=== PATIENT | male | born 1965 | race Caucasian/White ===

== ENCOUNTER 2016-07-24 17:25 | Observation (INO) | payer OTHER ==
[~2016-07-24 17:25] MED LIST: AMOX500C PO; ASPI325T PO; CARV6.25 PO; FOLI5CAP PO; GABA300C5 PO; LAMO25 PO; LEVEMIR SQ; MAAL10003 CHEW; METF500T PO; NOVOLOGSS SQ; PANT20 PO; THERM PO; VENL75TA PO
[2016-07-24 17:33] VITALS: BP 125/73; PULSE 112; RESP 16; TEMP 99.2; O2SAT 98
--- NOTE | 2016-07-24 18:19 | RADRPT ---
EXAM DATE/TIME: 07/24/2016 17:58 [facility] COMPARISON: No previous studies available for comparison. INDICATIONS : Syncopal episode today. MEDICAL HISTORY : Hypertension. Chronic obstructive pulmonary disease. Diabetes mellitus type II. SURGICAL HISTORY : CABG. ENCOUNTER: Initial ACUITY: 1 day PAIN SCORE: 0/10 LOCATION: Bilateral chest FINDINGS: A single view of the chest demonstrates the lungs to be symmetrically aerated without evidence of mas s, infiltrate or effusion. The cardiomediastinal contours are unremarkable. Osseous structures are intact. CONCLUSION: No evidence of acute cardiopulmonary disease. Ramon Fox MD on July 24, 2016 at 18:17 Board Certified Radiologist. This report was verified electronically.
[2016-07-24 18:37] VITALS: BP 131/86; PULSE 106; RESP 17; TEMP 97.8; O2SAT 98
[2016-07-24 18:49] LABS: AUTOMATED NEUTROPHIL # 3.3 TH/MM3 (1.8-7.7); BASOPHIL % 0.6 % (0.0-2.0); EOSINOPHIL % 0.8 % (0.0-4.0); HEMATOCRIT 40.3 % (39.0-51.0); HEMO FLAGS DIFF FINAL; LYMPH % 40.6 % (9.0-44.0); LYMPHOCYTE # 2.6 TH/MM3 (1.0-4.8); MEAN CORPUSCULAR HEMOGLOBIN 32.1 PG (27.0-34.0); MEAN CORPUSCULAR HGB CONC 35.3 % (32.0-36.0); PLATELET COUNT 191 TH/MM3 (150-450); RED BLOOD COUNT 4.43 MIL/MM3 (4.50-5.90); RED CELL DISTRIBUTION WIDTH 13.7 % (11.6-17.2); WHITE BLOOD COUNT 6.5 TH/MM3 (4.0-11.0)
[2016-07-24 19:11] VITALS: BP 133/96; PULSE 106; RESP 18; TEMP 98.7; O2SAT 94
[2016-07-24 19:13] LABS: ANION GAP 15 MEQ/L (5-15); BICARBONATE 24.3 MEQ/L (21.0-32.0); BLOOD UREA NITROGEN 10 MG/DL (7-18); CHLORIDE 93 MEQ/L (98-107); GLOMERULAR FILTRATION RATE 74 ML/MIN (>89); SODIUM (NA) 132 MEQ/L (136-145)
[2016-07-24 19:17] LABS: CREATINE KINASE 215 U/L (39-308)
[2016-07-24] MEDS ORDERED: SODIUM CHLOR 0.9% 1000 ML INJ 1,000 ML IV SCH (19:20)
[2016-07-24 19:29] LABS: CKMB 5.8 NG/ML (0.5-3.6)
[2016-07-24] MEDS ORDERED: MORPHINE SULFATE 4 MG/ML INJ IV PUSH ONE (19:30)
--- NOTE | 2016-07-24 19:48 | PD ---
HPI Chief Complaint: Chest Pain Time Seen by Provider: 19:38 Travel History International Travel<30 days: No Contact w/Intl Traveler<30days: No Traveled to known affect area: No History of Present Illness HPI 51-year-old male to presents to the ED for evaluation of right-sided chest pain that he's had on and off for the past week. Per patient she does have a significant history of diabetes as well as hypertension and previous CABG in 2013. Per patient he has an appointment in August with a animal killer for evaluation of his heart as he follows with the OR and he does take a while for him to get follow-up. Per patient he was told that his EKG was abnormal by the OR recently and that is why he was going to go to the animal killer. Per patient he currently takes no blood thinners. He denies any recent trauma. He does tell me that in May of this year he had his gallbladder removed. He states the most of the pain stays on the right side of the chest. Per patient the pain is sharp pain is 8 out of 10. Patient was given nitroglycerin and aspirin by ambulance on the way here with minimal relief. Patient states that he does feel somewhat short of breath. He also tells me that his sugars have been not under control and he states that he's been complaining. He denies any nausea or vomiting. He denies any fevers chills or sweats. He does state having some cough. Allergy to sulfa. PFSH Past Medical History Hx Anticoagulant Therapy: Yes (ASA) Arthritis: No Asthma: No Autoimmune Disease: No Anxiety: Yes Depression: Yes Heart Rhythm Problems: No Cancer: No Cardiovascular Problems: Yes High Cholesterol: Yes Chemotherapy: No Chest Pain: No Congestive Heart Failure: No COPD: Yes Cerebrovascular Accident: No Diabetes: Yes Patient Takes Glucophage: Yes Diminished Hearing: No Endocrine: Yes Gastrointestinal Disorders: Yes (COLITIS ) GERD: No Genitourinary: No Headaches: No Hiatal Hernia: No Heparin Induced Thrombocytopen: No Hypertension: Yes Immune Disorder: No Implanted Vascular Access Dvce: No Kidney Stones: No Musculoskeletal: Yes Neurologic: Yes Psychiatric: Yes (PTSD) Reproductive: No Respiratory: Yes Immunizations Current: Yes Myocardial Infarction: Yes (1X) Radiation Therapy: No Renal Failure: No Seizures: No Sickle Cell Disease: No Sleep Apnea: No Thyroid Disease: No Ulcer: No ?: Not Past Surgical History Abdominal Surgery: Yes (APPENDECTOMY) AICD: No Appendectomy: Yes (LATE 90'S ) Arteriovenous Shunt: No Coronary Artery Bypass Graft: Yes (2 VESSEL) Ear Surgery: No Endocrine Surgery: No Eye Surgery: No Genitourinary Surgery: No Gynecologic Surgery: No Insulin Pump: No Joint Replacement: No Oral Surgery: No Pacemaker: No Thoracic Surgery: No Other Surgery: Yes (3 back surgeries, and 1 neck surgery) Social History Alcohol Use: Yes (12 PK EVERY DAY; 6 pack today) Tobacco Use: No Substance Use: Yes Allergies-Medications (Allergen,Severity, Reaction): Coded Allergies: Sulfa (Verified Allergy, Mild, Rash, 07/24/16) Reported Meds & Prescriptions Reported Meds & Active Scripts Active Maalox Advanced Maximum Strength (Calcium Carbonate-Simethicone) 1,000-60 Mg Chew 1-2 Tab CHEW BID PRN 7 Days Reported Amoxicillin 500 Mg Cap 500 Mg PO DAILY Coreg (Carvedilol) 6.25 Mg Tab 6.25 Mg PO ONCE Folic Acid 5 Mg Cap 1 Mg PO DAILY Novolog Inj (Insulin Aspart) 100 Unit/Ml Inj SQ [id number] SLIDE SCALE Gabapentin 300 Mg Cap 300 Mg PO BID Levemir Inj (Insulin Detemir) 1,000 unit/ 10 ML Vial 30 Units SQ BID Do not mix with any other Insulin. Lamictal (Lamotrigine) 25 Mg Tab 50 Mg PO DAILY Metformin (Metformin HCl) 500 Mg Tab 500 Mg PO BIDPC With meals Thera M Plus (Multivitamins/Minerals Therapeutic) 1 Tab 1 Tab PO DAILY Protonix (Pantoprazole Sodium) 20 Mg Tab 20 Mg PO DAILY Effexor (Venlafaxine HCl) 75 Mg Tab 75 Mg PO DAILY Aspirin 325 Mg Tab 325 Mg PO DAILY Review of Systems General / Constitutional: No: Fever, Chills, Weight Gain, Weight Loss, Other Eyes: No: Diploplia, Blurred Vision, Photophobia, Drainage, Redness, Foreign Body Sensation, Pain, Tearing, Blind Spots, Visual changes, Blindness, Other HENT: No: Headaches, Vertigo, Lightheadedness, Sore Throat, Rhinitis, Rhinorrhea, Congestion, Nosebleed, Neck Stiffness, Neck Pain, Masses, Gingival Bleeding, Dental Difficulties, Ear Discharge, Earache, Other Cardiovascular: Positive: Chest Pain or Discomfort, No: Palpitations, Irregular Rhythm, Tachycardia, Diaphoresis, Syncope, Dyspnea on exertion, Varicosities, Edema, Cyanosis, Varicosities, Phlebitis, Claudication, Other Respiratory: Positive: Cough, Shortness of Breath, No: Wheezing, Sneezing, Orthopnea, Hemoptysis, Stridor, Night Sweats, Pleuritic Pain, Other Gastrointestinal: No: Nausea, Vomiting, Diarrhea, Abdominal Pain, Hematemesis, Hematochezia, Constipation, Changes in Bowel Habits, Indigestion, Dysphagia, Loss of Appetite, Other Genitourinary: No: Urgency, Frequency, Dysuria, Nocturia, Hematuria, Decreased Urinary Output, Oliguria, Hesitancy, Dribbling, Incontinence, Pelvic Pain, Flank Pain, Dyspareunia, Discharge, Dysmenorrhea, Menorrhagia, Metorrhagia, Vaginal Bleeding, Other Musculoskeletal: No: Myalgias, Arthralgias, Limited ROM, Weakness, Cramping, Edema, Pain, Atrophy, Other Skin: No Rash, No Itching, No Dryness, No Lumps, No Hives, No Change in Pigmentation, No Change in nails, No Alopecia, No Lesions, No Breast Lumps, No Breast Tenderness, No Breast Swelling, No Other Neurologic: No: Weakness, Dizziness, Syncope, Focal Abnormalities, Coordination Problem, Tremor, Ataxia, Headache, Change in Mentation, Slurred Speech, Paresthesia, Incontinence, Seizures, Sensory Disturbance, Other Psychiatric: No: Anxiety, Depression, Suicidal Ideations, Disorder of Thought, Mood Disorder, Substance Abuse, Homicidal Ideation, Other Endocrine: No: Heat Intolerance, Cold Intolerance, Polyuria, Polydipsia, Other Hematologic/Lymphatic: No: Easy Bruising, Lymph Node Enlargement, Other Physical Exam Narrative GENERAL: SKIN: Warm and dry. HEAD: Atraumatic. Normocephalic. EYES: Pupils equal and round 4 mm reactive to light and accommodation. No scleral icterus. No injection or drainage. ENT: No nasal bleeding or discharge. Mucous membranes pink and moist. Tongue is midline. No uvula deviation. NECK: Trachea midline. No JVD. CARDIOVASCULAR: Regular rate and rhythm. No murmurs, S3, S4. Chest pain is not reproducible with touch. RESPIRATORY: No accessory muscle use. Clear to auscultation. Breath sounds equal bilaterally. GASTROINTESTINAL: Abdomen soft, non-tender, nondistended. Hepatic and splenic margins not palpable. MUSCULOSKELETAL: Extremities without clubbing, cyanosis, or edema. No obvious deformities. Full range of motion of the upper and lower extremities bilaterally. 2+ pulses bilaterally. NEUROLOGICAL: Awake and alert. No obvious cranial nerve deficits. Motor grossly within normal limits. Five out of 5 muscle strength in the arms and legs. Normal speech. PSYCHIATRIC: Appropriate mood and affect; insight and judgment normal. Data Data Last Documented VS Vital Signs Date Time Temp Pulse Resp B/P Pulse Ox O2 Delivery O2 Flow Rate FiO2 07/24/16 19:11 98.7 106 18 133/96 94 Room Air Orders Electrocardiogram (07/24/16 17:49) Complete Blood Count With Diff (07/24/16:49) Basic Metabolic Panel (Bmp) (07/24/16 17:49) Ckmb (Isoenzyme) Profile (07/24/16 17:49) Troponin I (07/24/16:49) Chest, Single Ap (07/24/16:49) Iv Access Insert/Monitor (07/24/16:49) Ecg Monitoring (07/24/16:49) Oxygen Administration (07/24/16:49) Oximetry (07/24/16:49) Urinalysis - C+S If Indicated (07/24/16 17:49) CKMB (07/24/16 18:15) CKMB% (07/24/16 18:15) Morphine Inj (Morphine Inj) (07/24/16 19:30) Sodium Chlor 0.9% 1000 Ml Inj (Ns 1000 M (07/24/16 19:20) Coag Profile (07/24/16 19:42) D-Dimer (07/24/16 19:42) Lorazepam Inj (Ativan Inj) (07/24/16 20:00) Admit Order (Ed Use Only) (07/24/16 19:58) Hepatic Functional Panel (07/24/16 18:15) Labs Laboratory Tests Test 07/24/16 07/24/16 18:15 19:15 White Blood Count 6.5 TH/MM3 Red Blood Count 4.43 MIL/MM3 Hemoglobin 14.2 GM/DL Hematocrit 40.3 % Mean Corpuscular Volume 91.0 FL Mean Corpuscular Hemoglobin 32.1 PG Mean Corpuscular Hemoglobin 35.3 % Concent Red Cell Distribution Width 13.7 % Platelet Count 191 TH/MM3 Mean Platelet Volume 8.5 FL Neutrophils (%) (Auto) 51.0 % Lymphocytes (%) (Auto) 40.6 % Monocytes (%) (Auto) 7.0 % Eosinophils (%) (Auto) 0.8 % Basophils (%) (Auto) 0.6 % Neutrophils # (Auto) 3.3 TH/MM3 Lymphocytes # (Auto) 2.6 TH/MM3 Monocytes # (Auto) 0.5 TH/MM3 Eosinophils # (Auto) 0.0 TH/MM3 Basophils # (Auto) 0.0 TH/MM3 CBC Comment DIFF FINAL Differential Comment Prothrombin Time 11.2 SEC Prothromb Time International 1.0 RATIO Ratio Activated Partial 24.5 SEC Thromboplast Time D-Dimer Quantitative (PE/DVT) 0.27 MG/L FEU Sodium Level 132 MEQ/L Potassium Level 4.0 MEQ/L Chloride Level 93 MEQ/L Carbon Dioxide Level 24.3 MEQ/L Anion Gap 15 MEQ/L Blood Urea Nitrogen 10 MG/DL Creatinine 1.05 MG/DL Estimat Glomerular Filtration 74 ML/MIN Rate Random Glucose 372 MG/DL Calcium Level 8.6 MG/DL Total Bilirubin 0.5 MG/DL Direct Bilirubin 0.1 MG/DL Indirect Bilirubin 0.4 MG/DL Aspartate Amino Transf 28 U/L (AST/SGOT) Alanine Aminotransferase 32 U/L (ALT/SGPT) Alkaline Phosphatase 96 U/L Total Creatine Kinase 215 U/L Creatine Kinase MB 5.8 NG/ML Troponin I LESS THAN 0.02 NG/ML Total Protein 7.8 GM/DL Albumin 3.7 GM/DL Urine Color COLORLESS Urine Turbidity CLEAR Urine pH 5.0 Urine Specific [place] 1.002 Urine Protein NEG mg/dL Urine Glucose (UA) 1000 mg/dL Urine Ketones NEG mg/dL Urine Occult Blood NEG Urine Nitrite NEG Urine Bilirubin NEG Urine Urobilinogen LESS THAN 2.0 MG/DL Urine Leukocyte Esterase NEG Urine Mucus FEW /lpf Microscopic Urinalysis Comment CULT NOT INDICATED MDM Medical Decision Making Medical Screen Exam Complete: Yes Emergency Medical Condition: Yes Medical Record Reviewed: Yes Interpretation(s) CBC & BMP Diagram 07/24/16 18:15 Troponin and CK-MB within normal limits. Differential Diagnosis Chest pain versus atypical chest pain versus PE versus pneumonia versus ACS versus hyperglycemia versus DKA Narrative Course 51-year-old male that presents to the ED for evaluation of right-sided chest pain. Patient was properly examined and was found to have signs and symptoms consistent with appears to be chest pain. Concerning for ACS. Recommendation is for labs and imaging. Labs and imaging were ordered. Case was signed out to my attending who will dispo patient for likely admission. Diagnosis Primary Impression: Chest pain Qualified Code: R07.9 - Chest pain, unspecified type Admitting Information Admitting Physician Requests: Ezekiel Gant Jul 24, 2016 19:48
[2016-07-24 19:53] LABS: BLOOD, URINE NEG (NEG); GLUCOSE,URINE 1000 mg/dL (NEG); KETONE, URINE NEG (NEG); MUCUS URINE FEW /lpf (OCC); NITRITE,URINE NEG (NEG); URINE COLOR COLORLESS (YELLW/STRAW)
[2016-07-24 19:54] LABS: COMMENT (UR) CULT NOT INDICATED; CULTURE IF INDICATED CULT NOT INDICATED
[2016-07-24] MEDS ORDERED: LORazepam 2 MG/ML VIAL IV PUSH ONE (20:00)
[2016-07-24 20:23] LABS: ALKALINE PHOSPHATASE 96 U/L (45-117); ALT (GPT) 32 U/L (12-78); AST (GOT) 28 U/L (15-37); INDIRECT BILIRUBIN 0.4 MG/DL (0.0-0.8); TOTAL BILIRUBIN ADULT 0.5 MG/DL (0.2-1.0)
[2016-07-24 21:10] LABS: APTT (PATIENT) 24.5 SEC (24.3-30.1); PROTHROMBIN TIME - PATIENT 11.2 SEC (9.8-11.6)
--- NOTE | 2016-07-24 21:29 | PD ---
Data Data Last Documented VS Vital Signs Date Time Temp Pulse Resp B/P Pulse Ox O2 Delivery O2 Flow Rate FiO2 07/24/16 19:11 98.7 106 18 133/96 94 Room Air Orders Electrocardiogram (07/24/16 17:49) Complete Blood Count With Diff (07/24/16 17:49) Basic Metabolic Panel (Bmp) (07/24/16 17:49) Ckmb (Isoenzyme) Profile (07/24/16 17:49) Troponin I (07/24/16:49) Chest, Single Ap (07/24/16 17:49) Iv Access Insert/Monitor (07/24/16 17:49) Ecg Monitoring (07/24/16:49) Oxygen Administration (07/24/16:49) Oximetry (07/24/16:49) Urinalysis - C+S If Indicated (07/24/16 17:49) CKMB (07/24/16 18:15) CKMB% (07/24/16 18:15) Morphine Inj (Morphine Inj) (07/24/16 19:30) Sodium Chlor 0.9% 1000 Ml Inj (Ns 1000 M (07/24/16 19:20) Coag Profile (07/24/16 19:42) D-Dimer (07/24/16 19:42) Lorazepam Inj (Ativan Inj) (07/24/16 20:00) Admit Order (Ed Use Only) (07/24/16 19:58) Hepatic Functional Panel (07/24/16 18:15) Labs Laboratory Tests Test 07/24/16 07/24/16 18:15 19:15 White Blood Count 6.5 TH/MM3 Red Blood Count 4.43 MIL/MM3 Hemoglobin 14.2 GM/DL Hematocrit 40.3 % Mean Corpuscular Volume 91.0 FL Mean Corpuscular Hemoglobin 32.1 PG Mean Corpuscular Hemoglobin 35.3 % Concent Red Cell Distribution Width 13.7 % Platelet Count 191 TH/MM3 Mean Platelet Volume 8.5 FL Neutrophils (%) (Auto) 51.0 % Lymphocytes (%) (Auto) 40.6 % Monocytes (%) (Auto) 7.0 % Eosinophils (%) (Auto) 0.8 % Basophils (%) (Auto) 0.6 % Neutrophils # (Auto) 3.3 TH/MM3 Lymphocytes # (Auto) 2.6 TH/MM3 Monocytes # (Auto) 0.5 TH/MM3 Eosinophils # (Auto) 0.0 TH/MM3 Basophils # (Auto) 0.0 TH/MM3 CBC Comment DIFF FINAL Differential Comment Prothrombin Time 11.2 SEC Prothromb Time International 1.0 RATIO Ratio Activated Partial 24.5 SEC Thromboplast Time D-Dimer Quantitative (PE/DVT) 0.27 MG/L FEU Sodium Level 132 MEQ/L Potassium Level 4.0 MEQ/L Chloride Level 93 MEQ/L Carbon Dioxide Level 24.3 MEQ/L Anion Gap 15 MEQ/L Blood Urea Nitrogen 10 MG/DL Creatinine 1.05 MG/DL Estimat Glomerular Filtration 74 ML/MIN Rate Random Glucose 372 MG/DL Calcium Level 8.6 MG/DL Total Bilirubin 0.5 MG/DL Direct Bilirubin 0.1 MG/DL Indirect Bilirubin 0.4 MG/DL Aspartate Amino Transf 28 U/L (AST/SGOT) Alanine Aminotransferase 32 U/L (ALT/SGPT) Alkaline Phosphatase 96 U/L Total Creatine Kinase 215 U/L Creatine Kinase MB 5.8 NG/ML Troponin I LESS THAN 0.02 NG/ML Total Protein 7.8 GM/DL Albumin 3.7 GM/DL Urine Color COLORLESS Urine Turbidity CLEAR Urine pH 5.0 Urine Specific [place] 1.002 Urine Protein NEG mg/dL Urine Glucose (UA) 1000 mg/dL Urine Ketones NEG mg/dL Urine Occult Blood NEG Urine Nitrite NEG Urine Bilirubin NEG Urine Urobilinogen LESS THAN 2.0 MG/DL Urine Leukocyte Esterase NEG Urine Mucus FEW /lpf Microscopic Urinalysis Comment CULT NOT INDICATED MDM Supervised Visit with DEL: Yes Narrative Course The history, exam, and medical decision-making in the associated midlevel provider note were completed with my assistance. I reviewed and agree with the findings presented. I attest that I had a [id number] encounter with the patient on the same day, and personally performed and documented my assessment and findings in the medical record. *My assessment and Findings: This is a 51-year-old male who has a history of alcohol dependence as well as coronary artery disease having had a CABG in 2013 who presents to the emergency department with an episode of right sided chest pain that radiates to his neck and arm, associated with shortness of breath and lightheadedness. He says he's been having increasing episodes of chest pain over the past several months and he has an appointment with a benzene worker scheduled through the [place] but he hasn't attended it yet. EKG is unrevealing. Labs were all unremarkable. D-dimer is negative. I think given the patient's history of coronary artery disease it's reasonable to admit him for serial cardiac enzymes and risk stratification. He was placed on CIM[facility] protocol for potential alcohol withdrawal, and he was given IV hydration as he appears dehydrated. Diagnosis Primary Impression: Chest pain Constance Ken MD Jul 24, 2016 21:29
[2016-07-24] MEDS ORDERED: INSULIN DETEMIR 100 UNITS/ML VIAL SQ SCH (21:45)
[2016-07-24] MEDS ORDERED: SODIUM CHLORIDE 0.9% FLUSH 5 ML FLUSH IVF PRN (21:45)
[2016-07-24] MEDS ORDERED: ACETAMINOPHEN/HYDROcodone 325 MG/5 MG TAB PO ONE (23:00)
[2016-07-24 23:53] VITALS: BP 138/78; PULSE 77; RESP 16; TEMP 97.7; O2SAT 95
[2016-07-25] VITALS (10 sets, daily range): BP systolic 135–160; BP diastolic 79–109; PULSE 91–97; RESP 18–21; TEMP 97.9–98.7; O2SAT 94–98
[2016-07-25] MEDS ORDERED: ZOLPIDEM TARTRATE 10 MG TAB PO PRN (00:45)
[2016-07-25] MEDS ORDERED: ACETAMINOPHEN 500 MG CPLT PO PRN (00:45)
[2016-07-25] MEDS: ACETAMINOPHEN/HYDROcodone 325 MG/5 MG TAB PO PRN ×2 (01:55→12:02)
[2016-07-25] MEDS ORDERED: DEXTROSE 50% IN WATER 50 ML VIAL(D50) IV PRN (08:00)
[2016-07-25] MEDS ORDERED: GLUCAGON 1 MG/ML VIAL OTHER PRN (08:00)
[2016-07-25] MEDS ORDERED: SODIUM CHLORIDE 0.9% FLUSH 5 ML FLUSH IVF SCH (09:00)
[2016-07-25] MEDS ORDERED: INSULIN ASPART SUPPLEMENTAL SCALE SQ SCH (11:00)
[2016-07-25] MEDS ORDERED: REGADENOSON INJ 0.4 MG/5 ML SYR ONE (11:13)
--- NOTE | 2016-07-25 12:05 | TR ---
Date Performed: 07/25/2016 Time Performed: 10:52:51 DOCTOR: Scar Troy DRUG LIST: CLINICAL HISTORY: ANGINA PECTORIS REASON FOR TEST: Angina REASON FOR ENDING: OBSERVATION: CONCLUSION: Lexiscan stress test was performed under standard four minute protocol. Radionuclid e was injected one minute prior to ending the test. No electrocardiographic abormalities were present to suggest ischemia. Nuclear imaging and interpretation are pending. COMMENTS:
[2016-07-25] MEDS ORDERED: KETOROLAC TROMETHAMINE 30 MG/ML (IVP) VIAL IV PUSH ONE (12:45)
[2016-07-25] MEDS ORDERED: lamoTRIgine 25 MG TAB PO SCH (13:00)
[2016-07-25] MEDS ORDERED: VENLAFAXINE HCL XR 75 MG CAP PO SCH (13:00)
[2016-07-25] MEDS ORDERED: MULTIVITAMINS/MINERALS THERAPEUTIC TAB PO SCH (13:00)
[2016-07-25] MEDS ORDERED: GABAPENTIN 300 MG CAP PO SCH (13:00)
[2016-07-25] MEDS ORDERED: FOLIC ACID 1 MG TAB PO SCH (13:00)
[2016-07-25] MEDS ORDERED: ASPIRIN 325 MG TAB PO SCH (13:00)
[2016-07-25] MEDS ORDERED: CARVEDILOL 6.25 MG TAB PO SCH (13:00)
[2016-07-25] MEDS ORDERED: PANTOPRAZOLE SOD 20 MG DELAYED RELEASE TAB PO SCH (14:00)
--- NOTE | 2016-07-25 14:42 | RADRPT ---
EXAM DATE/TIME: 07/25/2016 09:33 [facility] COMPARISON: No previous studies available for comparison. INDICATIONS : Right sided chest pain for one week. Angina. DOSE: 26.1 mCi Tc99m Myoview at stress. 8.7 mCi Tc99m Myoview at rest. 0.4 mg Lexiscan STRESS SYMPTOMS: None. EJECTION FRACTION: 36% MEDICAL HISTORY : Hypertension. Myocardial infarction. Diabetes mellitus type 2. SURGICAL HISTORY : CABG Appendectomy. ENCOUNTER: Initial ACUITY: 1 week PAIN SCALE: 8/10 LOCATION: Right chest TECHNIQUE: The patient underwent pharmacologic stress with infusion of prescribed dose. Continuous ECG tracing was monitored during stress. Gated SPECT imaging was performed after stress and conventional SPECT i maging was performed at rest. The examination was performed on a SPECT/CT scanner, both attenuation and non-corrected datasets were reviewed. FINDINGS: DISTRIBUTION: The maximum perfused segment at stress is in the septal wall. PERFUSION STUDY: There is a small area of minimal decreased activity on the stress images at the mid anterior wall in the order of only 10% difference which is likely within normal limits. An area of ischemia is not susana kiah seen. GATED STUDY: There is global hypokinesis with a reduced ejection fraction. CONCLUSION: 1. No ischemia seen. 2. Global hypokinesis with a reduced ejection fraction at 36%. RISK CATEGORY: Low (<1% Annual Mortality Rate) Ramon Norris MD on July 25, 2016 at 14:39 Board Certified Radiologist. This report was verified electronically.
--- NOTE | 2016-07-25 15:15 | HHI.DCPOC ---
Discharge Care Plan Diagnosis: (1) Atypical chest pain (2) Hx of coronary artery disease (3) DM (diabetes mellitus) (4) Musculoskeletal pain (5) Cardiomyopathy (6) Alcohol use Goals to Promote Your Health * To prevent worsening of your condition and complications * To maintain your health at the optimal level Directions to Meet Your Goals Take your medications as prescribed Follow your dietary instruction Follow activity as directed Keep your appointments as scheduled Take your immunizations and boosters as scheduled If your symptoms worsen call your PCP, if no PCP go to Urgent Care Center or Emergency Room Smoking is Dangerous to Your Health. Avoid second hand smoke Call the 24-hour hour crisis hotline for domestic abuse at Elena Rodriguez Jul 25, 2016 15:15
--- NOTE | 2016-07-25 15:18 | TR ---
Date Performed: 07/25/2016 Time Performed: 10:28:23 DOCTOR: Scar Troy DRUG LIST: CLINICAL HISTORY: REASON FOR TEST: REASON FOR ENDING: Patient exercised using clarissa protocol for Total Exercise Time=4:39 Maximum H R=123 % Max HR Achieved=73.0% Maximum CO=802/90. Test was ended prior to reaching HR goal secondary t o inability to walk longer. pt did have 5/10 chest discomfort during exercise. Pt has NS twave change s prior to exercise diffusely with numerous PVCs that did not change. converted to Lexiscan. OBSERVATION: CONCLUSION: submaximal test inconclusive. COMMENTS:
--- NOTE | 2016-07-25 15:21 | EKG ---
Date Performed: 07/25/2016 Time Performed: 00:47:04 PTAGE: 51 years EKG: Sinus rhythm WITH FREQUENT VENTRICULAR PREMATURE COMPLEXES POSSIBLE LEFT ATRIAL ENLARGEMENT NONSPECIFIC T-WAVE AB NORMALITY ABNORMAL ECG PREVIOUS TRACING : 07/24/2016 22.15 Since previous tracing, no significant change noted DOCTOR: Scar Troy Interpretating Date/Time 07/25/2016 15:20:14
--- NOTE | 2016-07-25 15:22 | EKG ---
Date Performed: 07/24/2016 Time Performed: 22:15:11 PTAGE: 51 years EKG: SINUS TACHYCARDIA WITH FREQUENT VENTRICULAR PREMATURE COMPLEXES POSSIBLE LEFT ATRIAL ENLARG EMENT NONSPECIFIC T-WAVE ABNORMALITY ABNORMAL ECG PREVIOUS TRACING : 07/24/2016 17.26 Compared to previous tracing ,PVCs are new. DOCTOR: Scar Troy Interpretating Date/Time 07/25/2016 15:21:56
--- NOTE | 2016-07-25 15:26 | EKG ---
Date Performed: 07/24/2016 Time Performed: 17:26:49 PTAGE: 51 years EKG: SINUS TACHYCARDIA POSSIBLE LEFT ATRIAL ENLARGEMENT NONSPECIFIC T-WAVE ABNORMALITY ABNORMAL ECG PREVIOUS TRACING : 01/18/2016 16.27 Compared to previous tracing ,PVCs have resolved DOCTOR: Scar Troy Interpretating Date/Time 07/25/2016 15:25:55
[2016-07-25] MEDS ORDERED: INSULIN DETEMIR 100 UNITS/ML VIAL SQ SCH (21:00)
--- NOTE | 2016-07-26 08:18 | MH ---
cc: [facility], SCAR SWAIN MD DATE OF ADMISSION: 07/24/2016 DATE OF : 1965. CHIEF COMPLAINT Chest pain. HISTORY OF PRESENT ILLNESS The patient states that he was down celebrating [place] and had just had dinner at around 05:30 p.m. last evening when he developed some discomfort in his shoulders, particularly on the right shoulder and into the right neck. He had some associated dyspnea. He felt dizzy and weak and states that EVAC came, his blood pressure was elevated as well as his blood sugar. At some point he began getting some dull stabbing type pains in his right chest and he was transported here. He was given nitroglycerin sublingual, one via EVAC. He states that did not help. He received further treatment in the ER with Ativan IV, morphine IV, Levemir insulin and a liter of saline which did help his discomfort. He has also received a Lortab during the evening. He has a history of heart disease and states for the last 3 weeks on and off he has been getting a dull stabbing type pain in his right chest to neck and shoulder, usually brought on with movement, but can last for hours at a time before it goes away. He states he does not have any nitro via the [facility] to take. And does not take any pain medication. He has been referred to the [facility] in [place] and reports that he has an appointment on August 18. PAST MEDICAL HISTORY Significant for: 1. Heart disease with a non-STEMI in September of 2013 resulting in a cardiac catheterization and then a three-vessel CABG done 10/12/[address] Pruett with KNIGHT to the LAD, reverse saphenous vein graft to the diagonal and reverse saphenous vein graft to the RCA. He also had an ORIF of the sternum with Biomet plates and screws. 2. He has a history of diabetes, insulin dependent. 3. He reports non-controlled alcohol use daily usually, admits currently to a six-pack of beer daily. 4. Diabetic neuropathy of the feet with some diabetic ulcers on his right toes, followed he states by the wound clinic at the [facility] and he reports that they are slowly healing. 5. Hypertension. 6. Anxiety/depression with PTSD. 7. Dyslipidemia. 8. COPD. 9. Colitis. 10. Cholecystectomy in May of this year. 11. Appendectomy. 12. He has had numerous surgeries on his low back and C-spine. 13. Fractured sternum last year after his bypass and also resulted in an infection and repair. 14. He has a history of substance abuse, mostly with marijuana and positive cocaine a few months back. FAMILY HISTORY Positive heart disease in both parents. SOCIAL HISTORY He lives in [place], , disabled [place]. Has never smoked tobacco. Admits to alcohol as described above, usually a six-pack of beer daily. Illicit drug use is mostly marijuana but he has used cocaine, last he states a few months back. Weight 90 kg. He states that he tries to walk for exercise and rides his bike. PAST CARDIAC TESTING He endorses he has had no type of stress testing or heart catheterization since his original heart cath and bypass in 2013. As discussed above has a referral to the [facility] director in [place] on August 18. MEDICATIONS 1. Protonix. 2. Multivitamin. 3. Metformin. 4. Lamictal. 5. Levemir insulin. 6. Gabapentin. 7. NovoLog. 8. Folic acid. 9. Carvedilol. 10. Effexor. 11. Aspirin. 12. Atorvastatin. 13. Seroquel. ALLERGIES SULFA. REVIEW OF SYSTEMS Positive for what is discussed above in HPI. Remaining system review is negative other than those consistent with his chronic disease such as neuropathy of the feet, healing ulcers of the right toes. Otherwise, negative. PHYSICAL EXAMINATION VITAL SIGNS: Temperature is 97.9, heart rate 91, respiratory rate 20, blood pressure 139/97, O2 saturations 95% on room air. On arrival to the ED he did have a low grade fever of 99.2 and a pulse of 112. GENERAL: This is a very pleasant 51-year-old male lying quietly in bed. He is alert and oriented, answers all questions appropriately and appears well-nourished and developed, in no acute distress. HEAD: The head is atraumatic, normocephalic. EYES: Sclerae are clear, nonicteric. EOMI. NECK: Supple. Trachea is midline. No JVD or carotid bruits. CV: S1 and S2, in a regular rhythm currently in the 90s, intermittent early beats. No S3, S4, rub, gallop or murmur appreciable. RESPIRATORY: CTA - B. No wheezes, rales or rhonchi. Good air movement. GI: Abdomen is soft, nontender, nondistended. No guarding, rigidity or rebound tenderness. MUSCULOSKELETAL: He has no significant tenderness on palpation of the chest wall. EXTREMITIES: He moves all extremities well. He does have some bandages to several toes on his right foot. These were not removed. The patient has treatment through the [facility] wound center and states healing. Pulses are 2+ dorsalis pedis and posterior tibialis. There is no swelling to his lower extremities. PSYCHE: He appears very pleasant, friendly, cooperative. SKIN: Skin is cool and dry. LABORATORY DATA CBC is unremarkable. Coag profile unremarkable. D-dimer negative at 0.27. Complete chemistry with sodium 132, chloride 93, GFR 74, random blood sugar is 372. The rest of the chemistry panel is unremarkable. Three sets of negative troponins. The first CK-MB was elevated at 5.8 with a total CK normal range at 215. Urinalysis is 1000 glucose and few mucous, culture not indicated. IMAGING STUDIES A chest film showing no evidence of acute cardiopulmonary disease. EKG EKGs are done x3, all showing sinus tachycardia. He has nonspecific lateral T-wave changes and PVCs. ASSESSMENT/PLAN 1. Chest pain in a patient with a history of heart disease and CABG, three-vessel in 2013 as above. He has been ruled out with three sets of cardiac enzymes and EKGs. He will be seen and evaluated through the chest pain center by Dr. Scar Swain in cardiology. Will proceed with stress testing with a nuclear exercise treadmill test. The patient has been placed on a sliding scale for blood sugar monitoring, received a liter of fluid in the ER and pain medication. Will continue his routine medications as prior to admission as indicated. His metformin will be held of course pending further cardiac testing. Dependent upon results of the testing and Dr. Swain's recommendations further recommendations will follow. The patient should work on decreasing his alcohol use particularly given his diabetes and should refrain from illicit drug use. Dictated by: Elena Rodriguez, Nurse Practitioner Scar Swain MD RSA/TLL /8:28 AM /7:17 AM
== END 2016-07-25 16:16 | disposition home or self-care (01) ==
LOC: NEPE 17:25 → NEDA 19:59 → NEPHCDU 23:28
DX: R07.89 Other chest pain (principal); I25.10 Atherosclerotic heart disease of native coronary artery without angina pectoris; I10 Essential (primary) hypertension; I25.2 Old myocardial infarction; E78.00 Pure hypercholesterolemia, unspecified; J44.9 Chronic obstructive pulmonary disease, unspecified; E78.5 Hyperlipidemia, unspecified; L97.519 Non-pressure chronic ulcer of other part of right foot with unspecified severity; E11.621 Type 2 diabetes mellitus with foot ulcer; E11.40 Type 2 diabetes mellitus with diabetic neuropathy, unspecified; F41.9 Anxiety disorder, unspecified; F32.9 Major depressive disorder, single episode, unspecified; F43.10 Post-traumatic stress disorder, unspecified; Z88.2 Allergy status to sulfonamides; Z95.1 Presence of aortocoronary bypass graft; Z79.4 Long term (current) use of insulin; Z79.82 Long term (current) use of aspirin
CPT/HCPCS: 71010; 78452; 80048; 80076; 81001; 82550; 82552; 82948; 84484; 85025; 85379; 85610; 85730; 93005; 93017; 96374; 99285; A9502; G0378; J1885; J2060; J2270; J2785; J7030

== ENCOUNTER 2016-08-02 16:10 | Inpatient (IN) | payer OTHER ==
[2016-08-02] VITALS (7 sets, daily range): BP systolic 99–139; BP diastolic 60–90; PULSE 98–124; RESP 18–20; TEMP 98–98.3; O2SAT 96–99
[~2016-08-02] VITALS: Ht 177.8 cm; Wt 85.0 kg
--- NOTE | 2016-08-02 16:54 | PD ---
HPI Chief Complaint: Chest Pain Time Seen by Provider: 16:44 Travel History International Travel<30 days: No Contact w/Intl Traveler<30days: No Traveled to known affect area: No History of Present Illness HPI 51-year-old male with history of CAD, CABG, hypertension, diabetes, here for evaluation of chest pain and left arm numbness. The patient reports that the symptoms started at midnight last night. Chest pain is described as tightness, over his left chest, radiates down his left arm, moderate, no modifying factors. The patient reports feeling numbness down his entire left arm. He denies any focal weakness. He is also complaining of some numbness sensation to his right hand as well as dizziness/lightheadedness. He denies visual complaints. He admits to drinking 2 beers for lunch today. No illicit drug use. He was admitted to the chest pain center earlier this month and had a myocardial perfusion scan which showed no ischemia, global hypokinesis with a reduced EF at 36%. PFSH Past Medical History Hx Anticoagulant Therapy: Yes (ASA) Arthritis: No Asthma: No Autoimmune Disease: No Anxiety: Yes Depression: Yes Heart Rhythm Problems: No Cancer: No Cardiovascular Problems: Yes High Cholesterol: Yes Chemotherapy: No Chest Pain: No Congestive Heart Failure: No COPD: Yes Cerebrovascular Accident: No Diabetes: Yes Patient Takes Glucophage: Yes Diminished Hearing: No Endocrine: Yes Gastrointestinal Disorders: Yes (COLITIS ) GERD: No Genitourinary: No Headaches: No Hiatal Hernia: No Heparin Induced Thrombocytopen: No Hypertension: Yes Immune Disorder: No Implanted Vascular Access Dvce: No Kidney Stones: No Musculoskeletal: Yes Neurologic: Yes Psychiatric: Yes (PTSD) Reproductive: No Respiratory: Yes Immunizations Current: Yes Myocardial Infarction: Yes (1X) Radiation Therapy: No Renal Failure: No Seizures: No Sickle Cell Disease: No Sleep Apnea: No Thyroid Disease: No Ulcer: No Tetanus Vaccination: < 5 Years Past Surgical History Abdominal Surgery: Yes (APPENDECTOMY) AICD: No Appendectomy: Yes (LATE ) Arteriovenous Shunt: No Coronary Artery Bypass Graft: Yes (2 VESSEL) Ear Surgery: No Endocrine Surgery: No Eye Surgery: No Genitourinary Surgery: No Gynecologic Surgery: No Insulin Pump: No Joint Replacement: No Oral Surgery: No Pacemaker: No Thoracic Surgery: No Other Surgery: Yes (3 back surgeries, and 1 neck surgery) Family History Family Myocardial Infarction: Yes (DAD HAD MASSIVE CT AT 56) Social History Alcohol Use: Yes (12 PK EVERY DAY; 6 pack today) Tobacco Use: No Substance Use: Yes Allergies-Medications (Allergen,Severity, Reaction): Coded Allergies: Sulfa (Verified Allergy, Mild, Rash, 08/02/16) Reported Meds & Prescriptions Reported Meds & Active Scripts Active Maalox Advanced Maximum Strength (Calcium Carbonate-Simethicone) 1,000-60 Mg Chew 1-2 Tab CHEW BID PRN 7 Days Reported Folate (Folic Acid) 1 Mg Tab 1 Mg PO DAILY Amoxicillin 500 Mg Cap 500 Mg PO DAILY Coreg (Carvedilol) 6.25 Mg Tab 6.25 Mg PO BID Novolog Inj (Insulin Aspart) 100 Unit/Ml Inj SQ ACHS03 SLIDE SCALE Gabapentin 300 Mg Cap 300 Mg PO BID Levemir Inj (Insulin Detemir) 1,000 unit/ 10 ML Vial 30 Units SQ HS Do not mix with any other Insulin. Lamictal (Lamotrigine) 25 Mg Tab 50 Mg PO AC DINNER Metformin (Metformin HCl) 500 Mg Tab 500 Mg PO BIDPC With meals Thera M Plus (Multivitamins/Minerals Therapeutic) 1 Tab 1 Tab PO DAILY Protonix (Pantoprazole Sodium) 20 Mg Tab 20 Mg PO DAILY Effexor (Venlafaxine HCl) 75 Mg Tab 75 Mg PO HS Aspirin 325 Mg Tab 325 Mg PO DAILY Review of Systems Except as stated in HPI: all other systems reviewed are Neg Physical Exam Narrative GENERAL: Well-developed, well-nourished, awake, alert, comfortable, no acute distress. SKIN: Warm and dry. No rash. HEAD: Atraumatic. Normocephalic. EYES: Pupils equal and round. No scleral icterus. No injection or drainage. ENT: No nasal bleeding or discharge. Mucous membranes pink and moist. NECK: Trachea midline. No JVD. No nuchal rigidity. CARDIOVASCULAR: Regular rate and rhythm. Distal pulses brisk and equal bilaterally. RESPIRATORY: No accessory muscle use. Clear to auscultation. Breath sounds equal bilaterally. GASTROINTESTINAL: Abdomen soft, non-tender, nondistended. MUSCULOSKELETAL: No obvious deformities. No clubbing. No cyanosis. No edema. NEUROLOGICAL: Awake and alert. No obvious cranial nerve deficits. Motor grossly within normal limits. Normal speech. No focal deficits. PSYCHIATRIC: Appropriate mood and affect; insight and judgment normal. Data Data Last Documented VS Vital Signs Date Time Temp Pulse Resp B/P Pulse Ox O2 Delivery O2 Flow Rate FiO2 08/02/16 16:12 98.3 124 20 99/60 99 Room Air Orders Electrocardiogram (08/02/16 16:49) Basic Metabolic Panel (Bmp) (08/02/16 16:49) Ckmb (Isoenzyme) Profile (08/02/16 16:49) Complete Blood Count With Diff (08/02/16 16:49) Prothrombin Time / Inr (Pt) (08/02/16 16:49) Act Partial Throm Time (Ptt) (08/02/16 16:49) Troponin I (08/02/16 16:49) Chest, Single Ap (08/02/16 16:49) Ecg Monitoring (08/02/16 16:49) Iv Access Insert/Monitor (08/02/16 16:49) Oximetry (08/02/16 16:49) Aspirin Chew (Aspirin Chew) (08/02/16 17:00) Sodium Chloride 0.9% Flush (Ns Flush) (08/02/16 17:00) Nitroglycerin Sl (Nitrostat Sl) (08/02/16 17:00) Ct Brain W/O Iv Contrast(Rout) (08/02/16 ) Alcohol (Ethanol) (08/02/16 16:49) CKMB (08/02/16 17:10) CKMB% (08/02/16 17:10) Labs Laboratory Tests Test 08/02/16 17:10 White Blood Count 6.4 TH/MM3 Red Blood Count 4.35 MIL/MM3 Hemoglobin 13.7 GM/DL Hematocrit 39.1 % Mean Corpuscular Volume 89.8 FL Mean Corpuscular Hemoglobin 31.5 PG Mean Corpuscular Hemoglobin 35.1 % Concent Red Cell Distribution Width 13.6 % Platelet Count 157 TH/MM3 Mean Platelet Volume 8.4 FL Neutrophils (%) (Auto) 64.0 % Lymphocytes (%) (Auto) 27.5 % Monocytes (%) (Auto) 7.6 % Eosinophils (%) (Auto) 0.4 % Basophils (%) (Auto) 0.5 % Neutrophils # (Auto) 4.1 TH/MM3 Lymphocytes # (Auto) 1.8 TH/MM3 Monocytes # (Auto) 0.5 TH/MM3 Eosinophils # (Auto) 0.0 TH/MM3 Basophils # (Auto) 0.0 TH/MM3 CBC Comment DIFF FINAL Differential Comment Prothrombin Time 10.8 SEC Prothromb Time International 1.0 RATIO Ratio Activated Partial 24.0 SEC Thromboplast Time Sodium Level 131 MEQ/L Potassium Level 3.6 MEQ/L Chloride Level 94 MEQ/L Carbon Dioxide Level 24.9 MEQ/L Anion Gap 12 MEQ/L Blood Urea Nitrogen 21 MG/DL Creatinine 1.65 MG/DL Estimat Glomerular Filtration 44 ML/MIN Rate Random Glucose 94 MG/DL Calcium Level 8.7 MG/DL Total Creatine Kinase 280 U/L Creatine Kinase MB 8.0 NG/ML Troponin I LESS THAN 0.02 NG/ML Ethyl Alcohol Level 34 MG/DL [facility] Medical Decision Making Medical Screen Exam Complete: Yes Emergency Medical Condition: Yes Differential Diagnosis ACS, pneumothorax, pericarditis, PE, pneumonia, metabolic abnormality, intracranial abnormality Narrative Course Initial vital signs show heart rate 124, blood pressure 99/60, pulse ox 99% on room air, oral temp of 98.3F. The patient was given a liter of normal saline IV and heart rate improved to 110 and blood pressure improved to 107/70. CBC is unremarkable. BMP is remarkable for sodium 131, chloride 94, BUN 21, creatinine 1.65, GFR 44 which is slightly worse than his baseline renal function. Cardiac enzymes are negative. Alcohol level is 34. Chest x-ray: No acute cardio pulmonary disease. CT head: Normal examination. The patient remains tachycardic despite receiving a liter of normal saline IV. He is afebrile. WBC count is normal. I do not believe that this is infectious. He is likely slightly dehydrated. He'll be given another liter of normal saline IV. He is still complaining of chest discomfort. Given significant cardiac history, he will be admitted for further treatment and evaluation of chest pain as well as left arm paresthesias. Case discussed with hospitalist Dr. Gomez who will admit the patient to her service. Diagnosis Primary Impression: Chest pain Qualified Code: R07.9 - Chest pain, unspecified type Additional Impressions: Paresthesias Acute renal insufficiency Sinus tachycardia Admitting Information Admitting Physician Requests: Observation Phillip Mcnally MD Aug 02, 2016 16:54
[2016-08-02] MEDS ORDERED: ASPIRIN 81 MG CHEW TAB PO ONE (17:00)
[2016-08-02] MEDS ORDERED: NITROGLYCERIN 0.4 MG SL 25 TABS/BTL SL ONE (17:00)
[2016-08-02] MEDS ORDERED: SODIUM CHLORIDE 0.9% FLUSH 5 ML FLUSH IVF PRN (17:00)
--- NOTE | 2016-08-02 17:30 | RADRPT ---
EXAM DATE/TIME: 08/02/2016 17:08 [facility] COMPARISON: No previous studies available for comparison. INDICATIONS : Left hand numbness and left sided chest pain today. RADIATION DOSE: 56.35 CTDIvol (mGy) MEDICAL HISTORY : Hypertension. Cardiovascular disease diabetes SURGICAL HISTORY : Appendectomy. ENCOUNTER: Initial ACUITY: 1 day PAIN SCALE: 8/10 LOCATION: Left chest TECHNIQUE: Multiple contiguous axial images were obtained of the head. Using automated exposure control and adj ustment of the mA and/or kV according to patient size, radiation dose was kept as low as reasonably a chievable to obtain optimal diagnostic quality images. FINDINGS: CEREBRUM: The ventricles are normal for age. No evidence of midline shift, mass lesion, hemorrhage or acute in farction. No extra-axial fluid collections are seen. POSTERIOR FOSSA: The cerebellum and brainstem are intact. The 4th ventricle is midline. The cerebellopontine angle i s unremarkable. EXTRACRANIAL: The visualized portion of the orbits is intact. SKULL: The calvaria is intact. No evidence of skull fracture. CONCLUSION: Normal examination. Ramon Castaneda MD on August 02, 2016 at 17:26 Board Certified Radiologist. This report was verified electronically.
--- NOTE | 2016-08-02 17:37 | RADRPT ---
EXAM DATE/TIME: 08/02/2016 17:28 [facility] COMPARISON: CHEST SINGLE AP, July 24, 2016, 17:58. INDICATIONS : Chest pain radiating to left arm with numbness. MEDICAL HISTORY : Myocardial infarction. Hypertension Diabetes. SURGICAL HISTORY : CABG. Appendectomy. ENCOUNTER: Subsequent ACUITY: 1 day PAIN SCORE: 6/10 LOCATION: Left chest FINDINGS: Lungs are grossly clear. No effusion suspected. Cardiomediastinal contours are stable. Sternotomy wir es are present. There is stable deficiency of the distal right clavicle, potentially postoperative. CONCLUSION: No acute cardiopulmonary disease Ramon Castaneda MD on August 02, 2016 at 17:35 Board Certified Radiologist. This report was verified electronically.
[2016-08-02 17:45] LABS: AUTOMATED NEUTROPHIL # 4.1 TH/MM3 (1.8-7.7); BASOPHIL % 0.5 % (0.0-2.0); EOSINOPHIL % 0.4 % (0.0-4.0); HEMATOCRIT 39.1 % (39.0-51.0); HEMO FLAGS DIFF FINAL; LYMPH % 27.5 % (9.0-44.0); LYMPHOCYTE # 1.8 TH/MM3 (1.0-4.8); MEAN CELL VOLUME 89.8 FL (80.0-100.0); MEAN CORPUSCULAR HEMOGLOBIN 31.5 PG (27.0-34.0); MEAN CORPUSCULAR HGB CONC 35.1 % (32.0-36.0); MONO % 7.6 % (0.0-8.0); PLATELET COUNT 157 TH/MM3 (150-450); RED BLOOD COUNT 4.35 MIL/MM3 (4.50-5.90); RED CELL DISTRIBUTION WIDTH 13.6 % (11.6-17.2); WHITE BLOOD COUNT 6.4 TH/MM3 (4.0-11.0)
[2016-08-02 17:51] LABS: PROTHROMBIN TIME - PATIENT 10.8 SEC (9.8-11.6)
[2016-08-02 17:53] LABS: ANION GAP 12 MEQ/L (5-15)
[2016-08-02 17:58] LABS: BICARBONATE 24.9 MEQ/L (21.0-32.0); BLOOD UREA NITROGEN 21 MG/DL (7-18); CHLORIDE 94 MEQ/L (98-107); CREATINE KINASE 280 U/L (39-308); GLOMERULAR FILTRATION RATE 44 ML/MIN (>89); POTASSIUM 3.6 MEQ/L (3.5-5.1); SODIUM (NA) 131 MEQ/L (136-145)
[2016-08-02] MEDS ORDERED: FOLI1TAB4 PO (18:08)
[2016-08-02] MEDS ORDERED: CALCIUM CARBONATE SIMETHICONE CHEW PRN (19:45)
[2016-08-02] MEDS ORDERED: ONDANSETRON HCL 4 MG/2 ML VIAL IVP PRN (19:45)
[2016-08-02] MEDS ORDERED: SODIUM CHLORIDE 0.9% FLUSH 5 ML FLUSH FLUSH PRN (19:45)
[2016-08-02] MEDS ORDERED: DEXTROSE 50% IN WATER 50 ML VIAL(D50) IV PUSH PRN (19:45)
[2016-08-02] MEDS ORDERED: GLUCAGON 1 MG/ML VIAL OTHER PRN (19:45)
[2016-08-02] MEDS ORDERED: NALOXONE HCL 0.4 MG/ML AMP IV PRN (19:45)
[2016-08-02] MEDS ORDERED: [UNRECOGNIZED DRUG - OTHER] PO PRN (20:15)
[2016-08-02] MEDS ORDERED: NON-FORMULARY DRUG (Venlafaxine (Effexor) 75 MG) PO SCH (21:00)
[2016-08-02] MEDS ORDERED: CARVEDILOL 6.25 MG TAB PO SCH (21:00)
[2016-08-02] MEDS: INSULIN ASPART SUPPLEMENTAL SCALE SQ SCH (21:00)
[2016-08-02] MEDS: SODIUM CHLORIDE 0.9% FLUSH 5 ML FLUSH FLUSH SCH (21:27)
[2016-08-02] MEDS: GABAPENTIN 300 MG CAP PO SCH (21:27)
--- NOTE | 2016-08-02 22:07 | HHI.HP ---
[facility] Primary Care Physician [facility] Admission Diagnosis chest pain, paresthesias, renal insufficiency, tachycardia Diagnoses: (1) Atypical chest pain (2) Paresthesias (3) DM (diabetes mellitus) (4) Acute renal insufficiency (5) Hyponatremia Chief Complaint: chest pain and left hand numbness Travel History International Travel<30 Days: No Contact w/Intl Traveler <30 Da: No Traveled to Known Affected Are: No History of Present Illness Mr. Gale is a 51 year-old male with a past medical history of coronary artery disease status post CABG x 2, hypertension, COPD, hyperlipidemia, alcohol abuse, and diabetes mellitus who presented to the emergency room on 08/02 complaining of chest pain accompanied by left arm numbness. July 25, 2016 was in chest pain center here with Lexiscan myocardial perfusion study demonstrating no ischemia but with global hypokinesis with reduced EF at 36%. Chest x-ray in ER with no acute cardiopulmonary disease. Head CT is a normal examination. Ethyl alcohol serum level 34. 12-lead EKG personally reviewed and shows sinus tachycardia with nonspecific ST-T wave abnormalities - personally reviewed. The patient is seen in the CDU. He states that starting at about 1 AM on 2016, he experienced left chest pain radiating up the left side of his neck and paresthesias going down into his left hand. He states the chest pain and paresthesias occurred simultaneously. He states he was severely dizzy and vomited twice while at home. The symptoms were severe and still present at the time of our visit and had not changed according to the patient. The patient denies fever, chills, black or red stool, or syncope. He is currently being treated by the [facility] for a UTI with a 14 day course of antibiotics/ amoxicillin that will be completed on Tuesday. He also reports a persistent dry cough with chronic shortness of breath. He denies any history of cardiac stents or atrial fibrillation but states he is currently being worked up for heart arrhythmia but is not sure of the exact name of the arrhythmia. He denies any history of blood clots such as DVT, PE, or CVA. He denies any history of seizures or thyroid dysfunction. . Review of Systems Except as stated in HPI: all other systems reviewed are Neg Past Family Social History Past Medical History Coronary artery disease Myocardial infarction 1 Hyperlipidemia Hypertension COPD Colitis Diabetes mellitus PTSD Depression Anxiety Alcohol abuse Fractured sternum following bypass 2015 . Past Surgical History CABG 2013 Dr. Pruett Appendectomy late 3 back surgeries 1 neck surgery Right shoulder surgery Cholecystectomy May 2016 ORIF sternum with biomet plates and screws February 2016 . Reported Medications Reported Meds & Active Scripts Active Maalox Advanced Maximum Strength (Calcium Carbonate-Simethicone) 1,000-60 Mg Chew 1-2 Tab CHEW BID PRN 7 Days Reported Folate (Folic Acid) 1 Mg Tab 1 Mg PO DAILY Amoxicillin 500 Mg Cap 500 Mg PO DAILY Coreg (Carvedilol) 6.25 Mg Tab 6.25 Mg PO BID Novolog Inj (Insulin Aspart) 100 Unit/Ml Inj SQ [id number] SLIDE SCALE Gabapentin 300 Mg Cap 300 Mg PO BID Levemir Inj (Insulin Detemir) 1,000 unit/ 10 ML Vial 30 Units SQ HS Do not mix with any other Insulin. Lamictal (Lamotrigine) 25 Mg Tab 50 Mg PO AC DINNER Metformin (Metformin HCl) 500 Mg Tab 500 Mg PO BIDPC With meals Thera M Plus (Multivitamins/Minerals Therapeutic) 1 Tab 1 Tab PO DAILY Protonix (Pantoprazole Sodium) 20 Mg Tab 20 Mg PO DAILY Effexor (Venlafaxine HCl) 75 Mg Tab 75 Mg PO HS Aspirin 325 Mg Tab 325 Mg PO DAILY . Allergies: Coded Allergies: Sulfa (Verified Allergy, Mild, Rash, 08/02/16) Active Ordered Medications Current Medications Aspirin (Aspirin Chew) 324 mg ONCE ONCE PO Last administered on 08/02/16t 18: 06; Start 08/02/16 at 17:00; Stop 08/02/16 at 17:01; Status DC IV Flush (NS Flush) 2 ml UNSCH PRN IVF FLUSH AFTER USING IV ACCESS; Start 08/02 at 17:00; Stop 08/02/16 at 19:58; Status DC Nitroglycerin (Nitrostat Sl) 0.4 mg ONCE ONCE SL ; Start 08/02/16 at 17:00; Stop 08/02/16 at 17:01; Status DC IV Flush (NS Flush) 2 ml UNSCH PRN FLUSH FLUSH AFTER USING IV ACCESS; Start at 19:45 IV Flush (NS Flush) 2 ml BID FLUSH Last administered on 08/02/16 21:27; Start 08/02/16 at 21:00 Ondansetron HCl (Zofran Inj) 4 mg Q6H PRN IVP NAUSEA OR VOMITING; Start at 19:45 Enoxaparin Sodium (Lovenox Inj) 40 mg Q24H SQ ; Start 08/03/16 at 09:00 Naloxone HCl (Narcan Inj) 0.4 mg UNSCH PRN IV SEE LABEL COMMENTS; Start at 19:45 Aspirin (Aspirin) 325 mg DAILY PO ; Start 08/03/16 at 09:00 Carvedilol (Coreg) 6.25 mg BID PO Last administered on 08/02/16 21:27; Start 08/02/16 at 21:00 Folic Acid (Folate) 1 mg DAILY PO ; Start 08/03/16 at 09:00 Gabapentin (Neurontin) 300 mg BID PO Last administered on 08/02/16 21:27; Start 08/02/16 at 21:00 Lamotrigine (LaMICtal) 50 mg AC DINNER PO ; Start 08/03/16 at 16:00 Pantoprazole Sodium (Protonix) 20 mg DAILY PO ; Start 08/03/16 at 09:00 Non-Formulary Medication BID PRN CHEW INDIGESTION OR UPSET STOMACH; Start at 19:45; Status UNV Non-Formulary Medication 75 mg HS PO ; Start 08/02/16 at 21:00; Status UNV Dextrose (D50w (Vial) Inj) 25 ml UNSCH PRN IV PUSH HYPOGLYCEMIA-SEE COMMENTS; Start 08/02/16 at 19:45 Glucagon (Glucagon Inj) 1 mg UNSCH PRN OTHER HYPOGLYCEMIA-SEE COMMENTS; Start 08/02/16 at 19:45 Insulin Aspart (NovoLOG SUPPLEMENTAL SCALE) 1 ACHS SLIDING SCALE SQ ; Start at 21:00 Venlafaxine HCl (Effexor Xr) 75 mg HS PO ; Start 08/02/16 at 21:00 Patient Own Medication PT OWN MED: MAALOX ADVANCED--ALEISHA... BID PRN PO INDIGESTION/UPSET STOMACH; Start 08/02/16 at 20:15; Status Hold . Family History Mom laryngeal CA, diabetes Father with myocardial infarction, age 64 Social History ETOH: Every other day drinks 6 pack of beer Illicit Drugs: over one year ago, used cocaine Tobacco: denies . Physical Exam Vital Signs Vital Signs Date Time Temp Pulse Resp B/P Pulse Ox O2 Delivery O2 Flow Rate FiO2 08/02/16 21:00 101 18 124/74 96 Room Air 08/02/16 19:00 104 20 112/67 98 Room Air 08/02/16 18:42 110 20 107/67 98 Room Air 08/02/16 18:41 98 Room Air 08/02/16 16:12 98.3 124 20 99/60 99 Room Air Physical Exam GENERAL: This is a pleasant well-nourished, well-developed patient, in no apparent distress. SKIN: No rashes, ecchymoses or lesions. Cool and dry. HEAD: Atraumatic. Normocephalic. EYES: No scleral icterus. No injection or drainage. ENT: Nose without bleeding, purulent drainage. NECK: Trachea midline. No JVD or lymphadenopathy. CARDIOVASCULAR: Regular rate and rhythm without murmurs, gallops, or rubs. RESPIRATORY: Clear to auscultation. Breath sounds equal bilaterally. No wheezes , rales, or rhonchi. GASTROINTESTINAL: Abdomen soft, non-tender, nondistended. No guarding. MUSCULOSKELETAL: Extremities without clubbing, cyanosis, or edema. No calf tenderness. NEUROLOGICAL: Awake and alert. Motor and sensory grossly within normal limits. Normal speech. . Laboratory Laboratory Tests Test 08/02/16 17:10 White Blood Count 6.4 Red Blood Count 4.35 Hemoglobin 13.7 Hematocrit 39.1 Mean Corpuscular Volume 89.8 Mean Corpuscular Hemoglobin 31.5 Mean Corpuscular Hemoglobin 35.1 Concent Red Cell Distribution Width 13.6 Platelet Count 157 Mean Platelet Volume 8.4 Neutrophils (%) (Auto) 64.0 Lymphocytes (%) (Auto) 27.5 Monocytes (%) (Auto) 7.6 Eosinophils (%) (Auto) 0.4 Basophils (%) (Auto) 0.5 Neutrophils # (Auto) 4.1 Lymphocytes # (Auto) 1.8 Monocytes # (Auto) 0.5 Eosinophils # (Auto) 0.0 Basophils # (Auto) 0.0 CBC Comment DIFF FINAL Differential Comment Prothrombin Time 10.8 Prothromb Time International 1.0 Ratio Activated Partial 24.0 Thromboplast Time Sodium Level 131 Potassium Level 3.6 Chloride Level 94 Carbon Dioxide Level 24.9 Anion Gap 12 Blood Urea Nitrogen 21 Creatinine 1.65 Estimat Glomerular Filtration 44 Rate Random Glucose 94 Calcium Level 8.7 Total Creatine Kinase 280 Creatine Kinase MB 8.0 Troponin I LESS THAN 0.02 Ethyl Alcohol Level 34 Result Diagram: 08/02/16 1710 08/02/16 1710 Imaging Last Impressions Chest X-Ray 08/02/16 1649 Signed Impressions: Service Date/Time: Tuesday, August 02, 2016 17:28 - CONCLUSION: No acute cardiopulmonary disease Ramon Castaneda MD Head CT 08/02/16 0000 Signed Impressions: Service Date/Time: Tuesday, August 02, 2016 17:08 - CONCLUSION: Normal examination. Ramon Castaneda MD . Assessment and Plan Problem List: (1) Atypical chest pain ICD Code: R07.89 Status: Acute (2) Paresthesias ICD Code: R20.2 Status: Acute (3) DM (diabetes mellitus) ICD Code: E11.9 Status: Chronic (4) Acute renal insufficiency ICD Code: N28.9 Status: Acute (5) Hyponatremia ICD Code: E87.1 Status: Acute Assessment and Plan Mr. Gale is a 51 year-old male with a history of coronary artery disease status post CABG x 2 who presented to the emergency room on 08/02/2016 complaining of chest pain accompanied by left arm numbness. He has been admitted for observation. Chest pain, atypical - Initial CK-MB elevated at 8.0 - Troponin I less than 0.02 - Continue to monitor serial cardiac enzymes and EKGs to rule out ACS - Continuous cardiac telemetry - Monitor I and O every shift - Monitor vital signs every 4 hours - recent nonischemic Lexiscan myocardial perfusion study - will consult cardiology Left arm numbness/paresthesia - Head CT negative - check brain MRI for acute infarct - check carotid ultrasound Type 2 diabetes mellitus - Accu-Cheks before meals and at bedtime with low-dose NovoLog sliding scale coverage - Hypoglycemia protocol ordered - Monitor trends and blood glucose levels and adjust treatment as indicated - 1800 ADA conservative carb diet Hyponatremia, chronic and likely related to alcohol abuse - Sodium 131 on admission - ER physician documentation states that the patient received IVF replacement with NS in ER, patient confirms - not on JUL - Recheck in a.m. and follow trends Acute renal insufficiency, likely secondary to dehydration - Admission BUN elevated at 21, creatinine elevated at 1.65, and estimated GFR low at 44 - these are worse when compared to previous labs - See above regarding IVFs - Hold metformin - Avoid nephrotoxins - Recheck BMP in a.m. and follow trends in renal indices ETOH withdrawal prevention - has reported daily alcohol intake in the recent past - reports drinking a 6 pack every other day to ga - ETOH level 34 in ER - ETOH withdrawal precautions - Ativan 1 mg IV q2h prn withdrawal symptoms - Thiamine 100 mg p.o. daily History of UTI - continue Amoxicillin until Sunday 08/06 DVT prophylaxis - Lovenox 40 mg subcutaneous every 24 hours Written by Alicia Demarco, acting as scribe for Dr. Ibarra on 08/02/16 at 22:05. All or portions of this note were transcribed by scribe [Alicia Demarco]. I, Dr. Reece Ibarra personally performed the history, physical exam, and medical decision making; and confirmed the accuracy of the information in the transcribed note. Authenticated by Dr. Reece Ibarra on 08/02/16 at 22:05. . Discussed Condition With ER physician and patient . Alicia Demarco Aug 02, 2016 22:07 Reece Ibarra MD Aug 03, 2016 07:31
[2016-08-02] MEDS ORDERED: THIAMINE HCL 100 MG TAB PO ONE (22:15)
[2016-08-02] MEDS ORDERED: LORazepam 2 MG/ML VIAL IV PUSH PRN (22:15)
[2016-08-02] MEDS ORDERED: RESP: ALBUTEROL 2.5 MG/IPRATROPIUM 0.5 MG NEB (PRN) NEB (22:15)
[2016-08-02] MEDS: VENLAFAXINE HCL XR 75 MG CAP PO SCH (22:37)
--- NOTE | 2016-08-02 23:55 | RADRPT ---
EXAM DATE/TIME: 08/02/2016 23:02 [facility] COMPARISON: US CAROTID ARTERIES, July 04, 2014, 15:37. INDICATIONS : Left arm numbness/tingling. Syncope. MEDICAL HISTORY : Myocardial infarction. Hypercholesterolemia. Hypertension. Neck pain. Numbness, left leg. Colitis. CO PD. Diabetes. PTSD. Anxiety. Substance use. Anticoagulant therapy, Aspirin. Previous suicide attempt. SURGICAL HISTORY : CABG. Appendectomy. Back surgery x3. Neck and right shoulder surgery. ENCOUNTER: Initial ACUITY: 1 day PAIN SCORE: 8/10 LOCATION: Bilateral neck PEAK SYSTOLIC VELOCITIES (cm/sec): ICA/CCA RATIO: Right: 1.0 Left: 0.7 ICA: Right: 70 Left: 65 CCA: Right: 69 Left: 99 ECA: Right: 111 Left: 90 VERTEBRAL: Right: 63 antegrade Left: 52 antegrade Elevated flow velocities and ICA/CCA ratios have been found to correlate with increased degrees of vessel stenosis, calculated as percentage of diameter relative to a normal segment of distal ICA/CCA FINDINGS: RIGHT CAROTID: No significant stenosis is visualized. The waveforms are within normal limits. LEFT CAROTID: No significant stenosis is visualized. The waveforms are within normal limits. VERTEBRAL ARTERIES: Antegrade flow is seen in both vertebral arteries. MISCELLANEOUS: None. CONCLUSION: 1. No evidence for hemodynamically significant stenosis. Jeff Benito MD on August 02, 2016 at 23:52 Board Certified Radiologist. This report was verified electronically.
[2016-08-03] VITALS (8 sets, daily range): BP systolic 99–142; BP diastolic 59–99; PULSE 78–98; RESP 17–19; TEMP 96.9–98.8; O2SAT 93–98
[2016-08-03 01:36] LABS: CREATINE KINASE 216 U/L (39-308)
[2016-08-03 04:41] LABS: BASOPHIL % 0.6 % (0.0-2.0); EOSINOPHIL # 0.1 TH/MM3 (0-0.4); EOSINOPHIL % 1.4 % (0.0-4.0); HEMO FLAGS DIFF FINAL; LYMPH % 34.3 % (9.0-44.0); LYMPHOCYTE # 1.9 TH/MM3 (1.0-4.8); MEAN CELL VOLUME 90.8 FL (80.0-100.0); MEAN CORPUSCULAR HEMOGLOBIN 31.5 PG (27.0-34.0); MEAN CORPUSCULAR HGB CONC 34.7 % (32.0-36.0); MONO % 9.9 % (0.0-8.0); NEUT % 53.8 % (16.0-70.0); PLATELET COUNT 139 TH/MM3 (150-450); RED BLOOD COUNT 4.29 MIL/MM3 (4.50-5.90); RED CELL DISTRIBUTION WIDTH 13.5 % (11.6-17.2); WHITE BLOOD COUNT 5.6 TH/MM3 (4.0-11.0)
[2016-08-03 05:08] LABS: ANION GAP 9 MEQ/L (5-15); BICARBONATE 22.1 MEQ/L (21.0-32.0); BLOOD UREA NITROGEN 18 MG/DL (7-18); CHLORIDE 103 MEQ/L (98-107); CREATINE KINASE 216 U/L (39-308); GLOMERULAR FILTRATION RATE 67 ML/MIN (>89); POTASSIUM 4.4 MEQ/L (3.5-5.1); SODIUM (NA) 134 MEQ/L (136-145)
[2016-08-03] MEDS: INSULIN ASPART SUPPLEMENTAL SCALE SQ SCH ×4 (06:49→21:42)
[2016-08-03] MEDS ORDERED: LORazepam 2 MG TAB PO PRN (07:30)
[2016-08-03] MEDS ORDERED: cloNIDine HCL 0.1 MG TAB PO PRN (07:30)
[2016-08-03] MEDS ORDERED: LORazepam 1 MG TAB PO PRN (07:30)
[2016-08-03] MEDS ORDERED: LORazepam 2 MG/ML VIAL IV PUSH PRN ×2 (07:30)
[2016-08-03] MEDS ORDERED: FLUMAZENIL 0.5 MG/5 ML VIAL IV PUSH PRN (07:30)
--- NOTE | 2016-08-03 08:32 | PD.CONS ---
HPI Service CV Consult Requested By Reason for Consult chest pain Primary Care Physician [facility] History of Present Illness Here with CAD s/p ND s/p CABG 2 vessels September 2013, diabetes, HTN and hyperlipidemia for chest pain. This chest pain had been going on intermittently since July 25. He underwent SPECT around that time that did not show ongoing ischemia. No he continue to have chest pain with associates LUE paresthesias. He also had associated dizziness and vomiting. (Charlie Shelby) Review of Systems Consitutional: DENIES: Fatigue, Fever, Chills, Weight gain, Weight loss Eyes: DENIES: Amaurosis Fugax, Change in vision HEENT: DENIES: Lightheadedness, Change in hearing Respiratory: DENIES: See HPI, Cough, Snoring, Shortness of breath, Wheezing, Sputum production Cardiovascular: COMPLAINS OF: See HPI Gastrointestinal: DENIES: Nausea, Vomiting, Change in bowel habits, Reflux, Bloody stools, Melena Genitourinary: DENIES: Urinary incontinence, Difficulty voiding Integumentary: DENIES: Rash Neurologic: DENIES: Tingling or numbness, Memory problems, Poor Balance, Stroke symptoms Musculoskeletal: DENIES: Joint pain, Muscle pain, Limited range of motion, Back pain Psychiatric: DENIES: Anxiety, Depression, Sleep disturbances Hematologic: DENIES: Bruising tendencies, Bleeding tendencies Endocrine: DENIES: Weight gain, Weight loss, Thyroid disease (Charlie Shelby ) Past Family Social History Allergies: Coded Allergies: Sulfa (Verified Allergy, Mild, Rash, 08/02/16) Past Medical History see HPI COPD Colitis Diabetes mellitus PTSD Depression Anxiety Alcohol abuse Fractured sternum following bypass 2015 Past Surgical History see HPI Appendectomy late 3 back surgeries 1 neck surgery Right shoulder surgery Cholecystectomy May 2016 ORIF sternum with biomet plates and screws February 2016 Reported Medications Reported Meds & Active Scripts Active Maalox Advanced Maximum Strength (Calcium Carbonate-Simethicone) 1,000-60 Mg Chew 1-2 Tab CHEW BID PRN 7 Days Reported Folate (Folic Acid) 1 Mg Tab 1 Mg PO DAILY Amoxicillin 500 Mg Cap 500 Mg PO DAILY Coreg (Carvedilol) 6.25 Mg Tab 6.25 Mg PO BID Gabapentin 300 Mg Cap 300 Mg PO BID Levemir Inj (Insulin Detemir) 1,000 unit/ 10 ML Vial 30 Units SQ HS Do not mix with any other Insulin. Lamictal (Lamotrigine) 25 Mg Tab 50 Mg PO AC DINNER Metformin (Metformin HCl) 500 Mg Tab 500 Mg PO BIDPC With meals Thera M Plus (Multivitamins/Minerals Therapeutic) 1 Tab 1 Tab PO DAILY Protonix (Pantoprazole Sodium) 20 Mg Tab 20 Mg PO DAILY Effexor (Venlafaxine HCl) 75 Mg Tab 75 Mg PO HS Aspirin 325 Mg Tab 325 Mg PO DAILY Active Ordered Medications Current Medications Medications (Trade) Dose Ordered Sig/López Route Start Time Stop Time Status Last Admin (NS Flush) 2 ml UNSCH PRN FLUSH 08/02/16 19:45 (NS Flush) 2 ml BID FLUSH 08/02/16 21:00 08/02/16 21:27 (Zofran Inj) 4 mg Q6H PRN IVP 08/02/16 19:45 (Lovenox Inj) 40 mg Q24H SQ 08/03/16 09:00 (Narcan Inj) 0.4 mg UNSCH PRN IV 08/02/16 19:45 (Aspirin) 325 mg DAILY PO 08/03/16 09:00 (Coreg) 6.25 mg BID PO 08/02/16 21:00 Hold 08/02/16 21:27 (Folate) 1 mg DAILY PO 08/03/16 09:00 (Neurontin) 300 mg BID PO 08/02/16 21:00 08/02/16 21:27 (Protonix) 20 mg DAILY PO 08/03/16 09:00 (D50w (Vial) Inj) 25 ml UNSCH PRN IV PUSH 08/02/16 19:45 (Glucagon Inj) 1 mg UNSCH PRN OTHER 08/02/16 19:45 (Effexor Xr) 75 mg HS PO 08/02/16 21:00 08/02/16 22:37 Patient Own Medication PT OWN MED: MAALOX ADVANCED--ALEISHA... BID PRN PO 08/02/16 20:15 Hold (Vitamin B1) 100 mg DAILY PO 08/03/16 09:00 (Trimox) 500 mg DAILY PO 08/03/16 09:00 08/06/16 10:00 (Catapres) 0.1 mg Q6H PRN PO 08/03/16 07:30 (Romazicon Inj) 0.2 mg Q1M PRN IV PUSH 08/03/16 07:30 (Ativan) 1 mg Q4H PRN PO 08/03/16 07:30 (Ativan) 2 mg Q2H PRN PO 08/03/16 07:30 (Ativan Inj) 2 mg Q1H PRN IV PUSH 08/03/16 07:30 (Ativan Inj) 2 mg Q15M PRN IV PUSH 08/03/16 07:30 Family History noncontributory Social History ETOH: Every other day drinks 6 pack of beer Illicit Drugs: over one year ago, used cocaine Tobacco: denies (Charlie Shelby) Physical Exam Vital Signs Vital Signs Date Time Temp Pulse Resp B/P Pulse Ox O2 Delivery O2 Flow Rate FiO2 08/03/16 04:48 98.8 78 18 137/86 97 08/03/16 00:08 98.8 90 18 105/80 98 08/02/16 22:19 98.0 99 18 139/90 97 08/02/16 21:30 98 08/02/16 21:00 101 18 124/74 96 Room Air 08/02/16 19:00 104 20 112/67 98 Room Air 08/02/16 18:42 110 20 107/67 98 Room Air 08/02/16 18:41 98 Room Air 08/02/16 16:12 98.3 124 20 99/60 99 Room Air Physical Exam GENERAL: Well-nourished, well-developed patient in no apparent distress. NECK: No JVD. No carotid bruit. CARDIOVASCULAR: Regular rate and rhythm. S1/S2 no murmur, rub, or gallop. RESPIRATORY: No accessory muscle use. Clear to auscultation. Breath sounds equal bilaterally. GASTROINTESTINAL: Abdomen soft, non-tender, nondistended. MUSCULOSKELETAL: Extremities without clubbing, cyanosis, or edema. Laboratory Laboratory Tests Test 08/02/16 08/03/16 08/03/16 17:10 00:54 04:00 White Blood Count 6.4 5.6 Red Blood Count 4.35 4.29 Hemoglobin 13.7 13.5 Hematocrit 39.1 39.0 Mean Corpuscular Volume 89.8 90.8 Mean Corpuscular Hemoglobin 31.5 31.5 Mean Corpuscular Hemoglobin 35.1 34.7 Concent Red Cell Distribution Width 13.6 13.5 Platelet Count 157 139 Mean Platelet Volume 8.4 8.5 Neutrophils (%) (Auto) 64.0 53.8 Lymphocytes (%) (Auto) 27.5 34.3 Monocytes (%) (Auto) 7.6 9.9 Eosinophils (%) (Auto) 0.4 1.4 Basophils (%) (Auto) 0.5 0.6 Neutrophils # (Auto) 4.1 3.0 Lymphocytes # (Auto) 1.8 1.9 Monocytes # (Auto) 0.5 0.6 Eosinophils # (Auto) 0.0 0.1 Basophils # (Auto) 0.0 0.0 CBC Comment DIFF FINAL DIFF FINAL Differential Comment Prothrombin Time 10.8 Prothromb Time International 1.0 Ratio Activated Partial 24.0 Thromboplast Time Sodium Level 131 134 Potassium Level 3.6 4.4 Chloride Level 94 103 Carbon Dioxide Level 24.9 22.1 Anion Gap 12 9 Blood Urea Nitrogen 21 18 Creatinine 1.65 1.14 Estimat Glomerular Filtration 44 67 Rate Random Glucose 94 206 Calcium Level 8.7 8.3 Total Creatine Kinase 280 216 216 Creatine Kinase MB 8.0 Troponin I LESS THAN 0.02 LESS THAN 0.02 LESS THAN 0.02 Ethyl Alcohol Level 34 (Charlie Shelby) Result Diagram: 08/03/16 0400 08/03/16 0400 Assessment and Plan Problem List: (1) NSTEMI (non-ST elevated myocardial infarction) (2) Coronary artery disease (3) Cardiomyopathy Assessment and Plan With his ongoing chest pain and now EF reported by tech to be approximately 20% we will proceed with left hert cath and go from there. Will assure proper medical regimen. JEOVANNY-I, BB, statin and ASA as tolerated (Charlie Shelby) Assessment and Plan NSTEMI newly diagnosed cardiomyopathy plan for [facility] today (Enrique Hernadez MD) Charlie Shelby Aug 03, 2016 08:32 Enrique Hernadez MD Aug 03, 2016 09:07
[2016-08-03] MEDS: GABAPENTIN 300 MG CAP PO SCH ×2 (08:33→21:41)
[2016-08-03] MEDS: FOLIC ACID 1 MG TAB PO SCH (08:33)
[2016-08-03] MEDS: PANTOPRAZOLE SOD 20 MG DELAYED RELEASE TAB PO SCH (08:33)
[2016-08-03] MEDS: AMOXICILLIN (TRIHYDRATE) 500 MG CAP PO SCH (08:33)
[2016-08-03] MEDS: THIAMINE HCL 100 MG TAB PO SCH (08:33)
[2016-08-03] MEDS: ASPIRIN 325 MG TAB PO SCH (08:33)
[2016-08-03] MEDS: SODIUM CHLORIDE 0.9% FLUSH 5 ML FLUSH FLUSH SCH ×2 (08:33→21:40)
[2016-08-03] MEDS: SODIUM CHLOR 0.9% 1000 ML INJ 1,000 ML IV SCH ×2 (09:00→21:52)
[2016-08-03] MEDS ORDERED: ENOXAPARIN SODIUM 40 MG/0.4 ML SYRINGE SQ SCH (09:00)
--- NOTE | 2016-08-03 09:05 | HHI.PR ---
Subjective Remarks Follow-up for chest pain. Patient continues to complain of midsternal chest pain today. It radiates down his left arm causing numbness. He denies any upper extremity weakness. He has chronic right lower extremity weakness from back injury. He states that he isn't having a nonproductive cough, denies any shortness of breath. He denies any lower extremity swelling. He states he doesn't have any shortness of breath lying flat, but does when he lies on his right side at night. He reports nitroglycerin did not help the chest pain, morphine did. He occasionally uses a cane for ambulation for chronic right lower extremity weakness. Denies any worsening weakness. Follows with [facility]ology at the [facility]. Objective Vitals Vital Signs Date Time Temp Pulse Resp B/P Pulse Ox O2 Delivery O2 Flow Rate FiO2 08/03/16 08:37 96.9 89 18 142/99 93 08/03/16 04:48 98.8 78 18 137/86 97 08/03/16 00:08 98.8 90 18 105/80 98 08/02/16 22:19 98.0 99 18 139/90 97 08/02/16 21:30 98 08/02/16 21:00 101 18 124/74 96 Room Air 08/02/16 19:00 104 20 112/67 98 Room Air 08/02/16 18:42 110 20 107/67 98 Room Air 08/02/16 18:41 98 Room Air 08/02/16 16:12 98.3 124 20 99/60 99 Room Air I/O 08/02/16 08/02/16 08/02/16 08/03/16 08/03/16 08/03/16 07:00 15:00 23:00 07:00 15:00 23:00 Intake Total 900 ml Output Total 2000 ml Balance -1100 ml Intake Oral 900 ml Output Urine Total 2000 ml Result Diagram: 08/03/16 0400 08/03/16 0400 Imaging Last Impressions Chest X-Ray 08/02/16 1649 Signed Impressions: Service Date/Time: Tuesday, August 02, 2016 17:28 - CONCLUSION: No acute cardiopulmonary disease Ramon Castaneda MD Head CT 08/02/16 0000 Signed Impressions: Service Date/Time: Tuesday, August 02, 2016 17:08 - CONCLUSION: Normal examination. Ramon Castaneda MD Carotid Artery Ultrasound 08/02/16 0000 Signed Impressions: Service Date/Time: Tuesday, August 02, 2016 23:02 - CONCLUSION: 1. No evidence for hemodynamically significant stenosis. Jeff Benito MD Objective Remarks GENERAL: Well-developed well-nourished. In no acute distress. SKIN: Warm and dry. No lesions noted. HEENT: Normocephalic. Pupils equal and round. Mucous membranes pink and moist. CARDIOVASCULAR: Regular rate and rhythm. No murmur appreciated. No chest wall TTP. RESPIRATORY: No accessory muscle use. Clear to auscultation. Breath sounds equal bilaterally. GASTROINTESTINAL: Abdomen soft, non-tender, nondistended. Bowel sounds x4. MUSCULOSKELETAL: No obvious deformities. No clubbing or cyanosis. No edema. NEUROLOGICAL: Awake and alert. No focal neurological deficits. Moves upper and lower extremities spontaneously. Normal speech. Strength 5/5 in bilateral upper and left lower extremity, 4/5 in right lower extremity. PSYCHIATRIC: Appropriate mood and affect; insight and judgment normal. A/P Problem List: (1) Atypical chest pain ICD Code: R07.89 Status: Acute (2) Paresthesias ICD Code: R20.2 Status: Acute (3) DM (diabetes mellitus) ICD Code: E11.9 Status: Chronic (4) Acute renal insufficiency ICD Code: N28.9 Status: Acute (5) Hyponatremia ICD Code: E87.1 Status: Acute Assessment and Plan Mr. Gale is a 51 year-old male with a history of coronary artery disease status post CABG x 2 who presented to the emergency room on 08/02/2016 complaining of chest pain accompanied by left arm numbness. He has been admitted for observation. Chest pain, atypical Suspected new onset CHF Troponin negative 3. EKG with nonspecific lateral ST changes. Recently admission and workup for chest pain with stress test 3 that showed no ischemia, but global hypokinesis with reduced EF at 36. Previous ONI from 01/29 showed normal systolic function. - Ordered echocardiogram, initial impression shows decreased EF -Cardiology was consulted and is planning on cardiac catheterization today with decreased EF and continued chest pain. - Continuous cardiac telemetry - Continue aspirin, carvedilol. - Cardiology added lisinopril - Nitro paste and morphine as needed for pain - Check lipid profile, previous LDL 50 Left arm numbness/paresthesia Possibly secondary to cardiac etiology as above. Ruling out any central etiology. Head CT negative. Carotid ultrasound with no significant stenosis. - check brain MRI for acute infarct Type 2 diabetes mellitus With hyperglycemia overnight, likely because home Levemir was held - Hold home Levemir and sliding scale for now while nothing by mouth - Accu-Cheks before meals and at bedtime with low-dose NovoLog sliding scale coverage - Hypoglycemia protocol ordered Hyponatremia, chronic, likely related to alcohol abuse/beer potomania Sodium 131, previously 132 on 07/24/16. Improved to 134 overnight. ER physician documentation states that the patient received IVF replacement with NS in ER, patient confirmed - not on JUL - Monitor BMP Acute kidney injury Creatinine 1.65, previously 1.05 on 07/24/16. Creatinine improved spontaneously to 1.14. -Going for cath, give cautious IVF and monitor BMP ETOH abuse Has reported daily alcohol intake in the recent past - reports drinking a 6 pack every other day on this admission. ETOH level 34 at admission. - ETOH withdrawal precautions with CIWA protocol and rally pack History of UTI - continue Amoxicillin until Sunday 08/06 DVT prophylaxis - SCDs. No Lovenox pending intervention today. Discharge Planning Follow up cardiology recommendations. Discussed with case management, cardiology treating for NSTEMI, meets inpatient criteria, will admit. Hunter Evans Aug 03, 2016 09:05
[2016-08-03] MEDS ORDERED: SODIUM CHLOR 0.9% 1000 ML INJ 1,000 ML IV SCH (09:08)
[2016-08-03] MEDS: LISINOPRIL 5 MG TAB PO SCH (09:36)
[2016-08-03] MEDS: MORPHINE SULFATE 4 MG/ML INJ IV PUSH PRN ×3 (09:36→21:42)
[2016-08-03] MEDS ORDERED: NITROGLYCERIN 2% OINT 1 GM PACKET TOPICAL ONE (10:00)
--- NOTE | 2016-08-03 10:01 | EKG ---
Date Performed: 08/03/2016 Time Performed: 06:00:44 PTAGE: 51 years EKG: Sinus rhythm WITH FREQUENT VENTRICULAR PREMATURE COMPLEXES POSSIBLE LEFT ATRIAL ENLARGEMENT SEPTAL MYOCARDIAL INF ARCTION ABNORMAL ECG PREVIOUS TRACING : 08/03/2016 01.37 DOCTOR: Rashid Jackson Interpretating Date/Time 08/03/2016 09:59:01
--- NOTE | 2016-08-03 10:04 | EKG ---
Date Performed: 08/03/2016 Time Performed: 01:37:40 PTAGE: 51 years EKG: Sinus rhythm WITH FREQUENT VENTRICULAR PREMATURE COMPLEXES POSSIBLE LEFT ATRIAL ENLARGEMENT NONSPECIFIC T-WAVE AB NORMALITY ABNORMAL RHYTHM ECG PREVIOUS TRACING : 08/02/2016 17.08 DOCTOR: Rashid Jackson Interpretating Date/Time 08/03/2016 10:00:47
--- NOTE | 2016-08-03 10:18 | EKG ---
Date Performed: 08/02/2016 Time Performed: 17:08:34 PTAGE: 51 years EKG: SINUS TACHYCARDIA LEFT ATRIAL ENLARGEMENT NONSPECIFIC ST & T-WAVE ABNORMALITY ABNORMAL ECG PREVIOUS TRACING : 07/25/2016 00.47 DOCTOR: Rashid Jackson Interpretating Date/Time 08/03/2016 10:15:36
--- NOTE | 2016-08-03 10:44 | EC ---
Study Study Date:08/03/2016 STUDY CONCLUSIONS SUMMARY - Procedure narrative: Transthoracic echocardiography. Image quality was poor. Scanning was performed from the parasternal, apical, and subcostal acoustic windows. - Left ventricle: The cavity size was normal. Wall thickness was normal. Systolic function was mildly reduced. The estimated ejection fraction was in the range of 40% to 45%. Diffuse hypokinesis. - Mitral valve: Trace to mild regurgitation. - Tricuspid valve: Trace to mild regurgitation. If LV function is below 40, please consider prescribing an ACEI or ARB or document rationale for non-use. PROCEDURE DATA STUDY STATUS: Elective. Procedure: Transthoracic echocardiography. Image quality was poor. Scanning was performed from the parasternal, apical, and subcostal acoustic windows. Study completion: The patient tolerated the procedure well. Transthoracic echocardiography. M-mode, complete 2D, complete spectral Doppler, and color Doppler. Patient status: Inpatient. CARDIAC ANATOMY LEFT VENTRICLE: The cavity size was normal. Wall thickness was normal. Systolic function was mildly reduced. The estimated ejection fraction was in the range of 40% to 45%. Diffuse hypokinesis. AORTIC VALVE: Trileaflet; normal thickness leaflets. Doppler: Transvalvular velocity was within the normal range. There was no stenosis. No regurgitation. AORTA: Aortic root: The aortic root was normal in size. MITRAL VALVE: Structurally normal valve. Doppler: Transvalvular velocity was within the normal range. There was no evidence for stenosis. Trace to mild regurgitation. LEFT ATRIUM: The atrium was normal in size. RIGHT VENTRICLE: The cavity size was normal. Wall thickness was normal. PULMONIC VALVE: Doppler: Transvalvular velocity was within the normal range. There was no evidence for stenosis. No regurgitation. TRICUSPID VALVE: Structurally normal valve. Doppler: Transvalvular velocity was within the normal range. Trace to mild regurgitation. PULMONARY ARTERY: The main pulmonary artery was normal-sized. Systolic pressure was within the normal range. RIGHT ATRIUM: The atrium was normal in size. PERICARDIUM: There was no pericardial effusion. SYSTEMIC VEINS: Inferior vena cava: The vessel was normal in size. BASIC MEASUREMENTS ADULT Normal Left ventricle LV internal dimension, ED, chordal level, 47.5 mm 43-52 PLAX LV internal dimension, ES, chordal level, *43.3 mm 23-38 PLAX Fractional shortening, chordal level, PLAX *9 % >29 LV posterior wall thickness, ED 7.78 mm IVS/LVPW ratio, ED 0.94 <1.3 Ventricular septum Septal thickness, ED 7.29 mm Left atrium Anterior-posterior dimension 30 mm Right ventricle RV internal dimension, ED, PLAX 21.9 mm 19-38 DOPPLER MEASUREMENTS ADULT Normal Mitral valve Peak E-wave velocity 41.5 cm/s Peak A-wave velocity 68.6 cm/s Peak E/A ratio 0.6 Tricuspid valve Regurgitant peak velocity 210 cm/s Peak RV-RA gradient, S 18 mm Hg Maximal regurgitant velocity 210 cm/s LEGEND: Mean values are shown as u=mean value. Asterisk (*) foster values outside specified normal range. Prepared and signed by Bucky Stuart [id number]
[2016-08-03] MEDS ORDERED: HEPARIN-NS/PF INJ 500 ML ONE (12:50)
[2016-08-03] MEDS ORDERED: lamoTRIgine 25 MG TAB PO SCH (16:00)
--- NOTE | 2016-08-03 16:10 | RADRPT ---
EXAM DATE/TIME: 08/03/2016 11:48 [facility] COMPARISON: MRI LUMBAR SPINE W/O CONTRAST, July 11, 2014, 9:09. INDICATIONS : CVA. MEDICAL HISTORY : Myocardial infarction. Hypertension. SURGICAL HISTORY : Appendectomy. Discectomy, cervical. Fusion, lumbar. Cholecystectomy. Right shoulder. ENCOUNTER: Subsequent ACUITY: 2 day PAIN SCORE: 0/10 LOCATION: head. TECHNIQUE: Multiplanar, multisequence MRI of the brain was performed without contrast. FINDINGS: CEREBRUM: The ventricles are normal for age. No evidence of midline shift, mass lesion, hemorrhage or acute in farction. No extraaxial fluid collections are seen. The pituitary gland and suprasellar cistern are normal in configuration. WHITE MATTER: No significant signal abnormalities are seen in the white matter. POSTERIOR FOSSA: The cerebellum and brainstem are intact. The 4th ventricle is midline. The cerebellopontine angle is unremarkable. The cerebellar tonsils are normal in position. DIFFUSION IMAGING: No focal areas of restricted diffusion are seen. No evidence of acute infarction. EXTRACRANIAL: The visualized portions of the orbits and paranasal sinuses are unremarkable. CONCLUSION: 1. Negative examination. Charles Blancas MD on August 03, 2016 at 16:07 Board Certified Radiologist. This report was verified electronically.
[2016-08-03] MEDS: VENLAFAXINE HCL XR 75 MG CAP PO SCH (21:41)
[2016-08-04] MEDS: MORPHINE SULFATE 4 MG/ML INJ IV PUSH PRN ×3 (02:01→11:35)
[2016-08-04 03:33] VITALS: BP 129/83; PULSE 78; RESP 18; TEMP 98.7; O2SAT 97
[2016-08-04 05:49] LABS: BICARBONATE 23.8 MEQ/L (21.0-32.0); POTASSIUM 4.4 MEQ/L (3.5-5.1)
[2016-08-04] MEDS: INSULIN ASPART SUPPLEMENTAL SCALE SQ SCH ×2 (06:22→11:00)
--- NOTE | 2016-08-04 07:42 | PD.CARD.PN ---
Subjective Subjective Remarks continues with chest pain radiating down the left upper extremity Objective Vital Signs / I&O Vital Signs Date Time Temp Pulse Resp B/P Pulse Ox O2 Delivery O2 Flow Rate FiO2 08/04/16 03:33 98.7 78 18 129/83 97 08/03/16 23:51 98.0 88 18 115/85 98 08/03/16 19:35 98.7 97 18 114/59 97 08/03/16 16:49 97.6 92 19 102/74 98 08/03/16 15:16 18 08/03/16 12:35 97.0 98 17 99/72 96 08/03/16 08:37 96.9 89 18 142/99 93 08/03/16 08:00 87 I/O 08/03/16 08/03/16 08/03/16 08/04/16 08/04/16 08/04/16 07:00 15:00 23:00 07:00 15:00 23:00 Intake Total 900 ml Output Total 2000 ml 700 ml Balance -1100 ml -700 ml Intake Oral 900 ml Output Urine Total 2000 ml 700 ml # Voids 1 # Bowel Movements 0 Physical Exam GENERAL: Well-nourished, well-developed patient in no apparent distress. NECK: No JVD. No carotid bruit. CARDIOVASCULAR: Regular rate and rhythm. S1/S2 no murmur, rub, or gallop. RESPIRATORY: No accessory muscle use. Clear to auscultation. Breath sounds equal bilaterally. GASTROINTESTINAL: Abdomen soft, non-tender, nondistended. MUSCULOSKELETAL: Extremities without clubbing, cyanosis, or edema. Laboratory Laboratory Tests Test 08/04/16 04:55 Sodium Level 135 MEQ/L Potassium Level 4.4 MEQ/L Chloride Level 103 MEQ/L Carbon Dioxide Level 23.8 MEQ/L Anion Gap 8 MEQ/L Blood Urea Nitrogen 18 MG/DL Creatinine 1.12 MG/DL Estimat Glomerular Filtration 69 ML/MIN Rate Random Glucose 211 MG/DL Calcium Level 8.6 MG/DL Assessment and Plan Problem List: (1) NSTEMI (non-ST elevated myocardial infarction) (2) Coronary artery disease (3) Cardiomyopathy Assessment and Plan With his ongoing chest pain and new cardiomyopathy with EF 20% we will proceed with left heart cath and go from there. Charlie Shelby Aug 04, 2016 07:41
--- NOTE | 2016-08-04 09:25 | HHI.PR ---
Subjective Remarks Follow for chest pain. The patient reports continued constant 7/10 throbbing midsternal to left anterior chest pain today, associated with continued left arm numbness and very mild shortness of breath. The pains are temporarily relieved by IV morphine. Denies any cough, fevers, chills. Denies lower extremity edema, weight gain, or orthopnea. Denies any cervical spine injury or arthritis. He'll be going for cardiac catheterization today. Objective Vitals Vital Signs Date Time Temp Pulse Resp B/P Pulse Ox O2 Delivery O2 Flow Rate FiO2 08/04/16 03:33 98.7 78 18 129/83 97 08/03/16 23:51 98.0 88 18 115/85 98 08/03/16 19:35 98.7 97 18 114/59 97 08/03/16 16:49 97.6 92 19 102/74 98 08/03/16 15:16 18 08/03/16 12:35 97.0 98 17 99/72 96 I/O 08/03/16 08/03/16 08/03/16 08/04/16 08/04/16 08/04/16 07:00 15:00 23:00 07:00 15:00 23:00 Intake Total 900 ml Output Total 2000 ml 700 ml Balance -1100 ml -700 ml Intake Oral 900 ml Output Urine Total 2000 ml 700 ml # Voids 1 # Bowel Movements 0 Result Diagram: 08/03/16 0400 08/04/16 0455 Imaging Last Impressions Brain MRI 08/03/16 0000 Signed Impressions: Service Date/Time: Wednesday, August 03, 2016 11:48 - CONCLUSION: 1. Negative examination. Charles Blancas MD Chest X-Ray 08/02/16 1649 Signed Impressions: Service Date/Time: Tuesday, August 02, 2016 17:28 - CONCLUSION: No acute cardiopulmonary disease Ramon Castaneda MD Head CT 08/02/16 0000 Signed Impressions: Service Date/Time: Tuesday, August 02, 2016 17:08 - CONCLUSION: Normal examination. Ramon Castaneda MD Carotid Artery Ultrasound 08/02/16 0000 Signed Impressions: Service Date/Time: Tuesday, August 02, 2016 23:02 - CONCLUSION: 1. No evidence for hemodynamically significant stenosis. Jeff Benito MD Objective Remarks GENERAL: Well-nourished, well-developed middle aged male patient in NAD. SKIN: Warm and dry. No rash. HEENT: Normocephalic. Atraumatic. Pupils equal and round. No scleral icterus. No injection or drainage. Mucous membranes pink and moist. NECK: Supple. Trachea midline. CARDIOVASCULAR: Regular rate and rhythm. S1, S2 noted. No murmur appreciated. RESPIRATORY: No accessory muscle use. Clear to auscultation. Breath sounds equal bilaterally. GASTROINTESTINAL: Abdomen soft, non-tender, nondistended. Normoactive bowel sounds x4. MUSCULOSKELETAL: No obvious deformities. Extremities without clubbing, cyanosis , or edema. NEUROLOGICAL: Awake and alert. No obvious cranial nerve deficits. Motor grossly within normal limits. 5/5 muscle strength in bilateral upper and lower extremities. Normal speech. PSYCHIATRIC: Appropriate mood and affect; insight and judgment normal. Medications and IVs Current Medications Medications (Trade) Dose Ordered Sig/López Route Start Time Stop Time Status Last Admin (NS Flush) 2 ml UNSCH PRN FLUSH 08/02/16 19:45 (NS Flush) 2 ml BID FLUSH 08/02/16 21:00 08/03/16 21:40 (Zofran Inj) 4 mg Q6H PRN IVP 08/02/16 19:45 (Narcan Inj) 0.4 mg UNSCH PRN IV 08/02/16 19:45 (Aspirin) 325 mg DAILY PO 08/03/16 09:00 08/03/16 08:33 (Coreg) 6.25 mg BID PO 08/02/16 21:00 Hold 08/02/16 21:27 (Folate) 1 mg DAILY PO 08/03/16 09:00 08/03/16 08:33 (Neurontin) 300 mg BID PO 08/02/16 21:00 08/03/16 21:41 (Protonix) 20 mg DAILY PO 08/03/16 09:00 08/03/16 08:33 (D50w (Vial) Inj) 25 ml UNSCH PRN IV PUSH 08/02/16 19:45 (Glucagon Inj) 1 mg UNSCH PRN OTHER 08/02/16 19:45 (Effexor Xr) 75 mg HS PO 08/02/16 21:00 08/03/16 21:41 Patient Own Medication PT OWN MED: MAALOX ADVANCED--ALEISHA... BID PRN PO 08/02/16 20:15 Hold (Vitamin B1) 100 mg DAILY PO 08/03/16 09:00 08/03/16 08:33 (Trimox) 500 mg DAILY PO 08/03/16 09:00 08/06/16 10:00 08/03/16 08:33 (Catapres) 0.1 mg Q6H PRN PO 08/03/16 07:30 (Romazicon Inj) 0.2 mg Q1M PRN IV PUSH 08/03/16 07:30 (Ativan) 1 mg Q4H PRN PO 08/03/16 07:30 (Ativan) 2 mg Q2H PRN PO 08/03/16 07:30 (Ativan Inj) 2 mg Q1H PRN IV PUSH 08/03/16 07:30 (Ativan Inj) 2 mg Q15M PRN IV PUSH 08/03/16 07:30 (Prinivil) 5 mg DAILY PO 08/03/16 10:00 08/03/16 09:36 Morphine Sulfate 2 mg 2 mg Q3H PRN IV PUSH 08/03/16 09:00 08/04/16 06:22 (NS 1000 ml Inj) 1,000 ml @ 65 mls/hr [id number] IV 08/03/16 09:00 08/03/16 21:52 A/P Problem List: (1) Atypical chest pain ICD Code: R07.89 Status: Acute (2) Paresthesias ICD Code: R20.2 Status: Acute (3) DM (diabetes mellitus) ICD Code: E11.9 Status: Chronic (4) Acute renal insufficiency ICD Code: N28.9 Status: Acute (5) Hyponatremia ICD Code: E87.1 Status: Acute Assessment and Plan 51 year-old male with a history of coronary artery disease status post CABG x 2 who presented to the emergency room on 08/02/2016 complaining of chest pain accompanied by left arm numbness. He has been admitted for observation. Chest pain, atypical New onset CHF Troponin negative 3. EKG with nonspecific lateral ST changes. Recently admission and workup for chest pain with stress test 07/25/16 that showed no ischemia, but global hypokinesis with reduced EF at 36. Previous ONI from 01/29 showed normal systolic function. - Echocardiogram with mildly reduced systolic function, EF 40-45%, diffuse hypokinesis, trace to mild MR, trace to mild TR - Cardiology consulted, proceeding with cardiac catheterization today with decreased EF and continued chest pain. - Continuous cardiac telemetry - Continue aspirin, carvedilol. - Cardiology added lisinopril - Nitro paste and morphine as needed for pain - Check lipid profile, LDL 94, diet control, avoid statin for now with elevated LFTs Left arm numbness/paresthesia Possibly secondary to cardiac etiology as above. Ruling out any central etiology. Head CT negative. Carotid ultrasound with no significant stenosis. - Brain MRI images reviewed, unremarkable - Consider Cervical Spine MRI if continued numbness after cardiac cath (can be done outpatient) Type 2 diabetes mellitus With hyperglycemia, likely because home Levemir was held - Held home Levemir and sliding scale for now while NPO - Accu-Cheks with low-dose NovoLog sliding scale coverage - Hypoglycemia protocol ordered - Restart home Levemir 30u sq hs Hyponatremia, chronic, likely related to alcohol abuse/beer potomania Sodium 131, previously 132 on 07/24/16. ER physician documentation states that the patient received IVF replacement with NS in ER, patient confirmed however not on MAR - Monitor BMP, improved to 135 today Acute kidney injury Creatinine 1.65, previously 1.05 on 07/24/16. Creatinine improved spontaneously to 1.12. -Going for cath, give cautious IVF and monitor BMP ETOH abuse Has reported daily alcohol intake in the recent past - reports drinking a 6 pack every other day on this admission. ETOH level 34 at admission. - ETOH withdrawal precautions with CIWA protocol and rally pack History of UTI - continue Amoxicillin until Sunday 08/06 DVT prophylaxis - SCDs. No Lovenox pending intervention today. Discussed with Dr. Peralta Discharge Planning 1315hrs: Discussed with Dr. Hernadez, cardiac catheterization unremarkable, cleared for discharge. Patient advised to have further work up as outpatient for further evaluation of left arm paresthesia/pain. Discussed with Dr. Peralta , will discharge home. Discharge patient to home Condition on discharge: Improved Heart Healthy Diet as tolerated Ad Dee activity Rx written: lisinopril 5mg daily, thiamine 100mg daily Follow-up with primary care physician at the [facility] within 1 week Obtain outpatient C-Spine MRI Cande Merlos PA-C Aug 04, 2016 09:25
[2016-08-04 10:34] VITALS: BP 114/80; PULSE 78; RESP 20; TEMP 97.7; O2SAT 98
[2016-08-04] MEDS: GABAPENTIN 300 MG CAP PO SCH (11:32)
[2016-08-04] MEDS: FOLIC ACID 1 MG TAB PO SCH (11:33)
[2016-08-04] MEDS: ASPIRIN 325 MG TAB PO SCH (11:33)
[2016-08-04] MEDS: AMOXICILLIN (TRIHYDRATE) 500 MG CAP PO SCH (11:33)
[2016-08-04] MEDS: LISINOPRIL 5 MG TAB PO SCH (11:33)
[2016-08-04] MEDS: PANTOPRAZOLE SOD 20 MG DELAYED RELEASE TAB PO SCH (11:33)
[2016-08-04] MEDS: SODIUM CHLORIDE 0.9% FLUSH 5 ML FLUSH FLUSH SCH (11:42)
[2016-08-04] MEDS: THIAMINE HCL 100 MG TAB PO SCH (11:42)
[2016-08-04 11:46] VITALS: BP 119/82; PULSE 72; RESP 20; TEMP 96.8; O2SAT 95
[2016-08-04] MEDS ORDERED: MIDAZOLAM HCL 2 MG/2 ML VIAL ONE (12:06)
[2016-08-04] MEDS ORDERED: IOHEXOL 350 MG/ML 100 ML BTL (for Cath Lab) OTHER ONE (12:45)
[2016-08-04] MEDS ORDERED: SODIUM CHLOR 0.9% 250 ML INJ 250 ML IV PRN (13:00)
[2016-08-04] MEDS ORDERED: BACITRACIN OINT 0.9 GM PKT TOP ONE (13:00)
[2016-08-04] MEDS ORDERED: ATROPINE SULFATE 1 MG/ML VIAL IV PRN (13:00)
[2016-08-04] MEDS ORDERED: MISC INFORMATION XX ONE (13:00)
[2016-08-04] MEDS ORDERED: SODIUM CHLOR 0.9% 1000 ML INJ 1,000 ML IV SCH (13:00)
[2016-08-04] MEDS ORDERED: PRAV40TA PO (13:20)
[2016-08-04] MEDS ORDERED: VITA100T2 PO (13:20)
[2016-08-04] MEDS ORDERED: LISI-519 PO (13:20)
--- NOTE | 2016-08-04 13:21 | HHI.DCPOC ---
Discharge Care Plan Diagnosis: (1) Chest pain (2) Paresthesia of left arm Goals to Promote Your Health * To prevent worsening of your condition and complications * To maintain your health at the optimal level Directions to Meet Your Goals Take your medications as prescribed Follow your dietary instruction Follow activity as directed Keep your appointments as scheduled Take your immunizations and boosters as scheduled If your symptoms worsen call your PCP, if no PCP go to Urgent Care Center or Emergency Room Smoking is Dangerous to Your Health. Avoid second hand smoke Call the 24-hour hour crisis hotline for domestic abuse at Cande Merlos PA-C Aug 04, 2016 13:21
[2016-08-04 20:25] LABS: INDIRECT BILIRUBIN 0.2 MG/DL (0.0-0.8); TOTAL BILIRUBIN ADULT 0.3 MG/DL (0.2-1.0)
--- NOTE | 2016-08-04 20:44 | MA ---
cc: OLIVIA WILLIAMSON DATE 08/04/2016 PROCEDURE PERFORMED 1. Fluoroscopy with interpretation. 2. Coronary angiography. 3. Coronary bypass graft angiography. 4. Left heart catheterization. METHOD The risks, benefits and alternatives were discussed with the patient. The patient understood and consented to the procedure. PROCEDURE The patient was brought into the catheterization lab and placed on the catheterization table. The right groin was prepped and draped in a sterile fashion. The right groin was anesthetized with 2% Lidocaine. The right common femoral artery was cannulated and a 6 [place] 7 cm sheath was placed without difficulty. LEFT HEART CATHETERIZATION A 6 [place] JR5 catheter was advanced across the aortic valve without difficulty. Intraventricular hemodynamic pressure 110/10 mmHg. CORONARY ANGIOGRAPHY 1. The left main coronary was angiographically normal. 2. Left anterior descending coronary is 99% occluded in the mid segment. There is a first diagonal branch with 50% stenosis at the distal segment. 3. Left circumflex has a first obtuse marginal branch and only minor luminal irregularities. 4. Right coronary is 95% occluded in the mid segment. It is a dominant vessel giving rise to the posterior descending coronary artery. CORONARY BYPASS GRAFT ANGIOGRAPHY 1. Saphenous vein graft to the left anterior descending coronary is patent. The distal left anterior descending coronary is small in caliber size and diffusely diseased. 2. Saphenous vein graft to the right coronary is widely patent. CONCLUSIONS 1. Severe [place] two vessel coronary artery disease. 2. Normal two left-sided filling pressures. 3. Two out of two coronary bypass grafts are patent. PLAN We will continue with aggressive medical management. Follow up with a 3-month echocardiogram to evaluate for improvement in ejection fraction with optimized medical therapy. MD IZZY Reilly/KK /7:58 PM /8:21 PM
[2016-08-04] MEDS ORDERED: INSULIN DETEMIR 100 UNITS/ML VIAL SQ SCH (21:00)
[2016-08-04] MEDS ORDERED: PRAVASTATIN SOD 40 MG TAB PO SCH (21:00)
[2016-08-05] MEDS ORDERED: INSULIN ASPART SUPPLEMENTAL SCALE SQ SCH (07:00)
--- NOTE | 2016-08-15 09:43 | PQ ---
Physician Query Response Document PATIENT: ALEYDA MIGUEL : 1965 ADMIT DATE: 08/03/2016 10:47 AM DISCH DATE: 08/04/2016 4:00 PM RESPONDING PROVIDER #: [email or web address] QUERY TEXT: Angina Type Angina and coronary artery disease is documented in the Medical Record. Please specify the type Such as: -- Unstable angina -- Angina pectoris with documented spasm -- Angina equivalent -- Angina of effort -- Post infarction angina -- Other, please specify The patient's Clinical Indicators include: Progress note by Dr. Hernadez dated 08/04 states unstable angina. Cardiac catheterization states severe [place] two vessel coronary artery disease. FInal progress note dated 08/04 states cardiac catheteriza tion unremarkable. Please clarify the findings. If you have any additional questions/comments and/or concerns please do not hesitate to reach out to the CDI/Coding Hotline ext. [phone]. Query created by: Lesvia Reyes on 08/09/2016 6:47 AM RESPONSE TEXT: Atypical chest pain, non-cardiac Electronically signed by: Candace Peralta MD 08/15/2016 9:39 AM
== END 2016-08-04 16:00 | disposition home or self-care (01) | DRG 287 ==
LOC: NEPC 16:10 → NEDA 18:28 → NEPGCP 21:44 → OBSVTOIN 08-03 10:47 → HCIS 08-04 11:56
PROVIDERS: ADMIT Internal Medicine; ATTEND Internal Medicine
PROC: B2111ZZ Fluoroscopy of Multiple Coronary Arteries using Low Osmolar Contrast (ICD-10-PCS; 2016-08-04)
PROC: B2131ZZ Fluoroscopy of Multiple Coronary Artery Bypass Grafts using Low Osmolar Contrast (ICD-10-PCS; 2016-08-04)
PROC: 4A023N7 Measurement of Cardiac Sampling and Pressure, Left Heart, Percutaneous Approach (ICD-10-PCS; principal; 2016-08-04 12:15)
DX: R07.89 Other chest pain (principal); N17.9 Acute kidney failure, unspecified; I42.9 Cardiomyopathy, unspecified; E11.65 Type 2 diabetes mellitus with hyperglycemia; E87.1 Hypo-osmolality and hyponatremia; N39.0 Urinary tract infection, site not specified; I50.9 Heart failure, unspecified; J44.9 Chronic obstructive pulmonary disease, unspecified; I10 Essential (primary) hypertension; F10.10 Alcohol abuse, uncomplicated; E86.0 Dehydration; I25.10 Atherosclerotic heart disease of native coronary artery without angina pectoris; E78.5 Hyperlipidemia, unspecified; R00.0 Tachycardia, unspecified; Y90.1 Blood alcohol level of 20-39 mg/100 ml; F43.10 Post-traumatic stress disorder, unspecified; F32.9 Major depressive disorder, single episode, unspecified; F41.9 Anxiety disorder, unspecified; R20.0 Anesthesia of skin; I25.2 Old myocardial infarction; Z95.1 Presence of aortocoronary bypass graft; Z79.4 Long term (current) use of insulin
CPT/HCPCS: 70450; 70551; 71010; 80048; 80061; 80076; 80307; 82550; 82552; 82948; 84484; 85025; 85610; 85730; 93005; 93306; 93454; 93880; C1760; C1769; C1893; G0269; J1644; J1815; J2250; J2270; J2405; J3010; J7030; Q9967

== ENCOUNTER 2016-09-30 02:10 | Emergency (ER) | payer OTHER ==
[~2016-09-30] VITALS: Ht 177.8 cm; Wt 87.3 kg
[~2016-09-30 02:10] MED LIST changes: +FOLI1TAB4 PO; -FOLI5CAP PO; +LISI-519 PO; +VITA100T2 PO
[2016-09-30] MEDS ORDERED: ASPI81CH CHEW (02:20)
[2016-09-30] MEDS ORDERED: CORE25TA PO (02:23)
[2016-09-30] MEDS ORDERED: LOSA100T PO (02:23)
[2016-09-30] MEDS ORDERED: ETHA5TAB PO (02:23)
[2016-09-30] MEDS ORDERED: IBUP400T20 PO (02:23)
[2016-09-30 02:24] VITALS: BP 91/59; PULSE 102; RESP 16; TEMP 99.3; O2SAT 96
[2016-09-30] MEDS ORDERED: SODIUM CHLORIDE 0.9% FLUSH 10 ML FLUSH IVF PRN (02:30)
[2016-09-30 02:48] LABS: AUTOMATED NEUTROPHIL # 2.2 TH/MM3 (1.8-7.7); BASOPHIL # 0.1 TH/MM3 (0-0.2); BASOPHIL % 1.2 % (0.0-2.0); EOSINOPHIL # 0.1 TH/MM3 (0-0.4); HEMATOCRIT 40.6 % (39.0-51.0); HEMO FLAGS DIFF FINAL; LYMPH % 49.8 % (9.0-44.0); LYMPHOCYTE # 2.7 TH/MM3 (1.0-4.8); MEAN CELL VOLUME 92.2 FL (80.0-100.0); MEAN CORPUSCULAR HEMOGLOBIN 31.6 PG (27.0-34.0); MEAN CORPUSCULAR HGB CONC 34.3 % (32.0-36.0); MONO % 6.9 % (0.0-8.0); NEUT % 40.1 % (16.0-70.0); PLATELET COUNT 178 TH/MM3 (150-450); RED BLOOD COUNT 4.41 MIL/MM3 (4.50-5.90); RED CELL DISTRIBUTION WIDTH 12.8 % (11.6-17.2); WHITE BLOOD COUNT 5.4 TH/MM3 (4.0-11.0)
[2016-09-30 02:59] LABS: APTT (PATIENT) 22.2 SEC (24.3-30.1); PROTHROMBIN TIME - PATIENT 10.5 SEC (9.8-11.6)
[2016-09-30 03:19] LABS: ANION GAP 12 MEQ/L (5-15); BLOOD UREA NITROGEN 16 MG/DL (7-18); CHLORIDE 98 MEQ/L (98-107); GLOMERULAR FILTRATION RATE 64 ML/MIN (>89); MAGNESIUM 2.3 MG/DL (1.5-2.5); SODIUM (NA) 134 MEQ/L (136-145)
[2016-09-30 03:20] LABS: POTASSIUM 3.9 MEQ/L (3.5-5.1)
--- NOTE | 2016-09-30 03:31 | RADRPT ---
EXAM DATE/TIME: 09/30/2016 02:55 [place] COMPARISON: CHEST PA & LAT, November 16, 2015, 10:27. INDICATIONS : Chest pain and short of breath. MEDICAL HISTORY : Chronic obstructive pulmonary disease. Congestive heart failure. Myocardial infarction. Hyperten halie Diabetes. SURGICAL HISTORY : CABG. Appendectomy. ENCOUNTER: Initial ACUITY: 1 day PAIN SCORE: 5/10 LOCATION: Bilateral chest FINDINGS: PA and lateral views of the chest demonstrate the lungs to be symmetrically aerated without evidence of mass, infiltrate or effusion. The cardiomediastinal contours are unremarkable. Osseous structure s are intact. The patient is again noted status post median sternotomy. The upper sternal wire has be en removed. CONCLUSION: No acute disease. Chilo Miranda MD on September 30, 2016 at 3:28 Board Certified Radiologist. This report was verified electronically.
[2016-09-30] MEDS ORDERED: PRED20 PO (04:15)
--- NOTE | 2016-09-30 04:15 | PD ---
HPI Chief Complaint: Respiratory Distress Time Seen by Provider: 02:18 Travel History International Travel<30 days: No Contact w/Intl Traveler<30days: No Traveled to known affect area: No History of Present Illness HPI Patient 51-year-old male with a history of CHF presents emergency department for evaluation of cough and shortness of breath particularly in the program dir. Patient states that he was seen by his wooden fence erector about a month ago when the symptoms first started and he was placed on Lasix. He was told at that time that if his symptoms were not better by today that he should go to the emergency department for evaluation. Patient states she's been having a dry cough and states that he doesn't think the fluid is getting off a him. He denies any weight gain. Denies any fever denies any nausea vomiting diarrhea or chest pain. Symptoms have been for the past month, steady in nature.. According to EMS the patient stated that he was getting short of breath when he laid down flat however he was able to sleep in the stretcher the entire ride over. PFSH Past Medical History Hx Anticoagulant Therapy: Yes (ASA) Arthritis: No Asthma: No Autoimmune Disease: No Anxiety: Yes Depression: Yes Heart Rhythm Problems: No Cancer: No Cardiovascular Problems: Yes High Cholesterol: Yes Chemotherapy: No Chest Pain: No Congestive Heart Failure: No COPD: Yes Cerebrovascular Accident: No Diabetes: Yes Patient Takes Glucophage: Yes Diminished Hearing: No Endocrine: Yes Gastrointestinal Disorders: Yes (COLITIS ) GERD: No Genitourinary: No Headaches: No Hiatal Hernia: No Heparin Induced Thrombocytopen: No Hypertension: Yes Immune Disorder: No Implanted Vascular Access Dvce: No Kidney Stones: No Musculoskeletal: Yes Neurologic: Yes Psychiatric: Yes (PTSD) Reproductive: No Respiratory: Yes Immunizations Current: Yes Myocardial Infarction: Yes (1X) Radiation Therapy: No Renal Failure: No Seizures: No Sickle Cell Disease: No Sleep Apnea: No Thyroid Disease: No Ulcer: No Past Surgical History Abdominal Surgery: Yes (APPENDECTOMY) AICD: No Appendectomy: Yes (LATE 'S ) Arteriovenous Shunt: No Coronary Artery Bypass Graft: Yes (2 VESSEL) Ear Surgery: No Endocrine Surgery: No Eye Surgery: No Genitourinary Surgery: No Gynecologic Surgery: No Insulin Pump: No Joint Replacement: No Oral Surgery: No Pacemaker: No Thoracic Surgery: No Other Surgery: Yes (3 back surgeries, and 1 neck surgery) Family History Family Myocardial Infarction: Yes (DAD HAD MASSIVE DE AT 56) Social History Alcohol Use: Yes (3 times per week) Tobacco Use: No Substance Use: Yes (marijuana occassionally) Allergies-Medications (Allergen,Severity, Reaction): Coded Allergies: Sulfa (Verified Allergy, Mild, Rash, 09/30/16) Reported Meds & Prescriptions Reported Meds & Active Scripts Active Prednisone 20 Mg Tab 60 Mg PO DAILY 5 Days Vitamin B-1 (Thiamine HCl) 100 Mg Tab 100 Mg PO DAILY Lisinopril 5 Mg Tab 5 Mg PO DAILY Maalox Advanced Maximum Strength (Calcium Carbonate-Simethicone) 1,000-60 Mg Chew 1-2 Tab CHEW BID PRN 7 Days Reported Ibuprofen 400 Mg Tab 400 Mg PO Q6H PRN Losartan (Losartan Potassium) 100 Mg Tab 100 Mg PO DAILY Coreg (Carvedilol) 25 Mg Tab 25 Mg PO BID Ethacrynic Acid 25 Mg Tab 25 Mg PO DAILY Aspirin 81 Mg Chew 81 Mg CHEW DAILY Folate (Folic Acid) 1 Mg Tab 1 Mg PO DAILY Novolog Inj (Insulin Aspart) 100 Unit/Ml Inj SQ ACHS03 SLIDE SCALE Gabapentin 300 Mg Cap 300 Mg PO BID Levemir Inj (Insulin Detemir) 1,000 unit/ 10 ML Vial 30 Units SQ HS Do not mix with any other Insulin. Lamictal (Lamotrigine) 25 Mg Tab 50 Mg PO AC DINNER Metformin (Metformin HCl) 500 Mg Tab 500 Mg PO BIDPC With meals Thera M Plus (Multivitamins/Minerals Therapeutic) 1 Tab 1 Tab PO DAILY Protonix (Pantoprazole Sodium) 20 Mg Tab 20 Mg PO DAILY Effexor (Venlafaxine HCl) 75 Mg Tab 75 Mg PO HS Review of Systems Except as stated in HPI: all other systems reviewed are Neg Physical Exam Narrative GENERAL: Well-developed well-nourished no apparent distress, displays an intermittent dry cough. SKIN: Focused skin assessment warm/dry. HEAD: Atraumatic. Normocephalic. EYES: Pupils equal and round. No scleral icterus. No injection or drainage. ENT: No nasal bleeding or discharge. Mucous membranes pink and moist. NECK: Trachea midline. No JVD. CARDIOVASCULAR: Regular rate and rhythm. No murmur appreciated. 2+ bilateral equal pulses in all 4 extremities. RESPIRATORY: No accessory muscle use. Clear to auscultation. Breath sounds equal bilaterally. GASTROINTESTINAL: Abdomen soft, non-tender, nondistended. Hepatic and splenic margins not palpable. MUSCULOSKELETAL: No obvious deformities. No clubbing. No cyanosis. No edema. NEUROLOGICAL: Awake and alert. No obvious cranial nerve deficits. Motor grossly within normal limits. Normal speech. PSYCHIATRIC: Appropriate mood and affect; insight and judgment normal. Data Data Last Documented VS Vital Signs Date Time Temp Pulse Resp B/P Pulse Ox O2 Delivery O2 Flow Rate FiO2 09/30/16 02:24 99.3 102 16 91/59 96 Orders Electrocardiogram (09/30/16 02:18) Basic Metabolic Panel (Bmp) (09/30/16 02:18) B-Type Natriuretic Peptide (09/30/16 02:18) Complete Blood Count With Diff (09/30/16 02:18) Magnesium (Mg) (09/30/16 02:18) Prothrombin Time / Inr (Pt) (09/30/16 02:18) Act Partial Throm Time (Ptt) (09/30/16 02:18) Troponin I (09/30/16 02:18) Ecg Monitoring (09/30/16 02:18) Iv Access Insert/Monitor (09/30/16 02:18) Oximetry (09/30/16 02:18) Oxygen Administration (09/30/16 02:18) Sodium Chloride 0.9% Flush (Ns Flush) (09/30/16 02:30) Chest, Pa & Lat (09/30/16 02:18) Labs Laboratory Tests Test 09/30/16 02:40 White Blood Count 5.4 TH/MM3 Red Blood Count 4.41 MIL/MM3 Hemoglobin 13.9 GM/DL Hematocrit 40.6 % Mean Corpuscular Volume 92.2 FL Mean Corpuscular Hemoglobin 31.6 PG Mean Corpuscular Hemoglobin 34.3 % Concent Red Cell Distribution Width 12.8 % Platelet Count 178 TH/MM3 Mean Platelet Volume 9.0 FL Neutrophils (%) (Auto) 40.1 % Lymphocytes (%) (Auto) 49.8 % Monocytes (%) (Auto) 6.9 % Eosinophils (%) (Auto) 2.0 % Basophils (%) (Auto) 1.2 % Neutrophils # (Auto) 2.2 TH/MM3 Lymphocytes # (Auto) 2.7 TH/MM3 Monocytes # (Auto) 0.4 TH/MM3 Eosinophils # (Auto) 0.1 TH/MM3 Basophils # (Auto) 0.1 TH/MM3 CBC Comment DIFF FINAL Differential Comment Prothrombin Time 10.5 SEC Prothromb Time International 1.0 RATIO Ratio Activated Partial 22.2 SEC Thromboplast Time Sodium Level 134 MEQ/L Potassium Level 3.9 MEQ/L Chloride Level 98 MEQ/L Carbon Dioxide Level 24.0 MEQ/L Anion Gap 12 MEQ/L Blood Urea Nitrogen 16 MG/DL Creatinine 1.20 MG/DL Estimat Glomerular Filtration 64 ML/MIN Rate Random Glucose 347 MG/DL Calcium Level 9.0 MG/DL Magnesium Level 2.3 MG/DL Troponin I LESS THAN 0.02 NG/ML B-Type Natriuretic Peptide 38 PG/ML [facility] Medical Decision Making Medical Screen Exam Complete: Yes Emergency Medical Condition: Yes Interpretation(s) EKG shows sinus tachycardia at a rate of 100, frequent unifocal PVCs, normal axis and normal R-wave progression. No concerning ST segment changes. This normal EKG except for PVCs. Differential Diagnosis Bronchitis, pneumonia, acute CHF unlikely. Narrative Course Patient was roomed in the emergency department, satting 98-100% on room air. He appears to be in no respiratory distress is dry cough is more consistent with her chronic bronchitis. Chest x-ray is completely clear, BNP is 34, his basic laboratory workup in emerged Department was negative. He is stable for discharge to follow-up with primary care physician and his wooden fence erector. No indication further workup in the emergency department. Discussed with them steroids for time being and for possible bronchitis. Discussed return to ED criteria. Last 24 hours Impressions Chest X-Ray 09/30/16 0218 Signed Impressions: Service Date/Time: September 02:55 - CONCLUSION: No acute disease. Chilo Miranda MD Diagnosis Primary Impression: Bronchitis Med/Other Pt SpecificInfo: Prescription(s) given Scripts Prednisone 20 Mg Tab60 Mg PO DAILY 5 Days Ref 0 Prov:Tom Tilley MD 09/30/16 Disposition: 01 DISCHARGE HOME Condition: Stable Tom Tilley MD September 30, 2016 04:15
--- NOTE | 2016-09-30 14:27 | EKG ---
Date Performed: 09/30/2016 Time Performed: 02:36:55 PTAGE: 51 years EKG: SINUS TACHYCARDIA WITH FREQUENT VENTRICULAR PREMATURE COMPLEXES NONSPECIFIC T-WAVE ABNORMAL ITY Compared to prior tracing rate has increased with mild T wave abnormalities. Clinical correlation is recommended ABNORMAL RHYTHM ECG PREVIOUS TRACING : 08/03/2016 06.00 DOCTOR: Matthew Cano Interpretating Date/Time 09/30/2016 14:25:44
== END 2016-09-30 04:59 | disposition home or self-care (01) ==
LOC: NEPC 02:10
DX: J40 Bronchitis, not specified as acute or chronic (principal); R06.02 Shortness of breath; R94.31 Abnormal electrocardiogram [ECG] [EKG]; E11.9 Type 2 diabetes mellitus without complications; I10 Essential (primary) hypertension; E78.00 Pure hypercholesterolemia, unspecified; I25.2 Old myocardial infarction; Z79.82 Long term (current) use of aspirin; Z79.4 Long term (current) use of insulin; Z86.79 Personal history of other diseases of the circulatory system; Z87.09 Personal history of other diseases of the respiratory system; Z87.19 Personal history of other diseases of the digestive system; Z87.39 Personal history of other diseases of the musculoskeletal system and connective tissue; Z86.69 Personal history of other diseases of the nervous system and sense organs; Z86.59 Personal history of other mental and behavioral disorders
CPT/HCPCS: 71020; 80048; 83735; 83880; 84484; 85025; 85610; 85730; 93005

== ENCOUNTER 2016-12-16 20:33 | Emergency (ER) | payer OTHER ==
[~2016-12-16] VITALS: Ht 177.8 cm; Wt 90.0 kg
[~2016-12-16 20:33] MED LIST changes: -AMOX500C PO; -ASPI325T PO; +ASPI81CH CHEW; -CARV6.25 PO; +CORE25TA PO; +ETHA5TAB PO; +IBUP400T20 PO; +LOSA100T PO; +PRED20 PO
--- NOTE | 2016-12-16 21:56 | PD ---
HPI Chief Complaint: bailey act Time Seen by Provider: 21:46 Travel History International Travel<30 days: No Contact w/Intl Traveler<30days: No History of Present Illness HPI Patient is a 51-year-old male who presents to emergency room under Bailey act. As per patient, he is very depressed, reports that he made multiple slits to his left wrist today in attempt to commit suicide. Reports that he called police for help and was placed under bailey act. He does admit to drinking 10 beers today. He does drink every other day. Denies drug abuse. No other c/o. PFSH Past Medical History Hx Anticoagulant Therapy: Yes (ASA) Arthritis: No Asthma: No Autoimmune Disease: No Anxiety: Yes Depression: Yes Heart Rhythm Problems: No Cancer: No Cardiovascular Problems: Yes High Cholesterol: Yes Chemotherapy: No Chest Pain: No Congestive Heart Failure: No COPD: Yes Cerebrovascular Accident: No Diabetes: Yes Diminished Hearing: No Endocrine: Yes Gastrointestinal Disorders: Yes (COLITIS ) GERD: No Genitourinary: No Headaches: No Hiatal Hernia: No Heparin Induced Thrombocytopen: No Hypertension: Yes Immune Disorder: No Implanted Vascular Access Dvce: No Kidney Stones: No Musculoskeletal: Yes Neurologic: Yes Psychiatric: Yes (PTSD) Reproductive: No Respiratory: Yes Immunizations Current: Yes Myocardial Infarction: Yes (1X) Radiation Therapy: No Renal Failure: No Seizures: No Sickle Cell Disease: No Sleep Apnea: No Thyroid Disease: No Ulcer: No Past Surgical History Abdominal Surgery: Yes (APPENDECTOMY) AICD: No Appendectomy: Yes (LATE 90'S ) Arteriovenous Shunt: No Coronary Artery Bypass Graft: Yes (2 VESSEL) Ear Surgery: No Endocrine Surgery: No Eye Surgery: No Genitourinary Surgery: No Gynecologic Surgery: No Insulin Pump: No Joint Replacement: No Oral Surgery: No Pacemaker: No Thoracic Surgery: No Other Surgery: Yes (3 back surgeries, and 1 neck surgery) Social History Alcohol Use: Yes (3 times per week) Tobacco Use: No Substance Use: Yes (marijuana occassionally) Allergies-Medications (Allergen,Severity, Reaction): Coded Allergies: Sulfa (Verified Allergy, Mild, Rash, 12/16/16) Reported Meds & Prescriptions Reported Meds & Active Scripts Active Lisinopril 5 Mg Tab 5 Mg PO DAILY Maalox Advanced Maximum Strength (Calcium Carbonate-Simethicone) 1,000-60 Mg Chew 1-2 Tab CHEW BID PRN 7 Days Reported Losartan (Losartan Potassium) 100 Mg Tab 100 Mg PO DAILY Coreg (Carvedilol) 25 Mg Tab 25 Mg PO BID Aspirin 81 Mg Chew 81 Mg CHEW DAILY Novolog Inj (Insulin Aspart) 100 Unit/Ml Inj SQ ACHS03 SLIDE SCALE Gabapentin 300 Mg Cap 300 Mg PO BID Levemir Inj (Insulin Detemir) 1,000 unit/ 10 ML Vial 30 Units SQ HS Do not mix with any other Insulin. Lamictal (Lamotrigine) 25 Mg Tab 50 Mg PO AC DINNER Metformin (Metformin HCl) 500 Mg Tab 500 Mg PO BIDPC With meals Thera M Plus (Multivitamins/Minerals Therapeutic) 1 Tab 1 Tab PO DAILY Effexor (Venlafaxine HCl) 75 Mg Tab 75 Mg PO HS Review of Systems General / Constitutional: No: Fever Eyes: No: Visual changes HENT: No: Headaches Cardiovascular: No: Chest Pain or Discomfort Respiratory: No: Shortness of Breath Gastrointestinal: No: Abdominal Pain Genitourinary: No: Dysuria Musculoskeletal: No: Pain Skin: No Rash Neurologic: No: Weakness Psychiatric: Positive: Anxiety, Depression, Suicidal Ideations, No: Homicidal Ideation Endocrine: No: Polydipsia Hematologic/Lymphatic: No: Easy Bruising Physical Exam Narrative GENERAL: NAD SKIN: Focused skin assessment warm/dry. superficial linear lacerations to left wrist HEAD: Atraumatic. Normocephalic. EYES: Pupils equal and round. No scleral icterus. No injection or drainage. ENT: No nasal bleeding or discharge. Mucous membranes pink and moist. NECK: Trachea midline. No JVD. CARDIOVASCULAR: Regular rate and rhythm. No murmur appreciated. RESPIRATORY: No accessory muscle use. Clear to auscultation. Breath sounds equal bilaterally. GASTROINTESTINAL: Abdomen soft, non-tender, nondistended. Hepatic and splenic margins not palpable. MUSCULOSKELETAL: No obvious deformities. No clubbing. No cyanosis. No edema. NEUROLOGICAL: Awake and alert. No obvious cranial nerve deficits. Motor grossly within normal limits. Normal speech. PSYCHIATRIC: Depressed mood, positive for suicidal idealization, denies hi Data Data Last Documented VS Vital Signs Date Time Temp Pulse Resp B/P Pulse Ox O2 Delivery O2 Flow Rate FiO2 12/17/16 07:55 84 16 141/74 96 Room Air 12/17/16 06:30 98.3 Orders Complete Blood Count With Diff (12/16/16 21:51) Comprehensive Metabolic Panel (12/16/16 21:51) Psych Screen (12/16/16 21:51) Drug Screen, Random Urine (12/16/16 21:51) Alcohol (Ethanol) (12/16/16 21:51) Sodium Chlor 0.9% 1000 Ml Inj (Ns 1000 M (12/17/16 00:15) Sodium Chlor 0.9% 1000 Ml Inj (Ns 1000 M (12/17/16 00:15) Insulin Human Regular Inj (Novolin R Inj (12/17/16 00:15) Blood Glucose (12/17/16 00:12) Blood Glucose (12/17/16 00:23) Blood Glucose (12/17/16 01:23) Gabapentin (Neurontin) (12/17/16 03:45) Diet Regular Basic (12/17/16 Breakfast) Labs Laboratory Tests Test 12/16/16 12/16/16 22:10 22:20 Urine Opiates Screen NEG Urine Barbiturates Screen NEG Urine Amphetamines Screen NEG Urine Benzodiazepines Screen NEG Urine Cocaine Screen NEG Urine Cannabinoids Screen NEG White Blood Count 5.2 TH/MM3 Red Blood Count 4.39 MIL/MM3 Hemoglobin 14.2 GM/DL Hematocrit 41.9 % Mean Corpuscular Volume 95.6 FL Mean Corpuscular Hemoglobin 32.5 PG Mean Corpuscular Hemoglobin 34.0 % Concent Red Cell Distribution Width 12.8 % Platelet Count 148 TH/MM3 Mean Platelet Volume 8.6 FL Neutrophils (%) (Auto) 43.4 % Lymphocytes (%) (Auto) 45.8 % Monocytes (%) (Auto) 8.0 % Eosinophils (%) (Auto) 2.0 % Basophils (%) (Auto) 0.8 % Neutrophils # (Auto) 2.3 TH/MM3 Lymphocytes # (Auto) 2.4 TH/MM3 Monocytes # (Auto) 0.4 TH/MM3 Eosinophils # (Auto) 0.1 TH/MM3 Basophils # (Auto) 0.0 TH/MM3 CBC Comment DIFF FINAL Differential Comment Sodium Level 128 MEQ/L Potassium Level 3.6 MEQ/L Chloride Level 90 MEQ/L Carbon Dioxide Level 21.2 MEQ/L Anion Gap 17 MEQ/L Blood Urea Nitrogen 17 MG/DL Creatinine 1.24 MG/DL Estimat Glomerular Filtration 61 ML/MIN Rate Random Glucose 497 MG/DL Calcium Level 9.0 MG/DL Total Bilirubin 0.3 MG/DL Aspartate Amino Transf 22 U/L (AST/SGOT) Alanine Aminotransferase 30 U/L (ALT/SGPT) Alkaline Phosphatase 91 U/L Total Protein 8.1 GM/DL Albumin 3.7 GM/DL Ethyl Alcohol Level 166 MG/DL MDM Medical Decision Making Medical Screen Exam Complete: Yes Emergency Medical Condition: Yes Differential Diagnosis depression, suicidal idealizations Narrative Course Patient is a 51-year-old male who presents to emergency room under Bailey act. Screening labs ordered Patient medically cleared for psychiatric evaluation Columba Dunlap DO Dec 16, 2016 21:56
[2016-12-16 22:00] VITALS: BP 143/77; PULSE 76; RESP 16; TEMP 98.6; O2SAT 99
[2016-12-16 23:05] LABS: AUTOMATED NEUTROPHIL # 2.3 TH/MM3 (1.8-7.7); BASOPHIL % 0.8 % (0.0-2.0); EOSINOPHIL # 0.1 TH/MM3 (0-0.4); HEMATOCRIT 41.9 % (39.0-51.0); HEMO FLAGS DIFF FINAL; LYMPH % 45.8 % (9.0-44.0); LYMPHOCYTE # 2.4 TH/MM3 (1.0-4.8); MEAN CELL VOLUME 95.6 FL (80.0-100.0); MEAN CORPUSCULAR HEMOGLOBIN 32.5 PG (27.0-34.0); NEUT % 43.4 % (16.0-70.0); PLATELET COUNT 148 TH/MM3 (150-450); RED BLOOD COUNT 4.39 MIL/MM3 (4.50-5.90); RED CELL DISTRIBUTION WIDTH 12.8 % (11.6-17.2); WHITE BLOOD COUNT 5.2 TH/MM3 (4.0-11.0)
[2016-12-16 23:59] LABS: ALKALINE PHOSPHATASE 91 U/L (45-117); ALT (GPT) 30 U/L (12-78); ANION GAP 17 MEQ/L (5-15); AST (GOT) 22 U/L (15-37); BICARBONATE 21.2 MEQ/L (21.0-32.0); BLOOD UREA NITROGEN 17 MG/DL (7-18); CHLORIDE 90 MEQ/L (98-107); GLOMERULAR FILTRATION RATE 61 ML/MIN (>89); POTASSIUM 3.6 MEQ/L (3.5-5.1); SODIUM (NA) 128 MEQ/L (136-145); TOTAL BILIRUBIN ADULT 0.3 MG/DL (0.2-1.0)
[2016-12-17] LABS: ALCOHOL 166 MG/DL (0-5)
[2016-12-17] MEDS ORDERED: INSULIN HUMAN REGULAR 1,000 UNITS/10 ML VIAL SQ ONE (00:15)
[2016-12-17] MEDS ORDERED: SODIUM CHLOR 0.9% 1000 ML INJ 1,000 ML IV ONE ×2 (00:15)
[2016-12-17 01:32] VITALS: BP 162/77; PULSE 71; RESP 16; O2SAT 97
[2016-12-17] MEDS ORDERED: GABAPENTIN 300 MG CAP PO ONE (03:45)
[2016-12-17 06:30] VITALS: BP 151/68; PULSE 80; RESP 16; TEMP 98.3; O2SAT 98
[2016-12-17 07:55] VITALS: BP 141/74; PULSE 84; RESP 16; O2SAT 96
--- NOTE | 2016-12-17 10:47 | PD ---
History of Present Illness Chief Complaint: Suicide Ideation/Attempt Time Seen by Provider: 10:30 Travel History International Travel<30 Days: No Contact w/Intl Traveler<30days: No Known affected area: No Legal Status Legal Status: [employer] History of Present Illness: History of Present Illness HPI Patient is a 51-year-old male with history of depression, PTSD, alcohol dependence who presents to emergency room under Bailey act initiated by MIGUEL ANGEL. The patient reports that he was feeling depressed over his limited contact with his daughter was drinking and he the superficially cut his wrist. After this he called the police in order to have them bring him to the ED. The patient with BAL of 166 on [place] [facility] [place] 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 He was last evaluated on August 28 when he presented for a voluntary evaluation w complaints of depression. His last admission was on Jun 2015 for treatment of depression and PTSD. sj espinal has a history of episodic self injurious behavior. Patient is seen in Ed. He is clinically sober with no tremors. His speech is clear and logical. He is maintaining basic hygiene. He denies any hallucinations , no delusions or paranoia and does not appear to be internally preoccupied. His mood is depressed but at baseline. He reports medication compliance. He continues to drink alcohol " about 6 to 10 beers every other day". He denies any current suicidal or homicidal ideation, intent or plan and states " I would never do that". He states that he is followed by [facility] the [facility] and has an appointment on Tuesday with the psychologist. He reports he has a good connection with the [facility] . [facility] Past Medical History Hx Anticoagulant Therapy: Yes (ASA) Arthritis: No Asthma: No Autoimmune Disease: No Anxiety: Yes Depression: Yes Heart Rhythm Problems: No Cancer: No Cardiovascular Problems: Yes High Cholesterol: Yes Chemotherapy: No Chest Pain: No Congestive Heart Failure: No COPD: Yes Cerebrovascular Accident: No Diabetes: Yes Patient Takes Glucophage: Yes Diminished Hearing: No Endocrine: Yes Gastrointestinal Disorders: Yes (COLITIS ) GERD: No Genitourinary: No Headaches: No Hiatal Hernia: No Heparin Induced Thrombocytopen: No Hypertension: Yes Immune Disorder: No Implanted Vascular Access Dvce: No Kidney Stones: No Musculoskeletal: Yes Neurologic: Yes Psychiatric: Yes (PTSD) Reproductive: No Respiratory: Yes Immunizations Current: Yes Myocardial Infarction: Yes (1X) Radiation Therapy: No Renal Failure: No Seizures: No Sickle Cell Disease: No Sleep Apnea: No Thyroid Disease: No Ulcer: No Tetanus Vaccination: < 5 Years Influenza Vaccination: Yes Past Surgical History Abdominal Surgery: Yes (APPENDECTOMY) AICD: No Appendectomy: Yes (LATE 'S ) Arteriovenous Shunt: No Coronary Artery Bypass Graft: Yes (2 VESSEL) Ear Surgery: No Endocrine Surgery: No Eye Surgery: No Genitourinary Surgery: No Gynecologic Surgery: No Insulin Pump: No Joint Replacement: No Oral Surgery: No Pacemaker: No Thoracic Surgery: No Other Surgery: Yes (3 back surgeries, and 1 neck surgery) Psychiatric History Psychiatric History Hx Psychiatric Treatment: Patient has various [place] [facility] [place]. His last [facility] was [facility] Jun[facility] History of Inpatient Treatment: Yes Guns or firearms in home: No Social History Single male. Lives by himself. Is on disability. Hx Alcohol Use: Yes (3 times per week) Hx Tobacco Use: No Hx Substance Use: Yes (marijuana occassionally) Substance Use Type: Alcohol Other Substances Used: weekly Hx of Substance Use Treatment: Yes Family Psychiatric History Negative Allergies-Medications (Allergen,Severity, Reaction): Coded Allergies: Sulfa (Verified Allergy, Mild, Rash, 12/16/16) Reported Meds & Prescriptions Reported Meds & Active Scripts Active Lisinopril 5 Mg Tab 5 Mg PO DAILY Maalox Advanced Maximum Strength (Calcium Carbonate-Simethicone) 1,000-60 Mg Chew 1-2 Tab CHEW BID PRN 7 Days Reported Losartan (Losartan Potassium) 100 Mg Tab 100 Mg PO DAILY Coreg (Carvedilol) 25 Mg Tab 25 Mg PO BID Aspirin 81 Mg Chew 81 Mg CHEW DAILY Novolog Inj (Insulin Aspart) 100 Unit/Ml Inj SQ ACHS03 SLIDE SCALE Gabapentin 300 Mg Cap 300 Mg PO BID Levemir Inj (Insulin Detemir) 1,000 unit/ 10 ML Vial 30 Units SQ HS Do not mix with any other Insulin. Lamictal (Lamotrigine) 25 Mg Tab 50 Mg PO AC DINNER Metformin (Metformin HCl) 500 Mg Tab 500 Mg PO BIDPC With meals Thera M Plus (Multivitamins/Minerals Therapeutic) 1 Tab 1 Tab PO DAILY Effexor (Venlafaxine HCl) 75 Mg Tab 75 Mg PO HS Review of Systems Except as stated in HPI: all other systems reviewed are Neg Exam Alert: Yes [place]: Person (ox4) Mood: Calm Affect: Appropriate Speech: Clear, Logical Eye Contact: Normal Memory Intact: Comment (No impairmetn) Hallucinations: Other (Negative) Delusions: No Suicidal: Ideation (Deneis any) Homicidal: Ideation (Deneis any) Insight/Judgement Fair. Not impaired. MDM Medical Decision Making Medical Record Reviewed: Yes Assessment/Plan Patient is a 51-year-old male with history of depression, PTSD, alcohol dependence who presents to emergency room under Bailey act initiated by MIGUEL ANGEL. The patient reports that he was feeling depressed over his limited contact with his daughter was drinking and he the superficially cut his wrist. After this he called the police in order to have them bring him to the ED. The patient with BAL of 166 on [place] [facility] [place] At the time of this evaluation he is clinically sober. He denies any suicidal or homicidal ideation. He is requesting discharge at this time. [facility]. . He is provided psychoeducation. Emphasis on abstinence. Orders Complete Blood Count With Diff (12/16/16 21:51) Comprehensive Metabolic Panel (12/16/16 21:51) Psych Screen (12/16/16 21:51) Drug Screen, Random Urine (12/16/16 21:51) Alcohol (Ethanol) (12/16/16 21:51) Sodium Chlor 0.9% 1000 Ml Inj (Ns 1000 M (12/17/16 00:15) Sodium Chlor 0.9% 1000 Ml Inj (Ns 1000 M (12/17/16 00:15) Insulin Human Regular Inj (Novolin R Inj (12/17/16 00:15) Blood Glucose (12/17/16 00:12) Blood Glucose (12/17/16 00:23) Blood Glucose (12/17/16 01:23) Gabapentin (Neurontin) (12/17/16 03:45) Diet Regular Basic (12/17/16 Breakfast) Results Vital Signs Date Time Temp Pulse Resp B/P Pulse Ox O2 Delivery O2 Flow Rate FiO2 12/17/16 07:55 84 16 141/74 96 Room Air 12/17/16 06:30 98.3 80 16 151/68 98 Room Air 12/17/16 01:32 71 16 162/77 97 Room Air 12/16/16 22:06 16 99 Room Air 12/16/16 22:06 16 12/16/16 22:00 98.6 76 16 143/77 99 Laboratory Tests Test 12/16/16 12/16/16 22:10 22:20 Urine Opiates Screen NEG Urine Barbiturates Screen NEG Urine Amphetamines Screen NEG Urine Benzodiazepines Screen NEG Urine Cocaine Screen NEG Urine Cannabinoids Screen NEG White Blood Count 5.2 Red Blood Count 4.39 Hemoglobin 14.2 Hematocrit 41.9 Mean Corpuscular Volume 95.6 Mean Corpuscular Hemoglobin 32.5 Mean Corpuscular Hemoglobin 34.0 Concent Red Cell Distribution Width 12.8 Platelet Count 148 Mean Platelet Volume 8.6 Neutrophils (%) (Auto) 43.4 Lymphocytes (%) (Auto) 45.8 Monocytes (%) (Auto) 8.0 Eosinophils (%) (Auto) 2.0 Basophils (%) (Auto) 0.8 Neutrophils # (Auto) 2.3 Lymphocytes # (Auto) 2.4 Monocytes # (Auto) 0.4 Eosinophils # (Auto) 0.1 Basophils # (Auto) 0.0 CBC Comment DIFF FINAL Differential Comment Sodium Level 128 Potassium Level 3.6 Chloride Level 90 Carbon Dioxide Level 21.2 Anion Gap 17 Blood Urea Nitrogen 17 Creatinine 1.24 Estimat Glomerular Filtration 61 Rate Random Glucose 497 Calcium Level 9.0 Total Bilirubin 0.3 Aspartate Amino Transf 22 (AST/SGOT) Alanine Aminotransferase 30 (ALT/SGPT) Alkaline Phosphatase 91 Total Protein 8.1 Albumin 3.7 Ethyl Alcohol Level 166 Diagnosis Primary Impression: Alcohol dependence Additional Impression: Adjustment disorder Psychiatrically Cleared: Yes Med/ Other Pt Specific Info: No Change to Meds Disposition: 01 DISCHARGE HOME Condition: Stable Problem Qualifiers Primary Impression: Alcohol dependence Qualified Code: F10.288 - Alcohol dependence with other alcohol-induced disorder Additional Impression: Adjustment disorder Qualified Code: F43.25 - Adjustment disorder with mixed disturbance of emotions and conduct Halle EstebanP Dec 17, 2016 10:47
== END 2016-12-17 11:10 | disposition home or self-care (01) ==
LOC: NEPD 20:33
DX: F10.20 Alcohol dependence, uncomplicated (principal); Y90.6 Blood alcohol level of 120-199 mg/100 ml; R45.851 Suicidal ideations; I10 Essential (primary) hypertension; E11.9 Type 2 diabetes mellitus without complications; J44.9 Chronic obstructive pulmonary disease, unspecified; E78.00 Pure hypercholesterolemia, unspecified; F43.10 Post-traumatic stress disorder, unspecified; I25.2 Old myocardial infarction; Z79.82 Long term (current) use of aspirin; Z95.1 Presence of aortocoronary bypass graft; Z79.4 Long term (current) use of insulin
CPT/HCPCS: 80053; 80307; 85025; 96360; 96372; 99284; J1815; J7030

== ENCOUNTER 2017-03-08 19:31 | Observation (INO) | payer OTHER, MEDICARE ==
[2017-03-08] VITALS (7 sets, daily range): BP systolic 119–150; BP diastolic 69–95; PULSE 82–105; RESP 18–20; O2SAT 95–98
[~2017-03-08 19:31] MED LIST changes: -ETHA5TAB PO; -FOLI1TAB4 PO; -IBUP400T20 PO; -PANT20 PO; -PRED20 PO; -VITA100T2 PO
[2017-03-08] MEDS ORDERED: ASPIRIN 81 MG CHEW TAB PO ONE (20:15)
[2017-03-08] MEDS: NITROGLYCERIN 0.4 MG SL 25 TABS/BTL SL SCH ×3 (20:20→20:30)
--- NOTE | 2017-03-08 20:44 | PD ---
HPI Chief Complaint: Psychiatric Symptoms Time Seen by Provider: 19:56 Travel History International Travel<30 days: No Contact w/Intl Traveler<30days: No Traveled to known affect area: No History of Present Illness HPI 51-year-old male here under Bailey act for suicidal ideation and midsternal chest pain. Patient reports constant and nonradiating substernal chest pain with diaphoresis and nausea 3 days. History of bypass 2013. foreign law consultant Dr. Chawla. According to the BA paperwork patient made statements that he did not feel like living anymore and cut his left wrist superficially multiple times with a razor. PFSH Past Medical History Hx Anticoagulant Therapy: Yes (ASA) Arthritis: No Asthma: No Autoimmune Disease: No Anxiety: Yes Depression: Yes Heart Rhythm Problems: No Cancer: No Cardiovascular Problems: Yes High Cholesterol: Yes Chemotherapy: No Chest Pain: No Congestive Heart Failure: No COPD: Yes Cerebrovascular Accident: No Diabetes: Yes Diminished Hearing: No Endocrine: Yes Gastrointestinal Disorders: Yes (COLITIS ) GERD: No Genitourinary: No Headaches: No Hiatal Hernia: No Heparin Induced Thrombocytopen: No Hypertension: Yes Immune Disorder: No Implanted Vascular Access Dvce: No Kidney Stones: No Musculoskeletal: Yes Neurologic: Yes Psychiatric: Yes (PTSD) Reproductive: No Respiratory: Yes Immunizations Current: Yes Myocardial Infarction: Yes (1X) Radiation Therapy: No Renal Failure: No Seizures: No Sickle Cell Disease: No Sleep Apnea: No Thyroid Disease: No Ulcer: No Past Surgical History Abdominal Surgery: Yes (APPENDECTOMY) AICD: No Appendectomy: Yes (LATE 90'S ) Arteriovenous Shunt: No Coronary Artery Bypass Graft: Yes (2 VESSEL) Ear Surgery: No Endocrine Surgery: No Eye Surgery: No Genitourinary Surgery: No Gynecologic Surgery: No Insulin Pump: No Joint Replacement: No Oral Surgery: No Pacemaker: No Thoracic Surgery: No Other Surgery: Yes (3 back surgeries, and 1 neck surgery) Social History Alcohol Use: Yes (3 times per week) Tobacco Use: No Substance Use: Yes (marijuana occassionally) Allergies-Medications (Allergen,Severity, Reaction): Coded Allergies: Sulfa (Sulfonamide Antibiotics) (Unverified Allergy, Mild, Rash, 12/29/16) Reported Meds & Prescriptions Reported Meds & Active Scripts Active Lisinopril 5 Mg Tab 5 Mg PO DAILY Maalox Advanced Maximum Strength (Calcium Carbonate-Simethicone) 1,000-60 Mg Chew 1-2 Tab CHEW BID PRN 7 Days Reported Losartan (Losartan Potassium) 100 Mg Tab 100 Mg PO DAILY Coreg (Carvedilol) 25 Mg Tab 25 Mg PO BID Aspirin 81 Mg Chew 81 Mg CHEW DAILY Novolog Inj (Insulin Aspart) 100 Unit/Ml Inj SQ ACHS03 SLIDE SCALE Gabapentin 300 Mg Cap 300 Mg PO BID Levemir Inj (Insulin Detemir) 1,000 unit/ 10 ML Vial 30 Units SQ HS Do not mix with any other Insulin. Lamictal (Lamotrigine) 25 Mg Tab 50 Mg PO AC DINNER Metformin (Metformin HCl) 500 Mg Tab 500 Mg PO BIDPC With meals Thera M Plus (Multivitamins/Minerals Therapeutic) 1 Tab 1 Tab PO DAILY Effexor (Venlafaxine HCl) 75 Mg Tab 75 Mg PO HS Review of Systems Except as stated in HPI: all other systems reviewed are Neg General / Constitutional: No: Fever Eyes: No: Visual changes HENT: No: Headaches Cardiovascular: Positive: Chest Pain or Discomfort Gastrointestinal: Positive: Nausea Physical Exam Narrative GENERAL: alert, well appearing male in no acute distress. resting comfortably on stretcher. SKIN: Warm and dry. Numerous superficial abrasions to the left wrist distal/ volar aspect no active bleeding. strong radial/ulnar pulse. HEAD: Atraumatic. Normocephalic. EYES: Pupils equal and round. No scleral icterus. No injection or drainage. ENT: No nasal bleeding or discharge. Mucous membranes pink and moist. NECK: Trachea midline. No JVD. CARDIOVASCULAR: Regular rate and rhythm. No murmur or gallop. RESPIRATORY: No accessory muscle use. Clear to auscultation. Breath sounds equal bilaterally. GASTROINTESTINAL: Abdomen soft, non-tender, nondistended. Hepatic and splenic margins not palpable. MUSCULOSKELETAL: Extremities without clubbing, cyanosis, or edema. No obvious deformities. Numerous superficial abrasions to the left wrist distal/volar aspect no active bleeding. strong radial/ulnar pulse. NEUROLOGICAL: Awake and alert. No obvious cranial nerve deficits. Motor grossly within normal limits. Five out of 5 muscle strength in the arms and legs. Normal speech. PSYCHIATRIC: Appropriate mood and affect; insight and judgment normal. Data Data Orders Orders Complete Blood Count With Diff (03/08/17 19:56) Comprehensive Metabolic Panel (03/08/17 19:56) Psych Screen (03/08/17 19:56) Drug Screen, Random Urine (03/08/17 19:56) Alcohol (Ethanol) (03/08/17 19:56) Salicylates (Aspirin) (03/08/17 19:56) Tylenol (Acetaminophen) (03/08/17 19:56) Electrocardiogram (03/08/17 ) Electrocardiogram (03/08/17 20:11) Ckmb (Isoenzyme) Profile (03/08/17 20:11) Troponin I (03/08/17 20:11) Chest, Single Ap (03/08/17 20:11) Aspirin Chew (Aspirin Chew) (03/08/17 20:15) Nitroglycerin Sl (Nitrostat Sl) (03/08/17 20:15) MDM Medical Decision Making Medical Screen Exam Complete: Yes Emergency Medical Condition: Yes Differential Diagnosis ACS, TX, PNA, PE, anxiety Narrative Course 51 year old male here under BA for SI reports he has CP for 3 days. PT has hx of PTSD, hypertension, dyslipidemia, diabetes, who underwent bypass 2013. Patient is followed by foreign law consultant Dr. Chawla. IV access established, EKG, CXR, labs ordered & pending. Nitro SL administered. Placed on continuos cardiac & pulse oximetry monitoring. EKG. Sinus Tach rate 102, No ST elevation or depression. End of shift Dr Dunlap will monitor patient from this point. Diagnosis Primary Impression: Suicidal ideations Additional Impression: Chest pain Qualified Codes: R07.9 - Chest pain, unspecified Jasmyne Max Mar 08, 2017 20:44
--- NOTE | 2017-03-08 21:00 | RADRPT ---
EXAM DATE/TIME: 03/08/2017 20:15 [facility] COMPARISON: CHEST PA & LAT, September 30, 2016, 2:55. INDICATIONS : Chest pain on right side. MEDICAL HISTORY : Chronic obstructive pulmonary disease. Congestive heart failure. Myocardial infarction. Hypertension Diabetes. SURGICAL HISTORY : CABG. Appendectomy. ENCOUNTER: Initial ACUITY: 1 day PAIN SCORE: 3/10 LOCATION: Right chest FINDINGS: The lungs are clear without infiltrate, nodule, or mass. There is no appreciable pleural effusion fo r technique. Heart and mediastinum are unremarkable. CONCLUSION: No acute cardiopulmonary disease. Nelda Fleming MD on March 08, 2017 at 20:58 Board Certified Radiologist. This report was verified electronically.
[2017-03-08 21:04] LABS: BASOPHIL % 0.6 % (0.0-2.0); EOSINOPHIL % 0.4 % (0.0-4.0); HEMATOCRIT 41.6 % (39.0-51.0); HEMOGLOBIN 14.6 GM/DL (13.0-17.0); LYMPH % 38.5 % (9.0-44.0); LYMPHOCYTE # 2.2 TH/MM3 (1.0-4.8); MEAN CELL VOLUME 92.9 FL (80.0-100.0); MEAN CORPUSCULAR HEMOGLOBIN 32.6 PG (27.0-34.0); MEAN CORPUSCULAR HGB CONC 35.1 % (32.0-36.0); MEAN PLATELET VOLUME 8.7 FL (7.0-11.0); MONO % 7.7 % (0.0-8.0); MONOCYTE # 0.4 TH/MM3 (0-0.9); NEUT % 52.8 % (16.0-70.0); PLATELET COUNT 158 TH/MM3 (150-450); RED BLOOD COUNT 4.47 MIL/MM3 (4.50-5.90); RED CELL DISTRIBUTION WIDTH 12.8 % (11.6-17.2); WHITE BLOOD COUNT 5.6 TH/MM3 (4.0-11.0)
[2017-03-08 21:36] LABS: TROPONIN I LESS THAN 0.02 NG/ML (0.02-0.05)
[2017-03-08] MEDS ORDERED: KETOROLAC TROMETHAMINE 30 MG/ML (IVP) VIAL IV PUSH ONE (22:15)
[2017-03-08 22:41] LABS: ACETAMINOPHEN 3.7 MCG/ML (10.0-30.0); ALKALINE PHOSPHATASE 71 U/L (45-117); TOTAL BILIRUBIN ADULT 0.4 MG/DL (0.2-1.0); TOTAL PROTEIN 7.4 GM/DL (6.4-8.2)
[2017-03-08 22:44] LABS: ALBUMIN 3.4 GM/DL (3.4-5.0); ALT (GPT) 33 U/L (12-78); AST (GOT) 41 U/L (15-37); BICARBONATE 20.3 MEQ/L (21.0-32.0); BLOOD UREA NITROGEN 9 MG/DL (7-18); CALCIUM 8.7 MG/DL (8.5-10.1); CHLORIDE 93 MEQ/L (98-107); CREATININE 1.03 MG/DL (0.60-1.30); GLOMERULAR FILTRATION RATE 76 ML/MIN (>89); GLUCOSE,RANDOM 339 MG/DL (74-106); SODIUM (NA) 127 MEQ/L (136-145)
--- NOTE | 2017-03-08 22:53 | PD ---
Physical Exam Date Seen by Provider: Mar 08, 2017 Data Data Last Documented VS Vital Signs Date Time Temp Pulse Resp B/P (MAP) Pulse Ox O2 Delivery O2 Flow Rate FiO2 03/08/17 22:27 97 20 150/91 (110) 97 Nasal Cannula 2.00 Orders Orders Complete Blood Count With Diff (03/08/17 19:56) Comprehensive Metabolic Panel (03/08/17 19:56) Psych Screen (03/08/17 19:56) Drug Screen, Random Urine (03/08/17 19:56) Alcohol (Ethanol) (03/08/17 19:56) Salicylates (Aspirin) (03/08/17 19:56) Tylenol (Acetaminophen) (03/08/17 19:56) Electrocardiogram (03/08/17 ) Ckmb (Isoenzyme) Profile (03/08/17 20:11) Troponin I (03/08/17 20:11) Chest, Single Ap (03/08/17 20:11) Aspirin Chew (Aspirin Chew) (03/08/17 20:15) Nitroglycerin Sl (Nitrostat Sl) (03/08/17 20:15) CKMB (03/08/17 20:40) CKMB% (03/08/17 20:40) Ketorolac Inj (Toradol Inj) (03/08/17 22:15) Insulin Human Regular Inj (Novolin R Inj (03/08/17 23:00) Labs Laboratory Tests Test 03/08/17 20:40 03/08/17 22:05 White Blood Count 5.6 TH/MM3 Red Blood Count 4.47 MIL/MM3 Hemoglobin 14.6 GM/DL Hematocrit 41.6 % Mean Corpuscular Volume 92.9 FL Mean Corpuscular Hemoglobin 32.6 PG Mean Corpuscular Hemoglobin Concent 35.1 % Red Cell Distribution Width 12.8 % Platelet Count 158 TH/MM3 Mean Platelet Volume 8.7 FL Neutrophils (%) (Auto) 52.8 % Lymphocytes (%) (Auto) 38.5 % Monocytes (%) (Auto) 7.7 % Eosinophils (%) (Auto) 0.4 % Basophils (%) (Auto) 0.6 % Neutrophils # (Auto) 3.0 TH/MM3 Lymphocytes # (Auto) 2.2 TH/MM3 Monocytes # (Auto) 0.4 TH/MM3 Eosinophils # (Auto) 0.0 TH/MM3 Basophils # (Auto) 0.0 TH/MM3 CBC Comment DIFF FINAL Differential Comment Blood Urea Nitrogen 9 MG/DL Creatinine 1.03 MG/DL Random Glucose 339 MG/DL Total Protein 7.4 GM/DL Albumin 3.4 GM/DL Calcium Level 8.7 MG/DL Alkaline Phosphatase 71 U/L Aspartate Amino Transf (AST/SGOT) 41 U/L Alanine Aminotransferase (ALT/SGPT) 33 U/L Total Bilirubin 0.4 MG/DL Sodium Level 127 MEQ/L Potassium Level 4.1 MEQ/L Chloride Level 93 MEQ/L Carbon Dioxide Level 20.3 MEQ/L Anion Gap 14 MEQ/L Estimat Glomerular Filtration Rate 76 ML/MIN Total Creatine Kinase 359 U/L Creatine Kinase MB 10.2 NG/ML Creatine Kinase MB % 2.8 % Troponin I LESS THAN 0.02 NG/ML Salicylates Level 2.2 MG/DL Acetaminophen Level 3.7 MCG/ML Ethyl Alcohol Level 167 MG/DL Urine Opiates Screen NEG Urine Barbiturates Screen NEG Urine Amphetamines Screen NEG Urine Benzodiazepines Screen NEG Urine Cocaine Screen NEG Urine Cannabinoids Screen NEG MDM Medical Record Reviewed: Yes Supervised Visit with DEL: Yes Narrative Course I, Dr. Dunlap, have reviewed the advance practice practitioner's documentation and am in agreement, met with the patient face to face, made the diagnosis, and the medical decision making was done by me. *My assessment and Findings: Bailey act with suicidal ideation lesions with chest pain. Patient does have history of coronary disease, has had bypass surgery in the past. he reports that he has had 3 days of pressure to his chest which is substernal in nature diaphoresis, shortness of breath. Patient was given sublingual nitroglycerin and aspirin. First set of troponins less than 0.02, CK-MB 10.2. Plan to obs in chest pain unit, after he is cleared, will will need to be screened by psychiatric screener as he did come to the emergency room under Bailey act. Diagnosis Primary Impression: Suicidal ideations Additional Impressions: Chest pain Qualified Codes: R07.9 - Chest pain, unspecified Hyponatremia Admitting Information Admitting Physician Requests: Columba Ford DO Mar 08, 2017 22:53
[2017-03-08] MEDS ORDERED: ACETAMINOPHEN 500 MG CPLT PO PRN (23:00)
[2017-03-08] MEDS ORDERED: INSULIN HUMAN REGULAR 1,000 UNITS/10 ML VIAL SQ ONE (23:00)
[2017-03-08] MEDS: NITROGLYCERIN 2% OINT 1 GM PACKET TOP SCH (23:08)
[2017-03-09] VITALS (7 sets, daily range): BP systolic 121–144; BP diastolic 72–89; PULSE 84–101; RESP 16–18; TEMP 97.7; O2SAT 93–97
[2017-03-09 00:42] LABS: TROPONIN I LESS THAN 0.02 NG/ML (0.02-0.05)
[2017-03-09] MEDS ORDERED: MORPHINE SULFATE 4 MG/ML INJ IV ONE (02:00)
[2017-03-09 04:26] LABS: TROPONIN I LESS THAN 0.02 NG/ML (0.02-0.05)
[2017-03-09] MEDS: NITROGLYCERIN 2% OINT 1 GM PACKET TOP SCH ×2 (06:00→11:08)
--- NOTE | 2017-03-09 09:20 | HHI.HP ---
HPI Primary Care Physician [facility] Chief Complaint Chest pain History of Present Illness 51-year-old male with history of coronary artery disease, CABG 4 (2013), diabetes, hypertension presents to emergency room for further evaluation of chest tightness. Onset 3 days. Location substernal, described as tightness. No radiation. No associated symptoms of nausea, vomiting, or diaphoresis. Endorses occasional shortness of breath over last 3 days. Duration constant. No known precipitating or relieving factors. No particular movement or position makes pain better or worse. Endorses a chronic, persistent cough without increase in sputum production. No injury, fall, or recent trauma. Endorses suicidal thoughts, cutting his left wrist multiple times before calling EMS. Requesting assistance with suicidal thoughts. Review of Systems General: No fatigue,weakness, fever, chills, or recent illness. Has been his general state of health. CV: Continues to have chest tightness as stated above. No palpitations or dizziness RESP: Chronic cough, no sputum. Dyspnea has resolved. No wheeze, hemoptysis, or history of asthma. GI: No nausea, vomiting, or bowel changes. EXT: No lower leg edema, bilateral lower leg diabetic neuropathy. MS: No discomfort, change in ROM, injury, trauma, recent fall. NEURO: No difficulty with balance, LOC, motor/sensory deficits PSYCH: Endorses current suicidal ideation and depression. Requesting assistance with suicidal thoughts and depression. SKIN: No rashes, no concerning lesions Past Family Social History Allergies: Coded Allergies: Sulfa (Sulfonamide Antibiotics) (Verified Allergy, Mild, Rash, 03/08/17) Past Medical History Diabetes-insulin dependent, HTN, CHF, diabeticneuropathy, history of substance abuse. cardiomegaly, CAD, NSTEMI, COPD, HLD, colitis Past Surgical History Cholecystectomy, back surgeries, CABG x3 (October,), appendectomy Reported Medications Reported Meds & Active Scripts Active Maalox Advanced Maximum Strength (Calcium Carbonate-Simethicone) 1,000-60 Mg Chew 1-2 Tab CHEW BID PRN 7 Days Losartan (Losartan Potassium) 100 Mg Tab 100 Mg PO DAILY Aspirin 81 Mg Chew 81 Mg CHEW DAILY Novolog Inj (Insulin Aspart) 100 Unit/Ml Inj SQ ACHS03 SLIDE SCALE Gabapentin 300 Mg Cap 300 Mg PO BID Levemir Inj (Insulin Detemir) 1,000 unit/ 10 ML Vial 30 Units SQ HS Do not mix with any other Insulin. Metformin (Metformin HCl) 500 Mg Tab 500 Mg PO BIDPC With meals Thera M Plus (Multivitamins/Minerals Therapeutic) 1 Tab 1 Tab PO DAILY Effexor (Venlafaxine HCl) 75 Mg Tab 75 Mg PO HS Active Ordered Medications Current Medications Medications (Trade) Dose Ordered Sig/López Route Start Time Stop Time Status Last Admin (Tylenol) 500 mg Q4H PRN PO 03/08/17 23:00 03/09/17 07:56 (Nitroglycerin 2% Oint) 1 inch Q6HR TOP 03/09/17 00:00 03/08/17 23:08 Family History Positive in both mother and father Social History Known CAD, DM, HTN, and HLD. Disabled vet. Past Cardiac Testing 08/04/2016 Cardiac catheterization (Dr. Hernadez)-Conclusions 1. [place] two vessel CAD. 2. Normal two left-sided filling pressure. 3. Two out of two coronary bypass grafts are patent. Plan: Will continue with aggressive medical management. Follow up with a 3-month echocardiogram to evaluate for improvement in ejection fraction with optimized medical therapy 07/25/2016 Lexiscan-No stress induced ischemia. Global hypokineses with decreased EF of 36%. Physical Exam Vital Signs Vital Signs Date Time Temp Pulse Resp B/P (MAP) Pulse Ox O2 Delivery O2 Flow Rate FiO2 03/09/17 09:01 16 03/09/17 07:46 97.7 84 18 144/89 (107) 96 03/09/17 07:00 87 03/09/17 04:13 91 03/09/17 03:18 97.7 92 18 121/72 (88) 93 03/09/17 01:42 101 03/08/17 23:47 91 18 143/95 (111) 97 Nasal Cannula 2.00 03/08/17 23:02 98 Nasal Cannula 2.00 03/08/17 23:01 82 18 149/94 (112) 98 Nasal Cannula 2.00 03/08/17 22:27 97 20 150/91 (110) 97 Nasal Cannula 2.00 03/08/17 21:15 98 20 119/75 (90) 96 Nasal Cannula 2.00 03/08/17 20:53 105 20 03/08/17 20:52 105 20 122/69 (86) 95 Nasal Cannula 2.00 03/08/17 20:15 103 20 139/87 (104) 95 Nasal Cannula 2.00 Physical Exam GENERAL: Alert WN, WD, NAD, male HEAD: NC, AT NECK: Supple, no masses, trachea midline CV: RRR, without murmur, rub, gallop, no JVD, S1-S2 no S3-S4. Chest wall nontender with palpation. RESP: Clear lungs throughout bilateral, no crackles, wheeze, rhonchi, symmetrical chest rise, nonlabored, able to speak in full sentences ABD: Soft, NT, ND, positive bowel tones EXT: no dependent edema, left wrist bandage in place MS: Normal tone 4 extremities, no obvious deformities, full range of motion NEURO: CN II through CN XII grossly intact, motor strength 5/5 PSYCH: A+O 3, flat affect, appropriate speech, appropriate insight and judgment , tearful during interview SKIN: Normal turgor, normal texture, no lesions, no rashes, brisk cap refill, even hair distribution, midline surgical chest surgical scar Laboratory Laboratory Tests Test 03/08/17 20:40 03/08/17 22:05 03/08/17 23:50 03/09/17 03:10 White Blood Count 5.6 Red Blood Count 4.47 Hemoglobin 14.6 Hematocrit 41.6 Mean Corpuscular Volume 92.9 Mean Corpuscular Hemoglobin 32.6 Mean Corpuscular Hemoglobin Concent 35.1 Red Cell Distribution Width 12.8 Platelet Count 158 Mean Platelet Volume 8.7 Neutrophils (%) (Auto) 52.8 Lymphocytes (%) (Auto) 38.5 Monocytes (%) (Auto) 7.7 Eosinophils (%) (Auto) 0.4 Basophils (%) (Auto) 0.6 Neutrophils # (Auto) 3.0 Lymphocytes # (Auto) 2.2 Monocytes # (Auto) 0.4 Eosinophils # (Auto) 0.0 Basophils # (Auto) 0.0 CBC Comment DIFF FINAL Differential Comment Blood Urea Nitrogen 9 Creatinine 1.03 Random Glucose 339 Total Protein 7.4 Albumin 3.4 Calcium Level 8.7 Alkaline Phosphatase 71 Aspartate Amino Transf (AST/SGOT) 41 Alanine Aminotransferase (ALT/SGPT) 33 Total Bilirubin 0.4 Sodium Level 127 Potassium Level 4.1 Chloride Level 93 Carbon Dioxide Level 20.3 Anion Gap 14 Estimat Glomerular Filtration Rate 76 Total Creatine Kinase 359 405 442 Creatine Kinase MB 10.2 8.8 10.6 Creatine Kinase MB % 2.8 2.2 2.4 Troponin I LESS THAN 0.02 LESS THAN 0.02 LESS THAN 0.02 Salicylates Level 2.2 Acetaminophen Level 3.7 Ethyl Alcohol Level 167 Urine Opiates Screen NEG Urine Barbiturates Screen NEG Urine Amphetamines Screen NEG Urine Benzodiazepines Screen NEG Urine Cocaine Screen NEG Urine Cannabinoids Screen NEG Result Diagram: 03/08/17203903/08/172039 Caprini VTE Risk Assessment Caprini VTE Risk Assessment: No/Low Risk (score <= 1) Caprini Risk Assessment Model Point Value = 1 Point Value = 2 Point Value = 3 Point Value = 5 Age 41-60 Minor surgery BMI > 25 kg/m2 Swollen legs Varicose veins or History of unexplained or recurrent spontaneous Oral contraceptives or hormone replacement Sepsis (< 1 month) Serious lung disease, including pneumonia (< 1 month) Abnormal pulmonary function Acute myocardial infarction Congestive heart failure (< 1 month) History of inflammatory bowel disease Medical patient at bed rest Age 61-74 Arthroscopic surgery Major open surgery (> 45 min) Laparoscopic surgery (> 45 min) Malignancy Confined to bed (> 72 hours) Immobilizing plaster cast Central venous access Age >= 75 History of VTE Family history of VTE Factor V Leiden Prothrombin [id number] Lupus anticoagulant Anticardiolipin antibodies Elevated serum homocysteine Heparin-induced thrombocytopenia Other congenital or acquired thrombophilia Stroke (< 1 month) Elective arthroplasty Hip, pelvis, or leg fracture Acute spinal cord injury (< 1 month) Prophylaxis Regimen Total Risk Factor Score Risk Level Prophylaxis Regimen 0-1 Low Early ambulation 2 Moderate Order ONE of the following: *Sequential Compression Device (SCD) *Heparin 5000 units SQ BID 3-4 Higher Order ONE of the following medications: *Heparin 5000 units SQ TID *Enoxaparin/Lovenox 40 mg SQ daily (WT < 150 kg, CrCl > 30 mL/min) *Enoxaparin/Lovenox 30 mg SQ daily (WT < 150 kg, CrCl > 10-29 mL/min) *Enoxaparin/Lovenox 30 mg SQ BID (WT < 150 kg, CrCl > 30 mL/min) AND/OR *Sequential Compression Device (SCD) 5 or more Highest Order ONE of the following medications: *Heparin 5000 units SQ TID (Preferred with Epidurals) *Enoxaparin/Lovenox 40 mg SQ daily (WT < 150 kg, CrCl > 30 mL/min) *Enoxaparin/Lovenox 30 mg SQ daily (WT < 150 kg, CrCl > 10-29 mL/min) *Enoxaparin/Lovenox 30 mg SQ BID (WT < 150 kg, CrCl > 30 mL/min) AND *Sequential Compression Device (SCD) Assessment and Plan Assessment and Plan #1 Chest pain-admitted to chest pain center. Ruled out with 3 sets of EKG and cardiac enzymes. Seen and evaluated by Dr. David Maxwell. Chest pain has been constant x3 days and a recent cardiac catheterization July of this year with no intervention required. Aggressive medical management recommended. No further cardiac testing required. Medically cleared. Plan to discharge after seen by psychology. #2 History of CAD-continue losartan, aspirin #3 Diabetes-SSI low dose coverage, continue Levemir and metformin #4 Diabetic neuropathy-continue gabapentin #5 Suicidal ideation-Bailey act indicated in ED. Medically cleared, psychology consult placed. Further disposition to follow recommendations from psychology. 11:00 Psychology requesting 23 hour observation in pysch unit. An Avery Mar 09, 2017 09:20
[2017-03-09] MEDS ORDERED: LOSARTAN 50 MG TAB PO SCH (10:00)
[2017-03-09] MEDS ORDERED: MULTIVITAMINS/MINERALS THERAPEUTIC TAB PO SCH (10:00)
[2017-03-09] MEDS ORDERED: metFORMIN HCL 500 MG TAB PO SCH (10:00)
[2017-03-09] MEDS ORDERED: GLUCAGON 1 MG/ML VIAL OTHER PRN (10:00)
[2017-03-09] MEDS ORDERED: GABAPENTIN 300 MG CAP PO SCH (10:00)
[2017-03-09] MEDS ORDERED: DEXTROSE 50% IN WATER 50 ML VIAL(D50) IV PUSH PRN (10:00)
[2017-03-09] MEDS ORDERED: MORPHINE SULFATE 4 MG/ML INJ IV PUSH ONE (10:00)
--- NOTE | 2017-03-09 10:53 | HHI.DCPOC ---
Discharge Care Plan Diagnosis: (1) Suicidal ideations (2) Atypical chest pain (3) Hx of coronary artery disease Goals to Promote Your Health * To prevent worsening of your condition and complications * To maintain your health at the optimal level Directions to Meet Your Goals Take your medications as prescribed Follow your dietary instruction Follow activity as directed Keep your appointments as scheduled Take your immunizations and boosters as scheduled If your symptoms worsen call your PCP, if no PCP go to Urgent Care Center or Emergency Room Smoking is Dangerous to Your Health. Avoid second hand smoke Call the 24-hour hour crisis hotline for domestic abuse at An Avery Mar 09, 2017 10:52
--- NOTE | 2017-03-09 10:53 | HHI.DCPOC ---
Discharge Care Plan Diagnosis: (1) Suicidal ideations (2) Atypical chest pain (3) Hx of coronary artery disease Goals to Promote Your Health * To prevent worsening of your condition and complications * To maintain your health at the optimal level Directions to Meet Your Goals Take your medications as prescribed Follow your dietary instruction Follow activity as directed Keep your appointments as scheduled Take your immunizations and boosters as scheduled If your symptoms worsen call your PCP, if no PCP go to Urgent Care Center or Emergency Room Smoking is Dangerous to Your Health. Avoid second hand smoke Call the 24-hour hour crisis hotline for domestic abuse at An Avery Mar 09, 2017 10:52
--- NOTE | 2017-03-09 10:53 | HHI.DCPOC ---
Discharge Care Plan Diagnosis: (1) Suicidal ideations (2) Atypical chest pain (3) Hx of coronary artery disease Goals to Promote Your Health * To prevent worsening of your condition and complications * To maintain your health at the optimal level Directions to Meet Your Goals Take your medications as prescribed Follow your dietary instruction Follow activity as directed Keep your appointments as scheduled Take your immunizations and boosters as scheduled If your symptoms worsen call your PCP, if no PCP go to Urgent Care Center or Emergency Room Smoking is Dangerous to Your Health. Avoid second hand smoke Call the 24-hour hour crisis hotline for domestic abuse at An Avery Mar 09, 2017 10:52
[2017-03-09] MEDS ORDERED: INSULIN ASPART SUPPLEMENTAL SCALE SQ SCH (12:00)
--- NOTE | 2017-03-09 15:17 | PD.PSY.CON ---
Provisional Diagnosis Admission Date Mar 08, 2017 at 22:55 [place] I. Major depressive disorder, recurrent, severe, without psychosis, PTSD, alcohol use disorder [place] II. Deferred [place] III. Diabetes, CHF, hypertension [place] IV. Lack of social and family support [place] V. 40 History of Present Illness Service Psychiatry Consult Requested By ER team Reason for Consult Suicidal attempt Primary Care Physician [facility] HPI The patient is a 51-year-old man, domiciled alone in [place], single, unemployed, the by disability, , 100% service-connected, with psychiatric history of PTSD, depression, about 6 previous psychiatric hospitalizations, last hospitalization was in July 2016, history of self cutting behavior, alcohol use disorder, he has an established outpatient care in [facility], he is on Effexor 150 mg daily, patient was seen in the ER in December 2016 for an episode of self cutting behavior in the context of alcohol intoxication, he was clear by miss Esteban, medical history of coronary artery disease, CABG 4 (2013), diabetes, hypertension presents to emergency room for further evaluation of chest tightness. Onset 3 days. Location substernal, described as tightness. No radiation. No associated symptoms of nausea, vomiting, or diaphoresis. Endorses occasional shortness of breath over last 3 days. Duration constant. No known precipitating or relieving factors. No particular movement or position makes pain better or worse. Endorses a chronic , persistent cough without in sputum production. No injury, fall, or recent trauma. Endorses suicidal thoughts, cutting his left wrist multiple times before calling EMS. Requesting assistance with suicidal thoughts. Consulted to psychiatry to address this suicidal thoughts. On psychiatric evaluation patient is calm, cooperative and pleasant. Patient reports that in the last weeks he has been having frequent suicidal thoughts and impulses of cutting himself. Patient has been communicating with outpatient psychiatrist who has recently increased the Effexor with poor outcomes. Patient reports that yesterday while he was drunk he tried to cut himself to feel better. She reports that he has been feeling hopeless, helpless, no enjoying usual enjoyable activities, having frequent suicidal thoughts. Patient denies reexperiencing, hypervigilance, flashbacks and nightmares. Patient denies visual and auditory hallucinations. She is fully oriented 3, no attention deficit, no fluctuation of consciousness. She reports daily use of alcohol, occasional use of marijuana. He drinks about a 12 pack of beers per day. He denies history of withdrawal or DTs. He was in a rehabilitation for the last time in 2011. Review of Systems Constitutional: DENIES: Diaphoretic episodes, Fatigue, Fever, Weight gain, Weight loss, Chills, Dizziness, Change in appetite, Night Sweats Endocrine: DENIES: Heat/cold intolerance, Polydipsia, Polyuria, Polyphagia Eyes: DENIES: Blurred vision, Diplopia, Eye inflammation, Eye pain, Vision loss , Photosensitivity, Double Vision Ears, nose, mouth, throat: DENIES: Tinnitus, Hearing loss, Vertigo, Nasal discharge, Oral lesions, Throat pain, Hoarseness, Ear Pain, Running Nose, Epistaxis, Sinus Pain, Toothache, Odynophagia Respiratory: DENIES: Apneas, Cough, Snoring, Wheezing, Hemoptysis, Sputum production, Shortness of breath Cardiovascular: DENIES: Chest pain, Palpitations, Syncope, Dyspnea on Exertion , PND, Lower Extremity Edema, Orthopnea, Claudication Gastrointestinal: DENIES: Abdominal pain, Black stools, Bloody stools, Constipation, Diarrhea, Nausea, Vomiting, Difficulty Swallowing, Anorexia Genitourinary: DENIES: Sexual dysfunction, Urinary frequency, Urinary incontinence, Urgency, Hematuria, Dysuria, Nocturia, Penile Discharge, Testicular Pain, Testicular Swelling Musculoskeletal: DENIES: Joint pain, Muscle aches, Stiffness, Joint Swelling, Back pain, Neck pain Hematologic/lymphatic: DENIES: Bruising, Lymphadenopathy Immunologic/allergic: DENIES: Eczema, Urticaria Neurologic: DENIES: Abnormal gait, Headache, Localized weakness, Paresthesias, Seizures, Speech Problems, Tremor, Poor Balance Psychiatric: COMPLAINS OF: Depression, Suicidal Ideation, DENIES: Anxiety, Confusion, Mood changes, Hallucinations, Agitation, Homicidal Ideation, Delusions Past Family Social History Coded Allergies: Sulfa (Sulfonamide Antibiotics) (Verified Allergy, Mild, Rash, 03/08/17) Active Scripts Calcium Carbonate-Simethicone (Maalox Advanced Maximum Strength) 1,000-60 Mg Chew, 1-2 TAB CHEW BID Y for INDIGESTION OR UPSET STOMACH for 7 Days, TAB 0 Refills Prov:Charles Smith MD 04/09/16 Reported Medications Losartan (Losartan) 100 Mg Tab, 100 MG PO DAILY for Blood Pressure Management, # 30 TAB 0 Refills 09/30/16 Aspirin (Aspirin) 81 Mg Chew, 81 MG CHEW DAILY, TAB 0 Refills 09/30/16 Insulin Aspart Inj (Novolog Inj) 100 Unit/Ml Inj, SQ ACHS03 SLIDE SCALE 04/09/16 Gabapentin (Gabapentin) 300 Mg Cap, 300 MG PO BID, #60 CAP 0 Refills 04/09/16 Insulin Detemir Inj (Levemir Inj) 1,000 unit/ 10 ML Vial, 30 UNITS SQ HS for Blood Sugar Management, VIAL 0 Refills Do not mix with any other Insulin. 04/09/16 Metformin (Metformin) 500 Mg Tab, 500 MG PO BIDPC for Blood Sugar Management, # 60 TAB 0 Refills With meals 04/09/16 Multiple Vitamins W/ Minerals (Thera M Plus) 1 Tab, 1 TAB PO DAILY for Nutritional Supplement, TAB 0 Refills 04/09/16 Venlafaxine (Effexor) 75 Mg Tab, 75 MG PO HS, #30 TAB 0 Refills 04/09/16 Discontinued Reported Medications Carvedilol (Coreg) 25 Mg Tab, 25 MG PO BID, #60 TAB 0 Refills 09/30/16 Lamotrigine (Lamictal) 25 Mg Tab, 50 MG PO AC DINNER for Control Seizures, #30 TAB 0 Refills 04/09/16 Discontinued Scripts Lisinopril (Lisinopril) 5 Mg Tab, 5 MG PO DAILY for Blood Pressure Management, # 30 TAB Prov:Cande Merlos PA-C 08/04/16 Family Psych History Patient denies family psychotic history Social History Patient was born and raised in [place], he lives in [place], his single , unemployed, supported by the [employer] benefits, his highest level of education is college credits Patient's Strengths (min. 2) Establish outpatient care Physical Exam No psychomotor agitation or retardation, no withdrawal symptoms, no tremors, no stiffness, no EPS, no gait disturbance Vital Signs Vital Signs Date Time Temp Pulse Resp B/P (MAP) Pulse Ox O2 Delivery O2 Flow Rate FiO2 03/09/17 09:57 16 03/09/17 07:46 97.7 84 144/89 (107) 96 03/09/17 07:29 21 03/08/17 23:47 Nasal Cannula 2.00 I/O 03/09/17 03/09/17 03/10/17 08:00 16:00 00:00 Intake Total 240 ml Output Total 1000 ml Balance -760 ml Lab Results Test 03/08/17 20:40 03/08/17 22:05 03/08/17 23:50 03/09/17 03:10 White Blood Count 5.6 TH/MM3 Red Blood Count 4.47 MIL/MM3 Hemoglobin 14.6 GM/DL Hematocrit 41.6 % Mean Corpuscular Volume 92.9 FL Mean Corpuscular Hemoglobin 32.6 PG Mean Corpuscular Hemoglobin Concent 35.1 % Red Cell Distribution Width 12.8 % Platelet Count 158 TH/MM3 Mean Platelet Volume 8.7 FL Neutrophils (%) (Auto) 52.8 % Lymphocytes (%) (Auto) 38.5 % Monocytes (%) (Auto) 7.7 % Eosinophils (%) (Auto) 0.4 % Basophils (%) (Auto) 0.6 % Neutrophils # (Auto) 3.0 TH/MM3 Lymphocytes # (Auto) 2.2 TH/MM3 Monocytes # (Auto) 0.4 TH/MM3 Eosinophils # (Auto) 0.0 TH/MM3 Basophils # (Auto) 0.0 TH/MM3 CBC Comment DIFF FINAL Differential Comment Blood Urea Nitrogen 9 MG/DL Creatinine 1.03 MG/DL Random Glucose 339 MG/DL Total Protein 7.4 GM/DL Albumin 3.4 GM/DL Calcium Level 8.7 MG/DL Alkaline Phosphatase 71 U/L Aspartate Amino Transf (AST/SGOT) 41 U/L Alanine Aminotransferase (ALT/SGPT) 33 U/L Total Bilirubin 0.4 MG/DL Sodium Level 127 MEQ/L Potassium Level 4.1 MEQ/L Chloride Level 93 MEQ/L Carbon Dioxide Level 20.3 MEQ/L Anion Gap 14 MEQ/L Estimat Glomerular Filtration Rate 76 ML/MIN Total Creatine Kinase 359 U/L 405 U/L 442 U/L Creatine Kinase MB 10.2 NG/ML 8.8 NG/ML 10.6 NG/ML Creatine Kinase MB % 2.8 % 2.2 % 2.4 % Troponin I LESS THAN 0.02 NG/ML LESS THAN 0.02 NG/ML LESS THAN 0.02 NG/ML Salicylates Level 2.2 MG/DL Acetaminophen Level 3.7 MCG/ML Ethyl Alcohol Level 167 MG/DL Urine Opiates Screen NEG Urine Barbiturates Screen NEG Urine Amphetamines Screen NEG Urine Benzodiazepines Screen NEG Urine Cocaine Screen NEG Urine Cannabinoids Screen NEG Mental Status Examination Appearance: Appropriate Consciousness: Alert Orientation: x4 Motor Activity: Normal gait Speech: Unremarkable Language: Adequate Fund of Knowledge: Adequate Attention and Concentration: Adequate Memory: Unremarkable Mood: Sad, Irritable Affect: Sad Thought Process & Associations: Intact Thought Content: Appropriate Hallucination Type: None Delusion Type: None Suicidal Ideation: Yes Suicidal Plan: No Suicidal Intention: No Homicidal Ideation: No Homicidal Plan: No Homicidal Intention: No Insight: Adequate Judgment: Adequate Assessment & Plan Problem List: (1) Major depressive disorder, recurrent severe without psychotic features ICD Codes: F33.2 - Major depressive disorder, recurrent severe without psychotic features Status: Acute Assessment & Plan: Patient reports symptomatology of depression consisting on increased hopelessness, helplessness, no enjoying usually enjoyable activities, low level of energy and appetite, frequent suicidal thoughts that has led to several episodes in the last month of self cutting behavior with the intention to relieve stress. Patient has also increased alcohol intake due to the depression. Patient represents an increase risk of danger to self. He needs psychiatric hospitalization for stabilization. Transfer to med psych under Bailey act. Will restart Effexor 150 mg daily. Consult appreciated. Assessment & Plan Estimated LOS: Leonel Arthur MD Mar 09, 2017 15:17
--- NOTE | 2017-03-09 16:11 | EKG ---
Date Performed: 03/09/2017 Time Performed: 03:11:24 PTAGE: 51 years EKG: Sinus rhythm POSSIBLE LEFT ATRIAL ENLARGEMENT NONSPECIFIC T-WAVE ABNORMALITY BORDERLINE ECG INTERPRETATION BASED ON A DEFAULT AGE OF 39 YEARS NO PREVIOUS TRACING DOCTOR: David Maxwell Interpretating Date/Time 03/09/2017 16:10:38
--- NOTE | 2017-03-09 16:13 | EKG ---
Date Performed: 03/08/2017 Time Performed: 23:07:16 PTAGE: 51 years EKG: Sinus rhythm WITH FREQUENT VENTRICULAR PREMATURE COMPLEXES POSSIBLE LEFT ATRIAL ENLARGEMENT NONSPECIFIC T-WAVE AB NORMALITY ABNORMAL RHYTHM ECG PREVIOUS TRACING : 03/08/2017 20.07 Since previous tracing, no significant change noted DOCTOR: David Maxwell Interpretating Date/Time 03/09/2017 16:12:58
--- NOTE | 2017-03-09 16:16 | EKG ---
Date Performed: 03/08/2017 Time Performed: 20:07:19 PTAGE: 51 years EKG: Sinus rhythm POSSIBLE LEFT ATRIAL ENLARGEMENT NONSPECIFIC T-WAVE ABNORMALITY BORDERLINE ECG INTERPRETATION BASED ON A DEFAULT AGE OF 39 YEARS NO PREVIOUS TRACING DOCTOR: David Maxwell Interpretating Date/Time 03/09/2017 16:14:07
[2017-03-09] MEDS ORDERED: INSULIN DETEMIR 100 UNITS/ML VIAL SQ SCH (21:00)
[2017-03-09] MEDS ORDERED: VENLAFAXINE HCL 75 MG TAB PO SCH (21:00)
== END 2017-03-09 12:07 ==
LOC: NEPD 19:31 → NEDA 22:55 → NEPFCDU 03-09 00:25
PROVIDERS: ADMIT Internal Medicine Interventional Cardiology; ATTEND Internal Medicine Interventional Cardiology
DX: R07.89 Other chest pain (principal); I25.10 Atherosclerotic heart disease of native coronary artery without angina pectoris; R45.851 Suicidal ideations; R61 Generalized hyperhidrosis; E78.00 Pure hypercholesterolemia, unspecified; R11.0 Nausea; I25.2 Old myocardial infarction; I11.0 Hypertensive heart disease with heart failure; I50.9 Heart failure, unspecified; E87.1 Hypo-osmolality and hyponatremia; E11.40 Type 2 diabetes mellitus with diabetic neuropathy, unspecified; J44.9 Chronic obstructive pulmonary disease, unspecified; K52.9 Noninfective gastroenteritis and colitis, unspecified; R94.31 Abnormal electrocardiogram [ECG] [EKG]; Z95.1 Presence of aortocoronary bypass graft; Z79.4 Long term (current) use of insulin
CPT/HCPCS: 71010; 80053; 80307; 82550; 82552; 84484; 85025; 93005; 96372; 96374; 96375; 96376; 99285; G0378; J1815; J1885; J2270

== ENCOUNTER 2017-03-09 12:07 | Inpatient (IN) | payer OTHER, MEDICARE ==
[~2017-03-09] VITALS: Ht 177.8 cm; Wt 79.8 kg
[~2017-03-09 12:07] MED LIST changes: -CORE25TA PO; -LAMO25 PO; -LISI-519 PO
[2017-03-09 12:18] VITALS: BP 134/90; PULSE 50; RESP 18; O2SAT 95
[2017-03-09] MEDS: MULTIVITAMINS/MINERALS THERAPEUTIC TAB PO SCH (15:15)
[2017-03-09] MEDS ORDERED: MAGNESIUM HYDROXIDE SUSP 30 ML CUP PO PRN (15:15)
[2017-03-09] MEDS ORDERED: LORazepam 2 MG/ML VIAL IM PRN ×2 (15:15)
[2017-03-09] MEDS: NICOTINE 21 MG/24 HR PATCH T-DERMAL SCH (15:15)
[2017-03-09] MEDS ORDERED: ALUMINUM/MAGNESIUM/SIMETH 30 ML CUP PO PRN (15:15)
[2017-03-09] MEDS ORDERED: ACETAMINOPHEN 325 MG TAB PO PRN (15:15)
[2017-03-09] MEDS: LOSARTAN 50 MG TAB PO SCH (15:15)
[2017-03-09] MEDS ORDERED: LORazepam 2 MG TAB PO PRN (15:15)
[2017-03-09] MEDS: ASPIRIN 81 MG CHEW TAB CHEW SCH (15:15)
[2017-03-09] MEDS ORDERED: FLUMAZENIL 0.5 MG/5 ML VIAL IV PUSH PRN (15:15)
[2017-03-09] MEDS ORDERED: LORazepam 1 MG TAB PO PRN ×2 (15:15)
[2017-03-09] MEDS ORDERED: LORazepam 0.5 MG TAB PO PRN (15:15)
[2017-03-09] MEDS ORDERED: LORazepam 2 MG/ML VIAL IV PUSH PRN ×4 (15:15)
[2017-03-09 16:44] VITALS: BP 120/73; PULSE 90; RESP 18; TEMP 98.2; O2SAT 96
[2017-03-09] MEDS ORDERED: PLEASE DISCONTINUE PREVIOUS SUPPLEMENTAL SCALE INSULIN ORDERS ONE (16:45)
[2017-03-09] MEDS ORDERED: GLUCAGON 1 MG/ML VIAL OTHER PRN (16:45)
[2017-03-09] MEDS ORDERED: IBUPROFEN 600 MG TAB PO PRN (16:45)
[2017-03-09] MEDS ORDERED: DEXTROSE 50% IN WATER 50 ML VIAL(D50) IV PUSH PRN (16:45)
[2017-03-09] MEDS: LOW DOSE INSULIN NOVOLOG SUPPLEMENTAL SCALE SQ SCH ×2 (16:47→20:34)
--- NOTE | 2017-03-09 17:40 | PD.CONS ---
HPI Service [facility] Hospitalists Consult Requested By Dr Saunders Reason for Consult medical management Primary Care Physician [facility] Diagnoses: History of Present Illness 51-year-old male with history of coronary artery disease, CABG 4 (2013), diabetes, hypertension admitted to psych unit for management of depression The hospitalist is consulted for medical management. Patient appears in nad. No n/v/d/c. Denies fever or chills. No urinary complaints. Denies chest pain or sob. Review of Systems Except as stated in HPI: all other systems reviewed are Neg Past Family Social History Allergies: Coded Allergies: Sulfa (Sulfonamide Antibiotics) (Verified Allergy, Mild, Rash, 03/08/17) Past Medical History Diabetes-insulin dependent, HTN, CHF, diabetic neuropathy, history of substance abuse. cardiomegaly, CAD, NSTEMI, COPD, HLD, colitis Past Surgical History Cholecystectomy, back surgeries, CABG x3 (October,), appendectomy Past Cardiac Testing 08/04/2016 Cardiac catheterization (Dr. Hernadez)-Conclusions 1. Sever cabazon two vessel CAD. 2. Normal two left-sided filling pressure. 3. Two out of two coronary bypass grafts are patent. Plan: Will continue with aggressive medical management. Follow up with a 3-month echocardiogram to evaluate for improvement in ejection fraction with optimized medical therapy Reported Medications Reported Meds & Active Scripts Active Maalox Advanced Maximum Strength (Calcium Carbonate-Simethicone) 1,000-60 Mg Chew 1-2 Tab CHEW BID PRN 7 Days Reported Losartan (Losartan Potassium) 100 Mg Tab 100 Mg PO DAILY Aspirin 81 Mg Chew 81 Mg CHEW DAILY Novolog Inj (Insulin Aspart) 100 Unit/Ml Inj SQ ACHS03 SLIDE SCALE Gabapentin 300 Mg Cap 300 Mg PO BID Levemir Inj (Insulin Detemir) 1,000 unit/ 10 ML Vial 30 Units SQ HS Do not mix with any other Insulin. Metformin (Metformin HCl) 500 Mg Tab 500 Mg PO BIDPC With meals Thera M Plus (Multivitamins/Minerals Therapeutic) 1 Tab 1 Tab PO DAILY Effexor (Venlafaxine HCl) 75 Mg Tab 75 Mg PO HS Family History Both mother and father CAD, DM, HTN, and HLD. Social History Denies EtOH use, illicit drug use or tobacco use Physical Exam Vital Signs Vital Signs Date Time Temp Pulse Resp B/P (MAP) Pulse Ox O2 Delivery O2 Flow Rate FiO2 10/25/17 16:44 98.2 90 18 120/73 (89) 96 03/09/17 12:18 50 18 134/90 (105) 95 Physical Exam GENERAL: This is a well-nourished, well-developed patient, in no apparent distress. SKIN: No rashes, ecchymoses or lesions. Cool and dry. HEAD: Atraumatic. Normocephalic. No temporal or scalp tenderness. EYES: Pupils equal round and reactive. Extraocular motions intact. No scleral icterus. No injection or drainage. ENT: Nose without bleeding, purulent drainage or septal hematoma. Throat without erythema, tonsillar hypertrophy or exudate. Uvula midline. Airway patent. NECK: Trachea midline. No JVD or lymphadenopathy. Supple, nontender, no meningeal signs. CARDIOVASCULAR: Regular rate and rhythm without murmurs, gallops, or rubs. RESPIRATORY: Clear to auscultation. Breath sounds equal bilaterally. No wheezes , rales, or rhonchi. GASTROINTESTINAL: Abdomen soft, non-tender, nondistended. No hepato-splenomegaly , or palpable masses. No guarding. MUSCULOSKELETAL: Extremities without clubbing, cyanosis, or edema. No joint tenderness, effusion, or edema noted. No calf tenderness. Negative Homans sign bilaterally. NEUROLOGICAL: Awake and alert. Cranial nerves II through XII intact. Motor and sensory grossly within normal limits. Five out of 5 muscle strength in all muscle groups. Normal speech. Assessment and Plan Assessment and Plan 51 yo male with : Major depression management per psych History of CAD-continue losartan, aspirin. Monitor VS Diabetes-SSI low dose coverage, continue Levemir and metformin Diabetic neuropathy-continue gabapentin DVT ppx ambulation Discussed Condition With patient, nurse Sonya Nguyễn MD Mar 09, 2017 17:40
[2017-03-09] MEDS: GABAPENTIN 300 MG CAP PO SCH (20:32)
[2017-03-09] MEDS: REMOVE OLD NICODERM (NICOTINE) PATCH T-DERMAL SCH (20:53)
[2017-03-09] MEDS ORDERED: VENLAFAXINE HCL 75 MG TAB PO SCH (21:00)
[2017-03-10 05:56] VITALS: BP 130/85; PULSE 89; RESP 18; TEMP 97.8; O2SAT 96
[2017-03-10] MEDS: LOW DOSE INSULIN NOVOLOG SUPPLEMENTAL SCALE SQ SCH ×4 (08:00→22:17)
[2017-03-10] MEDS: NICOTINE 21 MG/24 HR PATCH T-DERMAL SCH (08:18)
[2017-03-10] MEDS: MULTIVITAMINS/MINERALS THERAPEUTIC TAB PO SCH (08:18)
[2017-03-10] MEDS: LOSARTAN 50 MG TAB PO SCH (08:18)
[2017-03-10] MEDS: ASPIRIN 81 MG CHEW TAB CHEW SCH (08:18)
[2017-03-10] MEDS: GABAPENTIN 300 MG CAP PO SCH ×2 (08:18→22:03)
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
[2017-03-10] MEDS: VENLAFAXINE HCL XR 75 MG CAP PO SCH (10:00)
[2017-03-10 10:10] LABS: ANION GAP 8 MEQ/L (5-15); BLOOD UREA NITROGEN 11 MG/DL (7-18); CHLORIDE 94 MEQ/L (98-107); GLOMERULAR FILTRATION RATE 84 ML/MIN (>89); POTASSIUM 4.4 MEQ/L (3.5-5.1); SODIUM (NA) 129 MEQ/L (136-145)
[2017-03-10 10:13] LABS: HDL CHOLESTEROL 43.9 MG/DL (40.0-60.0); LDL CHOLESTEROL 194 MG/DL (0-99)
--- NOTE | 2017-03-10 14:57 | EKG ---
Date Performed: 03/09/2017 Time Performed: 20:45:09 PTAGE: 51 years EKG: Sinus rhythm POSSIBLE LEFT ATRIAL ENLARGEMENT POSSIBLE RIGHT VENTRICULAR CONDUCTION DELAY NONSPECIFIC T-WAVE ABNO RMALITY BORDERLINE ECG PREVIOUS TRACING : 03/09/2017 03.11 Compared to prior tracing no significant change DOCTOR: Angelica Dorman Interpretating Date/Time 03/10/2017 14:53:25
[2017-03-10 16:23] LABS: HEMOGLOBIN A1a 1.2 %; HEMOGLOBIN Ao 74.6 %; HEMOGLOBIN F 1.7 %; HEMOGLOBIN LA1C 3.5 %; HEMOGLOBIN P3 4.4 %
--- NOTE | 2017-03-10 17:00 | HHI.PR ---
Subjective Remarks Follow-up chest pain, diabetes. Patient states that the chest pain has resolved. He has no complaints at this time. Denies dyspnea, nausea, vomiting. Objective Vitals Vital Signs Date Time Temp Pulse Resp B/P (MAP) Pulse Ox O2 Delivery O2 Flow Rate FiO2 03/10/17 05:56 97.8 89 18 130/85 (100) 96 I/O 03/09/17 03/09/17 03/09/17 03/10/17 03/10/17 03/10/17 07:00 15:00 23:00 07:00 15:00 23:00 Intake Total 240 ml 840 ml 120 ml 1200 ml Balance 240 ml 840 ml 120 ml 1200 ml Intake Oral 240 ml 840 ml 120 ml 1200 ml # Voids 2 1 Result Diagram: 03/10/17 0844 Objective Remarks General: No acute distress. Heart: Regular rate and rhythm. No murmur. Lungs: Clear to auscultation bilaterally. No wheezes, rales, or rhonchi. Breathing is nonlabored. Abdomen: Soft, nontender, nondistended. Extremities: No lower extremity edema. Psych: Alert and oriented. Procedures None Urinary Catheter: No Vascular Central Line Catheter: No A/P Assessment and Plan 1. Major depression: Management per psychiatry. 2. Coronary artery disease, chest pain: Troponin negative. Continue losartan, aspirin. Pain has resolved. 3. Diabetes mellitus: Continue Levemir. Monitor Accu-Cheks and cover with sliding scale insulin. Metformin on hold. 4. Diabetic neuropathy: Continue gabapentin. 5. DVT prophylaxis: Ambulation. Robbie Scales MD Mar 10, 2017 17:00
[2017-03-10 18:00] VITALS: BP 117/75; PULSE 90; RESP 18; TEMP 98.2; O2SAT 96
[2017-03-10] MEDS ORDERED: traZODone HCL 100 MG TAB PO SCH (21:00)
[2017-03-10] MEDS: REMOVE OLD NICODERM (NICOTINE) PATCH T-DERMAL SCH (21:00)
[2017-03-10] MEDS ORDERED: INSULIN DETEMIR 100 UNITS/ML VIAL SQ SCH (21:00)
[2017-03-11 06:05] VITALS: BP 100/55; PULSE 50; RESP 18; TEMP 98.1; O2SAT 98
[2017-03-11] MEDS: LOW DOSE INSULIN NOVOLOG SUPPLEMENTAL SCALE SQ SCH ×2 (08:00→12:00)
[2017-03-11] MEDS: NICOTINE 21 MG/24 HR PATCH T-DERMAL SCH (09:00)
--- NOTE | 2017-03-11 09:10 | HHI.PR ---
Subjective Remarks Follow up chest pain. Patient states that his pain has resolved. He has no complaints at this time. He states that he is being discharged home today. Objective Vitals Vital Signs Date Time Temp Pulse Resp B/P (MAP) Pulse Ox O2 Delivery O2 Flow Rate FiO2 03/11/17 06:05 98.1 50 18 100/55 (70) 98 03/10/17 18:00 98.2 90 18 117/75 (89) 96 I/O 03/10/17 03/10/17 03/10/17 03/11/17 03/11/17 03/11/17 07:00 15:00 23:00 07:00 15:00 23:00 Intake Total 120 ml 1200 ml 360 ml 480 ml 360 ml Balance 120 ml 1200 ml 360 ml 480 ml 360 ml Intake Oral 120 ml 1200 ml 360 ml 480 ml 360 ml # Voids 1 3 Result Diagram: 03/10/17 0844 Objective Remarks General: No acute distress. Heart: Regular rate and rhythm. No murmur. Lungs: Clear to auscultation bilaterally. No wheezes, rales, or rhonchi. Breathing is nonlabored. Abdomen: Soft, nontender, nondistended. Extremities: No lower extremity edema. Psych: Alert and oriented. Procedures None Urinary Catheter: No Vascular Central Line Catheter: No A/P Assessment and Plan 1. Major depression: Management per psychiatry. 2. Coronary artery disease, chest pain: Troponin negative, EKG shows no acute ischemia. Continue losartan, aspirin. Pain has resolved. 3. Diabetes mellitus: Continue Levemir. Monitor Accu-Cheks and cover with sliding scale insulin. Metformin on hold. 4. Diabetic neuropathy: Continue gabapentin. 5. DVT prophylaxis: Ambulation. 6. Left great toe wound: Follow up with podiatry as outpatient. 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 Discharge Planning Medically stable for discharge when cleared by psychiatry. Follow up with cardiology, podiatry, PCP. Robbie Scales MD Mar 11, 2017 09:10
[2017-03-11] MEDS: MULTIVITAMINS/MINERALS THERAPEUTIC TAB PO SCH (09:13)
[2017-03-11] MEDS: VENLAFAXINE HCL XR 75 MG CAP PO SCH (09:13)
[2017-03-11] MEDS: LOSARTAN 50 MG TAB PO SCH (09:13)
[2017-03-11] MEDS: ASPIRIN 81 MG CHEW TAB CHEW SCH (09:14)
[2017-03-11] MEDS: GABAPENTIN 300 MG CAP PO SCH (09:14)
[2017-03-11] MEDS ORDERED: ASPI81CH25 CHEW (10:50)
[2017-03-11] MEDS ORDERED: VENL150T PO (10:50)
[2017-03-11] MEDS ORDERED: LOSA100T PO (10:50)
[2017-03-11] MEDS ORDERED: TRAZ100T6 PO (10:50)
[2017-03-11] MEDS ORDERED: THERM PO (10:50)
[2017-03-11] MEDS ORDERED: LEVEMIR SQ (10:50)
[2017-03-11] MEDS ORDERED: NEUR300C PO (10:50)
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
== END 2017-03-11 11:45 | disposition home or self-care (01) | DRG 885 ==
LOC: H4EA 12:09
PROVIDERS: ADMIT Student in an Organized Health Care Education/Training Program; ATTEND Student in an Organized Health Care Education/Training Program
DX: F33.2 Major depressive disorder, recurrent severe without psychotic features (principal); I11.0 Hypertensive heart disease with heart failure; R45.851 Suicidal ideations; I50.9 Heart failure, unspecified; E11.40 Type 2 diabetes mellitus with diabetic neuropathy, unspecified; F10.99 Alcohol use, unspecified with unspecified alcohol-induced disorder; F12.90 Cannabis use, unspecified, uncomplicated; Z62.810 Personal history of physical and sexual abuse in childhood; E78.5 Hyperlipidemia, unspecified; J44.9 Chronic obstructive pulmonary disease, unspecified; I25.10 Atherosclerotic heart disease of native coronary artery without angina pectoris; F43.10 Post-traumatic stress disorder, unspecified; G47.9 Sleep disorder, unspecified; R07.9 Chest pain, unspecified; X78.9XXA Intentional self-harm by unspecified sharp object, initial encounter; S61.512A Laceration without foreign body of left wrist, initial encounter; Z79.4 Long term (current) use of insulin; I25.2 Old myocardial infarction; Z95.1 Presence of aortocoronary bypass graft; Z91.5 Personal history of self-harm; Z81.8 Family history of other mental and behavioral disorders
CPT/HCPCS: 80048; 80061; 82948; 83036; 84484; 93005; J1815

== ENCOUNTER 2017-03-31 16:08 | Emergency (ER) | payer OTHER, MEDICARE ==
[~2017-03-31] VITALS: Ht 177.8 cm; Wt 100.0 kg
[~2017-03-31 16:08] MED LIST changes: -ASPI81CH CHEW; +ASPI81CH25 CHEW; -GABA300C5 PO; +NEUR300C PO; +TRAZ100T10 PO; +VENL150T PO
[2017-03-31 16:46] VITALS: BP 115/81; PULSE 88; RESP 20; TEMP 98.6; O2SAT 96
[2017-03-31 17:41] LABS: AUTOMATED NEUTROPHIL # 3.3 TH/MM3 (1.8-7.7); BASOPHIL % 0.5 % (0.0-2.0); EOSINOPHIL # 0.1 TH/MM3 (0-0.4); HEMATOCRIT 40.6 % (39.0-51.0); LYMPH % 41.9 % (9.0-44.0); LYMPHOCYTE # 2.7 TH/MM3 (1.0-4.8); MEAN CELL VOLUME 91.4 FL (80.0-100.0); MEAN CORPUSCULAR HEMOGLOBIN 33.2 PG (27.0-34.0); MONO % 6.4 % (0.0-8.0); NEUT % 50.2 % (16.0-70.0); PLATELET COUNT 176 TH/MM3 (150-450); RED BLOOD COUNT 4.44 MIL/MM3 (4.50-5.90); RED CELL DISTRIBUTION WIDTH 13.1 % (11.6-17.2); WHITE BLOOD COUNT 6.5 TH/MM3 (4.0-11.0)
[2017-03-31 17:43] LABS: HEMO FLAGS AUTO DIFF; MEAN CORPUSCULAR HGB CONC 36.3 % (32.0-36.0)
--- NOTE | 2017-03-31 17:50 | PD ---
HPI Chief Complaint: Suicide Ideation/Attempt Time Seen by Provider: 17:00 Travel History International Travel<30 days: No Contact w/Intl Traveler<30days: No Traveled to known affect area: No History of Present Illness HPI 52-year-old male that presents to the ED for evaluation of suicidal ideation. Patient states that he has a history of PTSD and psychiatric illness and takes medications for this. Per patient today he got more anxious and depressed and he cut his left wrist. Patient has some minimal bleeding. Per patient he did this as an attempt to get help. He called the police on himself. Patient was Bailey acted because of this. Patient states that his tetanus booster was last year. He denies any other medical issues at this time. He denies any injuries or falls. Per patient he wants help for his psychiatric history. He was recently admitted in February for PTSD. He denies any other medical issues at this time. He states that his symptoms worsen because of his alcohol consumption and not been able to sleep [facility]. He denies any other substance abuse. Allergies to sulfa. PFSH Past Medical History Hx Anticoagulant Therapy: Yes (ASA) Arthritis: No Asthma: No Autoimmune Disease: No Anxiety: Yes Depression: Yes Heart Rhythm Problems: No Cancer: No Cardiovascular Problems: Yes (CHF, HTN ) High Cholesterol: Yes Chemotherapy: No Chest Pain: Yes Congestive Heart Failure: Yes COPD: Yes Cerebrovascular Accident: No Diabetes: Yes Diminished Hearing: No Endocrine: Yes Gastrointestinal Disorders: Yes (COLITIS ) GERD: No Genitourinary: No Headaches: No Hiatal Hernia: No Heparin Induced Thrombocytopen: No Hypertension: Yes Immune Disorder: No Implanted Vascular Access Dvce: No Kidney Stones: No Musculoskeletal: Yes Neurologic: Yes Psychiatric: Yes Reproductive: No Immunizations Current: Yes Myocardial Infarction: Yes (1X) Radiation Therapy: No Renal Failure: No Seizures: No Sickle Cell Disease: No Sleep Apnea: No Thyroid Disease: No Ulcer: No Past Surgical History Abdominal Surgery: Yes (appy) AICD: No Appendectomy: Yes (LATE 90'S ) Arteriovenous Shunt: No Cardiac Surgery: Yes (cabg x3) Coronary Artery Bypass Graft: Yes (2 VESSEL) Ear Surgery: No Endocrine Surgery: No Eye Surgery: No Genitourinary Surgery: No Gynecologic Surgery: No Insulin Pump: No Joint Replacement: No Oral Surgery: No Pacemaker: No Thoracic Surgery: No Other Surgery: Yes (3 back surgeries, and 1 neck surgery) Social History Alcohol Use: Yes (DAILY) Tobacco Use: No Substance Use: Yes (marijuana occassionally) Allergies-Medications (Allergen,Severity, Reaction): Coded Allergies: Sulfa (Sulfonamide Antibiotics) (Verified Allergy, Mild, Rash, 03/08/17) Reported Meds & Prescriptions Reported Meds & Active Scripts Active Thera M Plus (Multivitamins/Minerals Therapeutic) 1 Tab 1 Tab PO DAILY 30 Days Levemir Inj (Insulin Detemir) 1,000 unit/ 10 ML Vial 30 Units SQ HS 30 Days Do not mix with any other Insulin. Venlafaxine ER 24 HR (Venlafaxine HCl) 150 Mg Tab 150 Mg PO DAILY Trazodone (Trazodone HCl) 100 Mg Tablet 100 Mg PO HS Neurontin (Gabapentin) 300 Mg Cap 300 Mg PO BID 30 Days Aspirin Low Strength (Aspirin) 81 Mg Chew 81 Mg CHEW DAILY 30 Days Losartan (Losartan Potassium) 100 Mg Tab 100 Mg PO DAILY Maalox Advanced Maximum Strength (Calcium Carbonate-Simethicone) 1,000-60 Mg Chew 1-2 Tab CHEW BID PRN 7 Days Reported Novolog Inj (Insulin Aspart) 100 Unit/Ml Inj SQ ACHS03 SLIDE SCALE Metformin (Metformin HCl) 500 Mg Tab 500 Mg PO BIDPC With meals Effexor (Venlafaxine HCl) 75 Mg Tab 75 Mg PO HS Review of Systems Except as stated in HPI: all other systems reviewed are Neg Physical Exam Narrative GENERAL: SKIN: Warm and dry. HEAD: Atraumatic. Normocephalic. EYES: Pupils equal and round. No scleral icterus. No injection or drainage. ENT: No nasal bleeding or discharge. Mucous membranes pink and moist. Tongue is midline. No uvula deviation. NECK: Trachea midline. No JVD. CARDIOVASCULAR: Regular rate and rhythm. No murmurs, S3, S4. RESPIRATORY: No accessory muscle use. Clear to auscultation. Breath sounds equal bilaterally. GASTROINTESTINAL: Abdomen soft, non-tender, nondistended. Hepatic and splenic margins not palpable. MUSCULOSKELETAL: Extremities without clubbing, cyanosis, or edema. No obvious deformities. Full range of motion of the upper and lower extremities bilaterally. 2+ pulses bilaterally. Patient has more than 10 superficial cuts to the left ventral aspect of the left wrist. Very superficial. Minimal bleeding noted. Slightly tender. No tendon, vessel nerve damage noted. NEUROLOGICAL: Awake and alert. No obvious cranial nerve deficits. Motor grossly within normal limits. Five out of 5 muscle strength in the arms and legs. Normal speech. PSYCHIATRIC: Appropriate mood and affect; insight and judgment normal. Data Data Last Documented VS Vital Signs Date Time Temp Pulse Resp B/P (MAP) Pulse Ox O2 Delivery O2 Flow Rate FiO2 03/31/17 16:46 98.6 88 20 115/81 (92) 96 Orders Orders Complete Blood Count With Diff (03/31/17 16:59) Comprehensive Metabolic Panel (03/31/17 16:59) Psych Screen (03/31/17 16:59) Drug Screen, Random Urine (03/31/17 16:59) Alcohol (Ethanol) (03/31/17 16:59) Salicylates (Aspirin) (03/31/17 16:59) Tylenol (Acetaminophen) (03/31/17 16:59) Labs Laboratory Tests Test 03/31/17 17:00 White Blood Count 6.5 TH/MM3 Red Blood Count 4.44 MIL/MM3 Hemoglobin 14.7 GM/DL Hematocrit 40.6 % Mean Corpuscular Volume 91.4 FL Mean Corpuscular Hemoglobin 33.2 PG Mean Corpuscular Hemoglobin Concent 36.3 % Red Cell Distribution Width 13.1 % Platelet Count 176 TH/MM3 Mean Platelet Volume 8.3 FL Neutrophils (%) (Auto) 50.2 % Lymphocytes (%) (Auto) 41.9 % Monocytes (%) (Auto) 6.4 % Eosinophils (%) (Auto) 1.0 % Basophils (%) (Auto) 0.5 % Neutrophils # (Auto) 3.3 TH/MM3 Lymphocytes # (Auto) 2.7 TH/MM3 Monocytes # (Auto) 0.4 TH/MM3 Eosinophils # (Auto) 0.1 TH/MM3 Basophils # (Auto) 0.0 TH/MM3 CBC Comment AUTO DIFF MDM Medical Decision Making Medical Screen Exam Complete: Yes Emergency Medical Condition: Yes Medical Record Reviewed: Yes Differential Diagnosis Depression versus suicidal ideation versus anxiety versus adjustment disorder versus mood disorder versus bipolar disorder versus schizophrenia versus paranoid disorder versus psychosis versus substance abuse versus alcohol abuse versus alcohol induced psychosis versus homicidality addition versus cutting versus personality disorder Narrative Course 51-year-old male that presents to the ED for evaluation of psychiatric illness. Patient was properly examined and was found to have signs and symptoms consistent with psychiatric illness. No sign of acute medical distress. Patient has superficial cuts on the left wrist. Some bleeding noted. No sign of nerve, vessel, vascular damage. Wound care will be done. Labs were drawn. Patient will be medically clear. Okay to be seen by psych. Mental health screening was discussed with the patient. Diagnosis Primary Impression: Major depressive disorder, single episode Qualified Codes: F32.1 - Major depressive disorder, single episode, moderate Additional Impression: Deliberate self-cutting Ezekiel Khan Mar 31, 2017 17:50
[2017-03-31 18:06] LABS: ALKALINE PHOSPHATASE 77 U/L (45-117); ALT (GPT) 29 U/L (12-78); ANION GAP 12 MEQ/L (5-15); AST (GOT) 25 U/L (15-37); BICARBONATE 24.6 MEQ/L (21.0-32.0); BLOOD UREA NITROGEN 9 MG/DL (7-18); CHLORIDE 94 MEQ/L (98-107); GLOMERULAR FILTRATION RATE 80 ML/MIN (>89); POTASSIUM 3.1 MEQ/L (3.5-5.1); SODIUM (NA) 131 MEQ/L (136-145); TOTAL BILIRUBIN ADULT 0.4 MG/DL (0.2-1.0)
[2017-03-31 18:15] LABS: ACETAMINOPHEN LESS THAN 2.0 MCG/ML (10.0-30.0); ALCOHOL 142 MG/DL (0-5)
[2017-03-31 18:27] LABS: PLATELET ESTIMATE SMEAR NORMAL (NORMAL); PLATELET MORPHOLOGY NORMAL (NORMAL); SCAN/DIFF AUTO DIFF CONFIRMED
[2017-03-31 18:45] VITALS: BP 168/97; PULSE 80; RESP 20; TEMP 97.2; O2SAT 95
[2017-03-31] MEDS ORDERED: POTASSIUM CHLORIDE 20 MEQ CONTROLLED RELEASE TAB PO ONE (18:45)
[2017-04-01 02:23] VITALS: BP 138/93; PULSE 85; RESP 16; O2SAT 97
[2017-04-01 06:25] VITALS: BP 181/99; PULSE 87; RESP 18; TEMP 97.9; O2SAT 98
[2017-04-01 06:28] VITALS: BP 181/99; PULSE 87; RESP 18
[2017-04-01] MEDS ORDERED: LOSARTAN 50 MG TAB PO ONE (06:45)
--- NOTE | 2017-04-01 10:16 | PD ---
History of Present Illness Chief Complaint: Suicide Ideation/Attempt Time Seen by Provider: 10:15 Travel History International Travel<30 Days: No Contact w/Intl Traveler<30days: No Known affected area: No Legal Status Legal Status: Bailey Act History of Present Illness: 51-year-old male presents voluntarily after superficially cutting his left wrist /arm. Patient reports he made a mistake and that he was angry and agitated due to the inadequate care he is receiving from the [facility]. He has been observed and evaluated overnight and he has been calm, pleasant and cooperative. This morning he would like to go home and he denies any suicidal or homicidal ideation, plan or intent. He admits to having said the wrong things and done the wrong things last night and his alcohol level was noted to be 142. This morning he is verbally duncan for safety and he is competent to do so. [facility] Past Medical History Hx Anticoagulant Therapy: Yes (ASA) Arthritis: No Asthma: No Autoimmune Disease: No Anxiety: Yes Depression: Yes Heart Rhythm Problems: No Cancer: No Cardiac Catheterization: Yes Cardiovascular Problems: Yes (CHF, HTN ) High Cholesterol: Yes Chemotherapy: No Chest Pain: Yes Congestive Heart Failure: Yes COPD: Yes Cerebrovascular Accident: No Coronary Artery Disease: Yes Diabetes: Yes Patient Takes Glucophage: Yes Diminished Hearing: No Endocrine: Yes Gastrointestinal Disorders: Yes (COLITIS ) GERD: No Genitourinary: No Headaches: No Hiatal Hernia: No Heparin Induced Thrombocytopen: No Hypertension: Yes Immune Disorder: No Implanted Vascular Access Dvce: No Kidney Stones: No Musculoskeletal: Yes Neurologic: Yes Psychiatric: Yes Reproductive: No Immunizations Current: Yes Myocardial Infarction: Yes (1X) Radiation Therapy: No Renal Failure: No Seizures: No Sickle Cell Disease: No Sleep Apnea: No Thyroid Disease: No Ulcer: No Tetanus Vaccination: < 5 Years Influenza Vaccination: Yes Past Surgical History Abdominal Surgery: Yes (appy) AICD: No Appendectomy: Yes (LATE 90'S ) Arteriovenous Shunt: No Cardiac Surgery: Yes (cabg x3) Coronary Artery Bypass Graft: Yes (X 3) Ear Surgery: No Endocrine Surgery: No Eye Surgery: No Genitourinary Surgery: No Gynecologic Surgery: No Insulin Pump: No Joint Replacement: No Oral Surgery: No Pacemaker: No Thoracic Surgery: No Other Surgery: Yes (3 back surgeries, and 1 neck surgery) Psychiatric History Psychiatric History Hx Psychiatric Treatment: Patient with a hx of PTSD, depression and anxiety. Patient also with a history of alcohol use dependence. Last admission was Mar [id number] for PTSD. History of Inpatient Treatment: Yes Guns or firearms in home: No Social History Hx Alcohol Use: Yes (DAILY) Hx Tobacco Use: No Hx Substance Use: Yes (daily alcohol, marijuana) Substance Use Type: Alcohol, Marijuana, Cocaine Other Substances Used: cocaine in the past Hx of Substance Use Treatment: Yes Allergies-Medications (Allergen,Severity, Reaction): Coded Allergies: Sulfa (Sulfonamide Antibiotics) (Verified Allergy, Mild, Rash, 03/31/17) Reported Meds & Prescriptions Reported Meds & Active Scripts Active Thera M Plus (Multivitamins/Minerals Therapeutic) 1 Tab 1 Tab PO DAILY 30 Days Levemir Inj (Insulin Detemir) 1,000 unit/ 10 ML Vial 30 Units SQ HS 30 Days Do not mix with any other Insulin. Venlafaxine ER 24 HR (Venlafaxine HCl) 150 Mg Tab 150 Mg PO DAILY Trazodone (Trazodone HCl) 100 Mg Tablet 100 Mg PO HS Neurontin (Gabapentin) 300 Mg Cap 300 Mg PO BID 30 Days Aspirin Low Strength (Aspirin) 81 Mg Chew 81 Mg CHEW DAILY 30 Days Losartan (Losartan Potassium) 100 Mg Tab 100 Mg PO DAILY Maalox Advanced Maximum Strength (Calcium Carbonate-Simethicone) 1,000-60 Mg Chew 1-2 Tab CHEW BID PRN 7 Days Reported Novolog Inj (Insulin Aspart) 100 Unit/Ml Inj SQ ACHS03 SLIDE SCALE Metformin (Metformin HCl) 500 Mg Tab 500 Mg PO BIDPC With meals Effexor (Venlafaxine HCl) 75 Mg Tab 75 Mg PO HS Review of Systems Except as stated in HPI: all other systems reviewed are Neg Mental Status Examination Appearance: Appropriate Consciousness: Alert Orientation: x4 Motor Activity: Normal gait Speech: Unremarkable Language: Adequate Fund of Knowledge: Adequate Attention and Concentration: Adequate Memory: Unremarkable Mood: Appropriate Affect: Appropriate Thought Process & Associations: Intact Thought Content: Appropriate Hallucination Type: None Delusion Type: None Suicidal Ideation: No Suicidal Plan: No Suicidal Intention: No Homicidal Ideation: No Homicidal Plan: No Homicidal Intention: No Insight: Adequate Judgment: Adequate MDM Medical Decision Making Medical Record Reviewed: Yes Assessment/Plan Patient interviewed at bedside, medical record reviewed and case discussed with nurse Robbie. Patient is verbally duncan for safety at this time and he is competent to do so. Least restrictive alternative applies and the patient indicates he will obtain follow up treatment at the [facility]. Orders Orders Complete Blood Count With Diff (03/31/17 16:59) Comprehensive Metabolic Panel (03/31/17 16:59) Psych Screen (03/31/17 16:59) Drug Screen, Random Urine (03/31/17 16:59) Alcohol (Ethanol) (03/31/17 16:59) Salicylates (Aspirin) (03/31/17 16:59) Tylenol (Acetaminophen) (03/31/17 16:59) Potassium Chloride (Kcl) (03/31/17 18:45) Diet Regular Basic (03/31/17 Dinner) Diet Diabetic (04/01/17 Breakfast) Losartan (Cozaar) (04/01/17 06:45) Results Vital Signs Date Time Temp Pulse Resp B/P (MAP) Pulse Ox O2 Delivery O2 Flow Rate FiO2 04/01/17 06:28 87 18 181/99 (126) 04/01/17 06:25 97.9 87 18 () 98 181/99 (126) 04/01/17 02:23 85 16 138/93 (108) 97 Room Air 03/31/17 18:45 97.2 80 20 168/97 (120) 95 Room Air 03/31/17 16:46 98.6 88 20 115/81 (92) 96 Laboratory Tests Test 03/31/17 17:00 03/31/17 17:45 White Blood Count 6.5 Red Blood Count 4.44 Hemoglobin 14.7 Hematocrit 40.6 Mean Corpuscular Volume 91.4 Mean Corpuscular Hemoglobin 33.2 Mean Corpuscular Hemoglobin Concent 36.3 Red Cell Distribution Width 13.1 Platelet Count 176 Mean Platelet Volume 8.3 Neutrophils (%) (Auto) 50.2 Lymphocytes (%) (Auto) 41.9 Monocytes (%) (Auto) 6.4 Eosinophils (%) (Auto) 1.0 Basophils (%) (Auto) 0.5 Neutrophils # (Auto) 3.3 Lymphocytes # (Auto) 2.7 Monocytes # (Auto) 0.4 Eosinophils # (Auto) 0.1 Basophils # (Auto) 0.0 CBC Comment AUTO DIFF Differential Comment AUTO DIFF CONFIRMED Platelet Estimate NORMAL Platelet Morphology Comment NORMAL Blood Urea Nitrogen 9 Creatinine 0.98 Random Glucose 54 Total Protein 7.4 Albumin 3.5 Calcium Level 8.5 Alkaline Phosphatase 77 Aspartate Amino Transf (AST/SGOT) 25 Alanine Aminotransferase (ALT/SGPT) 29 Total Bilirubin 0.4 Sodium Level 131 Potassium Level 3.1 Chloride Level 94 Carbon Dioxide Level 24.6 Anion Gap 12 Estimat Glomerular Filtration Rate 80 Salicylates Level 2.3 Acetaminophen Level LESS THAN 2.0 Ethyl Alcohol Level 142 Urine Opiates Screen NEG Urine Barbiturates Screen NEG Urine Amphetamines Screen NEG Urine Benzodiazepines Screen NEG Urine Cocaine Screen NEG Urine Cannabinoids Screen NEG Diagnosis Primary Impression: Adjustment disorder with mixed disturbance of emotions and conduct Scar Suarez MD Apr 01, 2017 10:16
[2017-04-01 11:05] VITALS: BP 138/96; PULSE 78; RESP 18; TEMP 98; O2SAT 100
--- NOTE | 2017-04-01 11:27 | PD ---
Physical Exam Date Seen by Provider: Apr 01, 2017 Time Seen by Provider: 11:23 Data Data Last Documented VS Vital Signs Date Time Temp Pulse Resp B/P (MAP) Pulse Ox O2 Delivery O2 Flow Rate FiO2 04/01/17 11:05 98.0 78 18 138/96 (110) 100 Room Air Orders Orders Complete Blood Count With Diff (03/31/17 16:59) Comprehensive Metabolic Panel (03/31/17 16:59) Psych Screen (03/31/17 16:59) Drug Screen, Random Urine (03/31/17 16:59) Alcohol (Ethanol) (03/31/17 16:59) Salicylates (Aspirin) (03/31/17 16:59) Tylenol (Acetaminophen) (03/31/17 16:59) Potassium Chloride (Kcl) (03/31/17 18:45) Diet Regular Basic (03/31/17 Dinner) Diet Diabetic (04/01/17 Breakfast) Losartan (Cozaar) (04/01/17 06:45) Ed Discharge Order (04/01/17 11:22) Labs Laboratory Tests Test 03/31/17 17:00 03/31/17 17:45 White Blood Count 6.5 TH/MM3 Red Blood Count 4.44 MIL/MM3 Hemoglobin 14.7 GM/DL Hematocrit 40.6 % Mean Corpuscular Volume 91.4 FL Mean Corpuscular Hemoglobin 33.2 PG Mean Corpuscular Hemoglobin Concent 36.3 % Red Cell Distribution Width 13.1 % Platelet Count 176 TH/MM3 Mean Platelet Volume 8.3 FL Neutrophils (%) (Auto) 50.2 % Lymphocytes (%) (Auto) 41.9 % Monocytes (%) (Auto) 6.4 % Eosinophils (%) (Auto) 1.0 % Basophils (%) (Auto) 0.5 % Neutrophils # (Auto) 3.3 TH/MM3 Lymphocytes # (Auto) 2.7 TH/MM3 Monocytes # (Auto) 0.4 TH/MM3 Eosinophils # (Auto) 0.1 TH/MM3 Basophils # (Auto) 0.0 TH/MM3 CBC Comment AUTO DIFF Differential Comment AUTO DIFF CONFIRMED Platelet Estimate NORMAL Platelet Morphology Comment NORMAL Blood Urea Nitrogen 9 MG/DL Creatinine 0.98 MG/DL Random Glucose 54 MG/DL Total Protein 7.4 GM/DL Albumin 3.5 GM/DL Calcium Level 8.5 MG/DL Alkaline Phosphatase 77 U/L Aspartate Amino Transf (AST/SGOT) 25 U/L Alanine Aminotransferase (ALT/SGPT) 29 U/L Total Bilirubin 0.4 MG/DL Sodium Level 131 MEQ/L Potassium Level 3.1 MEQ/L Chloride Level 94 MEQ/L Carbon Dioxide Level 24.6 MEQ/L Anion Gap 12 MEQ/L Estimat Glomerular Filtration Rate 80 ML/MIN Salicylates Level 2.3 MG/DL Acetaminophen Level LESS THAN 2.0 MCG/ML Ethyl Alcohol Level 142 MG/DL Urine Opiates Screen NEG Urine Barbiturates Screen NEG Urine Amphetamines Screen NEG Urine Benzodiazepines Screen NEG Urine Cocaine Screen NEG Urine Cannabinoids Screen NEG MDM Medical Record Reviewed: Yes Supervised Visit with DEL: No Narrative Course 51-year-old male presented previously to the emergency room voluntarily for evaluation of suicidal ideation. Patient states he was depressed because of issues with his [facility] insurance. This morning he was evaluated and appeared calm, cooperative, smiling. He would like to go home. He was seen and evaluated by the psychiatrist who states patient does not appear to be a threat to himself or others at this time. Blood work was essentially unremarkable except for some hypokalemia for which patient was given by mouth potassium in the ED. He denies any complaints at this time. Stable for discharge and outpatient follow- up. Diagnosis Primary Impression: Adjustment disorder with mixed disturbance of emotions and conduct Referrals: [facility] ([facility] Patient Instructions: General Instructions, Stress (ED) Departure Forms: Tests/Procedures Additional Instruction: Follow-up per psychiatrist's recommendations Disposition: 01 DISCHARGE HOME Sheryl Escoto Apr 01, 2017 11:26
== END 2017-04-01 11:42 | disposition home or self-care (01) ==
LOC: NEDAMB 16:08 → NEPJ 04-01 11:42
DX: F32.1 Major depressive disorder, single episode, moderate (principal); S61.512A Laceration without foreign body of left wrist, initial encounter; F43.25 Adjustment disorder with mixed disturbance of emotions and conduct; I10 Essential (primary) hypertension; J44.9 Chronic obstructive pulmonary disease, unspecified; E11.9 Type 2 diabetes mellitus without complications; X78.9XXA Intentional self-harm by unspecified sharp object, initial encounter; Z79.01 Long term (current) use of anticoagulants; Z79.899 Other long term (current) drug therapy
CPT/HCPCS: 80053; 80307; 85025; 99284

== ENCOUNTER 2017-04-22 23:52 | Emergency (ER) | payer OTHER, MEDICARE ==
[~2017-04-22] VITALS: Ht 177.8 cm; Wt 84.0 kg
[~2017-04-22 23:52] MED LIST changes: +IOHEXOL 350 MG/ML 10 ML VIAL (for RAD DIAG) IVCONTRAST ONE
[2017-04-23] VITALS (7 sets, daily range): BP systolic 120–155; BP diastolic 68–100; PULSE 55–124; RESP 14–20; TEMP 98.7; O2SAT 96–98
[2017-04-23] MEDS ORDERED: SODIUM CHLORIDE 0.9% FLUSH 10 ML FLUSH IVF PRN (00:15)
[2017-04-23 00:26] LABS: AUTOMATED NEUTROPHIL # 2.9 TH/MM3 (1.8-7.7); BASOPHIL # 0.1 TH/MM3 (0-0.2); BASOPHIL % 0.8 % (0.0-2.0); EOSINOPHIL # 0.1 TH/MM3 (0-0.4); EOSINOPHIL % 1.4 % (0.0-4.0); HEMATOCRIT 43.9 % (39.0-51.0); HEMO FLAGS DIFF FINAL; LYMPHOCYTE # 3.3 TH/MM3 (1.0-4.8); MEAN CORPUSCULAR HEMOGLOBIN 32.2 PG (27.0-34.0); MONO % 4.9 % (0.0-8.0); NEUT % 43.9 % (16.0-70.0); PLATELET COUNT 227 TH/MM3 (150-450); RED BLOOD COUNT 4.77 MIL/MM3 (4.50-5.90); RED CELL DISTRIBUTION WIDTH 12.8 % (11.6-17.2); WHITE BLOOD COUNT 6.7 TH/MM3 (4.0-11.0)
[2017-04-23 00:37] LABS: APTT (PATIENT) 23.3 SEC (24.3-30.1); PROTHROMBIN TIME - PATIENT 10.2 SEC (9.8-11.6)
[2017-04-23] MEDS ORDERED: SODIUM CHLOR 0.9% 1000 ML INJ 1,000 ML IV ONE ×2 (00:45→04:45)
--- NOTE | 2017-04-23 01:01 | PD ---
HPI . Suicidal ideation Chief Complaint: Chest Pain Time Seen by Provider: 00:11 Travel History International Travel<30 days: No Contact w/Intl Traveler<30days: No Traveled to known affect area: No History of Present Illness HPI This patient is brought in as a Bailey act for suicidal ideation. He states that he was talking about suicide on Facebook. He states that he would kill himself by cutting his wrist. He has a history of cutting. Patient reports that he's been admitted here several times in the recent past and that admission does not help him to feel any better about himself. He states that he drank 4 beers at lunch time. His paper work indicates that he has consumed a large amount of alcohol. In addition, the patient is complaining with some right-sided chest pain. Onset was about 3 days ago. Pain is exacerbated by movement. Pain is rated 5/ 10. PFSH Past Medical History Hx Anticoagulant Therapy: Yes (ASA) Arthritis: No Asthma: No Autoimmune Disease: No Anxiety: Yes Depression: Yes Heart Rhythm Problems: No Cancer: No Cardiac Catheterization: Yes Cardiovascular Problems: Yes (CHF, HTN ) High Cholesterol: Yes Chemotherapy: No Chest Pain: Yes Congestive Heart Failure: Yes COPD: Yes Cerebrovascular Accident: No Coronary Artery Disease: Yes Diabetes: Yes Patient Takes Glucophage: Yes Diminished Hearing: No Endocrine: Yes Gastrointestinal Disorders: Yes (COLITIS ) GERD: No Genitourinary: No Headaches: No Hiatal Hernia: No Heparin Induced Thrombocytopen: No Hypertension: Yes Immune Disorder: No Implanted Vascular Access Dvce: No Kidney Stones: No Musculoskeletal: Yes Neurologic: Yes Psychiatric: Yes Reproductive: No Immunizations Current: Yes Myocardial Infarction: Yes (1X) Radiation Therapy: No Renal Failure: No Seizures: No Sickle Cell Disease: No Sleep Apnea: No Thyroid Disease: No Ulcer: No Tetanus Vaccination: < 5 Years Past Surgical History Abdominal Surgery: Yes (appy) AICD: No Appendectomy: Yes (LATE 90'S ) Arteriovenous Shunt: No Cardiac Surgery: Yes (cabg x3) Coronary Artery Bypass Graft: Yes (X 3) Ear Surgery: No Endocrine Surgery: No Eye Surgery: No Genitourinary Surgery: No Gynecologic Surgery: No Insulin Pump: No Joint Replacement: No Oral Surgery: No Pacemaker: No Thoracic Surgery: No Other Surgery: Yes (3 back surgeries, and 1 neck surgery) Family History Family Myocardial Infarction: Yes (DAD HAD MASSIVE [place] AT 56) Social History Alcohol Use: Yes (DAILY) Tobacco Use: No Substance Use: Yes (daily alcohol, marijuana) Allergies-Medications (Allergen,Severity, Reaction): Coded Allergies: Sulfa (Sulfonamide Antibiotics) (Verified Allergy, Mild, Rash, 04/23/17) Reported Meds & Prescriptions Reported Meds & Active Scripts Active Thera M Plus (Multivitamins/Minerals Therapeutic) 1 Tab 1 Tab PO DAILY 30 Days Levemir Inj (Insulin Detemir) 1,000 unit/ 10 ML Vial 30 Units SQ HS 30 Days Do not mix with any other Insulin. Venlafaxine ER 24 HR (Venlafaxine HCl) 150 Mg Tab 150 Mg PO DAILY Trazodone (Trazodone HCl) 100 Mg Tablet 100 Mg PO HS Neurontin (Gabapentin) 300 Mg Cap 300 Mg PO BID 30 Days Aspirin Low Strength (Aspirin) 81 Mg Chew 81 Mg CHEW DAILY 30 Days Losartan (Losartan Potassium) 100 Mg Tab 100 Mg PO DAILY Reported Novolog Inj (Insulin Aspart) 100 Unit/Ml Inj SQ ACHS03 SLIDE SCALE Metformin (Metformin HCl) 500 Mg Tab 500 Mg PO BIDPC With meals Effexor (Venlafaxine HCl) 75 Mg Tab 75 Mg PO HS Review of Systems Except as stated in HPI: all other systems reviewed are Neg Cardiovascular: Positive: Chest Pain or Discomfort Skin: Positive Other (left wrist lacerations) Psychiatric: Positive: Suicidal Ideations, Substance Abuse Physical Exam Narrative GENERAL: Patient is awake and alert and does not appear to be in any distress. SKIN: warm/dry. Superficial lacerations in various stages of healing on the flexor aspect of the left wrist. HEAD: Normocephalic. Atraumatic. EYES: Pupils equal and round. No scleral icterus. No injection or drainage. ENT: No nasal bleeding or discharge. Mucous membranes pink and moist. NECK: Trachea midline. Full range of motion without pain.. CARDIOVASCULAR: Regular rate and rhythm. Heart sounds are normal. RESPIRATORY: No accessory muscle use. Clear to auscultation. Breath sounds equal bilaterally. GASTROINTESTINAL: Abdomen soft. Nontender. Bowel sounds present. Nondistended. MUSCULOSKELETAL: No obvious deformities. NEUROLOGICAL: Awake and alert. No obvious cranial nerve deficits. Motor grossly within normal limits. Normal speech. PSYCHIATRIC: Appropriate mood and affect; insight and judgment poor. Suicidal ideation. Data Data Last Documented VS Vital Signs Date Time Temp Pulse Resp B/P (MAP) Pulse Ox O2 Delivery O2 Flow Rate FiO2 04/23/17 00:10 120 04/23/17 00:02 98.7 16 155/100 (118) 98 Orders Orders Electrocardiogram (04/23/17 00:11) Basic Metabolic Panel (Bmp) (04/23/17 00:11) Complete Blood Count With Diff (04/23/17 00:11) Magnesium (Mg) (04/23/17 00:11) Prothrombin Time / Inr (Pt) (04/23/17 00:11) Act Partial Throm Time (Ptt) (04/23/17 00:11) Troponin I (04/23/17 00:11) Ecg Monitoring (04/23/17 00:11) Iv Access Insert/Monitor (04/23/17 00:11) Oximetry (04/23/17 00:11) Sodium Chloride 0.9% Flush (Ns Flush) (04/23/17 00:15) Ct Pulmonary Angiogram (04/23/17 00:11) Drug Screen, Random Urine (04/23/17 00:11) Alcohol (Ethanol) (04/23/17 00:11) Sodium Chlor 0.9% 1000 Ml Inj (Ns 1000 M (04/23/17 00:45) Iohexol 350 Inj (Omnipaque 350 Inj) (04/23/17 02:18) Labs Laboratory Tests Test 04/23/17 00:15 White Blood Count 6.7 TH/MM3 Red Blood Count 4.77 MIL/MM3 Hemoglobin 15.4 GM/DL Hematocrit 43.9 % Mean Corpuscular Volume 92.0 FL Mean Corpuscular Hemoglobin 32.2 PG Mean Corpuscular Hemoglobin Concent 35.0 % Red Cell Distribution Width 12.8 % Platelet Count 227 TH/MM3 Mean Platelet Volume 8.0 FL Neutrophils (%) (Auto) 43.9 % Lymphocytes (%) (Auto) 49.0 % Monocytes (%) (Auto) 4.9 % Eosinophils (%) (Auto) 1.4 % Basophils (%) (Auto) 0.8 % Neutrophils # (Auto) 2.9 TH/MM3 Lymphocytes # (Auto) 3.3 TH/MM3 Monocytes # (Auto) 0.3 TH/MM3 Eosinophils # (Auto) 0.1 TH/MM3 Basophils # (Auto) 0.1 TH/MM3 CBC Comment DIFF FINAL Differential Comment Prothrombin Time 10.2 SEC Prothromb Time International Ratio 1.0 RATIO Activated Partial Thromboplast Time 23.3 SEC Blood Urea Nitrogen 8 MG/DL Creatinine 1.10 MG/DL Random Glucose 454 MG/DL Calcium Level 9.8 MG/DL Magnesium Level 2.2 MG/DL Sodium Level 133 MEQ/L Potassium Level 4.5 MEQ/L Chloride Level 94 MEQ/L Carbon Dioxide Level 28.4 MEQ/L Anion Gap 11 MEQ/L Estimat Glomerular Filtration Rate 70 ML/MIN Troponin I LESS THAN 0.02 NG/ML Ethyl Alcohol Level 196 MG/DL [place] Medical Decision Making Medical Screen Exam Complete: Yes Emergency Medical Condition: Yes Medical Record Reviewed: Yes (this patient was most recently seen here on March 31 for psychiatric issues. Was admitted at the end of February.) Interpretation(s) EKG shows a sinus rhythm with no acute ischemic change. He had 3 unifocal PVCs Differential Diagnosis Differential diagnosis of chest pain includes but is not limited to musculoskeletal pain, pulmonary embolism, acute coronary syndrome, pneumonia, pleurisy Differential diagnosis includes but is not limited to depression with suicidal gesture, suicide attempt, suicidal ideation, attention seeking behavior. Narrative Course This patient presents as a Bailey act for suicidal ideation. He is also complaining with right-sided chest pain. Chest pain evaluation is in progress. He is tachycardic and has been drinking. I am giving him a bolus of fluid. CBC & BMP Diagram 04/23/17 00:15 Calcium Level 9.8, Magnesium Level 2.[address] for PE is negative. This patient is now medically clear. Diagnosis Primary Impression: Chest wall pain Additional Impressions: Acute alcohol intoxication Qualified Codes: F10.929 - Alcohol use, unspecified with intoxication, unspecified Suicidal ideation Condition: Stable Rozina Leiva MD Apr 23, 2017 01:01
[2017-04-23 01:06] LABS: ALCOHOL 196 MG/DL (0-5); ANION GAP 11 MEQ/L (5-15); BICARBONATE 28.4 MEQ/L (21.0-32.0); BLOOD UREA NITROGEN 8 MG/DL (7-18); CHLORIDE 94 MEQ/L (98-107); GLOMERULAR FILTRATION RATE 70 ML/MIN (>89); MAGNESIUM 2.2 MG/DL (1.5-2.5); POTASSIUM 4.5 MEQ/L (3.5-5.1); SODIUM (NA) 133 MEQ/L (136-145)
[2017-04-23] MEDS ORDERED: IOHEXOL 350 MG/ML 10 ML VIAL (for RAD DIAG) IVCONTRAST ONE (02:18)
--- NOTE | 2017-04-23 02:27 | RADRPT ---
EXAM DATE/TIME: 04/23/2017 02:05 [facility] COMPARISON: CHEST SINGLE AP, March 08, 2017, 20:15. INDICATIONS : Chest pain. IV CONTRAST: 75 cc Omnipaque 350 (iohexol) IV RADIATION DOSE: 23.15 CTDIvol (mGy) MEDICAL HISTORY : Congestive hearrt failure. Myocardial infarction. Chronic obstructive pulmonary disease.Diabetes. SURGICAL HISTORY : None. ENCOUNTER: Initial ACUITY: 3 days PAIN SCALE: 8/10 LOCATION: chest TECHNIQUE: Volumetric scanning of the chest was performed using a pulmonary embolism protocol MIP images were re constructed. Using automated exposure control and adjustment of the mA and/or kV according to patien t size, radiation dose was kept as low as reasonably achievable to obtain optimal diagnostic quality images. DICOM format image data is available electronically for review and comparison. Follow-up recommendations for detected pulmonary nodules are based at a minimum on nodule size and pa tient risk factors according to Fleischner Society Guidelines. FINDINGS: Median sternotomy wires are noted and the patient has had previous CABG. The lungs are clear. There i s no adenopathy. Gynecomastia is present. No pleural or pericardial effusions. There is no evidence o f pulmonary embolism. CONCLUSION: No evidence of pulmonary embolus. Jeff Benito MD on April 23, 2017 at 2:25 Board Certified Radiologist. This report was verified electronically.
[2017-04-23] MEDS ORDERED: INSULIN HUMAN REGULAR 1,000 UNITS/10 ML VIAL SQ ONE (06:30)
[2017-04-23] MEDS ORDERED: MULTIVITAMINS/MINERALS THERAPEUTIC TAB PO SCH (09:00)
[2017-04-23] MEDS ORDERED: VENLAFAXINE HCL XR 75 MG CAP PO SCH ×2 (09:00→22:00)
[2017-04-23] MEDS ORDERED: LOSARTAN 50 MG TAB PO SCH (09:00)
[2017-04-23] MEDS ORDERED: ASPIRIN 81 MG CHEW TAB CHEW SCH (09:00)
[2017-04-23] MEDS ORDERED: metFORMIN HCL 500 MG TAB PO SCH (09:00)
[2017-04-23] MEDS ORDERED: GABAPENTIN 300 MG CAP PO SCH (09:00)
[2017-04-23] MEDS ORDERED: LORazepam 1 MG TAB PO PRN (11:00)
[2017-04-23] MEDS ORDERED: FLUMAZENIL 0.5 MG/5 ML VIAL IV PUSH PRN (11:00)
[2017-04-23] MEDS ORDERED: INSULIN HUMAN REGULAR 1,000 UNITS/10 ML VIAL IV PUSH ONE (11:00)
[2017-04-23] MEDS ORDERED: LORazepam 2 MG/ML VIAL IV PUSH PRN ×4 (11:00)
[2017-04-23] MEDS ORDERED: LORazepam 2 MG TAB PO PRN (11:00)
--- NOTE | 2017-04-23 12:16 | PD.PSY.CON ---
Provisional Diagnosis Admission Date [place] I. Alcohol-induced mood disorder History of Present Illness Service Psychiatry Consult Requested By ED Reason for Consult Suicidal ideations Primary Care Physician [facility] HPI Patient is a 51-year-old man, , 2 children who live with his ex-, domiciled alone, unemployed on disability, better and, with a past psychiatric history of depression, PTSD, alcohol use disorder, with 6 previous psychiatric hospitalizations (last in July 2016 at [facility]), no previous suicide attempts, history of self-injurious behavior via cutting, with past medical history of hypertension, diabetes, CHF, COPD, HLD, CABG _4 (2013) who was seen by psychiatry consult team in the ED for suicidal ideations in the context of alcohol intoxication. Patient was under Bailey Act due to having posted comments on Facebook which a friend had been concerned that he would hurt himself and police was notified and had gone to patient's home and supposedly brought him to the hospital. Patient states that it was a friend/ old girlfriend from [place] which had activated police. He states that he had posted that he was having some financial problems and difficulty with the [facility] online but states that he did not endorse any suicidal ideations. Reports that he is having difficulty with this income and at the [facility] to 30% of his income but has a subsequent reevaluation for his diagnosis of PTSD with his psychiatrist at the [facility] on May 06. Patient states that he does consume alcohol of 4-6 beers every day and states that he might have influence on him feeling more depressed. Patient states he continues his outpatient medications as well as attending his outpatient follow-up. Patient states that upon discharge plans in going home to continue his treatment as well as physical therapy. Patient states that the last suicide it was one month ago as well as last time he had self cut was 1 month ago. Patient this time denies any thoughts of self-harm and looks forward to regaining 100% of his income, after his upcoming interview evaluation was outpatient psychiatrist May 06. Past Family Social History Coded Allergies: Sulfa (Sulfonamide Antibiotics) (Verified Allergy, Mild, Rash, 04/23/17) Active Scripts Multiple Vitamins W/ Minerals (Thera M Plus) 1 Tab, 1 TAB PO DAILY for health for 30 Days, #30 TAB Prov:Elfego Harkins MD 03/11/17 Insulin Detemir Inj (Levemir Inj) 1,000 unit/ 10 ML Vial, 30 UNITS SQ HS for health for 30 Days, #1 VIAL Do not mix with any other Insulin. Prov:Elfego Harkins MD 03/11/17 Venlafaxine ER 24 HR (Venlafaxine ER 24 HR) 150 Mg Tab, 150 MG PO DAILY for health, #30 TAB 0 Refills Prov:Elfego Harkins MD 03/11/17 Trazodone (Trazodone) 100 Mg Tablet, 100 MG PO HS for Control Depression, #30 TAB 0 Refills Prov:Elfego Harkins MD 03/11/17 Gabapentin (Neurontin) 300 Mg Cap, 300 MG PO BID for health for 30 Days, #60 CAP Prov:Elfego Harkins MD 03/11/17 Aspirin (Aspirin Low Strength) 81 Mg Chew, 81 MG CHEW DAILY for health for 30 Days, #30 EA Prov:Elfego Harkins MD 03/11/17 Losartan (Losartan) 100 Mg Tab, 100 MG PO DAILY for Blood Pressure Management, # 30 TAB 0 Refills Prov:Elfego Harkins MD 03/11/17 Reported Medications Insulin Aspart Inj (Novolog Inj) 100 Unit/Ml Inj, SQ ACHS03 SLIDE SCALE 04/09/16 Metformin (Metformin) 500 Mg Tab, 500 MG PO BIDPC for Blood Sugar Management, # 60 TAB 0 Refills With meals 04/09/16 Venlafaxine (Effexor) 75 Mg Tab, 75 MG PO HS, #30 TAB 0 Refills 04/09/16 Discontinued Scripts Calcium Carbonate-Simethicone (Maalox Advanced Maximum Strength) 1,000-60 Mg Chew, 1-2 TAB CHEW BID Y for INDIGESTION OR UPSET STOMACH for 7 Days, TAB 0 Refills Prov:Charles Smith MD 04/09/16 Current Medications Medications (Trade) Dose Ordered Sig/López Route Start Time Stop Time Status Last Admin (NS Flush) 2 ml UNSCH PRN IVF 04/23/17 00:15 (Cozaar) 100 mg DAILY PO 04/23/17 09:00 04/23/17 09:53 (Aspirin Chew) 81 mg DAILY CHEW 04/23/17 09:00 04/23/17 09:53 (Neurontin) 300 mg BID PO 04/23/17 09:00 04/23/17 09:55 (Desyrel) 100 mg HS PO 04/23/17 21:00 (Effexor Xr) 75 mg DAILY PO 04/23/17 22:00 (Effexor Xr) 150 mg DAILY PO 04/23/17 09:00 04/23/17 10:06 (Glucophage) 500 mg BIDPC PO 04/23/17 09:00 (Levemir Inj) 30 units HS SQ 04/23/17 21:00 (Theragran M Tab) 1 tab DAILY PO 04/23/17 09:00 04/23/17 09:55 (Romazicon Inj) 0.2 mg Q1M PRN IV PUSH 04/23/17 11:00 (Ativan) 1 mg Q4H PRN PO 04/23/17 11:00 (Ativan Inj) 1 mg Q4H PRN IV PUSH 04/23/17 11:00 (Ativan) 2 mg Q2H PRN PO 04/23/17 11:00 (Ativan Inj) 2 mg Q2H PRN IV PUSH 04/23/17 11:00 (Ativan Inj) 2 mg Q1H PRN IV PUSH 04/23/17 11:00 (Ativan Inj) 2 mg Q15M PRN IV PUSH 04/23/17 11:00 Physical Exam Vital Signs Vital Signs Date Time Temp Pulse Resp B/P (MAP) Pulse Ox O2 Delivery O2 Flow Rate FiO2 04/23/17 11:00 110 18 120/68 (85) 97 Room Air 04/23/17 00:02 98.7 I/O 04/23/17 04/23/17 04/24/17 08:00 16:00 00:00 Intake Total 2000 ml Output Total 1350 ml Balance 650 ml Lab Results Test 04/23/17 00:15 04/23/17 04:50 White Blood Count 6.7 TH/MM3 Red Blood Count 4.77 MIL/MM3 Hemoglobin 15.4 GM/DL Hematocrit 43.9 % Mean Corpuscular Volume 92.0 FL Mean Corpuscular Hemoglobin 32.2 PG Mean Corpuscular Hemoglobin Concent 35.0 % Red Cell Distribution Width 12.8 % Platelet Count 227 TH/MM3 Mean Platelet Volume 8.0 FL Neutrophils (%) (Auto) 43.9 % Lymphocytes (%) (Auto) 49.0 % Monocytes (%) (Auto) 4.9 % Eosinophils (%) (Auto) 1.4 % Basophils (%) (Auto) 0.8 % Neutrophils # (Auto) 2.9 TH/MM3 Lymphocytes # (Auto) 3.3 TH/MM3 Monocytes # (Auto) 0.3 TH/MM3 Eosinophils # (Auto) 0.1 TH/MM3 Basophils # (Auto) 0.1 TH/MM3 CBC Comment DIFF FINAL Differential Comment Prothrombin Time 10.2 SEC Prothromb Time International Ratio 1.0 RATIO Activated Partial Thromboplast Time 23.3 SEC Blood Urea Nitrogen 8 MG/DL Creatinine 1.10 MG/DL Random Glucose 454 MG/DL Calcium Level 9.8 MG/DL Magnesium Level 2.2 MG/DL Sodium Level 133 MEQ/L Potassium Level 4.5 MEQ/L Chloride Level 94 MEQ/L Carbon Dioxide Level 28.4 MEQ/L Anion Gap 11 MEQ/L Estimat Glomerular Filtration Rate 70 ML/MIN Troponin I LESS THAN 0.02 NG/ML Ethyl Alcohol Level 196 MG/DL Urine Opiates Screen NEG Urine Barbiturates Screen NEG Urine Amphetamines Screen NEG Urine Benzodiazepines Screen NEG Urine Cocaine Screen NEG Urine Cannabinoids Screen NEG Mental Status Examination Appearance: Appropriate Consciousness: Alert Orientation: Person, Place, Date/Time Motor Activity: Normal gait Speech: Unremarkable Language: Adequate Fund of Knowledge: Adequate Attention and Concentration: Adequate Memory: Unremarkable Mood: Appropriate Affect: Appropriate Thought Process & Associations: Intact, Goal directed, Linear Thought Content: Appropriate Hallucination Type: None Delusion Type: None Suicidal Ideation: No Suicidal Plan: No Suicidal Intention: No Homicidal Ideation: No Homicidal Plan: No Homicidal Intention: No Insight: Fair Judgment: Impulsive Assessment & Plan Problem List: (1) Alcohol-induced mood disorder with depressive symptoms ICD Codes: F10.94 - Alcohol use, unspecified with alcohol-induced mood disorder Assessment & Plan Patient's history of man who carries a diagnosis of depression, alcohol use disorder who recently brought to the ER under Bailey act after police have been notified by a friend due to his comments he had posted on Facebook which were concerning to his friend. Patient did admit to depression feeling depressed in the context of recent alcohol intoxication but denies having endorse any suicidality nor does he endorse any suicidality at this time. Patient states that he has had a history of self-injurious behavior via cutting but states that he has not done this since his last hospitalization over a month ago. Patient states these hopeful and looks forward to regaining his income through the [facility]. Patient denies SI, HI, AVH or delusions. Discharge Planning Patient to return back to her residence and follow with his outpatient psychiatrist. Elfego Harkins MD Apr 23, 2017 12:16
--- NOTE | 2017-04-23 12:22 | PD ---
Physical Exam Date Seen by Provider: Apr 23, 2017 Time Seen by Provider: 12:21 Narrative 51-year-old male previously medically cleared for psychiatric evaluation, has been seen by psychiatric staff and felt to be outpatient discharge. Patient remains medically stable at this time. Data Data Last Documented VS Vital Signs Date Time Temp Pulse Resp B/P (MAP) Pulse Ox O2 Delivery O2 Flow Rate FiO2 04/23/17 11:00 110 18 120/68 (85) 97 Room Air 04/23/17 00:02 98.7 Orders Orders Electrocardiogram (04/23/17 00:11) Basic Metabolic Panel (Bmp) (04/23/17 00:11) Complete Blood Count With Diff (04/23/17 00:11) Magnesium (Mg) (04/23/17 00:11) Prothrombin Time / Inr (Pt) (04/23/17 00:11) Act Partial Throm Time (Ptt) (04/23/17 00:11) Troponin I (04/23/17 00:11) Ecg Monitoring (04/23/17 00:11) Iv Access Insert/Monitor (04/23/17 00:11) Oximetry (04/23/17 00:11) Sodium Chloride 0.9% Flush (Ns Flush) (04/23/17 00:15) Ct Pulmonary Angiogram (04/23/17 00:11) Drug Screen, Random Urine (04/23/17 00:11) Alcohol (Ethanol) (04/23/17 00:11) Sodium Chlor 0.9% 1000 Ml Inj (Ns 1000 M (04/23/17 00:45) Iohexol 350 Inj (Omnipaque 350 Inj) (04/23/17 02:18) Sodium Chlor 0.9% 1000 Ml Inj (Ns 1000 M (04/23/17 04:45) Bedside Glucose REA.CSUGAR (04/23/17 04:41) Psych Screen (04/23/17 05:30) Insulin Human Regular Inj (Novolin R Inj (04/23/17 06:30) Losartan (Cozaar) (04/23/17 09:00) Aspirin Chew (Aspirin Chew) (04/23/17 09:00) Gabapentin (Neurontin) (04/23/17 09:00) Trazodone (Desyrel) (04/23/17 21:00) Venlafaxine Xr (Effexor Xr) (04/23/17 22:00) Venlafaxine Xr (Effexor Xr) (04/23/17 09:00) Metformin (Glucophage) (04/23/17 09:00) Insulin Detemir Inj (Levemir Inj) (04/23/17 21:00) Multivitamins-Minerals Therap (Theragran (04/23/17 09:00) Diet 1800 Ada Cons Carb (04/23/17 Breakfast) Alcohol Withdrawal Asmt-Ciwa ONCE (04/23/17 10:48) Flumazenil Inj (Romazicon Inj) (04/23/17 11:00) Lorazepam (Ativan) (04/23/17 11:00) Lorazepam Inj (Ativan Inj) (04/23/17 11:00) Lorazepam (Ativan) (04/23/17 11:00) Lorazepam Inj (Ativan Inj) (04/23/17 11:00) Lorazepam Inj (Ativan Inj) (04/23/17 11:00) Lorazepam Inj (Ativan Inj) (04/23/17 11:00) Insulin Human Regular Inj (Novolin R Inj (04/23/17 11:00) Labs Laboratory Tests Test 04/23/17 00:15 04/23/17 04:50 White Blood Count 6.7 TH/MM3 Red Blood Count 4.77 MIL/MM3 Hemoglobin 15.4 GM/DL Hematocrit 43.9 % Mean Corpuscular Volume 92.0 FL Mean Corpuscular Hemoglobin 32.2 PG Mean Corpuscular Hemoglobin Concent 35.0 % Red Cell Distribution Width 12.8 % Platelet Count 227 TH/MM3 Mean Platelet Volume 8.0 FL Neutrophils (%) (Auto) 43.9 % Lymphocytes (%) (Auto) 49.0 % Monocytes (%) (Auto) 4.9 % Eosinophils (%) (Auto) 1.4 % Basophils (%) (Auto) 0.8 % Neutrophils # (Auto) 2.9 TH/MM3 Lymphocytes # (Auto) 3.3 TH/MM3 Monocytes # (Auto) 0.3 TH/MM3 Eosinophils # (Auto) 0.1 TH/MM3 Basophils # (Auto) 0.1 TH/MM3 CBC Comment DIFF FINAL Differential Comment Prothrombin Time 10.2 SEC Prothromb Time International Ratio 1.0 RATIO Activated Partial Thromboplast Time 23.3 SEC Blood Urea Nitrogen 8 MG/DL Creatinine 1.10 MG/DL Random Glucose 454 MG/DL Calcium Level 9.8 MG/DL Magnesium Level 2.2 MG/DL Sodium Level 133 MEQ/L Potassium Level 4.5 MEQ/L Chloride Level 94 MEQ/L Carbon Dioxide Level 28.4 MEQ/L Anion Gap 11 MEQ/L Estimat Glomerular Filtration Rate 70 ML/MIN Troponin I LESS THAN 0.02 NG/ML Ethyl Alcohol Level 196 MG/DL Urine Opiates Screen NEG Urine Barbiturates Screen NEG Urine Amphetamines Screen NEG Urine Benzodiazepines Screen NEG Urine Cocaine Screen NEG Urine Cannabinoids Screen NEG MDM Medical Record Reviewed: Yes Supervised Visit with DEL: Yes Narrative Course 51-year-old male previously medically cleared for psychiatric evaluation, has been seen by psychiatric staff and felt to be outpatient discharge. Patient remains medically stable at this time. Diagnosis Primary Impression: Chest wall pain Additional Impressions: Suicidal ideation Acute alcohol intoxication Qualified Codes: F10.929 - Alcohol use, unspecified with intoxication, unspecified Patient Instructions: General Instructions Additional Instruction: Outpatient follow-up as per psychiatric plan. Disposition: 01 DISCHARGE HOME Condition: Stable Nikolay Washington Apr 23, 2017 12:22
--- NOTE | 2017-04-23 12:45 | EKG ---
Date Performed: 04/23/2017 Time Performed: 00:12:12 PTAGE: 51 years EKG: SINUS TACHYCARDIA WITH PVCS NONSPECIFIC ST-T CHANGE Compared to previous tracing, PVCs are new and the ST-T changes are more prominent. ABNORMAL ECG PREVIOUS TRACING : 03/09/2017 20.45 DOCTOR: Scar Troy Interpretating Date/Time 04/23/2017 12:44:02
[2017-04-23] MEDS ORDERED: traZODone HCL 100 MG TAB PO SCH (21:00)
[2017-04-23] MEDS ORDERED: INSULIN DETEMIR 100 UNITS/ML VIAL SQ SCH (21:00)
== END 2017-04-23 15:00 | disposition home or self-care (01) ==
LOC: NEPC 23:52 → NEPJ 04-23 15:00
DX: R07.89 Other chest pain (principal); R45.851 Suicidal ideations; F10.929 Alcohol use, unspecified with intoxication, unspecified; R94.31 Abnormal electrocardiogram [ECG] [EKG]; I10 Essential (primary) hypertension
CPT/HCPCS: 71275; 80048; 80307; 83735; 84484; 85025; 85610; 85730; 93005; 96360; 96372; 99285; J1815; J7030; Q9967

== ENCOUNTER 2017-06-08 20:56 | Emergency (ER) | payer OTHER, MEDICARE ==
[2017-06-08] MEDS: IBUPROFEN 600 MG TAB PO (22:51)
[2017-06-08 23:10] LABS: AUTOMATED NEUTROPHIL # 4.2 TH/MM3 (1.8-7.7); BASOPHIL % 0.6 % (0.0-2.0); EOSINOPHIL % 0.4 % (0.0-4.0); HEMATOCRIT 36.3 % (39.0-51.0); HEMO FLAGS DIFF FINAL; LYMPH % 12.3 % (9.0-44.0); LYMPHOCYTE # 0.6 TH/MM3 (1.0-4.8); MEAN CELL VOLUME 91.7 FL (80.0-100.0); MEAN CORPUSCULAR HEMOGLOBIN 32.7 PG (27.0-34.0); MEAN CORPUSCULAR HGB CONC 35.7 % (32.0-36.0); MEAN PLATELET VOLUME 7.9 FL (7.0-11.0); MONO % 7.2 % (0.0-8.0); MONOCYTE # 0.4 TH/MM3 (0-0.9); NEUT % 79.5 % (16.0-70.0); PLATELET COUNT 112 TH/MM3 (150-450); RED BLOOD COUNT 3.96 MIL/MM3 (4.50-5.90); RED CELL DISTRIBUTION WIDTH 12.7 % (11.6-17.2); WHITE BLOOD COUNT 5.2 TH/MM3 (4.0-11.0)
[2017-06-08 23:25] LABS: ALBUMIN 3.1 GM/DL (3.4-5.0); ANION GAP 7 MEQ/L (5-15); AST (GOT) 15 U/L (15-37); BICARBONATE 30.5 MEQ/L (21.0-32.0); BLOOD UREA NITROGEN 10 MG/DL (7-18); CALCIUM 8.7 MG/DL (8.5-10.1); CHLORIDE 98 MEQ/L (98-107); CREATININE 0.94 MG/DL (0.60-1.30); GLOMERULAR FILTRATION RATE 84 ML/MIN (>89); GLUCOSE,RANDOM 284 MG/DL (74-106); POTASSIUM 3.8 MEQ/L (3.5-5.1); SODIUM (NA) 135 MEQ/L (136-145)
[2017-06-08 23:26] LABS: ALT (GPT) 21 U/L (12-78)
[2017-06-08 23:29] LABS: ALKALINE PHOSPHATASE 78 U/L (45-117); TOTAL BILIRUBIN ADULT 0.5 MG/DL (0.2-1.0)
[2017-06-09 01:53] LABS: LACTIC ACID 1.1 mmol/L (0.4-2.0)
[2017-06-09] MEDS: MORPHINE SULFATE 4 MG/ML INJ IV PUSH (01:53)
[2017-06-09] MEDS: PIPERACIL-TAZO 3.375 GM PREMIX 50 ML IV (01:53)
[2017-06-09] MEDS: VANCOMYCIN 1 GM/200 ML INJ 200 ML IV (02:06)
== END 2017-06-09 04:57 | disposition short-term general hospital (02) ==
LOC: NEPE 06-09 04:57
DX: T25.021A Burn of unspecified degree of right foot, initial encounter (principal); N28.9 Disorder of kidney and ureter, unspecified; E11.65 Type 2 diabetes mellitus with hyperglycemia; I11.0 Hypertensive heart disease with heart failure; J44.9 Chronic obstructive pulmonary disease, unspecified; B95.61 Methicillin susceptible Staphylococcus aureus infection as the cause of diseases classified elsewhere; B95.7 Other staphylococcus as the cause of diseases classified elsewhere; X16.XXXA Contact with hot heating appliances, radiators and pipes, initial encounter; Y93.84 Activity, sleeping; Y92.003 Bedroom of unspecified non-institutional (private) residence as the place of occurrence of the external cause
CPT/HCPCS: 73630; 80053; 83605; 85025; 86403; 87040; 87186; 87205; 96365; 96368; 96375; 99285

== ENCOUNTER 2017-06-09 15:40 | Inpatient (IN) | payer MEDICARE, OTHER ==
[~2017-06-09] VITALS: Ht 177.8 cm; Wt 87.1 kg
[~2017-06-09 15:40] MED LIST changes: -IOHEXOL 350 MG/ML 10 ML VIAL (for RAD DIAG) IVCONTRAST ONE; -MAAL10003 CHEW; +SERO50TA PO
[2017-06-09 15:59] VITALS: BP 175/95; PULSE 124; RESP 20; TEMP 100.6; O2SAT 97
[2017-06-09 16:48] VITALS: BP 177/101; PULSE 129; RESP 20; O2SAT 96
[2017-06-09] MEDS ORDERED: ONDANSETRON HCL 4 MG/2 ML VIAL IV PUSH ONE (17:15)
[2017-06-09] MEDS ORDERED: ACETAMINOPHEN 325 MG TAB PO ONE (17:15)
[2017-06-09] MEDS ORDERED: VANCOMYCIN 1 GM/200 ML INJ 200 ML IV ONE (17:15)
[2017-06-09] MEDS ORDERED: HYDROmorphone HCL PF 2 MG/ML VIAL IV PUSH ONE (17:15)
[2017-06-09] MEDS ORDERED: PIPERACIL-TAZO 3.375 GM PREMIX 50 ML IV ONE (17:15)
[2017-06-09] MEDS ORDERED: SODIUM CHLOR 0.9% 1000 ML INJ 1,000 ML IV ONE (17:15)
[2017-06-09] MEDS ORDERED: NALOXONE HCL 0.4 MG/ML AMP IV PUSH PRN (17:30)
[2017-06-09] MEDS ORDERED: ONDANSETRON HCL 4 MG/2 ML VIAL IVP PRN (17:30)
[2017-06-09] MEDS ORDERED: BISACODYL 10 MG SUPP RECTAL PRN (17:30)
[2017-06-09] MEDS ORDERED: SODIUM CHLORIDE 0.9% FLUSH 10 ML FLUSH IV FLUSH PRN (17:30)
[2017-06-09] MEDS ORDERED: MORPHINE SULFATE 2 MG/ML INJ IV PUSH PRN (17:30)
[2017-06-09] MEDS ORDERED: LACTULOSE SYRUP 20 GM/30 ML CUP PO PRN (17:30)
[2017-06-09] MEDS ORDERED: SENNOSIDES 8.6 MG TAB PO PRN (17:30)
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
[2017-06-09] MEDS ORDERED: GABAPENTIN 300 MG CAP PO ONE (18:00)
--- NOTE | 2017-06-09 18:30 | RADRPT ---
EXAM DATE/TIME: 06/09/2017 18:02 [place] COMPARISON: No previous studies available for comparison. INDICATIONS : Short of breath, cough MEDICAL HISTORY : Congestive hearrt failure. Myocardial infarction. Chronic obstructive pulmonary disease.Diabetes SURGICAL HISTORY : CABG. ENCOUNTER: Initial ACUITY: 3 months PAIN SCORE: 0/10 LOCATION: chest FINDINGS: No infiltrate, effusion or pneumothorax demonstrated. Heart size stable, within normal limits. Median sternotomy changes are again noted. CONCLUSION: No evidence of acute cardiopulmonary disease. Ramon Fox MD on June 09, 2017 at 18:27 Board Certified Radiologist. This report was verified electronically.
[2017-06-09 19:09] VITALS: BP 92/65; PULSE 108; RESP 18; TEMP 101.9; O2SAT 96
[2017-06-09 19:12] LABS: HEMATOCRIT 37.4 % (39.0-51.0); HEMOGLOBIN 13.1 GM/DL (13.0-17.0); MEAN CELL VOLUME 92.2 FL (80.0-100.0); MEAN CORPUSCULAR HEMOGLOBIN 32.4 PG (27.0-34.0); MEAN CORPUSCULAR HGB CONC 35.2 % (32.0-36.0); MEAN PLATELET VOLUME 7.8 FL (7.0-11.0); PLATELET COUNT 110 TH/MM3 (150-450); RED BLOOD COUNT 4.05 MIL/MM3 (4.50-5.90); RED CELL DISTRIBUTION WIDTH 12.6 % (11.6-17.2); WHITE BLOOD COUNT 3.6 TH/MM3 (4.0-11.0)
[2017-06-09 19:19] LABS: INTERNATIONAL NORMALIZED RATIO 1.1 RATIO; PROTHROMBIN TIME - PATIENT 11.5 SEC (9.8-11.6)
[2017-06-09 19:23] LABS: CALCIUM 8.2 MG/DL (8.5-10.1); CREATININE 1.37 MG/DL (0.60-1.30); MAGNESIUM 1.7 MG/DL (1.5-2.5)
[2017-06-09 19:44] LABS: BANDS 1 % (0-6); BASOPHILS 1 % (0-2); LYMPHOCYTES 7 % (9-44); METAMYELOCYTES 1 % (0-1); MONOCYTES 11 % (0-8); NEUTROPHIL # MANUAL DIFF 2.9 TH/MM3 (1.8-7.7); POLYS (SEG NEUTROPHILS) 78 % (16-70); PROMYELOCYTES 1 % (0-0)
[2017-06-09] MEDS: DOCUSATE SODIUM 50 MG/SENNA 8.6 MG TAB PO SCH (21:00)
[2017-06-09] MEDS: SODIUM CHLORIDE 0.9% FLUSH 10 ML FLUSH IV FLUSH SCH (21:03)
[2017-06-09] MEDS: SODIUM CHLOR 0.9% 1000 ML INJ 1,000 ML IV SCH (21:18)
[2017-06-09] MEDS: MORPHINE SULFATE 2 MG/ML INJ IV PUSH PRN (21:44)
[2017-06-09] MEDS ORDERED: DEXTROSE 50% IN WATER 50 ML VIAL(D50) IV PUSH PRN (21:45)
[2017-06-09] MEDS ORDERED: GLUCAGON 1 MG/ML VIAL OTHER PRN (21:45)
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
[2017-06-09 22:01] VITALS: BP 106/62; PULSE 90; RESP 18; TEMP 100; O2SAT 98
[2017-06-09] MEDS: oxyCODONE/ACETAMINOPHEN 10 MG/325 MG TAB PO PRN (23:01)
[2017-06-10] VITALS: BP 115/66; PULSE 102; RESP 16; TEMP 97.8; O2SAT 93
[2017-06-10 04:00] VITALS: BP 130/79; PULSE 109; RESP 16; TEMP 98.7; O2SAT 92
[2017-06-10] MEDS: oxyCODONE/ACETAMINOPHEN 10 MG/325 MG TAB PO PRN ×3 (05:15→18:35)
[2017-06-10 08:00] VITALS: BP 157/95; PULSE 112; RESP 17; TEMP 99.1; O2SAT 93
[2017-06-10] MEDS: SODIUM CHLORIDE 0.9% FLUSH 10 ML FLUSH IV FLUSH SCH ×2 (09:00→20:47)
[2017-06-10] MEDS: DOCUSATE SODIUM 50 MG/SENNA 8.6 MG TAB PO SCH ×2 (09:00→20:45)
--- NOTE | 2017-06-10 09:25 | EKG ---
Date Performed: 06/09/2017 Time Performed: 18:02:58 PTAGE: 52 years EKG: SINUS TACHYCARDIA LOW QRS VOLTAGE IN EXTREMITY LEADS ST/T-WAVE ABNORMALITY, CONSIDER LATERA L ISCHEMIA ABNORMAL ECG NO PREVIOUS TRACING DOCTOR: Bucky Stuart Interpretating Date/Time 06/10/2017 09:24:41
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
[2017-06-10] MEDS ORDERED: HYDROmorphone HCL PF 2 MG/ML VIAL IV PUSH ONE (10:15)
[2017-06-10] MEDS ORDERED: Vancomycin Consult Pharmacy 1 EA OTHER SCH (10:15)
[2017-06-10] MEDS: SODIUM CHLOR 0.9% 1000 ML INJ 1,000 ML IV SCH ×2 (10:50→20:47)
[2017-06-10] MEDS: MORPHINE SULFATE 2 MG/ML INJ IV PUSH PRN (10:52)
[2017-06-10] MEDS: GABAPENTIN 300 MG CAP PO SCH ×2 (11:05→20:45)
[2017-06-10] MEDS: VENLAFAXINE HCL XR 75 MG CAP PO SCH (11:05)
[2017-06-10] MEDS: ASPIRIN EC 81 MG TABEC PO SCH (11:06)
[2017-06-10] MEDS: QUEtiapine FUMARATE 25 MG TAB PO SCH ×2 (11:07→20:45)
[2017-06-10] MEDS: LOSARTAN 50 MG TAB PO SCH (11:07)
[2017-06-10] MEDS: INSULIN ASPART SUPPLEMENTAL SCALE SQ SCH ×3 (12:00→20:46)
[2017-06-10 12:11] LABS: BICARBONATE 24.6 MEQ/L (21.0-32.0); CALCIUM 8.1 MG/DL (8.5-10.1); CREATININE 2.14 MG/DL (0.60-1.30)
[2017-06-10 12:50] VITALS: BP 126/69; PULSE 114; RESP 20; TEMP 99.5; O2SAT 91
[2017-06-10] MEDS: PIPERACIL-TAZO 4.5 GM PREMIX 100 ML IV SCH ×3 (13:14→23:37)
[2017-06-10] MEDS: VANCOMYCIN INJ 2,000 MG in SODIUM CHLORID 0.9% 500 ML INJ 500 ML IV SCH (14:43)
[2017-06-10 16:20] VITALS: BP 118/77; PULSE 105; RESP 19; TEMP 98.3; O2SAT 93
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
[2017-06-10 20:40] VITALS: BP 111/67; PULSE 103; RESP 17; TEMP 98; O2SAT 93
[2017-06-11 00:20] VITALS: BP 114/69; PULSE 101; RESP 17; TEMP 98.4; O2SAT 93
[2017-06-11] MEDS: PIPERACIL-TAZO 4.5 GM PREMIX 100 ML IV SCH ×3 (05:10→18:00)
[2017-06-11] MEDS: VANCOMYCIN INJ 2,000 MG in SODIUM CHLORID 0.9% 500 ML INJ 500 ML IV SCH (05:11)
[2017-06-11 05:14] VITALS: BP 144/83; PULSE 101; RESP 17; TEMP 99.2; O2SAT 94
[2017-06-11] MEDS: INSULIN ASPART SUPPLEMENTAL SCALE SQ SCH ×4 (07:50→21:00)
[2017-06-11 08:00] VITALS: BP 132/82; PULSE 103; RESP 16; TEMP 98.7; O2SAT 99
[2017-06-11] MEDS: LOSARTAN 50 MG TAB PO SCH (08:01)
[2017-06-11] MEDS: GABAPENTIN 300 MG CAP PO SCH (08:01)
[2017-06-11] MEDS: QUEtiapine FUMARATE 25 MG TAB PO SCH ×2 (08:01→21:26)
[2017-06-11] MEDS: DOCUSATE SODIUM 50 MG/SENNA 8.6 MG TAB PO SCH ×2 (08:01→21:26)
[2017-06-11] MEDS: VENLAFAXINE HCL XR 75 MG CAP PO SCH (08:02)
[2017-06-11] MEDS: oxyCODONE/ACETAMINOPHEN 10 MG/325 MG TAB PO PRN ×3 (08:04→21:26)
[2017-06-11] MEDS: SODIUM CHLORIDE 0.9% FLUSH 10 ML FLUSH IV FLUSH SCH ×2 (08:06→21:00)
[2017-06-11] MEDS ORDERED: BUPIVACAINE HCL PF 0.5% 30 ML VIAL ONE (09:41)
[2017-06-11] MEDS ORDERED: PNEUMOCOCCAL POLYVALENT INJ 25 MCG/0.5 ML SYR IM ONE (10:00)
[2017-06-11] MEDS ORDERED: LIDOCAINE HCL 2% 50 ML VIAL ONE (10:07)
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
[2017-06-11 12:00] VITALS: BP 119/76; PULSE 101; RESP 16; TEMP 99.3; O2SAT 95
[2017-06-11] MEDS ORDERED: SUCCINYLCHOLINE CHLORIDE 200 MG/10 ML VIAL IV ONE (12:00)
[2017-06-11] MEDS ORDERED: PROPOFOL 200 MG/20 ML AMP IV ONE (12:00)
[2017-06-11] MEDS ORDERED: ONDANSETRON HCL 4 MG/2 ML VIAL IV ONE (12:00)
[2017-06-11] MEDS ORDERED: PHENYLEPHRINE HCL 10 MG/ML VIAL IV ONE (12:00)
[2017-06-11] MEDS ORDERED: ePHEDrine/NS 25 MG/5 ML SYRINGE IV ONE (12:00)
[2017-06-11] MEDS ORDERED: GLYCOPYRROLATE 1 MG/5 ML SYRINGE IV PUSH ONE (12:00)
[2017-06-11] MEDS ORDERED: DEXAMETHASONE SOD PHOS 4 MG/ML VIAL IV ONE (12:00)
[2017-06-11] MEDS ORDERED: LIDOCAINE HCL 1% PF 5 ML SYRINGE OTHER ONE (12:00)
[2017-06-11] MEDS ORDERED: SODIUM CHLOR 0.9% 250 ML INJ 250 ML IV ONE (12:00)
[2017-06-11] MEDS ORDERED: PHENYLEPH/NS 1000 MCG/10 ML SYR IV ONE (12:00)
[2017-06-11] MEDS ORDERED: DO NOT ADM ANY ANTICOAGULANT DRUGS PRN (12:15)
[2017-06-11] MEDS: SODIUM CHLOR 0.9% 1000 ML INJ 1,000 ML IV SCH (12:17)
--- NOTE | 2017-06-11 12:27 | HHI.PR ---
Subjective Remarks back from surgery no pain complains awake and alert history of DM- good hypoglycemic awareness states baseline uses a cane or walker for long walks othrwixe independent in sinus rhythm per admitting notes- history of a fib- review meds not on any BB, CCB or digoxin on d/w oatient- states comes and goes Objective Vitals Vital Signs Date Time Temp Pulse Resp B/P (MAP) Pulse Ox O2 Delivery O2 Flow Rate FiO2 06/11/17 12:11 99 12 114/68 (83) 96 Nasal Cannula 4 06/11/17 11:49 103 12 111/63 (79) 95 Nasal Cannula 4 06/11/17 11:37 98.4 104 12 121/74 (90) 100 Nasal Cannula 4 06/11/17 08:00 98.7 103 16 132/82 (99) 99 06/11/17 05:14 99.2 101 17 144/83 (103) 94 06/11/17 00:20 98.4 101 17 114/69 (84) 93 06/10/17 20:40 98.0 103 17 111/67 (82) 93 06/10/17 16:20 98.3 105 19 118/77 (91) 93 06/10/17 14:46 16 06/10/17 14:43 16 06/10/17 13:12 16 06/10/17 12:50 99.5 114 20 126/69 (88) 91 I/O 06/10/17 06/10/17 06/10/17 06/11/17 06/11/17 06/11/17 07:00 15:00 23:00 07:00 15:00 23:00 Intake Total 500 ml Output Total 300 ml 350 ml 20 ml Balance -300 ml -350 ml 480 ml Other 500 ml Output Urine Total 300 ml 350 ml Estimated Blood Loss 20 ml # Voids 1 Result Diagram: 06/09/17 1815 06/10/17 1110 Imaging Last Impressions Chest X-Ray 06/09/17 1730 Signed Impressions: Service Date/Time: May 18:02 - CONCLUSION: No evidence of acute cardiopulmonary disease. Ramon Fox MD Objective Remarks awake and alert, oriented x 3 anicteric lungs clear regular rhythma bdomensoft, nontedner extremiteis- right foot- post opdressing in place, no calf tenderness Procedures 06/11 1. transmetatarsal amputation right foot 2. percutaneous achilles tendon lengthening right A/P Assessment and Plan 52 years old male Sepsis from Right foot burn with necrosis of toes- S/P TMA 06/11 - Podiatry ff - PT consuled - on IV - zosyn [place] I Creatinine 1.37, was 0.94 yesterday IV fluid hydration Monitor renal function ff labs- recheck today // Diabetes mellitus with neuropathy Sliding scale insulin Monitor blood glucose Resume Levemir at 1/2 home dose hs Continue gabapentin check A1C //CAD/hypertension/hyperlipidemia/history of A. fib- in SR History of Ischemic CMP- previous EF 4045% - not in clinical failure - sinus on exam Continue home medications = 06/10. Restart aspirin - continue on Jose Mcmillan MD Jun 11, 2017 12:27
--- NOTE | 2017-06-11 12:36 | RADRPT ---
EXAM DATE/TIME: 06/11/2017 11:49 [facility] COMPARISON: FOOT RIGHT COMPLETE ([id number]), June 08, 2017, 22:01. INDICATIONS : Post surgery of the right foot. Amputation of all the toes. MEDICAL HISTORY : Congestive heart failure. Chronic obstructive pulmonary disease. Myocardial infarction. Diabetes. SURGICAL HISTORY : CABG. ENCOUNTER: Initial ACUITY: 1 day PAIN SCORE: Non-responsive. LOCATION: Right foot. FINDINGS: 3 views of the right foot. There is evidence of interval amputation at the levels of the proximal met atarsal shafts. Hindfoot is unchanged. CONCLUSION: Right foot amputation at the level of the proximal metatarsal shafts. Jonathan Montenegro MD on June 11, 2017 at 12:32 Board Certified Radiologist. This report was verified electronically.
[2017-06-11 13:56] LABS: AUTOMATED NEUTROPHIL # 3.7 TH/MM3 (1.8-7.7); BASOPHIL % 0.7 % (0.0-2.0); EOSINOPHIL % 0.7 % (0.0-4.0); HEMATOCRIT 33.9 % (39.0-51.0); HEMOGLOBIN 11.6 GM/DL (13.0-17.0); LYMPHOCYTE # 0.8 TH/MM3 (1.0-4.8); MEAN CELL VOLUME 94.3 FL (80.0-100.0); MEAN CORPUSCULAR HEMOGLOBIN 32.2 PG (27.0-34.0); MEAN CORPUSCULAR HGB CONC 34.2 % (32.0-36.0); MONO % 5.5 % (0.0-8.0); MONOCYTE # 0.3 TH/MM3 (0-0.9); NEUT % 77.1 % (16.0-70.0); PLATELET COUNT 127 TH/MM3 (150-450); RED CELL DISTRIBUTION WIDTH 12.9 % (11.6-17.2); WHITE BLOOD COUNT 4.8 TH/MM3 (4.0-11.0)
[2017-06-11 20:00] VITALS: BP 138/90; PULSE 94; RESP 18; TEMP 97.2; O2SAT 98
[2017-06-11 20:09] LABS: ALBUMIN 2.5 GM/DL (3.4-5.0); BICARBONATE 17.7 MEQ/L (21.0-32.0); CALCIUM 7.4 MG/DL (8.5-10.1); CALCIUM-PROTEIN CORRECTED 7.8 MG/DL (8.5-10.1); CREATININE 4.11 MG/DL (0.60-1.30); TOTAL BILIRUBIN ADULT 0.8 MG/DL (0.2-1.0); TOTAL PROTEIN 6.4 GM/DL (6.4-8.2)
--- NOTE | 2017-06-11 20:41 | HHI.PR ---
Addendum to Inpatient Note Addendum Reason: Additional Documentation Additional Information Renal function declining; discussed with nursing and pharmacist - pharmacy will renally dose: Neurontin, Vancomycin (may need to be held) and Zosyn. Nephrology consulted. . Alicia Demarco Jun 11, 2017 20:41
[2017-06-11] MEDS ORDERED: INSULIN DETEMIR 100 UNITS/ML VIAL SQ SCH (21:00)
[2017-06-11] MEDS ORDERED: INSULIN HUMAN REGULAR 1,000 UNITS/10 ML VIAL IV PUSH ONE (21:45)
[2017-06-11] MEDS ORDERED: POVIDONE IODINE 5% (ANTISEPSIS KIT) 4 APPLICATIONS EACH NARE PRN (23:00)
[2017-06-11] MEDS ORDERED: CHLORHEXIDINE GLUCONATE 2 % 1 PACK (2 CLOTHS) TOPICAL PRN (23:00)
[2017-06-11] MEDS ORDERED: LACTATED RINGER'S 1000 ML IV PRN (23:00)
[2017-06-11] MEDS: PIPERACIL-TAZO 2.25 GM PREMIX 50 ML IV SCH (23:55)
[2017-06-12] VITALS: BP 129/78; PULSE 93; RESP 18; TEMP 97.5; O2SAT 94
[2017-06-12] MEDS ORDERED: INSULIN ASPART 1,000 UNITS/10 ML VIAL SQ ONE ×2 (00:15→04:15)
[2017-06-12] MEDS: SODIUM CHLOR 0.9% 1000 ML INJ 1,000 ML IV SCH (00:25)
[2017-06-12] MEDS: oxyCODONE/ACETAMINOPHEN 10 MG/325 MG TAB PO PRN ×2 (02:02→07:06)
[2017-06-12 04:00] VITALS: BP 127/85; PULSE 86; RESP 18; TEMP 97.7; O2SAT 96
[2017-06-12] MEDS: PIPERACIL-TAZO 2.25 GM PREMIX 50 ML IV SCH ×3 (05:16→18:28)
[2017-06-12 08:00] VITALS: BP 116/75; PULSE 90; RESP 16; TEMP 98.5; O2SAT 93
[2017-06-12] MEDS: VENLAFAXINE HCL XR 75 MG CAP PO SCH (09:38)
[2017-06-12] MEDS: QUEtiapine FUMARATE 25 MG TAB PO SCH ×2 (09:38→22:13)
[2017-06-12] MEDS: MAGNESIUM HYDROXIDE SUSP 30 ML CUP PO PRN (09:39)
[2017-06-12] MEDS: DOCUSATE SODIUM 50 MG/SENNA 8.6 MG TAB PO SCH ×2 (09:39→22:12)
[2017-06-12] MEDS: LOSARTAN 50 MG TAB PO SCH (09:40)
[2017-06-12] MEDS: ASPIRIN EC 81 MG TABEC PO SCH (09:40)
[2017-06-12] MEDS: MORPHINE SULFATE 2 MG/ML INJ IV PUSH PRN ×2 (09:40→18:29)
[2017-06-12] MEDS: SODIUM CHLORIDE 0.9% FLUSH 10 ML FLUSH IV FLUSH SCH ×2 (09:41→21:00)
[2017-06-12] MEDS: INSULIN ASPART SUPPLEMENTAL SCALE SQ SCH ×4 (09:41→21:00)
[2017-06-12] MEDS: GABAPENTIN 100 MG CAP PO SCH (09:42)
[2017-06-12 12:00] VITALS: BP 108/67; PULSE 89; RESP 16; TEMP 98.5; O2SAT 94
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
--- NOTE | 2017-06-12 14:50 | RADRPT ---
EXAM DATE/TIME: 06/12/2017 14:06 [facility] COMPARISON: US KIDNEY/RENAL/BLADDER, January 16, 2016, 20:47. INDICATIONS : Increased BUN/Creatnine. MEDICAL HISTORY : Myocardial infarction. Hypercholesterolemia. Hypertension. Neck pain. Numbness, left leg. Colitis. CO PD. Diabetes. PTSD. Anxiety. Substance use. Anticoagulant therapy, Aspirin. Previous suicide attempt. SURGICAL HISTORY : CABG. Appendectomy. Back surgery x3. Neck and right shoulder surgery. ENCOUNTER: Subsequent ACUITY: 1 day PAIN SCORE: 2/10 LOCATION: Bilateral flank MEASUREMENTS: RIGHT KIDNEY: 12.7 x 5.6 x 6.1 cm LEFT KIDNEY: 14.0 x 4.9 x 6.8 cm FINDINGS: RIGHT KIDNEY: 2.1 cm simple cyst in the parapelvic region of the lower pole. No evidence of hydronephrosis. LEFT KIDNEY: Renal cortex is normal in thickness and echotexture. No hydronephrosis, stone, or mass. BLADDER: Meehan catheter in place. Bladder collapsed. CONCLUSION: No evidence of hydronephrosis. Jonathan Montenegro MD on June 12, 2017 at 14:46 Board Certified Radiologist. This report was verified electronically.
[2017-06-12 16:00] VITALS: BP 117/76; PULSE 96; RESP 16; TEMP 98; O2SAT 96
[2017-06-12 16:14] LABS: ALBUMIN 2.5 GM/DL (3.4-5.0); ALKALINE PHOSPHATASE 134 U/L (45-117); ALT (GPT) 63 U/L (12-78); AST (GOT) 41 U/L (15-37); BICARBONATE 24.1 MEQ/L (21.0-32.0); BLOOD UREA NITROGEN 36 MG/DL (7-18); CALCIUM 7.6 MG/DL (8.5-10.1); CHLORIDE 98 MEQ/L (98-107); CREATININE 4.41 MG/DL (0.60-1.30); GLOMERULAR FILTRATION RATE 14 ML/MIN (>89); GLUCOSE,RANDOM 121 MG/DL (74-106); SODIUM (NA) 132 MEQ/L (136-145); TOTAL BILIRUBIN ADULT 0.4 MG/DL (0.2-1.0); TOTAL PROTEIN 6.5 GM/DL (6.4-8.2)
[2017-06-12 16:50] LABS: AMORPHOUS SEDIMENT, URINE RARE; BACTERIA, URINE MOD /hpf; BILIRUBIN, URINE NEG (NEG); BLOOD, URINE MOD (NEG); GLUCOSE,URINE NEG (NEG); KETONE, URINE NEG (NEG); MUCUS URINE FEW /lpf (OCC); NITRITE,URINE NEG (NEG); PH, URINE 5.5 (5.0-8.5); SQUAMOUS EPITHELIAL CELL URINE <1 /hpf (0-5); URINE COLOR YELLOW (YELLW/STRAW); URINE LEUKOCYTE ESTERASE MOD (NEG)
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
[2017-06-12] MEDS ORDERED: PHARMACY ORDERED LAB ONE (17:45)
[2017-06-12] MEDS: INSULIN HUMAN REGULAR 1,000 UNITS/10 ML VIAL SQ SCH (18:29)
[2017-06-12 20:00] VITALS: BP 105/69; PULSE 88; RESP 20; TEMP 97.8; O2SAT 96
[2017-06-12] MEDS ORDERED: INSULIN DETEMIR 100 UNITS/ML VIAL SQ SCH ×3 (21:00)
--- NOTE | 2017-06-12 21:39 | PD.POD ---
Subjective Podiatric Problems s/p Right foot transmetatarsal amputation, right percutaneous achilles tendon lengthening, 06/11/17 Dr Aguilar No complaints of uncontrolled pain. Resting in chair bedside. No walker present in room Past Med/Surg/Social History Social History Smoking Status: Never Smoker Objective Vital Signs Vital Signs Date Time Temp Pulse Resp B/P (MAP) Pulse Ox O2 Delivery O2 Flow Rate FiO2 06/12/17 16:00 98.0 96 16 117/76 (90) 96 06/12/17 12:00 98.5 89 16 108/67 (81) 94 06/12/17 08:00 98.5 90 16 116/75 (89) 93 06/12/17 04:00 97.7 86 18 127/85 (99) 96 06/12/17 00:00 97.5 93 18 129/78 (95) 94 Coded Allergies: Sulfa (Sulfonamide Antibiotics) (Verified Allergy, Mild, Rash, 06/09/17) Exam-Podiatry Remarks Dressing and splint right lower extremity clean, dry, intact Assessment & Plan A/P s/p Right foot transmetatarsal amputation, right percutaneous achilles tendon lengthening, 06/11/17 Dr Aguilar Patient needs walker to assist with NWB right lower extremity vickey. Ok to d/c from podiatry standpoint. No further treatment planned. Follow up in clinic 1 week for dressing change and wound check Go Aguilar DPM Jun 12, 2017 21:39
[2017-06-12] MEDS: HEPARIN SODIUM - SQ 10,000 UNITS/ML VIAL SQ SCH (22:15)
[2017-06-13] VITALS: BP 102/62; PULSE 84; RESP 20; TEMP 98; O2SAT 98
[2017-06-13] MEDS: oxyCODONE/ACETAMINOPHEN 10 MG/325 MG TAB PO PRN ×4 (02:47→21:04)
[2017-06-13 04:00] VITALS: BP 94/63; PULSE 82; RESP 18; TEMP 97.9; O2SAT 97
[2017-06-13] MEDS: PIPERACIL-TAZO 2.25 GM PREMIX 50 ML IV SCH ×5 (06:00→23:46)
[2017-06-13] MEDS: DOCUSATE SODIUM 50 MG/SENNA 8.6 MG TAB PO SCH ×2 (08:04→21:03)
[2017-06-13] MEDS: GABAPENTIN 100 MG CAP PO SCH (08:05)
[2017-06-13] MEDS: ASPIRIN EC 81 MG TABEC PO SCH (08:05)
[2017-06-13] MEDS: VENLAFAXINE HCL XR 75 MG CAP PO SCH (08:07)
[2017-06-13] MEDS: HEPARIN SODIUM - SQ 10,000 UNITS/ML VIAL SQ SCH ×2 (08:08→21:03)
[2017-06-13] MEDS: INSULIN HUMAN REGULAR 1,000 UNITS/10 ML VIAL SQ SCH ×3 (08:09→17:00)
[2017-06-13 08:24] VITALS: BP 125/68; PULSE 93; RESP 20; TEMP 97.5; O2SAT 95
[2017-06-13] MEDS: QUEtiapine FUMARATE 25 MG TAB PO SCH ×2 (09:00→21:03)
[2017-06-13] MEDS: MORPHINE SULFATE 2 MG/ML INJ IV PUSH PRN ×2 (10:00→16:34)
[2017-06-13] MEDS: MAGNESIUM HYDROXIDE SUSP 30 ML CUP PO PRN (10:23)
[2017-06-13 11:01] LABS: ALBUMIN 2.5 GM/DL (3.4-5.0); BICARBONATE 23.8 MEQ/L (21.0-32.0); CALCIUM 7.6 MG/DL (8.5-10.1); CREATININE 4.42 MG/DL (0.60-1.30); PHOSPHORUS 2.7 MG/DL (2.5-4.9)
[2017-06-13 11:02] LABS: COMPLEMENT C3 115 MG/DL (90-180); COMPLEMENT C4 30 MG/DL (10-40)
[2017-06-13 11:05] LABS: RANDOM VANCOMYCIN 28.1 COMMENT
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
[2017-06-13] MEDS: INSULIN ASPART SUPPLEMENTAL SCALE SQ SCH ×3 (13:25→21:00)
[2017-06-13 14:11] LABS: SODIUM,RANDOM URINE 23 MEQ/L
[2017-06-13 14:31] LABS: OSMOLALITY,URINE 148 MOSM/KG (300-1300)
--- NOTE | 2017-06-13 17:29 | PD.POD ---
Subjective Podiatric Problems s/p right NAV and KOTA with on 06/11/17. Pt states that he has some pain, and difficulty being NWBing, but is otherwise doing well. He denies any n/ v/f/h/c/sob. Pain score: 3 Past Med/Surg/Social History Social History Smoking Status: Never Smoker Objective Vital Signs Vital Signs Date Time Temp Pulse Resp B/P (MAP) Pulse Ox O2 Delivery O2 Flow Rate FiO2 06/13/17 08:24 97.5 93 20 125/68 (87) 95 06/13/17 04:00 97.9 82 18 94/63 (73) 97 06/13/17 00:00 98.0 84 20 102/62 (75) 98 06/12/17 20:00 97.8 88 20 105/69 (81) 96 Coded Allergies: Sulfa (Sulfonamide Antibiotics) (Verified Allergy, Mild, Rash, 06/09/17) Physical Exam Remarks Right LE- all sutures intact, no erythema, slight sanginous drainage, no malodor , no ischemia. Calf is supple and non tender to palpation. Assessment & Plan A/P 1) s/p RLE Yaquelin, -dressing changed today, surgical site appears healthy, recommend d/c on 10-14 days PO abx broad spectrum -ok for d/c to SNF from podiatry standpoint, f/u with in one week -remain NWBing to Debora Barnes DPM Jun 13, 2017 17:29
[2017-06-13 17:42] VITALS: BP 97/57; PULSE 97; RESP 20; TEMP 97.6; O2SAT 93
[2017-06-13] MEDS ORDERED: INSULIN DETEMIR 100 UNITS/ML VIAL SQ SCH (21:00)
[2017-06-13] MEDS: SODIUM CHLORIDE 0.9% FLUSH 10 ML FLUSH IV FLUSH SCH (21:05)
[2017-06-13] MEDS: INSULIN DETEMIR 100 UNITS/ML VIAL SQ SCH (21:11)
[2017-06-13 21:42] VITALS: BP 106/75; PULSE 87; RESP 20; TEMP 98; O2SAT 93
[2017-06-14 01:39] VITALS: BP 112/66; PULSE 77; RESP 20; TEMP 97.2; O2SAT 94
[2017-06-14] MEDS: oxyCODONE/ACETAMINOPHEN 10 MG/325 MG TAB PO PRN ×5 (04:20→21:29)
[2017-06-14] MEDS: PIPERACIL-TAZO 2.25 GM PREMIX 50 ML IV SCH ×3 (04:56→16:54)
[2017-06-14] MEDS ORDERED: SODIUM CHLORID 0.9% 500 ML INJ 500 ML IV ONE (05:45)
[2017-06-14 06:10] VITALS: BP 110/70; PULSE 77; RESP 20; TEMP 97.6; O2SAT 96
[2017-06-14 07:32] LABS: ALBUMIN 2.4 GM/DL (3.4-5.0); BICARBONATE 21.3 MEQ/L (21.0-32.0); CREATININE 4.65 MG/DL (0.60-1.30); PHOSPHORUS 3.8 MG/DL (2.5-4.9)
[2017-06-14 07:40] LABS: CALCIUM 7.3 MG/DL (8.5-10.1)
[2017-06-14] MEDS: INSULIN ASPART SUPPLEMENTAL SCALE SQ SCH ×4 (08:00→21:00)
[2017-06-14] MEDS: INSULIN HUMAN REGULAR 1,000 UNITS/10 ML VIAL SQ SCH ×3 (08:00→16:54)
[2017-06-14 08:18] VITALS: BP 135/62; PULSE 88; RESP 20; TEMP 98.3; O2SAT 100
[2017-06-14] MEDS: INSULIN DETEMIR 100 UNITS/ML VIAL SQ SCH ×2 (08:21→21:00)
[2017-06-14] MEDS: VENLAFAXINE HCL XR 75 MG CAP PO SCH (08:28)
[2017-06-14] MEDS: QUEtiapine FUMARATE 25 MG TAB PO SCH ×2 (08:28→21:24)
[2017-06-14] MEDS: GABAPENTIN 100 MG CAP PO SCH (08:28)
[2017-06-14] MEDS: DOCUSATE SODIUM 50 MG/SENNA 8.6 MG TAB PO SCH ×2 (08:29→21:00)
[2017-06-14] MEDS: HEPARIN SODIUM - SQ 10,000 UNITS/ML VIAL SQ SCH ×2 (08:29→21:25)
[2017-06-14] MEDS: ASPIRIN EC 81 MG TABEC PO SCH (08:29)
[2017-06-14] MEDS: SODIUM CHLORIDE 0.9% FLUSH 10 ML FLUSH IV FLUSH SCH ×2 (08:32→21:25)
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
[2017-06-14] MEDS ORDERED: FUROSEMIDE 20 MG/2 ML VIAL IV PUSH ONE (12:00)
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
[2017-06-14 12:34] LABS: CALCIUM 7.6 MG/DL (8.5-10.1)
[2017-06-14 12:40] LABS: TOTAL PROTEIN 6.4 GM/DL (6.4-8.2)
[2017-06-14 12:45] VITALS: BP 92/62; PULSE 92; RESP 20; TEMP 97.5; O2SAT 93
[2017-06-14 16:45] VITALS: BP 111/60; PULSE 54; RESP 20; TEMP 97.5; O2SAT 95
[2017-06-14 20:45] VITALS: BP 125/82; PULSE 94; RESP 18; TEMP 98; O2SAT 98
[2017-06-15] MEDS: PIPERACIL-TAZO 2.25 GM PREMIX 50 ML IV SCH ×5 (00:38→23:12)
[2017-06-15 01:21] VITALS: BP 136/79; PULSE 90; RESP 18; TEMP 97.3; O2SAT 95
[2017-06-15] MEDS: oxyCODONE/ACETAMINOPHEN 10 MG/325 MG TAB PO PRN ×3 (03:31→20:29)
[2017-06-15 05:12] VITALS: BP 146/83; PULSE 92; RESP 19; TEMP 97.7; O2SAT 97
[2017-06-15] MEDS: MORPHINE SULFATE 2 MG/ML INJ IV PUSH PRN (05:16)
[2017-06-15 08:00] VITALS: BP 151/81; PULSE 97; RESP 18; TEMP 98.2; O2SAT 95
[2017-06-15] MEDS: INSULIN ASPART SUPPLEMENTAL SCALE SQ SCH ×4 (08:00→20:33)
[2017-06-15] MEDS: INSULIN HUMAN REGULAR 1,000 UNITS/10 ML VIAL SQ SCH ×3 (08:00→17:00)
[2017-06-15] MEDS: DOCUSATE SODIUM 50 MG/SENNA 8.6 MG TAB PO SCH ×2 (09:00→20:29)
[2017-06-15 09:07] LABS: ALBUMIN 2.6 GM/DL (3.4-5.0); BICARBONATE 22.7 MEQ/L (21.0-32.0); CREATININE 4.93 MG/DL (0.60-1.30); PHOSPHORUS 4.4 MG/DL (2.5-4.9)
[2017-06-15] MEDS: INSULIN DETEMIR 100 UNITS/ML VIAL SQ SCH ×2 (09:54→20:33)
[2017-06-15] MEDS: SODIUM CHLORIDE 0.9% FLUSH 10 ML FLUSH IV FLUSH SCH ×2 (09:54→20:33)
[2017-06-15] MEDS: ASPIRIN EC 81 MG TABEC PO SCH (09:55)
[2017-06-15] MEDS: QUEtiapine FUMARATE 25 MG TAB PO SCH ×2 (09:55→20:29)
[2017-06-15] MEDS: GABAPENTIN 100 MG CAP PO SCH (09:55)
[2017-06-15] MEDS: VENLAFAXINE HCL XR 75 MG CAP PO SCH (09:55)
[2017-06-15] MEDS: HEPARIN SODIUM - SQ 10,000 UNITS/ML VIAL SQ SCH ×2 (09:56→20:31)
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
[2017-06-15 12:00] VITALS: BP 141/65; PULSE 93; RESP 18; TEMP 97.5; O2SAT 98
[2017-06-15] MEDS: TAMSULOSIN HCL 0.4 MG CAP PO SCH (12:45)
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
[2017-06-15 16:00] VITALS: BP 127/80; PULSE 111; RESP 18; TEMP 98; O2SAT 94
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
[2017-06-15 20:00] VITALS: BP 135/87; PULSE 101; RESP 20; TEMP 98.1; O2SAT 96
[2017-06-15] MEDS ORDERED: FUROSEMIDE 40 MG/4 ML VIAL IV PUSH ONE (20:00)
[2017-06-16] VITALS: BP 141/76; PULSE 92; RESP 18; TEMP 98.8; O2SAT 97
[2017-06-16] MEDS: MORPHINE SULFATE 2 MG/ML INJ IV PUSH PRN ×4 (02:37→15:24)
[2017-06-16 04:00] VITALS: BP 140/85; PULSE 92; RESP 20; TEMP 98.5; O2SAT 96
[2017-06-16] MEDS: PIPERACIL-TAZO 2.25 GM PREMIX 50 ML IV SCH ×3 (05:52→18:23)
[2017-06-16] MEDS: oxyCODONE/ACETAMINOPHEN 10 MG/325 MG TAB PO PRN ×3 (05:52→21:31)
[2017-06-16] MEDS: INSULIN ASPART SUPPLEMENTAL SCALE SQ SCH ×4 (08:00→21:35)
[2017-06-16 08:02] VITALS: BP 162/99; PULSE 96; RESP 20; TEMP 98.5; O2SAT 98
[2017-06-16 08:04] LABS: BICARBONATE 24.5 MEQ/L (21.0-32.0); CALCIUM 8.3 MG/DL (8.5-10.1); CREATININE 4.77 MG/DL (0.60-1.30)
[2017-06-16] MEDS: INSULIN DETEMIR 100 UNITS/ML VIAL SQ SCH ×2 (08:58→21:33)
[2017-06-16] MEDS: INSULIN HUMAN REGULAR 1,000 UNITS/10 ML VIAL SQ SCH ×3 (08:58→18:57)
[2017-06-16] MEDS: ASPIRIN EC 81 MG TABEC PO SCH (08:59)
[2017-06-16] MEDS: TAMSULOSIN HCL 0.4 MG CAP PO SCH (08:59)
[2017-06-16] MEDS: GABAPENTIN 100 MG CAP PO SCH (08:59)
[2017-06-16] MEDS: QUEtiapine FUMARATE 25 MG TAB PO SCH ×2 (08:59→21:31)
[2017-06-16] MEDS: DOCUSATE SODIUM 50 MG/SENNA 8.6 MG TAB PO SCH ×2 (08:59→20:28)
[2017-06-16] MEDS: HEPARIN SODIUM - SQ 10,000 UNITS/ML VIAL SQ SCH ×2 (08:59→21:33)
[2017-06-16] MEDS: VENLAFAXINE HCL XR 75 MG CAP PO SCH (08:59)
[2017-06-16] MEDS: SODIUM CHLORIDE 0.9% FLUSH 10 ML FLUSH IV FLUSH SCH ×2 (09:00→21:00)
[2017-06-16 11:53] VITALS: BP 127/78; PULSE 92; RESP 20; TEMP 98.4; O2SAT 96
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
[2017-06-16 16:27] VITALS: BP 132/76; PULSE 93; RESP 20; TEMP 98.3; O2SAT 96
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
[2017-06-16] MEDS ORDERED: FUROSEMIDE 40 MG/4 ML VIAL IV PUSH ONE (18:30)
[2017-06-16] MEDS ORDERED: POTASSIUM CHLORIDE 20 MEQ CONTROLLED RELEASE TAB PO ONE (18:30)
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
[2017-06-16 20:00] VITALS: BP 158/97; PULSE 96; RESP 17; TEMP 98.2; O2SAT 98
[2017-06-17] MEDS: PIPERACIL-TAZO 2.25 GM PREMIX 50 ML IV SCH ×4 (00:14→17:16)
[2017-06-17 00:30] VITALS: BP 156/90; PULSE 94; RESP 17; TEMP 97.9; O2SAT 98
[2017-06-17] MEDS: MORPHINE SULFATE 2 MG/ML INJ IV PUSH PRN ×6 (00:42→20:30)
[2017-06-17] MEDS: oxyCODONE/ACETAMINOPHEN 10 MG/325 MG TAB PO PRN (03:54)
[2017-06-17 05:00] VITALS: BP 154/80; PULSE 92; RESP 18; TEMP 98.6; O2SAT 96
[2017-06-17 07:50] LABS: BICARBONATE 27.2 MEQ/L (21.0-32.0); CALCIUM 8.7 MG/DL (8.5-10.1); CREATININE 4.42 MG/DL (0.60-1.30)
[2017-06-17] MEDS: INSULIN ASPART SUPPLEMENTAL SCALE SQ SCH ×4 (08:00→20:37)
[2017-06-17 08:12] VITALS: BP 179/99; PULSE 94; RESP 18; TEMP 98.1; O2SAT 94
[2017-06-17] MEDS: INSULIN DETEMIR 100 UNITS/ML VIAL SQ SCH ×2 (08:19→20:55)
[2017-06-17] MEDS: INSULIN HUMAN REGULAR 1,000 UNITS/10 ML VIAL SQ SCH ×3 (08:19→18:44)
[2017-06-17] MEDS: HEPARIN SODIUM - SQ 10,000 UNITS/ML VIAL SQ SCH ×2 (08:21→20:31)
[2017-06-17] MEDS: DOCUSATE SODIUM 50 MG/SENNA 8.6 MG TAB PO SCH ×2 (08:22→20:31)
[2017-06-17] MEDS: TAMSULOSIN HCL 0.4 MG CAP PO SCH (08:22)
[2017-06-17] MEDS: GABAPENTIN 100 MG CAP PO SCH (08:22)
[2017-06-17] MEDS: VENLAFAXINE HCL XR 75 MG CAP PO SCH (08:22)
[2017-06-17] MEDS: QUEtiapine FUMARATE 25 MG TAB PO SCH ×2 (08:23→20:31)
[2017-06-17] MEDS: SODIUM CHLORIDE 0.9% FLUSH 10 ML FLUSH IV FLUSH SCH ×2 (09:00→20:31)
[2017-06-17] MEDS: ASPIRIN EC 81 MG TABEC PO SCH (09:00)
[2017-06-17] MEDS ORDERED: PILL SPLITTER OTHER PRN (10:30)
[2017-06-17] MEDS: amLODIPine BESYLATE 5 MG TAB PO SCH (11:37)
[2017-06-17 12:24] VITALS: BP 168/97; PULSE 95; RESP 18; TEMP 97.9; O2SAT 97
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
[2017-06-17 15:56] VITALS: BP 164/97; PULSE 99; RESP 20; TEMP 98.2; O2SAT 97
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
[2017-06-17 20:43] VITALS: BP 172/104; PULSE 96; RESP 20; TEMP 97.8; O2SAT 96
[2017-06-18] MEDS: PIPERACIL-TAZO 2.25 GM PREMIX 50 ML IV SCH ×4 (00:31→17:12)
[2017-06-18] MEDS: oxyCODONE/ACETAMINOPHEN 7.5 MG/325 MG TAB PO PRN ×3 (00:31→08:59)
[2017-06-18 00:58] VITALS: BP 173/107; PULSE 93; RESP 20; TEMP 97.3; O2SAT 94
[2017-06-18] MEDS ORDERED: cloNIDine HCL 0.1 MG TAB PO ONE (01:15)
[2017-06-18] MEDS: MORPHINE SULFATE 2 MG/ML INJ IV PUSH PRN ×3 (02:50→20:33)
[2017-06-18 06:01] VITALS: BP 164/94; PULSE 94; RESP 20; TEMP 97.9; O2SAT 96
[2017-06-18 07:26] LABS: ALBUMIN 2.8 GM/DL (3.4-5.0); BICARBONATE 32.4 MEQ/L (21.0-32.0); CALCIUM 8.7 MG/DL (8.5-10.1); CREATININE 4.14 MG/DL (0.60-1.30); PHOSPHORUS 4.9 MG/DL (2.5-4.9)
[2017-06-18 07:59] VITALS: BP_SYST 104; PULSE 88; RESP 20; TEMP 98.1; O2SAT 96
[2017-06-18] MEDS: INSULIN ASPART SUPPLEMENTAL SCALE SQ SCH ×4 (08:11→20:53)
[2017-06-18] MEDS: GABAPENTIN 100 MG CAP PO SCH (08:57)
[2017-06-18] MEDS: TAMSULOSIN HCL 0.4 MG CAP PO SCH (08:57)
[2017-06-18] MEDS: DOCUSATE SODIUM 50 MG/SENNA 8.6 MG TAB PO SCH ×2 (08:57→20:30)
[2017-06-18] MEDS: VENLAFAXINE HCL XR 75 MG CAP PO SCH (08:57)
[2017-06-18] MEDS: ASPIRIN EC 81 MG TABEC PO SCH (08:57)
[2017-06-18] MEDS: amLODIPine BESYLATE 5 MG TAB PO SCH (08:57)
[2017-06-18] MEDS: INSULIN HUMAN REGULAR 1,000 UNITS/10 ML VIAL SQ SCH ×3 (08:58→17:12)
[2017-06-18] MEDS: HEPARIN SODIUM - SQ 10,000 UNITS/ML VIAL SQ SCH ×2 (08:58→20:31)
[2017-06-18] MEDS: INSULIN DETEMIR 100 UNITS/ML VIAL SQ SCH ×2 (08:58→20:54)
[2017-06-18] MEDS: SODIUM CHLORIDE 0.9% FLUSH 10 ML FLUSH IV FLUSH SCH ×2 (08:58→20:30)
[2017-06-18] MEDS: QUEtiapine FUMARATE 25 MG TAB PO SCH ×2 (08:58→20:30)
[2017-06-18] MEDS ORDERED: amLODIPine BESYLATE 5 MG TAB PO ONE (09:30)
[2017-06-18 11:55] VITALS: BP 163/96; PULSE 97; RESP 20; TEMP 98.4; O2SAT 97
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
[2017-06-18 15:33] VITALS: BP 158/98; PULSE 104; RESP 20; TEMP 97.9; O2SAT 98
[2017-06-18] MEDS: oxyCODONE/ACETAMINOPHEN 10 MG/325 MG TAB PO PRN ×2 (17:12→21:55)
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
[2017-06-18 20:00] VITALS: BP 145/86; PULSE 103; RESP 20; TEMP 98.6; O2SAT 98
[2017-06-19] VITALS (7 sets, daily range): BP systolic 141–172; BP diastolic 83–110; PULSE 98–107; RESP 16–20; TEMP 97.3–98.9; O2SAT 96–98
[2017-06-19] MEDS: MORPHINE SULFATE 2 MG/ML INJ IV PUSH PRN ×5 (00:36→20:36)
[2017-06-19] MEDS: PIPERACIL-TAZO 2.25 GM PREMIX 50 ML IV SCH ×4 (00:36→17:33)
[2017-06-19] MEDS: NITROGLYCERIN 0.3 MG SL 100 TABS/BTL SL PRN ×3 (03:47→04:04)
[2017-06-19 04:40] LABS: BICARBONATE 29.1 MEQ/L (21.0-32.0); BLOOD UREA NITROGEN 24 MG/DL (7-18); CALCIUM 8.7 MG/DL (8.5-10.1); CHLORIDE 96 MEQ/L (98-107); CREATININE 3.99 MG/DL (0.60-1.30); GLOMERULAR FILTRATION RATE 16 ML/MIN (>89); GLUCOSE,RANDOM 111 MG/DL (74-106); SODIUM (NA) 132 MEQ/L (136-145)
[2017-06-19 04:44] LABS: TROPONIN I LESS THAN 0.02 NG/ML (0.02-0.05)
[2017-06-19] MEDS: oxyCODONE/ACETAMINOPHEN 10 MG/325 MG TAB PO PRN ×3 (05:17→18:08)
[2017-06-19] MEDS: INSULIN ASPART SUPPLEMENTAL SCALE SQ SCH ×4 (07:57→20:39)
[2017-06-19] MEDS: GABAPENTIN 100 MG CAP PO SCH (07:59)
[2017-06-19] MEDS: VENLAFAXINE HCL XR 75 MG CAP PO SCH (07:59)
[2017-06-19] MEDS: TAMSULOSIN HCL 0.4 MG CAP PO SCH (08:00)
[2017-06-19] MEDS: ASPIRIN EC 81 MG TABEC PO SCH (08:00)
[2017-06-19] MEDS: QUEtiapine FUMARATE 25 MG TAB PO SCH ×2 (08:00→20:37)
[2017-06-19] MEDS: DOCUSATE SODIUM 50 MG/SENNA 8.6 MG TAB PO SCH ×2 (08:00→20:38)
[2017-06-19] MEDS: amLODIPine BESYLATE 5 MG TAB PO SCH (08:00)
[2017-06-19] MEDS: SODIUM CHLORIDE 0.9% FLUSH 10 ML FLUSH IV FLUSH SCH ×2 (08:01→20:38)
[2017-06-19] MEDS: INSULIN HUMAN REGULAR 1,000 UNITS/10 ML VIAL SQ SCH ×3 (08:01→17:33)
[2017-06-19] MEDS: INSULIN DETEMIR 100 UNITS/ML VIAL SQ SCH ×2 (08:01→20:39)
[2017-06-19] MEDS: HEPARIN SODIUM - SQ 10,000 UNITS/ML VIAL SQ SCH ×2 (08:01→20:37)
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
--- NOTE | 2017-06-19 12:40 | EKG ---
Date Performed: 06/19/2017 Time Performed: 03:28:02 PTAGE: 52 years EKG: Sinus tachycardia. Lateral ST-T changes are nonspecific Borderline ECG Compared to PREVIOUS TRACING , there is some improvement in the ST-T change and heart rate is slower. PREVIOUS TRACIN06/09/2017 18.02 DOCTOR: Scar Troy Interpretating Date/Time 06/19/2017 12:38:28
[2017-06-19] MEDS: hydrALAZINE HCL 10 MG TAB PO SCH (20:38)
[2017-06-20] VITALS (7 sets, daily range): BP systolic 129–163; BP diastolic 73–100; PULSE 102–110; RESP 18–20; TEMP 97.6–98.8; O2SAT 92–97
[2017-06-20] MEDS: oxyCODONE/ACETAMINOPHEN 10 MG/325 MG TAB PO PRN ×3 (00:41→21:20)
[2017-06-20] MEDS: hydrALAZINE HCL 10 MG TAB PO SCH ×3 (06:12→20:40)
[2017-06-20 07:47] LABS: CALCIUM 8.4 MG/DL (8.5-10.1); CREATININE 3.55 MG/DL (0.60-1.30)
[2017-06-20] MEDS: INSULIN ASPART SUPPLEMENTAL SCALE SQ SCH ×4 (08:00→21:00)
[2017-06-20] MEDS: SODIUM CHLORIDE 0.9% FLUSH 10 ML FLUSH IV FLUSH SCH ×2 (09:00→20:41)
[2017-06-20] MEDS: INSULIN HUMAN REGULAR 1,000 UNITS/10 ML VIAL SQ SCH ×3 (09:38→16:48)
[2017-06-20] MEDS: INSULIN DETEMIR 100 UNITS/ML VIAL SQ SCH ×2 (09:38→21:21)
[2017-06-20] MEDS: QUEtiapine FUMARATE 25 MG TAB PO SCH ×2 (09:43→20:39)
[2017-06-20] MEDS: HEPARIN SODIUM - SQ 10,000 UNITS/ML VIAL SQ SCH ×2 (09:43→20:40)
[2017-06-20] MEDS: amLODIPine BESYLATE 5 MG TAB PO SCH (09:44)
[2017-06-20] MEDS: DOCUSATE SODIUM 50 MG/SENNA 8.6 MG TAB PO SCH ×2 (09:44→20:40)
[2017-06-20] MEDS: ASPIRIN EC 81 MG TABEC PO SCH (09:45)
[2017-06-20] MEDS: GABAPENTIN 100 MG CAP PO SCH (09:45)
[2017-06-20] MEDS: TAMSULOSIN HCL 0.4 MG CAP PO SCH (09:54)
[2017-06-20] MEDS: VENLAFAXINE HCL XR 75 MG CAP PO SCH (09:54)
[2017-06-20] MEDS: MORPHINE SULFATE 2 MG/ML INJ IV PUSH PRN ×3 (09:55→16:55)
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
[2017-06-20] MEDS: CARVEDILOL 3.125 MG TAB PO SCH ×2 (13:20→20:39)
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
[2017-06-21] VITALS: BP 166/93; PULSE 99; RESP 18; TEMP 98.7; O2SAT 96
[2017-06-21] MEDS: oxyCODONE/ACETAMINOPHEN 10 MG/325 MG TAB PO PRN ×2 (03:59→14:52)
[2017-06-21 04:00] VITALS: BP 151/91; PULSE 95; RESP 18; TEMP 98.1; O2SAT 96
[2017-06-21] MEDS: hydrALAZINE HCL 10 MG TAB PO SCH ×3 (06:08→21:15)
[2017-06-21] MEDS: MORPHINE SULFATE 2 MG/ML INJ IV PUSH PRN (06:08)
[2017-06-21 07:25] LABS: BICARBONATE 29.3 MEQ/L (21.0-32.0); CALCIUM 8.5 MG/DL (8.5-10.1); CREATININE 3.3 MG/DL (0.60-1.30)
[2017-06-21 07:54] VITALS: BP 153/93; PULSE 101; RESP 19; TEMP 98.2; O2SAT 99
[2017-06-21] MEDS: DOCUSATE SODIUM 50 MG/SENNA 8.6 MG TAB PO SCH ×2 (09:00→21:00)
[2017-06-21] MEDS: VENLAFAXINE HCL XR 75 MG CAP PO SCH (09:04)
[2017-06-21] MEDS: TAMSULOSIN HCL 0.4 MG CAP PO SCH (09:04)
[2017-06-21] MEDS: ASPIRIN EC 81 MG TABEC PO SCH (09:04)
[2017-06-21] MEDS: CARVEDILOL 3.125 MG TAB PO SCH (09:04)
[2017-06-21] MEDS: QUEtiapine FUMARATE 25 MG TAB PO SCH ×2 (09:04→21:15)
[2017-06-21] MEDS: amLODIPine BESYLATE 5 MG TAB PO SCH (09:04)
[2017-06-21] MEDS: GABAPENTIN 100 MG CAP PO SCH (09:04)
[2017-06-21] MEDS: HEPARIN SODIUM - SQ 10,000 UNITS/ML VIAL SQ SCH ×2 (09:05→21:16)
[2017-06-21] MEDS: INSULIN ASPART SUPPLEMENTAL SCALE SQ SCH ×4 (09:07→21:21)
[2017-06-21] MEDS: INSULIN DETEMIR 100 UNITS/ML VIAL SQ SCH ×2 (09:07→21:17)
[2017-06-21] MEDS: INSULIN HUMAN REGULAR 1,000 UNITS/10 ML VIAL SQ SCH ×3 (09:08→18:22)
[2017-06-21] MEDS: SODIUM CHLORIDE 0.9% FLUSH 10 ML FLUSH IV FLUSH SCH ×2 (09:10→21:23)
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
[2017-06-21 11:31] VITALS: BP 155/89; PULSE 98; RESP 20; TEMP 98; O2SAT 93
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
[2017-06-21 16:21] VITALS: BP 141/85; PULSE 96; RESP 20; TEMP 97.7; O2SAT 98
[2017-06-21 20:00] VITALS: BP 158/92; PULSE 106; RESP 18; TEMP 98.1; O2SAT 96
[2017-06-21] MEDS: CARVEDILOL 6.25 MG TAB PO SCH (21:15)
[2017-06-22 01:00] VITALS: BP 146/86; PULSE 99; RESP 20; TEMP 98.6; O2SAT 98
[2017-06-22 04:00] VITALS: BP 150/86; PULSE 97; RESP 20; TEMP 98.6; O2SAT 98
[2017-06-22 05:51] LABS: BICARBONATE 28.2 MEQ/L (21.0-32.0); CALCIUM 8.8 MG/DL (8.5-10.1); CREATININE 3.39 MG/DL (0.60-1.30)
[2017-06-22] MEDS: hydrALAZINE HCL 10 MG TAB PO SCH ×2 (06:20→13:06)
[2017-06-22 08:16] VITALS: BP 161/88; PULSE 91; RESP 20; TEMP 98.6; O2SAT 96
[2017-06-22] MEDS: CARVEDILOL 6.25 MG TAB PO SCH (08:31)
[2017-06-22] MEDS: QUEtiapine FUMARATE 25 MG TAB PO SCH (08:31)
[2017-06-22] MEDS: ASPIRIN EC 81 MG TABEC PO SCH (08:31)
[2017-06-22] MEDS: amLODIPine BESYLATE 5 MG TAB PO SCH (08:31)
[2017-06-22] MEDS: TAMSULOSIN HCL 0.4 MG CAP PO SCH (08:31)
[2017-06-22] MEDS: DOCUSATE SODIUM 50 MG/SENNA 8.6 MG TAB PO SCH (08:31)
[2017-06-22] MEDS: GABAPENTIN 100 MG CAP PO SCH (08:31)
[2017-06-22] MEDS: HEPARIN SODIUM - SQ 10,000 UNITS/ML VIAL SQ SCH (08:31)
[2017-06-22] MEDS: VENLAFAXINE HCL XR 75 MG CAP PO SCH (08:31)
[2017-06-22] MEDS: SODIUM CHLORIDE 0.9% FLUSH 10 ML FLUSH IV FLUSH SCH (08:32)
[2017-06-22] MEDS: INSULIN HUMAN REGULAR 1,000 UNITS/10 ML VIAL SQ SCH ×3 (08:56→17:00)
[2017-06-22] MEDS: INSULIN DETEMIR 100 UNITS/ML VIAL SQ SCH (08:57)
[2017-06-22] MEDS: INSULIN ASPART SUPPLEMENTAL SCALE SQ SCH ×3 (08:57→17:00)
[2017-06-22] MEDS ORDERED: CARVEDILOL 6.25 MG TAB PO ONE (11:00)
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
[2017-06-22] MEDS ORDERED: CARV12.5 PO (11:17)
[2017-06-22] MEDS ORDERED: AMLO5 PO (11:17)
[2017-06-22] MEDS ORDERED: LEVEMIR SQ (11:17)
[2017-06-22] MEDS ORDERED: TAMS5CAP PO (11:17)
[2017-06-22] MEDS ORDERED: NOVORP2 SQ (11:17)
[2017-06-22] MEDS ORDERED: HYDR-3798 PO (11:17)
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
[2017-06-22] MEDS ORDERED: LEVA250T14 PO (11:42)
[2017-06-22 11:56] VITALS: BP 143/80; PULSE 86; RESP 20; TEMP 98.4; O2SAT 94
[2017-06-22] MEDS ORDERED: LEVOFLOXACIN 250 MG TAB PO SCH (13:00)
[2017-06-22] MEDS ORDERED: CARVEDILOL 12.5 MG TAB PO SCH (21:00)
== END 2017-06-22 17:31 | DRG 934 ==
LOC: NEPE 15:40 → NEDA 17:30 → N05A 06-10 12:38
PROVIDERS: ADMIT Internal Medicine; ATTEND Internal Medicine
PROC: 0Y6M0ZB Detachment at Right Foot, Partial 2nd Ray, Open Approach (ICD-10-PCS; 2017-06-11)
PROC: 0Y6M0ZC Detachment at Right Foot, Partial 3rd Ray, Open Approach (ICD-10-PCS; 2017-06-11)
PROC: 0Y6M0ZD Detachment at Right Foot, Partial 4th Ray, Open Approach (ICD-10-PCS; 2017-06-11)
PROC: 0Y6M0ZF Detachment at Right Foot, Partial 5th Ray, Open Approach (ICD-10-PCS; 2017-06-11)
PROC: 0L8N0ZZ Division of Right Lower Leg Tendon, Open Approach (ICD-10-PCS; 2017-06-11)
PROC: 0T9B70Z Drainage of Bladder with Drainage Device, Via Natural or Artificial Opening (ICD-10-PCS; 2017-06-11)
PROC: 0Y6M0Z9 Detachment at Right Foot, Partial 1st Ray, Open Approach (ICD-10-PCS; principal; 2017-06-11 09:49)
PROC: 0T9B70Z Drainage of Bladder with Drainage Device, Via Natural or Artificial Opening (ICD-10-PCS; 2017-06-14)
DX: T25.331A Burn of third degree of right toe(s) (nail), initial encounter (principal); N17.0 Acute kidney failure with tubular necrosis; E11.40 Type 2 diabetes mellitus with diabetic neuropathy, unspecified; I11.0 Hypertensive heart disease with heart failure; I50.9 Heart failure, unspecified; N12 Tubulo-interstitial nephritis, not specified as acute or chronic; E87.2 Acidosis; L03.115 Cellulitis of right lower limb; E87.1 Hypo-osmolality and hyponatremia; I48.91 Unspecified atrial fibrillation; T25.231A Burn of second degree of right toe(s) (nail), initial encounter; W29.2XXA Contact with other powered household machinery, initial encounter; Y93.89 Activity, other specified; J44.9 Chronic obstructive pulmonary disease, unspecified; E11.65 Type 2 diabetes mellitus with hyperglycemia; E78.5 Hyperlipidemia, unspecified; F41.9 Anxiety disorder, unspecified; F32.9 Major depressive disorder, single episode, unspecified; I25.10 Atherosclerotic heart disease of native coronary artery without angina pectoris; Z79.84 Long term (current) use of oral hypoglycemic drugs; I25.2 Old myocardial infarction; R00.0 Tachycardia, unspecified; Z95.1 Presence of aortocoronary bypass graft; Z82.49 Family history of ischemic heart disease and other diseases of the circulatory system; G89.29 Other chronic pain; N32.0 Bladder-neck obstruction; N31.9 Neuromuscular dysfunction of bladder, unspecified; R33.9 Retention of urine, unspecified; I25.5 Ischemic cardiomyopathy; T36.8X5A Adverse effect of other systemic antibiotics, initial encounter; Y92.239 Unspecified place in hospital as the place of occurrence of the external cause; Z23 Encounter for immunization
CPT/HCPCS: 71045; 73630; 76775; 76937; 80048; 80053; 80069; 80202; 81001; 82570; 82947; 82948; 83036; 83605; 83735; 83880; 83930; 83935; 84155; 84156; 84300; 84484; 85007; 85025; 85027; 85610; 85730; 86021; 86140; 86160; 86803; 87040; 87086; 87205; 87340; 88304; 88307; 88311; 90732; 93005; 99285; J0330; J1100; J1170; J1644; J1815; J1940; J2270; J2370; J2405; J2543; J3010; J3370; J7030; J7040; J7050

== ENCOUNTER 2017-10-20 06:34 | Observation (INO) | payer MEDICARE, OTHER ==
[2017-10-20] VITALS (12 sets, daily range): BP systolic 85–157; BP diastolic 62–99; PULSE 85–120; RESP 14–20; TEMP 98–98.5; O2SAT 91–100
[~2017-10-20] VITALS: Ht 177.8 cm; Wt 82.0 kg
[~2017-10-20 06:34] MED LIST changes: +AMLO5 PO; +CARV12.5 PO; +HYDR-3798 PO; +LEVA250T14 PO; -LOSA100T PO; -METF500T PO; +NOVORP2 SQ; +TAMS5CAP PO; -TRAZ100T10 PO
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
[2017-10-20] MEDS ORDERED: INSULIN HUMAN REGULAR 1,000 UNITS/10 ML VIAL IV PUSH ONE (07:45)
[2017-10-20] MEDS ORDERED: KETOROLAC TROMETHAMINE 30 MG/ML (IVP) VIAL IV PUSH ONE (07:45)
[2017-10-20] MEDS ORDERED: LORazepam 2 MG/ML VIAL IV PUSH ONE (07:45)
[2017-10-20] MEDS ORDERED: SODIUM CHLOR 0.9% 1000 ML INJ 1,000 ML IV ONE (07:45)
--- NOTE | 2017-10-20 09:03 | RADRPT ---
EXAM DATE: 10/20/2017 8:06 AM EDT AGE/SEX: 52 years / Male INDICATIONS: Low back pain, fell CLINICAL DATA: This is the patient's initial encounter. Patient reports that signs and symptoms have been present for 1 day and indicates a pain score of 10/10. MEDICAL/SURGICAL HISTORY: . Myocardial infarction. Hypercholesterolemia. Hypertension. Neck dotty n. Numbness, left leg. Colitis. COPD. Diabetes. PTSD. Anxiety. Substance use. Anticoagulant therapy, Aspirin. Previous suicide attempt.. . CABG. Appendectomy. Back surgery x3. Neck and right shoulder s urgery COMPARISON: No prior exams available for comparison. FINDINGS: 5 views of the lumbar spine demonstrate 5 nonrib-bearing lumbar vertebral bodies. No fracture or comp ression deformity is present. There is mild curvature. Decreased disc height is present at L4-L5 and L5-S1 with endplate osteophytes and endplate sclerosis. There is facet hypertrophy at L4-L5 and L5-S1 . No anterolisthesis, retrolisthesis, or pars defects are identified. The pelvic bones and soft tissu es demonstrate no acute finding. Cholecystectomy clips are present. There is mild sclerosis at the lu perior aspect of the right sacroiliac joint. CONCLUSION: No acute lumbar spine abnormality is identified. There is degenerative disc disease with facet arthro sis at L4-L5 and L5-S1. Electronically signed by: Ramon Briscoe MD 10/20/2017 9:02 AM EDT
[2017-10-20 09:05] LABS: BICARBONATE 21.2 MEQ/L (21.0-32.0); CREATININE 0.97 MG/DL (0.60-1.30)
[2017-10-20 09:26] LABS: AUTOMATED NEUTROPHIL # 6.9 TH/MM3 (1.8-7.7); BASOPHIL # 0.1 TH/MM3 (0-0.2); BASOPHIL % 0.7 % (0.0-2.0); EOSINOPHIL % 0.2 % (0.0-4.0); HEMOGLOBIN 14.3 GM/DL (13.0-17.0); LYMPH % 19.7 % (9.0-44.0); LYMPHOCYTE # 1.8 TH/MM3 (1.0-4.8); MEAN CELL VOLUME 88.1 FL (80.0-100.0); MEAN CORPUSCULAR HEMOGLOBIN 32.4 PG (27.0-34.0); MEAN PLATELET VOLUME 8.8 FL (7.0-11.0); MONO % 4.7 % (0.0-8.0); MONOCYTE # 0.4 TH/MM3 (0-0.9); NEUT % 74.7 % (16.0-70.0); PLATELET COUNT 226 TH/MM3 (150-450); RED BLOOD COUNT 4.43 MIL/MM3 (4.50-5.90); RED CELL DISTRIBUTION WIDTH 13.6 % (11.6-17.2); WHITE BLOOD COUNT 9.2 TH/MM3 (4.0-11.0)
[2017-10-20 09:33] LABS: MEAN CORPUSCULAR HGB CONC 36.8 % (32.0-36.0)
[2017-10-20] MEDS ORDERED: GADODIAMIDE PF 287 MG/ML 20 ML VIAL (for RAD MRI) IVCONTRAST ONE (12:21)
--- NOTE | 2017-10-20 12:54 | RADRPT ---
EXAM DATE: 10/20/2017 12:26 PM EDT AGE/SEX: 52 years / Male INDICATIONS: HNP. Herniated disc with two back surgeries. Lower back pain. CLINICAL DATA: This is the patient's initial encounter. Patient reports that signs and symptoms have been present for 1 day and indicates a pain score of 8/10. MEDICAL/SURGICAL HISTORY: Hypertension. Diabetes mellitus type II. Cholecystectomy. CABG. Rickey k surgeries. COMPARISON: No prior exams available for comparison. TECHNIQUE: Multiplanar, multisequence MRI examination of the lumbar spine was performed without and with 16 ml Omniscan (gadodiamide) contrast as a single exam dose. FINDINGS: The most caudal-appearing lumbar vertebra is numbered as L5. Vertebra: The thoracic vertebral bodies are normal in height. There are type II endplate changes at the L4-L5 level anteriorly. There is a Schmorl node deformity at the posterior superior aspect of L1. Minimal Schmorl node formation at the posterior inferior L1, posterior inferior L4 and posterior sup erior L3. There appears to be postsurgical change at the right L5 lamina. Conus: Normal level and configuration. Post Contrast: No abnormal areas of contrast enhancement are seen. T12-L1: The thecal sac has a normal diameter. No evidence of disc bulge or protrusion. The neural foramina are patent bilaterally. L1-L2: The thecal sac has a normal diameter. No evidence of disc bulge or protrusion. The neural foramina are patent bilaterally. L2-L3: There is a moderate right paracentral to right lateral recess disc protrusion causing a mode rate impression on the anterior right-sided of the thecal sac. There is minimal CSF seen around the n erve roots in the thecal sac. The neural foramina are patent bilaterally. L3-L4: There is mild asymmetric disc bulge. This is worse on the left. Significant narrowing of the thecal sac is not clearly seen. There is narrowing of the left neural foramina. The right neural for ricki is patent. There is mild facet hypertrophy. L4-L5: The disc demonstrates decreased height. There is moderate diffuse disc bulge being asymmetri c and worse on the right. There is moderate narrowing of the thecal sac. Impression is more prominent on the right side. There is narrowing of the neural foramina bilaterally being worse on the right. L5-S1: The disc demonstrates decreased height. There is mild disc bulge. In addition, there appears to be a focal mild right lateral recess disc protrusion causing a mild impression on the anterior ri ght side of the thecal sac. There is peripheral osteophyte seen at this level. There is narrowing of the neural foramina bilaterally being worse on the right. CONCLUSION: 1. Moderate right paracentral to lateral recess disc protrusion at the L2-L3 level. 2. Left neural foraminal narrowing at the L3-L4 level secondary to asymmetric disc bulge. 3. Moderate narrowing of the thecal sac at the L4-L5 level caused by disc bulge and facet hypertroph y. There is asymmetric being worse on the right. 4. Mild disc bulge and a superimposed right disc protrusion at the L5-S1 level causing mild impressi on on the anterior thecal sac especially on the right. 5. Neural foraminal narrowing at the L3-L4 through L5-S1 levels as described above. Electronically signed by: Ramon Norris MD 10/20/2017 12:53 PM EDT
[2017-10-20] MEDS ORDERED: ARTHTAB5 PO (13:39)
[2017-10-20] MEDS ORDERED: MEDR4PAK PO (13:39)
[2017-10-20] MEDS ORDERED: SENNOSIDES 8.6 MG TAB PO PRN (14:30)
[2017-10-20] MEDS ORDERED: MAGNESIUM HYDROXIDE SUSP 30 ML CUP PO PRN (14:30)
[2017-10-20] MEDS ORDERED: ACETAMINOPHEN/HYDROcodone 325 MG/5 MG TAB PO PRN (14:30)
[2017-10-20] MEDS ORDERED: NALOXONE HCL 0.4 MG/ML AMP IV PUSH PRN ×2 (14:30)
[2017-10-20] MEDS ORDERED: ACETAMINOPHEN 325 MG TAB PO PRN (14:30)
[2017-10-20] MEDS ORDERED: BISACODYL 10 MG SUPP RECTAL PRN (14:30)
[2017-10-20] MEDS ORDERED: SODIUM CHLORIDE 0.9% FLUSH 10 ML FLUSH IV FLUSH PRN (14:30)
[2017-10-20] MEDS ORDERED: MORPHINE SULFATE 4 MG/ML INJ IV PUSH PRN (14:30)
[2017-10-20] MEDS ORDERED: LACTULOSE SYRUP 20 GM/30 ML CUP PO PRN (14:30)
--- NOTE | 2017-10-20 15:45 | HHI.HP ---
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 Per patient, he was using his walker to get down a step from his kitchen to his dining room when he tripped, fell down and twisted his back. He landed on his back and also hit his head but denies any headache, nausea, vomiting or confusion. Since the fall, he complains that the spot from his previous surgery has been very painful. He denies any new numbness or tingling in his lower extremities but has chronic numbness from both knees down. Pain from his lower back is severe, 10/10, nonradiating. There is no loss of consciousness or any incontinence both with urine and bowels. There is also no note of neck pain. Neurosurgery was informed from the emergency department, case allegedly was nonsurgical. Patient was initially planned to be discharged on steroids and analgesics but patient is unable to walk because of severe pain. Review of Systems ROS Limitations: Other (All other pertinent systems were reviewed and are negative.) Past Family Social History Past Medical History Diabetes mellitus Neuropathy next and hypertension Hyperlipidemia CHF with an EF of 40-45% in July 2016 History of atrial fibrillation anticoagulated on aspirin CAD with an AR in 2013 Chronic pain Past Surgical History Neck surgery Back surgery 3 Appendectomy CABG 2 Reported Medications Medrol Dosepak (Methylprednisolone) 4 Mg Dspk 4 Mg PO DIRECTED Per Pharmacist direction Arthrotec 75 (Diclofenac-Misoprostol) 75-0.2 Mg Tab 1 Tab PO BID Levemir Inj (Insulin Detemir) 1,000 unit/ 10 ML Vial 15 Units SQ Q12HR 30 Days Do not mix with any other Insulin. Norvasc (Amlodipine Besylate) 5 Mg Tab 10 Mg PO DAILY Coreg (Carvedilol) 12.5 Mg Tab 12.5 Mg PO Q12HR 30 Days Hydralazine HCl 10 Mg Tablet 10 Mg PO Q8HR 30 Days Flomax (Tamsulosin HCl) 0.4 Mg Cap 0.4 Mg PO DAILY 30 Days Thera M Plus (Multivitamins/Minerals Therapeutic) 1 Tab 1 Tab PO DAILY 30 Days Levemir Inj (Insulin Detemir) 1,000 unit/ 10 ML Vial 30 Units SQ HS 30 Days Do not mix with any other Insulin. Venlafaxine ER 24 HR (Venlafaxine HCl) 150 Mg Tab 150 Mg PO DAILY Neurontin (Gabapentin) 300 Mg Cap 300 Mg PO BID 30 Days Aspirin Low Strength (Aspirin) 81 Mg Chew 81 Mg CHEW DAILY 30 Days Reported Seroquel (Quetiapine Fumarate) 50 Mg Tab 50 Mg PO BID Novolog Inj (Insulin Aspart) 100 Unit/Ml Inj SQ [id number] SLIDE SCALE Effexor (Venlafaxine HCl) 75 Mg Tab 75 Mg PO HS Allergies: Coded Allergies: Sulfa (Sulfonamide Antibiotics) (Verified Allergy, Mild, Rash, 10/20/17) Family History Father with CAD Social History Drinks approximately one case per month. Denies tobacco or illicit drugs. Physical Exam Vital Signs Vital Signs Date Time Temp Pulse Resp B/P (MAP) Pulse Ox O2 Delivery O2 Flow Rate FiO2 10/20/17 15:16 98.4 90 20 133/89 (104) 98 10/20/17 14:08 103 118/85 (96) 100 10/20/17 13:30 106 14 154/98 (116) 94 Room Air 10/20/17 12:30 104 16 156/97 (116) 95 10/20/17 11:15 106 16 151/93 (112) 94 Room Air 10/20/17 10:15 106 16 146/89 (108) 93 Room Air 10/20/17 09:15 104 17 142/90 (107) 91 10/20/17 08:15 109 15 141/91 (108) 98 Room Air 10/20/17 07:15 98 Room Air 10/20/17 07:15 115 15 132/82 (99) 98 Room Air 10/20/17 06:40 98.5 120 17 147/88 (107) 100 Physical Exam GENERAL: Not in acute distress, well-nourished. HEAD: Atraumatic. Normocephalic. No scalp hematoma. EYES: PERRL, full EOMs, no jaundice, nonicteric, pink conjunctivae without injection, moist mucosa ENT: Nose without bleeding, purulent drainage. NECK: Trachea midline, no mass, no obvious thyromegaly. CARDIOVASCULAR: Regular rate and rhythm without murmurs, gallops, or rubs. RESPIRATORY: Clear to auscultation with normal respiratory effort. Breath sounds equal bilaterally. No use of accessory muscles of respiration. GASTROINTESTINAL: Abdomen soft, normal bowel sounds, non-tender, nondistended. MUSCULOSKELETAL: Extremities without clubbing, cyanosis, or edema. Positive for numbness bilateral calf down to his foot. Positive tenderness left lumbar area with straight leg raising. Status post midfoot amputation right foot. Positive for point tenderness in the L5-S1 area, lumbar spine. No bony deformities. INTEGUMENTARY: Warm and dry, no rash of generalized distribution. NEUROLOGICAL: Awake, alert, oriented 3. No obvious cranial nerve deficits. Moves all 4 extremities, muscle strength testing 5 over 5. Laboratory Laboratory Tests Test 10/20/17 07:50 White Blood Count 9.2 Red Blood Count 4.43 Hemoglobin 14.3 Hematocrit 39.0 Mean Corpuscular Volume 88.1 Mean Corpuscular Hemoglobin 32.4 Mean Corpuscular Hemoglobin Concent 36.8 Red Cell Distribution Width 13.6 Platelet Count 226 Mean Platelet Volume 8.8 Neutrophils (%) (Auto) 74.7 Lymphocytes (%) (Auto) 19.7 Monocytes (%) (Auto) 4.7 Eosinophils (%) (Auto) 0.2 Basophils (%) (Auto) 0.7 Neutrophils # (Auto) 6.9 Lymphocytes # (Auto) 1.8 Monocytes # (Auto) 0.4 Eosinophils # (Auto) 0.0 Basophils # (Auto) 0.1 CBC Comment AUTO DIFF Differential Comment AUTO DIFF CONFIRMED Blood Urea Nitrogen 16 Creatinine 0.97 Random Glucose 327 Calcium Level 9.0 Sodium Level 132 Potassium Level 4.8 Chloride Level 96 Carbon Dioxide Level 21.2 Anion Gap 15 Estimat Glomerular Filtration Rate 81 Result Diagram: 10/20/17 0750 10/20/17 0750 Imaging Last Impressions Lumbar Spine MRI 10/20/17 0974 Signed Impressions: CONCLUSION: 1. Moderate right paracentral to lateral recess disc protrusion at the L2-L3 l evel. 2. Left neural foraminal narrowing at the L3-L4 level secondary to asymmetric disc bulge. 3. Moderate narrowing of the thecal sac at the L4-L5 level caused by disc bulg e and facet hypertrophy. There is asymmetric being worse on the right. 4. Mild disc bulge and a superimposed right disc protrusion at the L5-S1 level causing mild impression on the anterior thecal sac especially on the right. 5. Neural foraminal narrowing at the L3-L4 through L5-S1 levels as described a nathan. Lumbar Spine X-Ray 10/20/17 3297 Signed Impressions: CONCLUSION: No acute lumbar spine abnormality is identified. There is degenerative disc dis ease with facet arthrosis at L4-L5 and L5-S1. Caprini VTE Risk Assessment Caprini VTE Risk Assessment: Mod/High Risk (score >= 2) Caprini Risk Assessment Model Point Value = 1 Point Value = 2 Point Value = 3 Point Value = 5 Age 41-60 Minor surgery BMI > 25 kg/m2 Swollen legs Varicose veins or History of unexplained or recurrent spontaneous Oral contraceptives or hormone replacement Sepsis (< 1 month) Serious lung disease, including pneumonia (< 1 month) Abnormal pulmonary function Acute myocardial infarction Congestive heart failure (< 1 month) History of inflammatory bowel disease Medical patient at bed rest Age 61-74 Arthroscopic surgery Major open surgery (> 45 min) Laparoscopic surgery (> 45 min) Malignancy Confined to bed (> 72 hours) Immobilizing plaster cast Central venous access Age >= 75 History of VTE Family history of VTE Factor V Leiden Prothrombin [id number] Lupus anticoagulant Anticardiolipin antibodies Elevated serum homocysteine Heparin-induced thrombocytopenia Other congenital or acquired thrombophilia Stroke (< 1 month) Elective arthroplasty Hip, pelvis, or leg fracture Acute spinal cord injury (< 1 month) Prophylaxis Regimen Total Risk Factor Score Risk Level Prophylaxis Regimen 0-1 Low Early ambulation 2 Moderate Order ONE of the following: *Sequential Compression Device (SCD) *Heparin 5000 units SQ BID 3-4 Higher Order ONE of the following medications: *Heparin 5000 units SQ TID *Enoxaparin/Lovenox 40 mg SQ daily (WT < 150 kg, CrCl > 30 mL/min) *Enoxaparin/Lovenox 30 mg SQ daily (WT < 150 kg, CrCl > 10-29 mL/min) *Enoxaparin/Lovenox 30 mg SQ BID (WT < 150 kg, CrCl > 30 mL/min) AND/OR *Sequential Compression Device (SCD) 5 or more Highest Order ONE of the following medications: *Heparin 5000 units SQ TID (Preferred with Epidurals) *Enoxaparin/Lovenox 40 mg SQ daily (WT < 150 kg, CrCl > 30 mL/min) *Enoxaparin/Lovenox 30 mg SQ daily (WT < 150 kg, CrCl > 10-29 mL/min) *Enoxaparin/Lovenox 30 mg SQ BID (WT < 150 kg, CrCl > 30 mL/min) AND *Sequential Compression Device (SCD) Assessment and Plan Assessment and Plan This is a 52-year-old male with history of diabetes mellitus, hypertension, previous back surgery presenting with acute low back pain after mechanical fall Acute lumbar lower back pain -MRI of the lumbar spine showed moderate disc protrusion at L2-L3, left neuroforaminal narrowing L3-L4, there is also mild disc bulge at L5-S1. Case was discussed with neurosurgery in the emergency department, patient does not have any surgical needs. No evidence of cauda equina syndrome. MRI only shows degenerative disc disease with herniated nucleus pulposus. Will admit under observation for pain control. Consult physical therapy. Start low-dose steroids and Arthrotec. Percocet as needed for severe pain. Mechanical fall-likely from neuropathy, physical therapy as above Diabetes mellitus-restart Levemir 15 units per home dose with sliding scale insulin Hypertension-restart Norvasc, Coreg, hydralazine Mild dehydration-recheck BMP tomorrow. Neuropathy-restart Neurontin All other chronic medical issues are stable, continue medications per home dose as indicated. Lovenox for DVT prophylaxis Consult case management for home health care. Candace Peralta MD Oct 20, 2017 15:45
[2017-10-20] MEDS: oxyCODONE/ACETAMINOPHEN 10 MG/325 MG TAB PO PRN (17:05)
[2017-10-20] MEDS: ENOXAPARIN SODIUM 30 MG/0.3 ML SYRINGE SQ SCH (17:05)
[2017-10-20] MEDS: TAMSULOSIN HCL 0.4 MG CAP PO SCH (18:29)
[2017-10-20] MEDS: VENLAFAXINE HCL XR 75 MG CAP PO SCH (18:29)
[2017-10-20] MEDS: hydrALAZINE HCL 10 MG TAB PO SCH ×2 (18:30→20:32)
[2017-10-20] MEDS: MULTIVITAMINS/MINERALS THERAPEUTIC TAB PO SCH (18:30)
[2017-10-20] MEDS: ASPIRIN 81 MG CHEW TAB CHEW SCH (18:30)
[2017-10-20] MEDS: methylPREDNISolone 4 MG TAB PO SCH (18:46)
[2017-10-20] MEDS: GABAPENTIN 300 MG CAP PO SCH (20:32)
[2017-10-20] MEDS: QUEtiapine FUMARATE 25 MG TAB PO SCH (20:32)
[2017-10-20] MEDS: SODIUM CHLORIDE 0.9% FLUSH 10 ML FLUSH IV FLUSH SCH (20:32)
[2017-10-20] MEDS: CARVEDILOL 12.5 MG TAB PO SCH (20:32)
[2017-10-20] MEDS: DOCUSATE SODIUM 50 MG/SENNA 8.6 MG TAB PO SCH (20:32)
[2017-10-20] MEDS ORDERED: MISOPROSTOL PO SCH (21:00)
[2017-10-20] MEDS ORDERED: NON-FORMULARY DRUG (Venlafaxine (Effexor) 75 MG) PO SCH (21:00)
[2017-10-20] MEDS ORDERED: DICLOFENAC PO SCH (21:00)
[2017-10-20] MEDS ORDERED: NON-FORMULARY DRUG (Quetiapine (Seroquel) 50 MG) PO SCH (21:00)
[2017-10-20] MEDS ORDERED: DICLOFENAC MISOPROSTOL PO SCH (21:00)
[2017-10-20] MEDS: INSULIN DETEMIR 100 UNITS/ML VIAL SQ SCH (21:31)
[2017-10-21] VITALS (7 sets, daily range): BP systolic 76–136; BP diastolic 58–73; PULSE 80–92; RESP 12–18; TEMP 97.7–98.2; O2SAT 94–96
[2017-10-21] MEDS: hydrALAZINE HCL 10 MG TAB PO SCH ×3 (03:58→20:02)
[2017-10-21 08:00] LABS: BICARBONATE 23.8 MEQ/L (21.0-32.0); CALCIUM 8.4 MG/DL (8.5-10.1); CREATININE 1.07 MG/DL (0.60-1.30)
[2017-10-21] MEDS: TAMSULOSIN HCL 0.4 MG CAP PO SCH (08:49)
[2017-10-21] MEDS: DOCUSATE SODIUM 50 MG/SENNA 8.6 MG TAB PO SCH ×2 (08:49→20:01)
[2017-10-21] MEDS: VENLAFAXINE HCL XR 75 MG CAP PO SCH (08:49)
[2017-10-21] MEDS: methylPREDNISolone 4 MG TAB PO SCH (08:50)
[2017-10-21] MEDS: oxyCODONE/ACETAMINOPHEN 10 MG/325 MG TAB PO PRN (08:50)
[2017-10-21] MEDS: QUEtiapine FUMARATE 25 MG TAB PO SCH ×2 (08:50→20:01)
[2017-10-21] MEDS: MULTIVITAMINS/MINERALS THERAPEUTIC TAB PO SCH (08:50)
[2017-10-21] MEDS: GABAPENTIN 300 MG CAP PO SCH ×2 (08:50→20:01)
[2017-10-21] MEDS: INSULIN DETEMIR 100 UNITS/ML VIAL SQ SCH ×2 (08:51→20:02)
[2017-10-21] MEDS: ASPIRIN 81 MG CHEW TAB CHEW SCH (08:51)
[2017-10-21] MEDS: SODIUM CHLORIDE 0.9% FLUSH 10 ML FLUSH IV FLUSH SCH ×2 (08:51→20:03)
[2017-10-21] MEDS ORDERED: PNEUMOCOCCAL POLYVALENT INJ 25 MCG/0.5 ML SYR IM ONE (10:00)
[2017-10-21] MEDS: CARVEDILOL 12.5 MG TAB PO SCH ×2 (12:32→20:00)
--- NOTE | 2017-10-21 12:49 | HHI.PR ---
Subjective Remarks Follow up back pain. The patient states that his back is still "severely painful ". Pain does not radiate. It is still in the same location of his low back and just as severe as it was when he presented to the emergency department yesterday. He worked with physical therapy and states that he has been doing stretching exercises in bed. No chest pain, dyspnea, urinary problems. Objective Vitals Vital Signs Date Time Temp Pulse Resp B/P (MAP) Pulse Ox O2 Delivery O2 Flow Rate FiO2 10/21/17 11:43 97.7 86 18 136/65 (88) 94 10/21/17 07:41 97.8 87 18 104/73 (83) 95 10/21/17 04:53 91/59 (70) 10/21/17 03:54 98.2 85 16 76/58 (64) 96 10/20/17 23:15 98.0 95 16 85/62 (70) 93 10/20/17 19:19 98.2 85 18 157/99 (118) 95 10/20/17 15:16 98.4 90 20 133/89 (104) 98 10/20/17 14:08 103 118/85 (96) 100 10/20/17 13:30 106 14 154/98 (116) 94 Room Air I/O 10/20/17 10/20/17 10/20/17 10/21/17 10/21/17 10/21/17 07:00 15:00 23:00 07:00 15:00 23:00 Intake Total 480 ml Output Total 600 ml Balance -120 ml Intake Oral 480 ml Output Urine Total 600 ml Result Diagram: 10/20/17 0750 10/21/17 0555 Imaging Last Impressions Lumbar Spine MRI 10/20/17 0981 Signed Impressions: CONCLUSION: 1. Moderate right paracentral to lateral recess disc protrusion at the L2-L3 l evel. 2. Left neural foraminal narrowing at the L3-L4 level secondary to asymmetric disc bulge. 3. Moderate narrowing of the thecal sac at the L4-L5 level caused by disc bulg e and facet hypertrophy. There is asymmetric being worse on the right. 4. Mild disc bulge and a superimposed right disc protrusion at the L5-S1 level causing mild impression on the anterior thecal sac especially on the right. 5. Neural foraminal narrowing at the L3-L4 through L5-S1 levels as described a nathan. Lumbar Spine X-Ray 10/20/17 4342 Signed Impressions: CONCLUSION: No acute lumbar spine abnormality is identified. There is degenerative disc dis ease with facet arthrosis at L4-L5 and L5-S1. Objective Remarks General: No acute distress. Heart: Regular rate and rhythm. No murmur. Lungs: Clear to auscultation bilaterally. No wheezes, rales, or rhonchi. Breathing is nonlabored. Abdomen: Soft, nontender, nondistended. Extremities: No lower extremity edema. Right foot status post midfoot amputation. Psych: Alert and oriented. Neuro: Normal speech. No focal deficits noted. Procedures None Urinary Catheter: No Vascular Central Line Catheter: No A/P Assessment and Plan 1. Acute lumbar back pain: MRI shows moderate disc protrusion at L2-L3, left neuroforaminal narrowing at L3-L4, mild disc bulge at L5-S1. Neurosurgery was contacted in the emergency department and the patient does not have any surgical needs at this time. No evidence of cauda equina syndrome. Continue pain control, physical therapy, steroids. 2. Mechanical fall: Likely secondary to neuropathy. Continue physical therapy. 3. Diabetes mellitus: Continue Levemir. Monitor Accu-Cheks and cover with sliding scale insulin. 4. Hypertension: Continue Norvasc, Coreg, hydralazine. 5. Mild dehydration: Add IV fluids. 6. Neuropathy: Continue Neurontin. 7. DVT prophylaxis: Lovenox. Discharge Planning Pending further improvement and arrangement of home health physical therapy. Robbie Scales MD Oct 21, 2017 12:49
--- NOTE | 2017-10-21 12:51 | HHI.FF ---
Face to Face Verification Diagnosis: (1) Lumbago (2) History of herniated intervertebral disc (3) CAD (coronary artery disease) (4) HTN (hypertension) (5) DM (diabetes mellitus) Physical Therapy Order: Evaluate and Treat Home Health Nursing Order: Nursing assessment with vital signs I have seen patient Estevan Gale on 10/21/17. My clinical findings support the need for the requested home health care services because: High risk of falls I certify that my clinical findings support that this patient is homebound because: Unsteady gait/balance Robbie Scales MD Oct 21, 2017 12:51
[2017-10-21] MEDS: NS + KCL 20 MEQ INJ 1,000 ML IV SCH (14:11)
[2017-10-21] MEDS: ENOXAPARIN SODIUM 30 MG/0.3 ML SYRINGE SQ SCH (17:30)
[2017-10-21] MEDS: INSULIN ASPART SUPPLEMENTAL SCALE SQ SCH (21:04)
[2017-10-21] MEDS ORDERED: GLUCAGON 1 MG/ML VIAL OTHER PRN (21:15)
[2017-10-21] MEDS ORDERED: DEXTROSE 50% IN WATER 50 ML VIAL(D50) IV PUSH PRN (21:15)
[2017-10-22 03:37] VITALS: BP 92/55; PULSE 88; RESP 16; TEMP 97.8; O2SAT 96
[2017-10-22] MEDS ORDERED: KETOROLAC TROMETHAMINE 30 MG/ML (IVP) VIAL IV PUSH ONE ×2 (04:15→15:00)
[2017-10-22 04:43] LABS: BICARBONATE 27.3 MEQ/L (21.0-32.0); CALCIUM 8.8 MG/DL (8.5-10.1); CREATININE 1.01 MG/DL (0.60-1.30)
[2017-10-22] MEDS: hydrALAZINE HCL 10 MG TAB PO SCH ×3 (05:09→22:00)
[2017-10-22 07:43] VITALS: BP 120/80; PULSE 79; RESP 18; TEMP 97.6; O2SAT 95
[2017-10-22] MEDS: INSULIN ASPART SUPPLEMENTAL SCALE SQ SCH ×4 (08:00→22:56)
[2017-10-22] MEDS: CARVEDILOL 12.5 MG TAB PO SCH ×2 (08:57→22:58)
[2017-10-22] MEDS: VENLAFAXINE HCL XR 75 MG CAP PO SCH (08:57)
[2017-10-22] MEDS: TAMSULOSIN HCL 0.4 MG CAP PO SCH (08:57)
[2017-10-22] MEDS: GABAPENTIN 300 MG CAP PO SCH ×2 (08:57→22:58)
[2017-10-22] MEDS: QUEtiapine FUMARATE 25 MG TAB PO SCH ×2 (08:58→22:58)
[2017-10-22] MEDS: methylPREDNISolone 4 MG TAB PO SCH (08:58)
[2017-10-22] MEDS: MULTIVITAMINS/MINERALS THERAPEUTIC TAB PO SCH (08:58)
[2017-10-22] MEDS: DOCUSATE SODIUM 50 MG/SENNA 8.6 MG TAB PO SCH ×2 (08:58→21:00)
[2017-10-22] MEDS: ASPIRIN 81 MG CHEW TAB CHEW SCH (08:58)
[2017-10-22] MEDS: INSULIN DETEMIR 100 UNITS/ML VIAL SQ SCH ×3 (08:59→21:00)
[2017-10-22] MEDS: SODIUM CHLORIDE 0.9% FLUSH 10 ML FLUSH IV FLUSH SCH ×2 (08:59→21:00)
[2017-10-22] MEDS: NS + KCL 20 MEQ INJ 1,000 ML IV SCH (08:59)
--- NOTE | 2017-10-22 09:55 | HHI.PR ---
Subjective Remarks Patient reports continued left buttock pain unchanged. He denies any marcel weakness in his left leg, however says movement is limited secondary to pain. Patient lives alone and says he is unable take care of himself at home. Objective Vital Signs Date Time Temp Pulse Resp B/P (MAP) Pulse Ox O2 Delivery O2 Flow Rate FiO2 10/22/17 07:43 97.6 79 18 120/80 (93) 95 10/22/17 03:37 97.8 88 16 92/55 (67) 96 10/21/17 23:20 97.8 92 16 111/71 (84) 95 10/21/17 19:48 97.8 90 16 86/60 (69) 95 10/21/17 15:38 97.9 80 12 88/61 (70) 96 10/21/17 11:43 97.7 86 18 136/65 (88) 94 I/O 10/21/17 10/21/17 10/21/17 10/22/17 10/22/17 10/22/17 07:00 15:00 23:00 07:00 15:00 23:00 Intake Total 480 ml 1880 ml Output Total 600 ml 500 ml 300 ml Balance -120 ml -500 ml -300 ml 1880 ml Intake Oral 480 ml IV Total 1880 ml Output Urine Total 600 ml 500 ml 300 ml Result Diagram: 10/20/17 0750 10/22/17 0349 Objective Remarks GENERAL: Patient lying in bed. Appears comfortable. SKIN: Warm and dry. HEAD: Normocephalic. EYES: No scleral icterus. No injection or drainage. NECK: Supple, trachea midline. No JVD . CARDIOVASCULAR: Regular rate and rhythm without murmurs, gallops, or rubs. RESPIRATORY: Breath sounds equal bilaterally. No accessory muscle use. GASTROINTESTINAL: Abdomen soft, non-tender, nondistended. MUSCULOSKELETAL: No cyanosis, or edema. Strength equal bilateral lower extremities. BACK: Nontender without obvious deformity. No CVA tenderness. A/P Assessment and Plan //Acute lumbar back pain: MRI shows moderate disc protrusion at L2-L3, left neuroforaminal narrowing at L3-L4, mild disc bulge at L5-S1. Neurosurgery was contacted in the emergency department and the patient does not have any surgical needs at this time. No evidence of cauda equina syndrome. Continue pain control, physical therapy, steroids. = Continue with pain control. Patient says he is unable to take care of himself at home. Continue with physical therapy. Case management assistance appreciated. //Mechanical fall: Likely secondary to neuropathy. Continue physical therapy. // Diabetes mellitus: Continue Levemir. Monitor Accu-Cheks and cover with sliding scale insulin. = We will discontinue low-dose methylprednisolone. // Hypertension: Continue Norvasc, Coreg, hydralazine. // Mild dehydration: Add IV fluids. // Neuropathy: Continue Neurontin. //DVT prophylaxis: Lovenox. Discharge Planning Patient says he is unable to take care of himself at home. Continue PT. Appreciate case management assistance. Horacio Gupta MD Oct 22, 2017 09:55
[2017-10-22 12:54] VITALS: BP 93/59; PULSE 70; RESP 18; TEMP 98; O2SAT 93
[2017-10-22 14:45] VITALS: BP 100/63; PULSE 83; RESP 18; TEMP 97.9; O2SAT 94
[2017-10-22] MEDS: ENOXAPARIN SODIUM 30 MG/0.3 ML SYRINGE SQ SCH (15:10)
[2017-10-22 19:35] VITALS: BP 103/62; PULSE 89; RESP 17; TEMP 98.5; O2SAT 95
[2017-10-22] MEDS ORDERED: SODIUM CHLORID 0.9% 500 ML INJ 500 ML IV ONE (21:00)
[2017-10-22 23:55] VITALS: BP 126/76; PULSE 84; RESP 16; TEMP 98.4; O2SAT 97
[2017-10-23 04:05] VITALS: BP 116/81; PULSE 76; RESP 17; TEMP 98.4; O2SAT 96
[2017-10-23] MEDS: NS + KCL 20 MEQ INJ 1,000 ML IV SCH (04:09)
[2017-10-23] MEDS: oxyCODONE/ACETAMINOPHEN 10 MG/325 MG TAB PO PRN (04:09)
[2017-10-23] MEDS: hydrALAZINE HCL 10 MG TAB PO SCH (05:17)
[2017-10-23 06:51] LABS: ALBUMIN 2.8 GM/DL (3.4-5.0); BICARBONATE 22.8 MEQ/L (21.0-32.0); CALCIUM 8.1 MG/DL (8.5-10.1); CREATININE 0.81 MG/DL (0.60-1.30); MAGNESIUM 2.2 MG/DL (1.5-2.5)
[2017-10-23 07:18] VITALS: BP 110/77; PULSE 74; RESP 18; TEMP 97.8; O2SAT 97
[2017-10-23] MEDS ORDERED: HYDR-3516 PO (08:46)
[2017-10-23] MEDS: SODIUM CHLORIDE 0.9% FLUSH 10 ML FLUSH IV FLUSH SCH (09:00)
[2017-10-23] MEDS: INSULIN DETEMIR 100 UNITS/ML VIAL SQ SCH (09:05)
[2017-10-23] MEDS: CARVEDILOL 12.5 MG TAB PO SCH (09:06)
[2017-10-23] MEDS: QUEtiapine FUMARATE 25 MG TAB PO SCH (09:06)
[2017-10-23] MEDS: TAMSULOSIN HCL 0.4 MG CAP PO SCH (09:06)
[2017-10-23] MEDS: ASPIRIN 81 MG CHEW TAB CHEW SCH (09:06)
[2017-10-23] MEDS: GABAPENTIN 300 MG CAP PO SCH (09:06)
[2017-10-23] MEDS: MULTIVITAMINS/MINERALS THERAPEUTIC TAB PO SCH (09:06)
[2017-10-23] MEDS: INSULIN ASPART SUPPLEMENTAL SCALE SQ SCH (09:06)
[2017-10-23] MEDS: VENLAFAXINE HCL XR 75 MG CAP PO SCH (09:07)
[2017-10-23] MEDS: DOCUSATE SODIUM 50 MG/SENNA 8.6 MG TAB PO SCH (09:07)
--- NOTE | 2017-10-23 09:10 | HHI.PR ---
Subjective Remarks Patient reports pain is a little better today and he is ready to go home. He says he has not had a bowel movement since Tuesday. Denies any abdominal pain. Denies nausea or vomiting. Objective Vital Signs Date Time Temp Pulse Resp B/P (MAP) Pulse Ox O2 Delivery O2 Flow Rate FiO2 10/23/17 07:18 97.8 74 18 110/77 (88) 97 10/23/17 04:05 98.4 76 17 116/81 (93) 96 10/22/17 23:55 98.4 84 16 126/76 (93) 97 10/22/17 19:35 98.5 89 17 103/62 (76) 95 10/22/17 14:45 97.9 83 18 100/63 (75) 94 10/22/17 12:54 98.0 70 18 93/59 (70) 93 I/O 10/22/17 10/22/17 10/22/17 10/23/17 10/23/17 10/23/17 07:00 15:00 23:00 07:00 15:00 23:00 Intake Total 1880 ml Output Total 300 ml 900 ml Balance -300 ml 1880 ml -900 ml IV Total 1880 ml Output Urine Total 300 ml 900 ml # Voids 1 Result Diagram: 10/20/17 0750 10/23/17 0531 Objective Remarks GENERAL: Patient lying in bed. Appears comfortable. No change on exam. SKIN: Warm and dry. HEAD: Normocephalic. EYES: No scleral icterus. No injection or drainage. NECK: Supple, trachea midline. No JVD . CARDIOVASCULAR: Regular rate and rhythm without murmurs, gallops, or rubs. RESPIRATORY: Breath sounds equal bilaterally. No accessory muscle use. GASTROINTESTINAL: Abdomen soft, non-tender, nondistended. MUSCULOSKELETAL: No cyanosis, or edema. Strength equal bilateral lower extremities. BACK: Nontender without obvious deformity. No CVA tenderness. A/P Assessment and Plan //Acute lumbar back pain: MRI shows moderate disc protrusion at L2-L3, left neuroforaminal narrowing at L3-L4, mild disc bulge at L5-S1. Neurosurgery was contacted in the emergency department and the patient does not have any surgical needs at this time. No evidence of cauda equina syndrome. Continue pain control, physical therapy, steroids. = Continue with pain control. Patient says he is unable to take care of himself at home. Continue with physical therapy. Case management assistance appreciated. = 10/23. Pain improved. Discharge home with home health. //Mechanical fall: Likely secondary to neuropathy. Continue physical therapy. // Diabetes mellitus: Continue Levemir. Monitor Accu-Cheks and cover with sliding scale insulin. = We will discontinue low-dose methylprednisolone. = Blood sugar improved this morning. Continue home regimen // Hypertension: Continue Norvasc, Coreg, hydralazine. // Mild dehydration: Add IV fluids. // Neuropathy: Continue Neurontin. //DVT prophylaxis: Lovenox. Discharge Planning Patient says he is feeling better, appreciate PT assistance. Discharge home with home health. Horacio Gupta MD Oct 23, 2017 09:10
[2017-10-23] MEDS ORDERED: MAGNESIUM HYDROXIDE SUSP 30 ML CUP PO ONE (09:15)
[2017-10-23] MEDS ORDERED: DOCUSATE SODIUM 50 MG/SENNA 8.6 MG TAB PO ONE (09:15)
--- NOTE | 2017-10-23 09:18 | HHI.DS ---
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 Per patient, he was using his walker to get down a step from his kitchen to his dining room when he tripped, fell down and twisted his back. He landed on his back and also hit his head but denies any headache, nausea, vomiting or confusion. Since the fall, he complains that the spot from his previous surgery has been very painful. He denies any new numbness or tingling in his lower extremities but has chronic numbness from both knees down. Pain from his lower back is severe, 10/10, nonradiating. There is no loss of consciousness or any incontinence both with urine and bowels. There is also no note of neck pain. Neurosurgery was informed from the emergency department, case allegedly was nonsurgical. Patient was initially planned to be discharged on steroids and analgesics but patient is unable to walk because of severe pain. CBC/BMP: 10/20/17 0750 10/23/17 0531 Significant Findings Laboratory Tests Test 10/21/17 05:55 10/22/17 03:49 10/23/17 05:31 Blood Urea Nitrogen 24 MG/DL (-18) 22 MG/DL (7-18) Random Glucose 307 MG/DL (74-106) 189 MG/DL (74-106) Calcium Level 8.4 MG/DL (8.5-10.1) 8.1 MG/DL (8.5-10.1) Sodium Level 133 MEQ/L (136-145) Estimat Glomerular Filtration Rate 72 ML/MIN (>89) 77 ML/MIN (>89) Albumin 2.8 GM/DL (3.4-5.0) Imaging Last Impressions Lumbar Spine MRI 10/20/17 5580 Signed Impressions: CONCLUSION: 1. Moderate right paracentral to lateral recess disc protrusion at the L2-L3 l evel. 2. Left neural foraminal narrowing at the L3-L4 level secondary to asymmetric disc bulge. 3. Moderate narrowing of the thecal sac at the L4-L5 level caused by disc bulg e and facet hypertrophy. There is asymmetric being worse on the right. 4. Mild disc bulge and a superimposed right disc protrusion at the L5-S1 level causing mild impression on the anterior thecal sac especially on the right. 5. Neural foraminal narrowing at the L3-L4 through L5-S1 levels as described a nathan. Lumbar Spine X-Ray 10/20/17 5766 Signed Impressions: CONCLUSION: No acute lumbar spine abnormality is identified. There is degenerative disc dis ease with facet arthrosis at L4-L5 and L5-S1. PE at Discharge General: No acute distress. Heart: Regular rate and rhythm. No murmur. Lungs: Clear to auscultation bilaterally. No wheezes, rales, or rhonchi. Breathing is nonlabored. Abdomen: Soft, nontender, nondistended. Extremities: No lower extremity edema. Right foot status post midfoot amputation. Psych: Alert and oriented. Neuro: Normal speech. No focal deficits noted. Hospital Course Imaging performed as above with moderate disc protrusion at L2-L3,left neuroforaminal narrowing at L3-L4, mild disc bulge at L5-S1. No neurologic deficit. Neurosurgery was contacted in the emergency department and the patient does not have any surgical needs at this time. Pain controlled with narcotics, and subsequently improving. Patient was seen by physical therapy who recommends home with home health. Patient's blood pressure found to be borderline low, and hydralazine will be discontinued. For problem based summary from most recent progress note, please see below. //Acute lumbar back pain: MRI shows moderate disc protrusion at L2-L3, left neuroforaminal narrowing at L3-L4, mild disc bulge at L5-S1. Neurosurgery was contacted in the emergency department and the patient does not have any surgical needs at this time. No evidence of cauda equina syndrome. Continue pain control, physical therapy, steroids. = Continue with pain control. Patient says he is unable to take care of himself at home. Continue with physical therapy. Case management assistance appreciated. = 10/23. Pain improved. Discharge home with home health. //Mechanical fall: Likely secondary to neuropathy. Continue physical therapy. // Diabetes mellitus: Continue Levemir. Monitor Accu-Cheks and cover with sliding scale insulin. = We will discontinue low-dose methylprednisolone. = Blood sugar improved this morning. Continue home regimen // Hypertension: Continue Norvasc, Coreg, hydralazine. // Mild dehydration: Add IV fluids. // Neuropathy: Continue Neurontin. //DVT prophylaxis: Lovenox. Discharge Planning Patient says he is feeling better, appreciate PT assistance. Discharge home with home health. Pt Condition on Discharge: Good Discharge Disposition: Disch w/ Home Health Serv Discharge Time: > 30 minutes Discharge Instructions DIET: Follow Instructions for: Diabetic Diet Activities you can perform: Regular-No Restrictions Follow up Referrals: PCP [facility] New Medications: Hydrocodone/Acetaminophen (Hydrocodone-Acetamin 5-325 mg) 5 Mg-325 Mg Tablet 1-2 TAB PO Q4H PRN for PAIN SCALE 1 TO 10, #20 TAB Continued Medications: Amlodipine (Norvasc) 5 Mg Tab 10 MG PO DAILY for HTN, #30 TAB Aspirin (Aspirin Low Strength) 81 Mg Chew 81 MG CHEW DAILY for health for 30 Days, #30 EA Carvedilol (Coreg) 12.5 Mg Tab 12.5 MG PO Q12HR for CMP for 30 Days, #60 TAB Diclofenac-Misoprostol (Arthrotec 75) 75-0.2 Mg Tab 1 TAB PO BID for Pain Management, #60 TAB 0 Refills Gabapentin (Neurontin) 300 Mg Cap 300 MG PO BID for health for 30 Days, #60 CAP Insulin Aspart Inj (Novolog Inj) 100 Unit/Ml Inj SQ [id number] SLIDE SCALE Insulin Detemir Inj (Levemir Inj) 1,000 unit/ 10 ML Vial 30 UNITS SQ HS for health for 30 Days, #1 VIAL Do not mix with any other Insulin. Insulin Detemir Inj (Levemir Inj) 1,000 unit/ 10 ML Vial 15 UNITS SQ Q12HR for DM for 30 Days, INJECTION Do not mix with any other Insulin. Multiple Vitamins W/ Minerals (Thera M Plus) 1 Tab 1 TAB PO DAILY for health for 30 Days, #30 TAB Quetiapine (Seroquel) 50 Mg Tab 50 MG PO BID, #60 TAB 0 Refills Tamsulosin (Flomax) 0.4 Mg Cap 0.4 MG PO DAILY for reention for 30 Days, #30 CAP Venlafaxine (Effexor) 75 Mg Tab 75 MG PO HS, #30 TAB 0 Refills Venlafaxine ER 24 HR (Venlafaxine ER 24 HR) 150 Mg Tab 150 MG PO DAILY for health, #30 TAB 0 Refills Discontinued Medications: Hydralazine HCl (Hydralazine HCl) 10 Mg Tablet 10 MG PO Q8HR for HTN for 30 Days, #90 TAB Methylprednisolone Dosepak (Medrol Dosepak) 4 Mg Dspk 4 MG PO DIRECTED, #1 DSPK 0 Refills Per Pharmacist direction Horacio Gupta MD Oct 23, 2017 09:18
== END 2017-10-23 10:50 | disposition home or self-care (01) ==
LOC: NEPE 06:34 → NEDA 14:25 → NEPGCP 15:26
PROVIDERS: ADMIT Internal Medicine; ATTEND Internal Medicine
DX: M54.40 Lumbago with sciatica, unspecified side (principal); M51.26 Other intervertebral disc displacement, lumbar region; M51.27 Other intervertebral disc displacement, lumbosacral region; E86.0 Dehydration; I25.10 Atherosclerotic heart disease of native coronary artery without angina pectoris; I11.0 Hypertensive heart disease with heart failure; I50.9 Heart failure, unspecified; E11.40 Type 2 diabetes mellitus with diabetic neuropathy, unspecified; J44.9 Chronic obstructive pulmonary disease, unspecified; E78.5 Hyperlipidemia, unspecified; I25.2 Old myocardial infarction; I48.91 Unspecified atrial fibrillation; G89.29 Other chronic pain; M47.816 Spondylosis without myelopathy or radiculopathy, lumbar region; M47.817 Spondylosis without myelopathy or radiculopathy, lumbosacral region; F12.90 Cannabis use, unspecified, uncomplicated; Z79.82 Long term (current) use of aspirin; Z95.1 Presence of aortocoronary bypass graft; Z79.899 Other long term (current) drug therapy; W01.0XXA Fall on same level from slipping, tripping and stumbling without subsequent striking against object, initial encounter
CPT/HCPCS: 72110; 72158; 80048; 80069; 82948; 83735; 85025; 96361; 96365; 96366; 96372; 96375; 97163; 97530; 99285; A9579; G0378; G8987; G8988; J1650; J1815; J1885; J2060; J3480; J7030; J7509

== ENCOUNTER 2018-01-02 13:08 | Observation (INO) ==
[2018-01-02] MEDS ORDERED: Morphine Inj 4 MG/ML Vial IV.PUSH ONE (13:23)
[2018-01-02] MEDS ORDERED: Metoprolol Inj 5 MG/5 ML Vial IV.PUSH ONE (13:35)
--- NOTE | 2018-01-02 13:35 | ED ---
HPI General Chief Complaint: Chest Pain Stated Complaint: Chest Pain Time Seen by Provider: 01/02/18 13:23 Source: patient and EMS Mode of arrival: EMS Limitations: no limitations History of Present Illness HPI narrative: Patient is a 52-year-old male presenting to the emergency department via EMS for evaluation of chest pain. Patient states the pain started several weeks ago. Patient went to the MD clinic this morning with this complaint and was ultimately transferred here. He reports left anterior chest wall pain that radiates to both arms. He states his arms feel numb and tingling. Patient reports shortness of breath, he states that he had black mold in his apartment which is what is causing his breathing issues. Patient also reports nausea, diaphoresis. He has a history significant for type 2 diabetes, hyperlipidemia, depression, GERD, COPD, PTSD, 2 vessel CABG 2013, alcohol abuse. Symptom onset was gradual, symptoms are moderate in nature. No known alleviating factors, symptoms are exacerbated with activity. Patient states on Tuesday he felt depressed and cut his left inner wrist. He went to [facility] and stated that he was out of their scope of care so he was transferred here under a Bailey act. There is no record of this. Patient states that he left and went home, patient denies feeling suicidal right now but he does state that he feels anxious. MD complaint: chest pain Complete Quality Measures for STEMI Alert Patients Onset (ago): week(s) Duration: constant and progressively worsening Onset: during rest and during exertion Pain location: left chest Severity: moderate Severity scale (1-10): 7 Quality: heaviness Pain radiation: RUE and LUE Relieving factors: nothing Exacerbating factors: exertion and inspiration Associated symptoms: nausea, diaphoresis and palpitations Treatments prior to arrival chest pain: aspirin (325mg) Related Data Home Medications Medication Instructions Recorded Confirmed atorvastatin 80 mg PO DAILY 01/02/18 01/02/18 carvedilol 25 mg PO BID 01/02/18 01/02/18 divalproex 500 mg PO DAILY 01/02/18 01/02/18 ethacrynic acid 25 mg PO DAILY 01/02/18 01/02/18 gabapentin 300 mg PO BID 01/02/18 01/02/18 insulin aspart U-100 8 unit SUB-Q QPM 01/02/18 01/02/18 insulin glargine 30 unit SUB-Q DAILY 01/02/18 01/02/18 losartan 100 mg PO DAILY 01/02/18 01/02/18 metoprolol tartrate 100 mg PO HS 01/02/18 01/02/18 quetiapine 200 mg PO HS 01/02/18 01/02/18 trazodone 100 mg PO DAILY 01/02/18 01/02/18 Allergies Allergy/AdvReac Type Severity Reaction Status Date / Time Sulfa (Sulfonamide Allergy Mild Rash Verified 01/02/18 13:27 Antibiotics) Review of Systems ROS: all other systems reviewed are negative Psychiatric Reports anxiety and Reports depression PMFSH History History Provided By: Patient and Medical Record Medical History Medical History Alcohol abuse (Chronic) BPH (benign prostatic hyperplasia) (Chronic) CAD (coronary artery disease) (Chronic) CHF (congestive heart failure) (Chronic) COPD (chronic obstructive pulmonary disease) (Chronic) Depression (Chronic) Diabetes (Chronic) GERD (gastroesophageal reflux disease) (Chronic) HTN (hypertension) (Chronic) Hyperlipidemia (Chronic) IBS (irritable bowel syndrome) (Chronic) Osteoarthritis (Chronic) PTSD (post-traumatic stress disorder) (Chronic) Surgical History Surgical History Hx of CABG (Chronic) Family History Family History Other Family history of heart cancer Family history of heart disease Social History Social History Substance History: No History of Abuse Second Hand Smoke Exposure: No Smoking Status: Former smoker How Often Do You Have a Drink Containing Alcohol: 2 to 4 times a month Recent Travel in [facility] within the Last 8 Weeks: No Recent Out of Country Travel within the Last 8 Weeks: No Exam Narrative Exam Narrative: GENERAL: Well-developed, well-nourished, alert male. Presenting in no acute distress. SKIN: Focused skin assessment warm/dry. Superficial abrasions to left inner wrist. HEAD: Atraumatic. Normocephalic. EYES: Pupils equal and round. No scleral icterus. No injection or drainage. ENT: No nasal bleeding or discharge. Mucous membranes pink and moist. NECK: Trachea midline. No JVD. CARDIOVASCULAR: Tachycardic. No murmur appreciated. RESPIRATORY: No accessory muscle use. Clear to auscultation. Breath sounds equal bilaterally. GASTROINTESTINAL: Abdomen soft, non-tender, nondistended. Hepatic and splenic margins not palpable. MUSCULOSKELETAL: No obvious deformities. No clubbing. No cyanosis. No edema. Right partial foot amputation. NEUROLOGICAL: Awake and alert. No obvious cranial nerve deficits. Motor grossly within normal limits. Normal speech. PSYCHIATRIC: Anxious mood and affect; insight and judgment normal. Course Initial Documented Vital Signs Temperature 98.8 F 01/02/18 13:24 Pulse Rate 116 H 01/02/18 13:24 Respiratory Rate 17 01/02/18 13:24 Blood Pressure 152/97 H 01/02/18 13:24 Pulse Oximetry 100 01/02/18 13:24 Last Documented Vital Signs Temperature 98.8 F 01/02/18 13:24 Pulse Rate 98 H 01/02/18 15:32 Respiratory Rate 17 01/02/18 13:24 Blood Pressure 144/96 H 01/02/18 15:32 Pulse Oximetry 98 01/02/18 15:32 Medical Decision Making DEL Attestation DEL supervised visit: Yes Attestation: I, Dr. Vela, have reviewed the advance practice practitioner's documentation and am in agreement, met with the patient face to face, made the diagnosis, and the medical decision making was done by me. *My assessment and Findings: Patient seen and evaluated with PA, apparently has been cutting his left wrist since yesterday, had been brought to the ER, but he had eloped after being dropped off here. At this point, I have Bailey acted the patient, considering possible suicidal ideation, left wrist cutting, and is here complaining of chest discomfort, EKG shows sinus tachycardia with no signs of acute ST elevations or depressions. Workup was fairly unremarkable with initial cardiac enzyme which was negative. At this point, patient cannot be medically cleared and will be admitted medically for evaluation of chest pain and psych consult will need to be done in the hospital. MDM Narrative Medical decision making narrative: Patient is a 52-year-old male that presented for evaluation of chest pain. Patient is tachycardic and mildly hypertensive on arrival. IV access is established by EVAC. Patient was placed on telemetry monitoring continuous pulse oximetry. Patient was given 325 mg of aspirin prior to the arrival in the emergency department. Labs reviewed, BUN and creatinine are slightly elevated when compared to prior. Cardiac enzymes are negative 1 set. Patient's blood glucose was 396. He was given 8 units of subcutaneous insulin 1 dose. Patient was placed under Bailey act due to cutting and reported suicidal ideations on Tuesday as well as continued depression and anxiety. [facility] paged for admission. Medical Screen Exam Complete: Yes Emergency Medical Condition: Yes Differential Diagnosis Differential Diagnosis: ACS versus USA versus metabolic abnormality versus cardiac arrhythmia versus DKA versus mood disorder versus other Medical Records Medical records reviewed: Yes I reviewed the patient's medical records. Lab Data Result diagrams: 01/02/18 13:34 01/02/18 13:34 Lab Results 01/02/18 01/02/18 01/02/18 Range/Units 13:34 13:34 13:34 WBC 4.8 (4.0-11.0) th/mm3 RBC 4.24 L (4.50-5.90) mil/mm3 Hgb 13.7 (13.0-17.0) gm/dL Hct 39.7 (39.0-51.0) % MCV 93.5 (80.0-100.0) fL MCH 32.2 (27.0-34.0) pg MCHC 34.4 (32.0-36.0) % RDW 13.4 (11.6-17.2) % Plt Count 168 (150-450) th/mm3 MPV 8.2 (7.0-11.0) fL Neut % (Auto) 62.5 (16.0-70.0) % Lymph % (Auto) 27.8 (9.0-44.0) % Dickinson % (Auto) 8.6 H (0.0-8.0) % Eos % (Auto) 0.6 (0.0-4.0) % Baso % (Auto) 0.5 (0.0-2.0) % Neut # (Auto) 3.0 (1.8-7.7) th/mm3 Lymph # (Auto) 1.3 (1.0-4.8) th/mm3 Dickinson # (Auto) 0.4 (0.0-0.9) th/mm3 Eos # (Auto) 0.0 (0.0-0.4) th/mm3 Baso # (Auto) 0.0 (0.0-0.2) th/mm3 WBC Differential . Differential Comment Auto diff final PT 10.7 (9.8-11.6) sec INR 1.1 Ratio APTT 22.2 L (24.3-30.1) sec D-Dimer Quant (PE/DVT) 0.21 (0.00-0.50) mg/L FEU Sodium 133 L (136-145) meq/L Potassium 4.6 (3.5-5.1) meq/L Chloride 96 L (98-107) meq/L Carbon Dioxide 25.1 (21.0-32.0) meq/L Anion Gap 12 (5-15) meq/L BUN 20 H (7-18) mg/dL Creatinine 1.44 H (0.60-1.30) mg/dL Estimated GFR 51 L (>89) mL/min Random Glucose 396 H (74-106) mg/dL Calcium 9.2 (8.5-10.1) mg/dL Magnesium 1.9 (1.5-2.5) mg/dL Total Bilirubin 0.5 (0.2-1.0) mg/dL AST 18 (15-37) U/L ALT 25 (12-78) U/L Alkaline Phosphatase 91 (45-117) U/L Total Creatine Kinase 172 (39-308) U/L CK-MB (CK-2) 5.4 H (0.5-3.6) ng/mL Troponin I Less than 0.02 L (0.02-0.05) ng/mL B-Natriuretic Peptide (0-100) pg/mL Total Protein 7.6 (6.4-8.2) g/dL Albumin 3.8 (3.4-5.0) g/dL Lipase 59 L (73-393) U/L Beta-Hydroxybutyric Acd 0.29 (0.00-0.39) mmol/L Serum Alcohol Less than 3 (0-5) mg/dL 01/02/18 01/02/18 Range/Units 13:34 13:34 WBC (4.0-11.0) th/mm3 RBC (4.50-5.90) mil/mm3 Hgb (13.0-17.0) gm/dL Hct (39.0-51.0) % MCV (80.0-100.0) fL MCH (27.0-34.0) pg MCHC (32.0-36.0) % RDW (11.6-17.2) % Plt Count (150-450) th/mm3 MPV (7.0-11.0) fL Neut % (Auto) (16.0-70.0) % Lymph % (Auto) (9.0-44.0) % Dickinson % (Auto) (0.0-8.0) % Eos % (Auto) (0.0-4.0) % Baso % (Auto) (0.0-2.0) % Neut # (Auto) (1.8-7.7) th/mm3 Lymph # (Auto) (1.0-4.8) th/mm3 Dickinson # (Auto) (0.0-0.9) th/mm3 Eos # (Auto) (0.0-0.4) th/mm3 Baso # (Auto) (0.0-0.2) th/mm3 WBC Differential Differential Comment PT (9.8-11.6) sec INR Ratio APTT (24.3-30.1) sec D-Dimer Quant (PE/DVT) (0.00-0.50) mg/L FEU Sodium (136-145) meq/L Potassium (3.5-5.1) meq/L Chloride (98-107) meq/L Carbon Dioxide (21.0-32.0) meq/L Anion Gap (5-15) meq/L BUN (7-18) mg/dL Creatinine (0.60-1.30) mg/dL Estimated GFR (>89) mL/min Random Glucose (74-106) mg/dL Calcium (8.5-10.1) mg/dL Magnesium Cancelled (1.5-2.5) mg/dL Total Bilirubin (0.2-1.0) mg/dL AST (15-37) U/L ALT (12-78) U/L Alkaline Phosphatase (45-117) U/L Total Creatine Kinase (39-308) U/L CK-MB (CK-2) (0.5-3.6) ng/mL Troponin I (0.02-0.05) ng/mL B-Natriuretic Peptide 20 (0-100) pg/mL Total Protein (6.4-8.2) g/dL Albumin (3.4-5.0) g/dL Lipase (73-393) U/L Beta-Hydroxybutyric Acd (0.00-0.39) mmol/L Serum Alcohol (0-5) mg/dL Imaging Data Radiologist's impression: Chest X-Ray 01/02/18 13:23 CONCLUSION: No acute cardiopulmonary abnormality is identified. Discharge Plan Discharge Disposition Patient Disposition: 30 Still Patient Discharge Condition Condition: Stable Discharge Details Diagnosis: Atypical chest pain, Suicidal ideations Physicians Team ED Provider: Tiffanie Vela ED Midlevel Provider: Ignacia Wiggins Primary Care Provider: [facility] Attending Provider: Elfego Garcia Other Providers: Leonel Saunders Status ED Status: Admitted Observation Patient
[2018-01-02 13:48] LABS: Baso % (Auto) 0.5 % (0.0-2.0); Eos % (Auto) 0.6 % (0.0-4.0); Hematocrit 39.7 % (39.0-51.0); Hemoglobin 13.7 gm/dL (13.0-17.0); Lymph # (Auto) 1.3 th/mm3 (1.0-4.8); Lymph % (Auto) 27.8 % (9.0-44.0); Mean Corpuscular HGB Conc 34.4 % (32.0-36.0); Mean Corpuscular Hemoglobin 32.2 pg (27.0-34.0); Mean Corpuscular Volume 93.5 fL (80.0-100.0); Mean Platelet Volume 8.2 fL (7.0-11.0); Mono # (Auto) 0.4 th/mm3 (0.0-0.9); Mono % (Auto) 8.6 % (0.0-8.0); Neut % (Auto) 62.5 % (16.0-70.0); Platelet Count 168 th/mm3 (150-450); Red Blood Count 4.24 mil/mm3 (4.50-5.90); Red Cell Distribution Width 13.4 % (11.6-17.2); White Blood Count 4.8 th/mm3 (4.0-11.0)
[2018-01-02 14:03] LABS: Activated Partial Thrombo Time 22.2 sec (24.3-30.1); D-Dimer 0.21 mg/L FEU (0.00-0.50); INR 1.1 Ratio; Prothrombin Time 10.7 sec (9.8-11.6)
[2018-01-02 14:11] LABS: Albumin 3.8 g/dL (3.4-5.0); Anion Gap 12 meq/L (5-15); Aspartate Aminotransferase 18 U/L (15-37); Blood Urea Nitrogen 20 mg/dL (7-18); Calcium 9.2 mg/dL (8.5-10.1); Carbon Dioxide 25.1 meq/L (21.0-32.0); Chloride 96 meq/L (98-107); Glomerular Filtration Rate 51 mL/min (>89); Glucose,Random 396 mg/dL (74-106); Lipase 59 U/L (73-393); Magnesium 1.9 mg/dL (1.5-2.5); Potassium 4.6 meq/L (3.5-5.1); Sodium 133 meq/L (136-145)
[2018-01-02 14:14] LABS: Alanine Aminotransferase 25 U/L (12-78); Alkaline Phosphatase 91 U/L (45-117); Beta Hydroxybutyric Acid 0.29 mmol/L (0.00-0.39); Creatine Kinase 172 U/L (39-308); Total Protein 7.6 g/dL (6.4-8.2)
--- NOTE | 2018-01-02 14:24 | XR ---
EXAM DATE: 01/02/2018 2:13 PM EDT AGE/SEX: 52 years / Male INDICATIONS: Chest pain. CLINICAL DATA: This is the patient's initial encounter. Patient reports that signs and symptoms have been present for 3 weeks and indicates a pain score of 4/10. MEDICAL/SURGICAL HISTORY: . Congestive heart failure. Myocardial infarction. Chronic obstructiv e pulmonary disease. Diabetes CABG. COMPARISON: [facility] [place], CHEST SINGLE AP, 06/09/2017. . FINDINGS: Portable AP view of the chest demonstrates a normal-sized cardiac silhouette. No effusion, consolidat ion, or pneumothorax is identified. The bones and soft tissues demonstrate no acute finding. Median s ternotomy wires are present and EKG lines overlie the patient. CONCLUSION: No acute cardiopulmonary abnormality is identified. Electronically signed by: Ramon Briscoe MD 01/02/2018 2:23 PM EDT
[2018-01-02 14:29] LABS: Creatine Kinase MB 5.4 ng/mL (0.5-3.6)
[2018-01-02] MEDS ORDERED: Acetaminophen 325 MG Tablet PO PRN (15:51)
[2018-01-02] MEDS ORDERED: Dextrose 50% in Water 50 ML Vial IV.PUSH PRN (15:54)
[2018-01-02] MEDS ORDERED: hydrALAZINE 25 MG Tablet PO PRN (15:55)
--- NOTE | 2018-01-02 16:10 | P.HP ---
History of Present Illness Primary Care Physician: [facility] Chief Complaint: Atypical chest pain History of Present Illness: 52-year-old male with history of diabetes mellitus, neuropathy, hypertension, CHF, atrial fibrillation, coronary artery disease, who was sent from the [place] clinic for evaluation of an ongoing substernal type chest pain times several week duration described as stabbing in intensity over 8 and associated with bilateral numbness to the fingers, shortness of breath and fatigue without any diaphoresis. Patient states about 10 days ago he had a 2D echo with a known EF of 35%, and since then he has had worsening chest pain. States he is having difficulty ambulating. Patient is quite anxious, and states over the past weekend on Tuesday12/31/17 he was so frustrated with his life that he started cutting his left wrist. Initial cardiac enzyme and EKG were unremarkable. Patient also stated he run out of his BP med. While in the ED, patient was made Bailey act due to suicidal ideation. - Diagnosis (1) Atypical chest pain (2) Suicidal ideations Review of Systems All other systems reviewed negative except as stated in HPI PMFSH - History History Provided By: Patient, Medical Record - Medical History Medical History: Medical History (Last Reviewed 01/02/18 @ 13:33 by ALEXIS Lazo) COPD (chronic obstructive pulmonary disease) Depression Diabetes HTN (hypertension) PTSD (post-traumatic stress disorder) Alcohol abuse BPH (benign prostatic hyperplasia) CAD (coronary artery disease) CHF (congestive heart failure) GERD (gastroesophageal reflux disease) Hyperlipidemia IBS (irritable bowel syndrome) Osteoarthritis - Surgical History Surgical History: Surgical History (Last Reviewed 01/02/18 @ 13:33 by ALEXIS Lazo) Hx of CABG - Family History Family History: Family History (Last Updated 01/02/18 @ 16:05 by Elfego Garcia MD) Other Family history of heart cancer Family history of heart disease - Tobacco History Second Hand Smoke Exposure: No Smoking Status: Former smoker - Alcohol History How Often Do You Have a Drink Containing Alcohol: 2 to 4 times a month - Substance Use History Substance History: No History of Abuse - Travel History Recent Travel in the [place] Within the Last 8 Weeks: No Recent Travel Out of the Country Within the Last 8 Weeks: No - Immunization History Tetanus Immunization: <5 Years Hx Influenza Vaccine This Season: Yes Medications and Allergies Active Medications: Active Medications Acetaminophen (Tylenol) 650 mg PO Q4H PRN PRN Reason: Temp > 100.4 Al Hydroxide/Mg Hydroxide (Milk Of Magntai Liq) 30 ml PO Q12H PRN PRN Reason: Mild Constipation Atorvastatin Calcium (Lipitor) 80 mg PO DAILY [facility] Dextrose (D50w Vial) 50 ml IV.PUSH UNSCH PRN PRN Reason: PER HYPOGLYCEMIA PROTOCOL Divalproex Sodium (Depakote Er) 500 mg PO DAILY [facility] Ethacrynic Acid (Edecrin) 25 mg PO DAILY [facility] Gabapentin (Neurontin) 300 mg PO BID [facility] Glucagon (Glucagon Inj) 1 mg OTHER PRN PRN PRN Reason: for Hypoglycemia Protocol Heparin Sodium (Porcine) (Heparin Inj) 5,000 units SQ Q12H [facility] Hydralazine HCl (Apresoline) 25 mg PO TID PRN PRN Reason: SBP>160, DBP>90 Insulin Aspart (Novolog Insulin Correctional Sugar Inj) 0 unit SQ ACHS [facility]; Protocol Insulin Aspart (Novolog Insulin Correctional Sugar Inj) 8 unit SQ QPM [facility] Metoprolol Tartrate (Lopressor) 100 mg PO HS [facility] Non-Formulary Medication (Insulin Glargine Inj) 30 unit SQ DAILY [facility] Non-Formulary Medication (Losartan [Losartan]) 100 mg PO DAILY [facility] Non-Formulary Medication (Carvedilol [Carvedilol]) 25 mg PO BID [facility] Ondansetron HCl (Zofran Inj) 4 mg IV.PUSH Q6H PRN PRN Reason: NAUSEA OR VOMITING Quetiapine Fumarate (Seroquel) 200 mg PO HS [facility] Sodium Chloride (Ns Flush) 2 ml IV.FLUSH UNSCH PRN PRN Reason: FLUSH AFTER USING IV ACCESS Trazodone HCl (Desyrel) 100 mg PO DAILY [facility] Allergies Allergy/AdvReac Type Severity Reaction Status Date / Time Sulfa (Sulfonamide Allergy Mild Rash Verified 01/02/18 13:27 Antibiotics) Home Medications Medication Instructions Recorded Confirmed Type atorvastatin 80 mg PO DAILY 01/02/18 01/02/18 History carvedilol 25 mg PO BID 01/02/18 01/02/18 History divalproex 500 mg PO DAILY 01/02/18 01/02/18 History ethacrynic acid 25 mg PO DAILY 01/02/18 01/02/18 History gabapentin 300 mg PO BID 01/02/18 01/02/18 History insulin aspart U-100 8 unit SUB-Q QPM 01/02/18 01/02/18 History insulin glargine 30 unit SUB-Q DAILY 01/02/18 01/02/18 History losartan 100 mg PO DAILY 01/02/18 01/02/18 History metoprolol tartrate 100 mg PO HS 01/02/18 01/02/18 History quetiapine 200 mg PO HS 01/02/18 01/02/18 History trazodone 100 mg PO DAILY 01/02/18 01/02/18 History Exam Vital signs: Vital Signs 01/02/18 13:24 01/02/18 14:45 01/02/18 15:00 Temperature 98.8 F Pulse Rate 116 H 114 H 96 H Respiratory Rate 17 Blood Pressure 152/97 H 143/87 H 150/97 H Pulse Oximetry 100 01/02/18 15:32 Temperature Pulse Rate 98 H Respiratory Rate Blood Pressure 144/96 H Pulse Oximetry 98 Intake & Output 01/01/18 01/02/18 01/02/18 18:59 06:59 18:59 Weight 81.647 kg Narrative: GENERAL: NAD SKIN: Warm and dry. HEAD: Atraumatic. Normocephalic. EYES: Pupils equal and round. No scleral icterus. No injection or drainage. ENT: No nasal bleeding or discharge. Mucous membranes pink and moist. NECK: Trachea midline. No JVD. CARDIOVASCULAR: Regular rate and rhythm. RESPIRATORY: No accessory muscle use. Clear to auscultation. Breath sounds equal bilaterally. GASTROINTESTINAL: Abdomen soft, non-tender, nondistended. Hepatic and splenic margins not palpable. MUSCULOSKELETAL: Extremities without clubbing, cyanosis, or edema. No obvious deformities. NEUROLOGICAL: Awake and alert. No obvious cranial nerve deficits. Motor grossly within normal limits. Five out of 5 muscle strength in the arms and legs. Right metatarsal amputation. normal speech. PSYCHIATRIC: Appropriate mood and affect; insight and judgment normal. Results - Labs CBC & Chem 7: 01/02/18 13:34 01/02/18 13:34 Labs: Laboratory Results - last 24 hr 01/02/18 01/02/18 01/02/18 13:34 13:34 13:34 WBC 4.8 RBC 4.24 L Hgb 13.7 Hct 39.7 MCV 93.5 MCH 32.2 MCHC 34.4 RDW 13.4 Plt Count 168 MPV 8.2 Neut % (Auto) 62.5 Lymph % (Auto) 27.8 [place] % (Auto) 8.6 H Eos % (Auto) 0.6 Baso % (Auto) 0.5 Neut # (Auto) 3.0 Lymph # (Auto) 1.3 [place] # (Auto) 0.4 Eos # (Auto) 0.0 Baso # (Auto) 0.0 WBC Differential . Differential Comment Auto diff final PT 10.7 INR 1.1 APTT 22.2 L D-Dimer Quant (PE/DVT) 0.21 Sodium 133 L Potassium 4.6 Chloride 96 L Carbon Dioxide 25.1 Anion Gap 12 BUN 20 H Creatinine 1.44 H Estimated GFR 51 L Random Glucose 396 H Calcium 9.2 Magnesium 1.9 Total Bilirubin 0.5 AST 18 ALT 25 Alkaline Phosphatase 91 Total Creatine Kinase 172 CK-MB (CK-2) 5.4 H Troponin I Less than 0.02 L B-Natriuretic Peptide Total Protein 7.6 Albumin 3.8 Lipase 59 L Beta-Hydroxybutyric Acd 0.29 Serum Alcohol Less than 3 01/02/18 01/02/18 13:34 13:34 WBC RBC Hgb Hct MCV MCH MCHC RDW Plt Count MPV Neut % (Auto) Lymph % (Auto) [place] % (Auto) Eos % (Auto) Baso % (Auto) Neut # (Auto) Lymph # (Auto) [place] # (Auto) Eos # (Auto) Baso # (Auto) WBC Differential Differential Comment PT INR APTT D-Dimer Quant (PE/DVT) Sodium Potassium Chloride Carbon Dioxide Anion Gap BUN Creatinine Estimated GFR Random Glucose Calcium Magnesium Cancelled Total Bilirubin AST ALT Alkaline Phosphatase Total Creatine Kinase CK-MB (CK-2) Troponin I B-Natriuretic Peptide 20 Total Protein Albumin Lipase Beta-Hydroxybutyric Acd Serum Alcohol - Imaging Impressions Chest X-Ray 01/02/18 13:23 CONCLUSION: No acute cardiopulmonary abnormality is identified. Caprini VTE Risk Assessment Caprini VTE Risk Assessment: No/Low Risk (score <= 1) Caprini Risk Assessment Model: Point Value = 1 Point Value = 2 Point Value = 3 Point Value = 5 Age 41-60 Minor surgery BMI > 25 kg/m2 Swollen legs Varicose veins or History of unexplained or recurrent spontaneous Oral contraceptives or hormone replacement Sepsis (< 1 month) Serious lung disease, including pneumonia (< 1 month) Abnormal pulmonary function Acute myocardial infarction Congestive heart failure (< 1 month) History of inflammatory bowel disease Medical patient at bed rest Age 61-74 Arthroscopic surgery Major open surgery (> 45 min) Laparoscopic surgery (> 45 min) Malignancy Confined to bed (> 72 hours) Immobilizing plaster cast Central venous access Age >= 75 History of VTE Family history of VTE Factor V Leiden Prothrombin [id number] Lupus anticoagulant Anticardiolipin antibodies Elevated serum homocysteine Heparin-induced thrombocytopenia Other congenital or acquired thrombophilia Stroke (< 1 month) Elective arthroplasty Hip, pelvis, or leg fracture Acute spinal cord injury (< 1 month) Prophylaxis Regimen: Total Risk Factor Score Risk Level Prophylaxis Regimen 0-1 Low Early ambulation 2 Moderate Order ONE of the following: *Sequential Compression Device (SCD) *Heparin 5000 units SQ BID 3-4 Higher Order ONE of the following medications: *Heparin 5000 units SQ TID *Enoxaparin/Lovenox 40 mg SQ daily (WT < 150 kg, CrCl > 30 mL/min) *Enoxaparin/Lovenox 30 mg SQ daily (WT < 150 kg, CrCl > 10-29 mL/min) *Enoxaparin/Lovenox 30 mg SQ BID (WT < 150 kg, CrCl > 30 mL/min) AND/OR *Sequential Compression Device (SCD) 5 or more Highest Order ONE of the following medications: *Heparin 5000 units SQ TID (Preferred with Epidurals) *Enoxaparin/Lovenox 40 mg SQ daily (WT < 150 kg, CrCl > 30 mL/min) *Enoxaparin/Lovenox 30 mg SQ daily (WT < 150 kg, CrCl > 10-29 mL/min) *Enoxaparin/Lovenox 30 mg SQ BID (WT < 150 kg, CrCl > 30 mL/min) AND *Sequential Compression Device (SCD) Assessment and Plan - Assessment (1) Atypical chest pain Code(s): R07.89 - Other chest pain Status: Acute (2) Suicidal ideations Code(s): R45.851 - Suicidal ideations Status: Acute - Plan 52-year-old man with Atypical chest pain Although this appears to be less likely ACS, we will rule out per protocol with serial cardiac enzyme and EKGs Obtain recent 2D echo report Cardiology consultation as needed Will hold on nuclear stress test at this time pending cardiac enzyme and EKGs drain Suicidal ideation Psychiatry consultation pending Continue Bailey act Benign labile hypertension Resume outpatient medications Compliance was stressed out to patient Diabetes type 2 Labile blood glucose Resume basal insulin and start medium sliding scale with fingerstick blood glucose monitoring Diabetic neuropathy Resume Neurontin Due to complaint of fatigue, check B12 level History of CKD stage II Monitor BUN and creatinine History of CHF, hyperlipidemia, other chronic medical conditions Resume outpatient medications DVT prophylaxis: Heparin subcu every 12 hours
[2018-01-02] MEDS ORDERED: Insulin NovoLOG Aspart Correctional Sugar Inj SQ SCH (18:00)
[2018-01-02] MEDS: Insulin NovoLOG Aspart Correctional Sugar Inj SQ SCH ×2 (18:43→22:10)
[2018-01-02] MEDS: Heparin - SQ 10,000 UNITS/ML Vial SQ SCH (18:44)
[2018-01-02] MEDS ORDERED: Insulin Detemir Inj 1,000 UNIT/10 ML Vial SQ SCH (21:00)
[2018-01-02] MEDS ORDERED: Metoprolol Tartrate 100 MG Tablet PO SCH (21:00)
[2018-01-02] MEDS: Carvedilol 12.5 MG Tablet PO SCH (21:01)
[2018-01-02] MEDS: Gabapentin 300 MG Capsule PO SCH (21:01)
[2018-01-02 21:52] LABS: Creatine Kinase 148 U/L (39-308)
[2018-01-02] MEDS ORDERED: Sod Chloride 0.9% Inj 1,000 ML IV.SIG ONE (23:32)
[2018-01-03] MEDS ORDERED: Aspirin 325 MG Tablet PO ONE (02:15)
--- NOTE | 2018-01-03 02:24 | P.PNADD ---
Addendum to Inpatient Note Additional information: S: Arturo Called at 2:10 AM, and residents responded. The patient is a 52-year- old male with a history of diabetes, neuropathy, hypertension, CHF, A. fib, CAD who presented to the ED for ongoing substernal chest pain that occurred several times throughout the week with associated bilateral numbness of the fingers, shortness of breath, fatigue with no diaphoresis. Was Bailey acted due to suicidal ideation. Troponins 2 were negative. EKG was normal on admission. Arturo was called due to patient complaining of sharp substernal chest pain, rating it a 10 out of 10 in severity with radiation down his left arm. Patient stated that the pain was similar to heart attacks in the past. O: Vitals: Blood pressure: 118/77, SaO2: 99 on 2 L oxygen via nasal cannula, pulse : 73 General: Elderly male, laying in bed, responding to commands, engaging in conversation appropriately. Laying comfortably, not grimacing in pain. On 2 L oxygen via nasal cannula. CVS: Regular rate and rhythm, S1 and S2 appreciated, no murmurs rubs or gallops. 2+ radial pulses bilaterally. Respiratory: Anterior auscultation only due to patient being unable to sit up due to chest pain. Clear to auscultation bilaterally anteriorly. Abdomen: Soft, nondistended. Bowel sounds present in all 4 quadrants. Nontender to palpation. Extremities: Warm, well perfused. EKG: Normal sinus rhythm (per medical read). A/P: 52-year-old male with history of diabetes, hypertension, CHF, A. fib, CAD presented to the ED for ongoing substernal chest pain that occurred several times throughout the week, ACS workup has been negative since admission. Arturo called due to patient complaining of substernal chest pain, rating it a 10 out of 10, with radiation down the left arm. DDX: NSTEMI vs STEMI vs unstable angina. One-time troponin ordered. Repeat EKG. Aspirin 325 mg ordered. Nitroglycerin 0.4 mg ordered. Metoprolol already given. Continue to monitor for worsening chest pain, vital sign changes. Transferred to [facility] for better monitoring.
[2018-01-03 03:32] LABS: Bilirubin,Urine Negative (Negative); Clarity,Urine Clear (Clear); Color,Urine Yellow (Yellw/Straw); Glucose,Urine (UA) 500 or Greater mg/dL (Negative); Leukocyte Esterase,Urine Negative (Negative); Mucus,Urine Few /lpf (Occasional); Nitrite,Urine Negative (Negative); Specific Gravity,Urine 1.027 (1.002-1.035)
[2018-01-03] MEDS: Heparin - SQ 10,000 UNITS/ML Vial SQ SCH (06:24)
[2018-01-03 07:15] LABS: Baso % (Auto) 0.6 % (0.0-2.0); Eos # (Auto) 0.1 th/mm3 (0.0-0.4); Eos % (Auto) 2.4 % (0.0-4.0); Hematocrit 39.5 % (39.0-51.0); Hemoglobin 13.5 gm/dL (13.0-17.0); Lymph # (Auto) 2.2 th/mm3 (1.0-4.8); Lymph % (Auto) 46.8 % (9.0-44.0); Mean Corpuscular HGB Conc 34.1 % (32.0-36.0); Mean Corpuscular Hemoglobin 31.8 pg (27.0-34.0); Mean Corpuscular Volume 93.3 fL (80.0-100.0); Mean Platelet Volume 8.1 fL (7.0-11.0); Mono # (Auto) 0.4 th/mm3 (0.0-0.9); Mono % (Auto) 8.7 % (0.0-8.0); Neut % (Auto) 41.5 % (16.0-70.0); Platelet Count 155 th/mm3 (150-450); Red Blood Count 4.23 mil/mm3 (4.50-5.90); Red Cell Distribution Width 13.4 % (11.6-17.2); White Blood Count 4.7 th/mm3 (4.0-11.0)
[2018-01-03 07:36] LABS: Alanine Aminotransferase 26 U/L (12-78); Albumin 3.2 g/dL (3.4-5.0); Alkaline Phosphatase 76 U/L (45-117); Anion Gap 7 meq/L (5-15); Aspartate Aminotransferase 32 U/L (15-37); Blood Urea Nitrogen 18 mg/dL (7-18); Calcium 8.4 mg/dL (8.5-10.1); Carbon Dioxide 27.5 meq/L (21.0-32.0); Chloride 105 meq/L (98-107); Glomerular Filtration Rate 70 mL/min (>89); Glucose,Random 88 mg/dL (74-106); Sodium 139 meq/L (136-145)
[2018-01-03 08:01] VITALS: O2SAT 100
[2018-01-03] MEDS: Insulin NovoLOG Aspart Correctional Sugar Inj SQ SCH ×2 (08:20→12:42)
[2018-01-03] MEDS ORDERED: Morphine Inj 4 MG/ML Vial IV.PUSH PRN (08:41)
[2018-01-03] MEDS: Gabapentin 300 MG Capsule PO SCH (08:49)
[2018-01-03] MEDS: Carvedilol 12.5 MG Tablet PO SCH (08:49)
[2018-01-03] MEDS ORDERED: Divalproex 500 MG ER Tablet PO SCH (09:00)
[2018-01-03] MEDS ORDERED: traZODone 100 MG Tablet PO SCH (09:00)
--- NOTE | 2018-01-03 10:03 | P.PN ---
Subjective Interval history: Follow-up for chest pain, depression and suicidal ideations. The patient reports continued constant left anterior chest pain with radiation to the left shoulder and bilateral hand numbness, described as 8/10 sharp stabbing pain, associated with lightheadedness and nausea, denies any shortness of breath or diaphoresis. Patient states he does get some relief with IV morphine, pain now 6/10. He follows with a precision grinder external at the [facility] in [place]. He reports continued depression, anxiety, and suicidal ideations. He is agreeable to go to psychiatric unit as recommended by psychiatrist. He has no other medical complaints at this time. Physical Exam Vital signs: Vital Signs 01/02/18 13:24 01/02/18 14:45 01/02/18 15:00 Temperature 98.8 F Pulse Rate 116 H 114 H 96 H Respiratory Rate 17 Blood Pressure 152/97 H 143/87 H 150/97 H Pulse Oximetry 100 01/02/18 15:32 01/02/18 20:00 01/02/18 20:59 Temperature Pulse Rate 98 H 98 H Respiratory Rate 15 Blood Pressure 144/96 H 137/80 Pulse Oximetry 98 95 95 01/02/18 23:21 01/03/18 00:51 01/03/18 00:56 Temperature Pulse Rate 79 72 Respiratory Rate 22 16 16 Blood Pressure 60/42 L 86/57 L Pulse Oximetry 95 98 01/03/18 01:21 01/03/18 01:36 01/03/18 01:41 Temperature Pulse Rate 71 73 73 Respiratory Rate 22 Blood Pressure 67/52 L 92/64 L Pulse Oximetry 99 01/03/18 03:06 01/03/18 03:54 01/03/18 04:35 Temperature Pulse Rate 71 72 Respiratory Rate 22 16 Blood Pressure 98/65 L Pulse Oximetry 98 01/03/18 05:42 01/03/18 08:01 01/03/18 08:25 Temperature Pulse Rate 68 82 Respiratory Rate 22 Blood Pressure 95/66 L Pulse Oximetry 97 100 01/03/18 08:33 01/03/18 09:21 Temperature 97.5 F L Pulse Rate 83 86 Respiratory Rate Blood Pressure 155/104 H Pulse Oximetry 100 Intake & Output 01/02/18 01/03/18 01/03/18 18:59 06:59 18:59 Intake Total 120 / 120 1300 / 1300 Balance 120 / 120 1300 / 1300 Weight 81.647 kg 81.647 kg Intake: IV 1000 / 1000 NS Inj 1,000 ML @ Wide Open IV. 1000 / 1000 SIG BOLUS ONE Rx#:[id number] Oral 120 / 120 300 / 300 Other: # Voids 1 Date of Last Bowel Movement 12/31/17 12/31/17 Weight On Admission 81.647 kg Narrative: GENERAL: Well-nourished, well-developed middle-age male patient in [place]. SKIN: Warm and dry. No rash. HEENT: Normocephalic. Atraumatic. Pupils equal and round. Mucous membranes pink and moist. CARDIOVASCULAR: Regular rate and rhythm. No murmur appreciated. RESPIRATORY: No accessory muscle use. Clear to auscultation. Breath sounds equal bilaterally. GASTROINTESTINAL: Abdomen soft, non-tender, nondistended. Normoactive bowel sounds x4. MUSCULOSKELETAL: No obvious deformities. Extremities without clubbing, cyanosis , or edema. NEUROLOGICAL: Awake and alert. No obvious cranial nerve deficits. Motor grossly within normal limits. Moving all extremities spontaneously. Normal speech. PSYCHIATRIC: Anxious and depressed mood; insight and judgment normal. Results - Labs CBC & Chem 7: 01/03/18 06:35 01/03/18 06:35 Laboratory Results - last 24 hr 01/02/18 01/02/18 01/02/18 13:34 13:34 13:34 WBC 4.8 RBC 4.24 L Hgb 13.7 Hct 39.7 MCV 93.5 MCH 32.2 MCHC 34.4 RDW 13.4 Plt Count 168 MPV 8.2 Neut % (Auto) 62.5 Lymph % (Auto) 27.8 [place] % (Auto) 8.6 H Eos % (Auto) 0.6 Baso % (Auto) 0.5 Neut # (Auto) 3.0 Lymph # (Auto) 1.3 [place] # (Auto) 0.4 Eos # (Auto) 0.0 Baso # (Auto) 0.0 WBC Differential . Differential Comment Auto diff final PT 10.7 INR 1.1 APTT 22.2 L D-Dimer Quant (PE/DVT) 0.21 Sodium 133 L Potassium 4.6 Chloride 96 L Carbon Dioxide 25.1 Anion Gap 12 BUN 20 H Creatinine 1.44 H Estimated GFR 51 L POC Glucose Random Glucose 396 H Calcium 9.2 Magnesium 1.9 Total Bilirubin 0.5 AST 18 ALT 25 Alkaline Phosphatase 91 Total Creatine Kinase 172 CK-MB (CK-2) 5.4 H Troponin I Less than 0.02 L B-Natriuretic Peptide Total Protein 7.6 Albumin 3.8 Lipase 59 L Beta-Hydroxybutyric Acd 0.29 Urine Color Urine Clarity Urine pH Ur Specific [place] Urine Protein Urine Glucose (UA) Urine Ketones Urine Occult Blood Urine Nitrate Urine Bilirubin Urine Urobilinogen Ur Leukocyte Esterase Urine RBC Urine WBC Urine Mucus Micro UA Comment Urine Culture Comments Serum Alcohol Less than 3 01/02/18 01/02/18 01/02/18 13:34 13:34 18:40 WBC RBC Hgb Hct MCV MCH MCHC RDW Plt Count MPV Neut % (Auto) Lymph % (Auto) [place] % (Auto) Eos % (Auto) Baso % (Auto) Neut # (Auto) Lymph # (Auto) [place] # (Auto) Eos # (Auto) Baso # (Auto) WBC Differential Differential Comment PT INR APTT D-Dimer Quant (PE/DVT) Sodium Potassium Chloride Carbon Dioxide Anion Gap BUN Creatinine Estimated GFR POC Glucose 231 H Random Glucose Calcium Magnesium Cancelled Total Bilirubin AST ALT Alkaline Phosphatase Total Creatine Kinase CK-MB (CK-2) Troponin I B-Natriuretic Peptide 20 Total Protein Albumin Lipase Beta-Hydroxybutyric Acd Urine Color Urine Clarity Urine pH Ur Specific [place] Urine Protein Urine Glucose (UA) Urine Ketones Urine Occult Blood Urine Nitrate Urine Bilirubin Urine Urobilinogen Ur Leukocyte Esterase Urine RBC Urine WBC Urine Mucus Micro UA Comment Urine Culture Comments Serum Alcohol 01/02/18 01/02/18 01/02/18 19:55 20:56 22:45 WBC RBC Hgb Hct MCV MCH MCHC RDW Plt Count MPV Neut % (Auto) Lymph % (Auto) [place] % (Auto) Eos % (Auto) Baso % (Auto) Neut # (Auto) Lymph # (Auto) [place] # (Auto) Eos # (Auto) Baso # (Auto) WBC Differential Differential Comment PT INR APTT D-Dimer Quant (PE/DVT) Sodium Potassium Chloride Carbon Dioxide Anion Gap BUN Creatinine Estimated GFR POC Glucose 250 H Random Glucose Calcium Magnesium Total Bilirubin AST ALT Alkaline Phosphatase Total Creatine Kinase 148 CK-MB (CK-2) Troponin I Less than 0.02 L B-Natriuretic Peptide Total Protein Albumin Lipase Beta-Hydroxybutyric Acd Urine Color Yellow Urine Clarity Clear Urine pH 5.0 Ur Specific [place] 1.027 Urine Protein Negative Urine Glucose (UA) 500 or greater Urine Ketones Trace Urine Occult Blood Negative Urine Nitrate Negative Urine Bilirubin Negative Urine Urobilinogen Less than 2 Ur Leukocyte Esterase Negative Urine RBC Less than 1 Urine WBC 1 Urine Mucus Few H Micro UA Comment Culture not ind Urine Culture Comments Culture not ind Serum Alcohol 01/03/18 01/03/18 01/03/18 02:27 02:46 03:00 WBC RBC Hgb Hct MCV MCH MCHC RDW Plt Count MPV Neut % (Auto) Lymph % (Auto) [place] % (Auto) Eos % (Auto) Baso % (Auto) Neut # (Auto) Lymph # (Auto) [place] # (Auto) Eos # (Auto) Baso # (Auto) WBC Differential Differential Comment PT INR APTT D-Dimer Quant (PE/DVT) Sodium Potassium Chloride Carbon Dioxide Anion Gap BUN Creatinine Estimated GFR POC Glucose 52 L 100 Random Glucose Calcium Magnesium Total Bilirubin AST ALT Alkaline Phosphatase Total Creatine Kinase CK-MB (CK-2) Troponin I Less than 0.02 L B-Natriuretic Peptide Total Protein Albumin Lipase Beta-Hydroxybutyric Acd Urine Color Urine Clarity Urine pH Ur Specific [place] Urine Protein Urine Glucose (UA) Urine Ketones Urine Occult Blood Urine Nitrate Urine Bilirubin Urine Urobilinogen Ur Leukocyte Esterase Urine RBC Urine WBC Urine Mucus Micro UA Comment Urine Culture Comments Serum Alcohol 01/03/18 01/03/18 01/03/18 06:35 06:35 07:48 WBC 4.7 RBC 4.23 L Hgb 13.5 Hct 39.5 MCV 93.3 MCH 31.8 MCHC 34.1 RDW 13.4 Plt Count 155 MPV 8.1 Neut % (Auto) 41.5 Lymph % (Auto) 46.8 H [place] % (Auto) 8.7 H Eos % (Auto) 2.4 Baso % (Auto) 0.6 Neut # (Auto) 2.0 Lymph # (Auto) 2.2 [place] # (Auto) 0.4 Eos # (Auto) 0.1 Baso # (Auto) 0.0 WBC Differential . Differential Comment Auto diff final PT INR APTT D-Dimer Quant (PE/DVT) Sodium 139 Potassium 4.0 Chloride 105 D Carbon Dioxide 27.5 Anion Gap 7 BUN 18 Creatinine 1.10 Estimated GFR 70 L POC Glucose 112 H Random Glucose 88 D Calcium 8.4 L D Magnesium Total Bilirubin 0.5 AST 32 ALT 26 Alkaline Phosphatase 76 Total Creatine Kinase CK-MB (CK-2) Troponin I B-Natriuretic Peptide Total Protein 7.0 D Albumin 3.2 L D Lipase Beta-Hydroxybutyric Acd Urine Color Urine Clarity Urine pH Ur Specific [place] Urine Protein Urine Glucose (UA) Urine Ketones Urine Occult Blood Urine Nitrate Urine Bilirubin Urine Urobilinogen Ur Leukocyte Esterase Urine RBC Urine WBC Urine Mucus Micro UA Comment Urine Culture Comments Serum Alcohol - Imaging Impressions Chest X-Ray 01/02/18 13:23 CONCLUSION: No acute cardiopulmonary abnormality is identified. Assessment and Plan - Assessment (1) Atypical chest pain Code(s): R07.89 - Other chest pain Status: Acute (2) Suicidal ideations Code(s): R45.851 - Suicidal ideations Status: Acute - Plan 52-year-old male with history of diabetes mellitus, neuropathy, hypertension, CHF, atrial fibrillation, coronary artery disease s/p CABG [id number], who was sent [place] [facility] for evaluation of ongoing chest pains for several weeks. Chest pain: with typical and atypical features. Patient describes pain consistent with prior GA. Hx of CABG x2 vessels in 2013. EMR reviewed, Cardiac catheterization 08/04/16 showed severe [place] 2 vessel CAD; 2/2 coronary bypass graft patent; medical management recommended. Echocardiogram 08/03/16 showed mildly reduced systolic function with EF 4045%. -ACS ruled out with negative serial cardiac enzymes 3, and EKG without acute ischemic changes -Consult cardiology, discussed with Dr. Smith, recommended nuclear stress test -Keep n.p.o. for now -BP dropped to 60/42 in the ER, avoid nitro -Continue IV morphine prn, O2 as needed -Continue patient's coreg and statin Suicidal ideation: acute -Psychiatry consulted, recommends admission to med/psych -Continue Bailey act and sitter Benign labile hypertension: patient with episode of hypotension into 60/40s in the ED, now improved to 110s/70s -Resume home medications including coreg and losartan -Compliance was stressed to the patient -Monitor BP, adjust antihypertensives as needed Diabetes type 2: Chronic. Labile blood glucose -Resume basal insulin -Monitor Accu-cheks and cover with medium SSI Diabetic neuropathy: chronic -Resume Neurontin History of CKD stage II: appears at baseline -Avoid nephrotoxins -Monitor BUN and creatinine History of CHF, hyperlipidemia, other chronic medical conditions stable, continue home medications as appropriate. DVT prophylaxis: Heparin subcu every 12 hours Discharge Planning: Discharge to med/psych today if nuclear stress test unremarkable. 1530hrs: Nuclear stress test unremarkable. The patient is medically stable for discharge to med/psych unit as recommended by Dr. Saunders. Discharge patient to inpatient med-psych unit Condition on discharge: Stable Cardiac Diet as tolerated Ad Dee activity Rx written: no new meds Follow-up with primary care physician and cardiology
[2018-01-03 12:29] VITALS: BP 111/78; PULSE 83; RESP 16; TEMP 97.6
[2018-01-03] MEDS ORDERED: Regadenoson Inj 0.4 MG/5 ML Syringe IV.PUSH ONE (13:52)
--- NOTE | 2018-01-03 14:24 | P.CONPSY ---
Provisional Diagnosis Admission Date: January 02, 2018 15:14 Marblem[place] I.: Major depressive disorder, recurrent, severe, without psychosis, PTSD Marblemount II.: Deferred Marblemount III.: Diabetes, hypertension, CHF, COPD History of Present Illness Service: Medicine Primary Care Provider: [facility] Family Provider: [facility] Chief Complaint: Atypical chest pain History of Present Illness: The patient is a 52-year-old man, domiciled alone in [facility], , unemployed, , 100% service-connected, with psychiatric history of PTSD , depressive disorder, alcohol use disorder, over 10 hospitalizations, last hospitalization was here in [place] in 2017 under the care of Dr. Harkins, documentation reviewed, outpatient care with the [facility], he is on Depakote 500 mg twice daily, Effexor 37.5 mg, trazodone 100 mg, Seroquel 200 mg at bedtime, multiple suicidal attempts, para suicidal behavior, with medical history of diabetes mellitus, neuropathy, hypertension, CHF, atrial fibrillation, coronary artery disease, [facility] ongoing substernal type chest pain times several week duration described as stabbing in intensity over 8 and associated with bilateral numbness to the fingers, shortness of breath and fatigue without any diaphoresis. Patient states about 10 days ago he had a 2D echo with a known EF of 35%, and since then he has had worsening chest pain. States he is having difficulty ambulating. Patient is quite anxious, and states over the past weekend on Tuesday12/31/17 he was so frustrated with his life that he started cutting his left wrist. Initial cardiac enzyme and EKG were unremarkable. Patient was consulted to psychiatry to address suicidal behavior. Chart was reviewed. Case discussed with primary medical team. On my psychiatric evaluation I find a patient that is quite emotional, labile, stating that he has been under a lot of stress lately and he has been seriously thinking about committing suicide. The patient reports that [facility] of his 100% connection service which means more than $ 1500 per month from his paymodena. 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 In the last weeks he has self-inflicted lacerations in multiple locations to relieve stress, "but I have really been thinking in get it further and over". During the evaluation the patient is tearful, he seems to be quite vulnerable and fragile, he has vague suicidal ideation, no plan at the moment, willing to accept help and be admitted. The patient does not present any loosening of associations, no paranoia, no ideas of reference, no delusions, no dl, the patient is fully oriented 3, with no filtration of consciousness, no attention deficit, no gross cognitive impairment present. PPHX: He si 100% service-connected, with psychiatric history of PTSD, depressive disorder, alcohol use disorder, over 10 hospitalizations, last hospitalization was here in [place] in 2017 under the care of Dr. Harkins, documentation reviewed, outpatient care with the [facility], he is on Depakote 500 mg twice daily, Effexor 37.5 mg, trazodone 100 mg, Seroquel 200 mg at bedtime, multiple suicidal attempts, para suicidal behavior PMHx: medical history of diabetes mellitus, neuropathy, hypertension, CHF, atrial fibrillation, coronary artery disease, Family Hx: Mother and father were both alcoholic Substance Hx: Patient drinks alcohol every day, he drinks between 6-12 beers per day. He denies use of illegal drugs. Social Hx: The patient was born and raised in [place], domiciled alone in [facility], , unemployed, , 100% service-connected, he has 2 kids, a boy of 14 years old, care of 20 years old, but they are not connected. Review of Systems Constitutional: Denies anorexia, Denies body ache(s), Denies chills, Denies daytime sleepiness, Denies excessive sweating, Denies fever(s), Denies headache( s), Denies increased appetite, Denies lack of energy, Denies malaise, Denies night sweats, Denies weakness, Denies weight gain, Denies weight loss, Denies other Eyes: Denies blind spots, Denies blurry vision, Denies bulging eyes, Denies change in vision, Denies double vision, Denies discharge, Denies dry eyes, Denies floaters, Denies irritation, Denies itchy eyes, Denies loss of vision, Denies pain, Denies requires corrective lenses, Denies sensitivity to light, Denies other Ears, Nose, Mouth, and Throat: Denies abnormal hearing, Denies bleeding gums, Denies bad breath, Denies change in voice, Denies dental pain, Denies difficulty swallowing, Denies dizziness, Denies dry mouth, Denies ear discharge , Denies ear pain, Denies facial pain, Denies headache(s), Denies hearing loss, Denies hoarseness, Denies lip swelling, Denies nosebleed, Denies mouth lesions, Denies mouth pain, Denies nasal congestion, Denies nasal discharge, Denies nasal obstruction, Denies nasal trauma, Denies neck lump, Denies neck pain, Denies nose pain, Denies pain with swallowing, Denies poor balance, Denies post nasal drip, Denies ringing in the ears, Denies sinus pain, Denies sinus pressure , Denies sore throat, Denies throat swelling, Denies tongue swelling, Denies other Cardiovascular: Denies chest pain, Denies chest pain at rest, Denies chest pain with activity, Denies excessive sweating, Denies fainting, Denies fast heart rate, Denies foot swelling, Denies generalized swelling, Denies irregular heart rhythm, Denies leg pain with activity, Denies leg sores, Denies leg swelling, Denies lightheadedness, Denies radiating jaw, neck or arm pain, Denies rapid, pounding, or irregular heartbeat, Denies shortness of breath, Denies shortness of breath with activity, Denies shortness of breath when lying down, Denies shortness of breath causing sudden awakening, Denies slow heart rate, Denies other Respiratory: Denies change in phlegm color, Denies chest congestion, Denies cough, Denies coughing up blood, Denies excessive phlegm production, Denies pain on inspiration, Denies pain with cough, Denies shortness of breath, Denies shortness of breath with activity, Denies snoring, Denies stridor, Denies wheezing, Denies other Gastrointestinal: Denies abdominal pain, Denies belching, Denies black, tarry stools, Denies bloating, Denies bright, red blood in stools, Denies change in bowel habits, Denies constant urge to pass stool, Denies change in stools, Denies coffee ground vomit, Denies constipation, Denies cramping, Denies difficulty swallowing, Denies excessive passing of gas, Denies feeling full early, Denies heartburn, Denies incontinent of stools, Denies loose stools, Denies nausea, Denies pain with swallowing, Denies vomiting, Denies vomiting blood, Denies other Genitourinary: Denies blood in semen, Denies blood in urine, Denies decreased urination, Denies difficulty urinating, Denies difficulty with ejaculations, Denies erectile dysfunction, Denies genital lesions, Denies genital pain, Denies painful urination, Denies side pain, Denies frequent nighttime urination , Denies painful ejaculations, Denies penile discharge, Denies scrotal swelling , Denies testicle lump, Denies testicle pain, Denies urinary frequency, Denies urinary hesitancy, Denies urinary incontinence, Denies urinary urgency, Denies other Musculoskeletal: Denies abnormal walking, Denies back pain, Denies body aches, Denies decreased muscle mass, Denies deformity, Denies joint pain, Denies joint swelling, Denies limited joint movement, Denies loss of height, Denies muscle cramps, Denies muscle weakness, Denies neck pain, Denies numbness, Denies radiating pain into limb, Denies stiffness, Denies tingling, Denies other Neurologic: Denies abnormal hearing, Denies abnormal movements, Denies abnormal speech, Denies abnormal walking, Denies behavioral changes, Denies burning sensations, Denies confusion, Denies dizziness, Denies fainting, Denies frequent falls, Denies headache(s), Denies lack of coordination, Denies localized weakness, Denies loss of vision, Denies memory loss, Denies numbness, Denies other visual disturbances, Denies radiating pain, Denies restless legs, Denies convulsions, Denies seizure-like activity, Denies sensory deficit, Denies tingling, Denies tingling/numbness/burning sensations, Denies tremor(s), Denies unsteadiness, Denies weakness, Denies other Psychiatric: Reports depression, Reports irritability, Reports lack of enjoyment , Reports mood swings, Reports thoughts of hurting/killing yourself PMFSH - History History Provided By: Patient, Medical Record - Medical History Medical History: Medical History (Last Reviewed 01/02/18 @ 13:33 by ALEXIS Lazo) COPD (chronic obstructive pulmonary disease) Depression Diabetes HTN (hypertension) PTSD (post-traumatic stress disorder) Alcohol abuse BPH (benign prostatic hyperplasia) CAD (coronary artery disease) CHF (congestive heart failure) GERD (gastroesophageal reflux disease) Hyperlipidemia IBS (irritable bowel syndrome) Osteoarthritis - Surgical History Surgical History: Surgical History (Last Reviewed 01/02/18 @ 13:33 by ALEXIS Lazo) Hx of CABG - Family History Family History: Family History (Last Updated 01/02/18 @ 16:05 by Elfego Garcia MD) Other Family history of heart cancer Family history of heart disease - Tobacco History Second Hand Smoke Exposure: No Smoking Status: Former smoker - Alcohol History How Often Do You Have a Drink Containing Alcohol: 2 to 4 times a month - Substance Use History Substance History: No History of Abuse - Travel History Recent Travel in the [place] Within the Last 8 Weeks: No Recent Travel Out of the Country Within the Last 8 Weeks: No - Immunization History Tetanus Immunization: <5 Years Hx Influenza Vaccine This Season: Yes Medications and Allergies Active Medications: Active Medications Acetaminophen (Tylenol) 650 mg PO Q4H PRN PRN Reason: Temp > 100.4 Last Admin: 01/02/18 23:18 Dose: 650 mg Al Hydroxide/Mg Hydroxide (Milk Of Magnesia Liq) 30 ml PO Q12H PRN PRN Reason: Mild Constipation Atorvastatin Calcium (Lipitor) 80 mg PO DAILY [facility] Last Admin: 01/03/18 08:49 Dose: 80 mg Carvedilol (Coreg) 25 mg PO BID [facility] Last Admin: 01/03/18 08:49 Dose: 25 mg Dextrose (D50w Vial) 50 ml IV.PUSH UNSCH PRN PRN Reason: PER HYPOGLYCEMIA PROTOCOL Divalproex Sodium (Depakote Er) 500 mg PO DAILY [facility] Last Admin: 01/03/18 08:48 Dose: 500 mg Ethacrynic Acid (Edecrin) 25 mg PO DAILY [facility] Last Admin: 01/03/18 08:49 Dose: 25 mg Gabapentin (Neurontin) 300 mg PO BID [facility] Last Admin: 01/03/18 08:49 Dose: 300 mg Glucagon (Glucagon Inj) 1 mg OTHER PRN PRN PRN Reason: for Hypoglycemia Protocol Heparin Sodium (Porcine) (Heparin Inj) 5,000 units SQ Q12H [facility] Last Admin: 01/03/18 06:24 Dose: 5,000 units Hydralazine HCl (Apresoline) 25 mg PO TID PRN PRN Reason: SBP>160, DBP>90 Insulin Aspart (Novolog Insulin Correctional Sugar Inj) 0 unit SQ [facility]; Protocol Last Admin: 01/03/18 12:42 Dose: Not Given Insulin Detemir (Levemir Inj) 30 unit SQ HS [facility] Last Admin: 01/02/18 21:01 Dose: 30 unit Losartan Potassium (Cozaar) 100 mg PO DAILY [facility] Last Admin: 01/03/18 08:49 Dose: 100 mg Morphine Sulfate (Morphine Inj) 2 mg IV.PUSH Q3H PRN PRN Reason: CHEST PAIN Last Admin: 01/03/18 08:49 Dose: 2 mg Ondansetron HCl (Zofran Inj) 4 mg IV.PUSH Q6H PRN PRN Reason: NAUSEA OR VOMITING Quetiapine Fumarate (Seroquel) 200 mg PO [facility] Last Admin: 01/02/18 21:01 Dose: 200 mg Sodium Chloride (Ns Flush) 2 ml IV.FLUSH UNSCH PRN PRN Reason: FLUSH AFTER USING IV ACCESS Trazodone HCl (Desyrel) 100 mg PO DAILY [facility] Last Admin: 01/03/18 08:49 Dose: 100 mg Allergies Allergy/AdvReac Type Severity Reaction Status Date / Time Sulfa (Sulfonamide Allergy Mild Rash Verified 01/02/18 13:27 Antibiotics) Home Medications Medication Instructions Recorded Confirmed Type atorvastatin 80 mg PO DAILY 01/02/18 01/02/18 History carvedilol 25 mg PO BID 01/02/18 01/02/18 History divalproex 500 mg PO DAILY 01/02/18 01/02/18 History ethacrynic acid 25 mg PO DAILY 01/02/18 01/02/18 History gabapentin 300 mg PO BID 01/02/18 01/02/18 History insulin aspart U-100 8 unit SUB-Q QPM 01/02/18 01/02/18 History insulin glargine 30 unit SUB-Q DAILY 01/02/18 01/02/18 History losartan 100 mg PO DAILY 01/02/18 01/02/18 History metoprolol tartrate 100 mg PO HS 01/02/18 01/02/18 History quetiapine 200 mg PO HS 01/02/18 01/02/18 History trazodone 100 mg PO DAILY 01/02/18 01/02/18 History Exam Vital signs: Vital Signs 01/02/18 14:45 01/02/18 15:00 01/02/18 15:32 Temperature Pulse Rate 114 H 96 H 98 H Respiratory Rate Blood Pressure 143/87 H 150/97 H 144/96 H Pulse Oximetry 98 01/02/18 20:00 01/02/18 20:59 01/02/18 23:21 Temperature Pulse Rate 98 H 79 Respiratory Rate 15 22 Blood Pressure 137/80 60/42 L Pulse Oximetry 95 95 95 01/03/18 00:51 01/03/18 00:56 01/03/18 01:21 Temperature Pulse Rate 72 71 Respiratory Rate 16 16 Blood Pressure 86/57 L Pulse Oximetry 98 01/03/18 01:36 01/03/18 01:41 01/03/18 03:06 Temperature Pulse Rate 73 73 71 Respiratory Rate 22 Blood Pressure 67/52 L 92/64 L Pulse Oximetry 99 01/03/18 03:54 01/03/18 04:35 01/03/18 05:42 Temperature Pulse Rate 72 68 Respiratory Rate 22 16 22 Blood Pressure 98/65 L 95/66 L Pulse Oximetry 98 97 01/03/18 08:01 01/03/18 08:25 01/03/18 08:33 Temperature 97.5 F L Pulse Rate 82 83 Respiratory Rate Blood Pressure 155/104 H Pulse Oximetry 100 100 01/03/18 09:21 01/03/18 12:27 Temperature 97.6 F Pulse Rate 86 83 Respiratory Rate 16 Blood Pressure 111/78 Pulse Oximetry 100 Intake & Output 01/02/18 01/03/18 01/03/18 18:59 06:59 18:59 Intake Total 120 / 120 1300 / 1300 Balance 120 / 120 1300 / 1300 Weight 81.647 kg 81.647 kg Intake: IV 1000 / 1000 NS Inj 1,000 ML @ Wide Open IV. 1000 / 1000 SIG BOLUS ONE Rx#:[id number] Oral 120 / 120 300 / 300 Other: # Voids 1 Date of Last Bowel Movement 12/31/17 12/31/17 Weight On Admission 81.647 kg Narrative: No tremors, no EPS, no stiffness, no psychomotor retardation or agitation at the moment, no withdrawal symptoms - Constitutional no acute distress - Routine HEENT Exam Head: Present: normocephalic Eye: Present: EOMI, PERRL ENT: Present: mucous membranes moist Mental Status Examination Appearance: Appropriate Consciousness: Alert Orientation: x4 Motor Activity: Normal gait Speech: Unremarkable Language: Adequate Fund of Knowledge: Adequate Attention and Concentration: Adequate Memory: Unremarkable Mood: Sad Affect: Sad Thought Process & Associations: Intact Thought Content: Appropriate Hallucination Type: None Delusion Type: None Suicidal Ideation: Yes Suicidal Plan: No Suicidal Intention: No Homicidal Ideation: No Homicidal Plan: No Homicidal Intention: No Insight: Poor Judgment: Poor Assessment and Plan - Plan Plan: Estimated LOS: [] days On psychiatric evaluation today the patient presents quite fragile, vulnerable, tearful, reporting symptoms of depression consistent on anhedonia, hopelessness , helplessness, poor sleep, poor level of energy, generally pessimism, lack of enjoyment, persistent suicidal thoughts to the point that the patient has being in both in 2 episodes of self cutting behavior lately in order "to release stress "order and has been having suicidal thoughts with a plan of cutting or overdosing. The patient reports that he has been depressed in the context of medical deterioration, lack of social and family support, economical problems, and also persistent alcohol use. The patient has an elevated risk of danger to self, he will be admitted in psychiatry for stabilization and safety. I will restart his Effexor 37.5 mg, Seroquel 200 mg, Depakote 500 mg twice daily, trazodone 100 mg. Patient also needs to be in a CIWA. 1:1 in medical floor. Will order Depakote levels. Patient can be admitted in the [facility] unit. Breath supportive psychotherapy provided. Dx: Major depressive disorder, recurrent, severe, without psychosis, chronic PTSD Justification for Continued Inpatient Stay: Patient is to be admitted in psychiatry.
--- NOTE | 2018-01-03 15:00 | NM ---
EXAM DATE: 01/03/2018 2:47 PM EDT AGE/SEX: 52 years / Male INDICATIONS:Angina. . Chest pain. CLINICAL DATA: This is the patient's initial encounter. Patient reports that signs and symptoms have been present for 1 day and indicates a pain score of 0/10. MEDICAL/SURGICAL HISTORY: Chronic obstructive pulmonary disease. Congestive heart failure. Di abetes mellitus type II. HTN.BPH. CABG. COMPARISON: No prior exams available for comparison. DOSE: 8.2 mCi Tc 99m Myoview at rest 26.4 mCi [id number] at stress 0.4 mg Lexiscan STRESS SYMPTOMS: None. EJECTION FRACTION: 70 % TECHNIQUE: The patient underwent pharmacologic stress with infusion of prescribed dose. Continuous ECG tracing was monitored during stress. Gated SPECT imaging was performed after stress and conventi onal SPECT imaging was performed at rest. The examination was performed on a SPECT/CT scanner, both attenuation and non-corrected datasets were reviewed. FINDINGS: Distribution: The maximum perfused segment at stress is in the inferoseptal wall. Perfusion Study: The pattern of perfusion at stress is within normal limits. Gated Study: There are intact wall motion and wall thickening without hypokinetic or dyskinetic segm ents. The ejection fraction is calculated at 70%. RISK CATEGORY: Low (<1% Annual Motality Rate) CONCLUSION: 1. Negative examination. Electronically signed by: Estrella Fleming MD 01/03/2018 2:59 PM EDT
--- NOTE | 2018-01-03 19:23 | ECG ---
Date Performed: 01/02/2018 Time Performed: 13:24:09 PTAGE: 52 years EKG: SINUS TACHYCARDIA POSSIBLE LEFT ATRIAL ENLARGEMENT ST DEVIATION AND MODERATE T-WAVE ABNORMA LITY, CONSIDER ANTEROLATERAL ISCHEMIA ABNORMAL ECG INTERPRETATION BASED ON A DEFAULT AGE OF 40 YEARS PREVIOUS TRACING : 06/19/2017 03.28 Since the previous tracing, no significant change not ed except for slight increase in heart rate DOCTOR: Harrison Franks Interpretating Date/Time 01/03/2018 19:22:01
--- NOTE | 2018-01-04 21:45 | ECG ---
Date Performed: 01/03/2018 Time Performed: 02:03:00 PTAGE: 52 years EKG: Sinus rhythm NONSPECIFIC T-WAVE ABNORMALITY BORDERLINE ECG INTERPRETATION BASED ON A DEFAULT AGE OF 40 YEARS Sinc e the PREVIOUS TRACING , no significant change noted DOCTOR: Clive Smith Interpretating Date/Time 01/04/2018 21:44:57
--- NOTE | 2018-01-04 21:46 | ECG ---
Date Performed: 01/02/2018 Time Performed: 23:38:42 PTAGE: 52 years EKG: Sinus rhythm MODERATE T-WAVE ABNORMALITY, CONSIDER ANTERIOR ISCHEMIA ABNORMAL ECG PREVIOUS TRACING : 01/02/2018 13.24 Since the previous tracing, no significant change noted DOCTOR: Clive Smith Interpretating Date/Time 01/04/2018 21:45:17
== END 2018-01-03 15:31 ==
LOC: NEDA 13:08 → NEPE 13:08 → NEPFCDU 13:08
PROVIDERS: ADMIT Hospitalist; ATTEND Hospitalist

== ENCOUNTER 2018-01-03 16:02 | Inpatient (IN) ==
[2018-01-03] MEDS ORDERED: LORazepam 1 MG Tablet PO PRN (18:00)
[2018-01-03] MEDS ORDERED: Bisacodyl 10 MG Supp RECTAL PRN (18:00)
[2018-01-03] MEDS ORDERED: Aluminum/Magnesium/Simethacone Susp 30 ML UDC PO PRN (18:00)
[2018-01-03] MEDS ORDERED: Haloperidol Inj 5 MG/ML Ampul IV.PUSH PRN (18:00)
[2018-01-03] MEDS: Gabapentin 300 MG Capsule PO SCH (20:33)
[2018-01-03] MEDS: Senna/Docusate Sodium 8.6/50 MG Tablet PO SCH (20:33)
[2018-01-03] MEDS: Carvedilol 12.5 MG Tablet PO SCH (20:34)
--- NOTE | 2018-01-03 22:59 | MB ---
cc: Clive Smith DO DATE: 01/03/2018 REASON FOR CONSULTATION: Chest pain. HISTORY OF PRESENT ILLNESS: Estevan Gale is a 52-year-old male who was sent from the [place] [facility] for evaluation due to chest pain. The patient previously had chest pain in 2017 and at that time, he underwent cardiac catheterization and recommended medical management. Since that time, he has continued to have chest pain. It seems to be associated with his depression and anxiety. He states that it is somewhat sharp and stabbing on the left side. He also states he has been having difficulty ambulating due to it. Lately, he has been so frustrated with his life that he start cutting his left wrist. He was placed under a Bailey Act due to suicidal ideation. PAST MEDICAL HISTORY: 1. COPD. 2. Depression. 3. Diabetes. 4. Hypertension. 5. Posttraumatic stress disorder. 6. Alcohol abuse. 7. Benign prostatic hypertrophy. 8. Coronary artery disease. 9. Congestive heart failure. 10. Gastroesophageal reflux disease. 11. Hyperlipidemia. 12. Irritable bowel syndrome. 13. History of osteoarthritis. PAST SURGICAL HISTORY: 1. 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 2. I and D of sternal abscess and removal of fractured sternal cable (01/16/2016). 3. CABG x 3 (10/12/2013) with KNIGHT to LAD, SVG to diagonal, SVG to RCA. 4. Cardiac catheterization (08/04/2016): Left main normal, LAD, 99% mid segment with first diagonal 50%. Left circumflex mild luminal irregularities. RCA 99% mid segment. Saphenous vein graft to LAD is patent, saphenous vein graft to RCA is patent. ALLERGIES: SULFA. MEDICATIONS: 1. Quetiapine 200 mg every night. 2. Losartan 100 mg daily. 3. Insulin 8 units every night. 4. Gabapentin 300 mg b.i.d. 5. Ethacrynic acid 25 mg daily. 6. Carvedilol 25 mg b.i.d. 7. Lipitor 80 mg daily. 8. Trazodone 100 mg daily. 9. Insulin 30 units subcutaneous daily. 10. Divalproex 500 mg daily. FAMILY HISTORY: Denies premature coronary artery disease or sudden cardiac within the family. SOCIAL HISTORY: Previously smoked, but quit. Denies current alcohol or drug abuse. REVIEW OF SYSTEMS: Fourteen systems were reviewed including osteopathic. Pertinent positives and negatives above, otherwise negative. PHYSICAL EXAMINATION: VITAL SIGNS: Temperature 97.6, heart rate 83, blood pressure 111/78, respirations 16, pulse oximetry 100% on 2 liters. GENERAL: The patient appears well, no acute distress, alert, awake and oriented x 3. HEENT: Extraocular muscles intact. Mucous membranes moist. NECK: Supple. No JVD at 45 degrees. No carotid bruits heard bilaterally. Carotid upstroke is brisk in nature. HEART: Regular rate and rhythm. Positive first and second heart sounds with no noted murmurs, gallops or rubs. LUNGS: Clear to auscultation bilaterally. No wheezes, rales or rhonchi. ABDOMEN: Soft, nontender, nondistended. No organomegaly noted. EXTREMITIES: Show no clubbing, cyanosis or edema. Femoral and distal pulses are intact bilaterally. NEUROLOGIC: No focal deficits. SKIN: Warm, dry and intact. OSTEOPATHIC: No kyphoscoliosis, lordosis or paraspinal tender points. LABORATORY DATA: Hemoglobin 13.5, hematocrit 39.5, platelets 155. Potassium 4.0, BUN 18, creatinine 1.10. Troponin negative x 3. Electrocardiogram (01/03/2018 at 02:03): Sinus rhythm, nonspecific ST-T wave changes. IMPRESSION: 1. Atypical chest pain. 2. Suicidal ideation. 3. Coronary artery disease with a history of coronary artery bypass grafting. 4. Cardiomyopathy. RECOMMENDATIONS: 1. Mr. Gale presented with atypical chest pain and because of this will be recommended pharmacologic nuclear stress testing. 2. If pharmacologic nuclear stress testing is negative, there is no further cardiovascular workup at this time. 3. He will continue on losartan and carvedilol for his cardiomyopathy. 4. He is not a candidate for ICD therapy at this time as he has had no followup. [facility] and, if ejection fraction is still considered low, then further recommendations could be made about consideration of an ICD. 5. He will be evaluated by psych under the Bailey Act due to suicidal ideation. Thank you for allowing me to see Estevan Gale. If there are any questions, please do not hesitate to call. DO JULIO CESAR Greene/farrah , 09:02 PM , 09:15 PM
[2018-01-04] MEDS: Gabapentin 300 MG Capsule PO SCH ×2 (08:40→22:12)
[2018-01-04] MEDS: Carvedilol 12.5 MG Tablet PO SCH ×2 (08:40→22:13)
[2018-01-04] MEDS: Senna/Docusate Sodium 8.6/50 MG Tablet PO SCH ×2 (08:43→22:12)
[2018-01-04] MEDS ORDERED: Divalproex 500 MG ER Tablet PO SCH (09:00)
--- NOTE | 2018-01-04 12:43 | P.HPPSY ---
Provisional Diagnosis Admission Date: January 03, 2018 16:02 Competence Certification of Person's Competence To Provide Express and Informed Consent I have personally examined Estevan Gale, a person being served at [facility] on, January 04, 2018 1242. Express and informed consent means consent voluntarily given in writing, by a competent person, after sufficient explanation and disclosure of the subject matter involved to enable the person to make a knowing and willful decision without any element of force, fraud, deceit, duress, or other form of constraint or coercion. This person is 18 years of age or older, is not now known to be incompetent to consent to treatment with a guardian advocate, and does not have a health care surrogate or proxy currently making medical treatment decisions. I have found this person to be one of the following: [] Competent to provide express and informed consent, as defined above, for voluntary admission to this facility and is competent to provide express and informed consent for treatment. He/she has the consistent capacity to make well reasoned, willful, and knowing decisions concerning his or her medical or mental health treatment. The person fully and consistently understands the purpose of the admission for examination/placement and is fully capable of personally exercising all rights assured under [place] [] Incompetent to provide express and informed consent to voluntary admission, and this is incompetent to provide express and informed consent to treatment. The person must be transferred to involuntary status and a petition for a guardian advocate filed with the Circuit Court. [] Refusing to provide express and informed consent to voluntary admission but is competent to provide express and informed consent for treatment. The person must be discharged or transferred to involuntary status. Form shall be completed within 24 hours of a person's arrival at the receiving facility and filed in the clinical record of each person: 1. Admitted on a voluntary basis 2. Permitted to provide express and informed consent to his/her own treatment 3. Allowed to transfer from involuntary to voluntary status 4. Prior to permitting a person to consent to his or her own treatment after having been previously found incompetent to consent to treatment. History of Present Illness Capacity: Has capacity History of Present Illness: [place] I.: Major depressive disorder, recurrent, severe, without psychosis, PTSD [place] II.: Deferred [place] III.: Diabetes, hypertension, CHF, COPD History of Present Illness Service: Medicine Primary Care Provider: [facility] Family Provider: [facility] Chief Complaint: Atypical chest pain History of Present Illness: The patient is a 52-year-old man, domiciled alone in [facility], , unemployed, , 100% service-connected, with psychiatric history of PTSD , depressive disorder, alcohol use disorder, over 10 hospitalizations, last hospitalization was here in [place] in 2017 under the care of Dr. Harkins, documentation reviewed, outpatient care with the [place], he is on Depakote 500 mg twice daily, Effexor 37.5 mg, trazodone 100 mg, Seroquel 200 mg at bedtime, multiple suicidal attempts, para suicidal behavior, with medical history of diabetes mellitus, neuropathy, hypertension, CHF, atrial fibrillation, coronary artery disease, who was sent [place] the [place] for evaluation of an ongoing substernal type chest pain times several week duration described as stabbing in intensity over 8 and associated with bilateral numbness to the fingers, shortness of breath and fatigue without any diaphoresis. Patient states about 10 days ago he had a 2D echo with a known EF of 35%, and since then he has had worsening chest pain. States he is having difficulty ambulating. Patient is quite anxious, and states over the past weekend on Tuesday12/31/17 he was so frustrated with his life that he started cutting his left wrist. Initial cardiac enzyme and EKG were unremarkable. Patient was consulted to psychiatry to address suicidal behavior. Chart was reviewed. Case discussed with primary medical team. On my psychiatric evaluation I find a patient that is quite emotional, labile, stating that he has been under a lot of stress lately and he has been seriously thinking about committing suicide. The patient reports that the [place] is taking 30% away of his 100% connection service which means more than $ 1500 per month from his [place]. 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 In the last weeks he has self-inflicted lacerations in multiple locations to relieve stress, "but I have really been thinking in get it further and over". During the evaluation the patient is tearful, he seems to be quite vulnerable and fragile, he has vague suicidal ideation, no plan at the moment, willing to accept help and be admitted. The patient does not present any loosening of associations, no paranoia, no ideas of reference, no delusions, no dl, the patient is fully oriented 3, with no filtration of consciousness, no attention deficit, no gross cognitive impairment present. PPHX: He si 100% service-connected, with psychiatric history of PTSD, depressive disorder, alcohol use disorder, over 10 hospitalizations, last hospitalization was here in [place] in 2017 under the care of Dr. Harkins, documentation reviewed, outpatient care with the [place], he is on Depakote 500 mg twice daily, Effexor 37.5 mg, trazodone 100 mg, Seroquel 200 mg at bedtime, multiple suicidal attempts, para suicidal behavior PMHx: medical history of diabetes mellitus, neuropathy, hypertension, CHF, atrial fibrillation, coronary artery disease, Family Hx: Mother and father were both alcoholic Substance Hx: Patient drinks alcohol every day, he drinks between 6-12 beers per day. He denies use of illegal drugs. Social Hx: The patient was born and raised in [place], domiciled alone in [facility], , unemployed, , 100% service-connected, he has 2 kids, a boy of 14 years old, care of 20 years old, but they are not connected. Review of Systems Constitutional: Denies anorexia, Denies body ache(s), Denies chills, Denies daytime sleepiness, Denies excessive sweating, Denies fever(s), Denies headache( s), Denies increased appetite, Denies lack of energy, Denies malaise, Denies night sweats, Denies weakness, Denies weight gain, Denies weight loss, Denies other Eyes: Denies blind spots, Denies blurry vision, Denies bulging eyes, Denies change in vision, Denies double vision, Denies discharge, Denies dry eyes, Denies floaters, Denies irritation, Denies itchy eyes, Denies loss of vision, Denies pain, Denies requires corrective lenses, Denies sensitivity to light, Denies other Ears, Nose, Mouth, and Throat: Denies abnormal hearing, Denies bleeding gums, Denies bad breath, Denies change in voice, Denies dental pain, Denies difficulty swallowing, Denies dizziness, Denies dry mouth, Denies ear discharge , Denies ear pain, Denies facial pain, Denies headache(s), Denies hearing loss, Denies hoarseness, Denies lip swelling, Denies nosebleed, Denies mouth lesions, Denies mouth pain, Denies nasal congestion, Denies nasal discharge, Denies nasal obstruction, Denies nasal trauma, Denies neck lump, Denies neck pain, Denies nose pain, Denies pain with swallowing, Denies poor balance, Denies post nasal drip, Denies ringing in the ears, Denies sinus pain, Denies sinus pressure , Denies sore throat, Denies throat swelling, Denies tongue swelling, Denies other Cardiovascular: Denies chest pain, Denies chest pain at rest, Denies chest pain with activity, Denies excessive sweating, Denies fainting, Denies fast heart rate, Denies foot swelling, Denies generalized swelling, Denies irregular heart rhythm, Denies leg pain with activity, Denies leg sores, Denies leg swelling, Denies lightheadedness, Denies radiating jaw, neck or arm pain, Denies rapid, pounding, or irregular heartbeat, Denies shortness of breath, Denies shortness of breath with activity, Denies shortness of breath when lying down, Denies shortness of breath causing sudden awakening, Denies slow heart rate, Denies other Respiratory: Denies change in phlegm color, Denies chest congestion, Denies cough, Denies coughing up blood, Denies excessive phlegm production, Denies pain on inspiration, Denies pain with cough, Denies shortness of breath, Denies shortness of breath with activity, Denies snoring, Denies stridor, Denies wheezing, Denies other Gastrointestinal: Denies abdominal pain, Denies belching, Denies black, tarry stools, Denies bloating, Denies bright, red blood in stools, Denies change in bowel habits, Denies constant urge to pass stool, Denies change in stools, Denies coffee ground vomit, Denies constipation, Denies cramping, Denies difficulty swallowing, Denies excessive passing of gas, Denies feeling full early, Denies heartburn, Denies incontinent of stools, Denies loose stools, Denies nausea, Denies pain with swallowing, Denies vomiting, Denies vomiting blood, Denies other Genitourinary: Denies blood in semen, Denies blood in urine, Denies decreased urination, Denies difficulty urinating, Denies difficulty with ejaculations, Denies erectile dysfunction, Denies genital lesions, Denies genital pain, Denies painful urination, Denies side pain, Denies frequent nighttime urination , Denies painful ejaculations, Denies penile discharge, Denies scrotal swelling , Denies testicle lump, Denies testicle pain, Denies urinary frequency, Denies urinary hesitancy, Denies urinary incontinence, Denies urinary urgency, Denies other Musculoskeletal: Denies abnormal walking, Denies back pain, Denies body aches, Denies decreased muscle mass, Denies deformity, Denies joint pain, Denies joint swelling, Denies limited joint movement, Denies loss of height, Denies muscle cramps, Denies muscle weakness, Denies neck pain, Denies numbness, Denies radiating pain into limb, Denies stiffness, Denies tingling, Denies other Neurologic: Denies abnormal hearing, Denies abnormal movements, Denies abnormal speech, Denies abnormal walking, Denies behavioral changes, Denies burning sensations, Denies confusion, Denies dizziness, Denies fainting, Denies frequent falls, Denies headache(s), Denies lack of coordination, Denies localized weakness, Denies loss of vision, Denies memory loss, Denies numbness, Denies other visual disturbances, Denies radiating pain, Denies restless legs, Denies convulsions, Denies seizure-like activity, Denies sensory deficit, Denies tingling, Denies tingling/numbness/burning sensations, Denies tremor(s), Denies unsteadiness, Denies weakness, Denies other Psychiatric: Reports depression, Reports irritability, Reports lack of enjoyment , Reports mood swings, Reports thoughts of hurting/killing yourself [facility] - History History Provided By: Patient, Medical Record - Medical History Medical History: Medical History (Last Reviewed 01/02/18 @ 13:33 by ALEXIS Lazo) COPD (chronic obstructive pulmonary disease) Depression Diabetes HTN (hypertension) PTSD (post-traumatic stress disorder) Alcohol abuse BPH (benign prostatic hyperplasia) CAD (coronary artery disease) CHF (congestive heart failure) GERD (gastroesophageal reflux disease) Hyperlipidemia IBS (irritable bowel syndrome) Osteoarthritis - Surgical History Surgical History: Surgical History (Last Reviewed 01/02/18 @ 13:33 by ALEXIS Lazo) Hx of CABG - Family History Family History: Family History (Last Updated 01/02/18 @ 16:05 by Elfego Garcia MD) Other Family history of heart cancer Family history of heart disease - Tobacco History Second Hand Smoke Exposure: No Smoking Status: Former smoker - Alcohol History How Often Do You Have a Drink Containing Alcohol: 2 to 4 times a month - Substance Use History Substance History: No History of Abuse - Travel History Recent Travel in the [place] Within the Last 8 Weeks: No Recent Travel Out of the Country Within the Last 8 Weeks: No - Immunization History Tetanus Immunization: <5 Years Hx Influenza Vaccine This Season: Yes Medications and Allergies Active Medications: Active Medications Acetaminophen (Tylenol) 650 mg PO Q4H PRN PRN Reason: Temp > 100.4 Last Admin: 01/02/18 23:18 Dose: 650 mg Al Hydroxide/Mg Hydroxide (Milk Of Magntai Liq) 30 ml PO Q12H PRN PRN Reason: Mild Constipation Atorvastatin Calcium (Lipitor) 80 mg PO DAILY [facility] Last Admin: 01/03/18 08:49 Dose: 80 mg Carvedilol (Coreg) 25 mg PO BID [facility] Last Admin: 01/03/18 08:49 Dose: 25 mg Dextrose (D50w Vial) 50 ml IV.PUSH UNSCH PRN PRN Reason: PER HYPOGLYCEMIA PROTOCOL Divalproex Sodium (Depakote Er) 500 mg PO DAILY [facility] Last Admin: 01/03/18 08:48 Dose: 500 mg Ethacrynic Acid (Edecrin) 25 mg PO DAILY [facility] Last Admin: 01/03/18 08:49 Dose: 25 mg Gabapentin (Neurontin) 300 mg PO BID [facility] Last Admin: 01/03/18 08:49 Dose: 300 mg Glucagon (Glucagon Inj) 1 mg OTHER PRN PRN PRN Reason: for Hypoglycemia Protocol Heparin Sodium (Porcine) (Heparin Inj) 5,000 units SQ Q12H [facility] Last Admin: 01/03/18 06:24 Dose: 5,000 units Hydralazine HCl (Apresoline) 25 mg PO TID PRN PRN Reason: SBP>160, DBP>90 Insulin Aspart (Novolog Insulin Correctional Sugar Inj) [address] [facility]; Protocol Last Admin: 01/03/18 12:42 Dose: Not Given Insulin Detemir (Levemir Inj) 30 unit SQ [facility] Last Admin: 01/02/18 21:01 Dose: 30 unit Losartan Potassium (Cozaar) 100 mg PO DAILY [facility] Last Admin: 01/03/18 08:49 Dose: 100 mg Morphine Sulfate (Morphine Inj) 2 mg IV.PUSH Q3H PRN PRN Reason: CHEST PAIN Last Admin: 01/03/18 08:49 Dose: 2 mg Ondansetron HCl (Zofran Inj) 4 mg IV.PUSH Q6H PRN PRN Reason: NAUSEA OR VOMITING Quetiapine Fumarate (Seroquel) 200 mg PO [facility] Last Admin: 01/02/18 21:01 Dose: 200 mg Sodium Chloride (Ns Flush) 2 ml IV.FLUSH UNSCH PRN PRN Reason: FLUSH AFTER USING IV ACCESS Trazodone HCl (Desyrel) 100 mg PO DAILY [facility] Last Admin: 01/03/18 08:49 Dose: 100 mg Allergies Allergy/AdvReac Type Severity Reaction Status Date / Time Sulfa (Sulfonamide Allergy Mild Rash Verified 01/02/18 13:27 Antibiotics) Home Medications Medication Instructions Recorded Confirmed Type atorvastatin 80 mg PO DAILY 01/02/18 01/02/18 History carvedilol 25 mg PO BID 01/02/18 01/02/18 History divalproex 500 mg PO DAILY 01/02/18 01/02/18 History ethacrynic acid 25 mg PO DAILY 01/02/18 01/02/18 History gabapentin 300 mg PO BID 01/02/18 01/02/18 History insulin aspart U-100 8 unit SUB-Q QPM 01/02/18 01/02/18 History insulin glargine 30 unit SUB-Q DAILY 01/02/18 01/02/18 History losartan 100 mg PO DAILY 01/02/18 01/02/18 History metoprolol tartrate 100 mg PO HS 01/02/18 01/02/18 History quetiapine 200 mg PO HS 01/02/18 01/02/18 History trazodone 100 mg PO DAILY 01/02/18 01/02/18 History Exam Vital signs: Vital Signs 01/02/18 14:45 01/02/18 15:00 01/02/18 15:32 Temperature Pulse Rate 114 H 96 H 98 H Respiratory Rate Blood Pressure 143/87 H 150/97 H 144/96 H Pulse Oximetry 98 01/02/18 20:00 01/02/18 20:59 01/02/18 23:21 Temperature Pulse Rate 98 H 79 Respiratory Rate 15 22 Blood Pressure 137/80 60/42 L Pulse Oximetry 95 95 95 01/03/18 00:51 01/03/18 00:56 01/03/18 01:21 Temperature Pulse Rate 72 71 Respiratory Rate 16 16 Blood Pressure 86/57 L Pulse Oximetry 98 01/03/18 01:36 01/03/18 01:41 01/03/18 03:06 Temperature Pulse Rate 73 73 71 Respiratory Rate 22 Blood Pressure 67/52 L 92/64 L Pulse Oximetry 99 01/03/18 03:54 01/03/18 04:35 01/03/18 05:42 Temperature Pulse Rate 72 68 Respiratory Rate 22 16 22 Blood Pressure 98/65 L 95/66 L Pulse Oximetry 98 97 01/03/18 08:01 01/03/18 08:25 01/03/18 08:33 Temperature 97.5 F L Pulse Rate 82 83 Respiratory Rate Blood Pressure 155/104 H Pulse Oximetry 100 100 01/03/18 09:21 01/03/18 12:27 Temperature 97.6 F Pulse Rate 86 83 Respiratory Rate 16 Blood Pressure 111/78 Pulse Oximetry 100 Intake & Output 01/02/18 01/03/18 01/03/18 18:59 06:59 18:59 Intake Total 120 / 120 1300 / 1300 Balance 120 / 120 1300 / 1300 Weight 81.647 kg 81.647 kg Intake: IV 1000 / 1000 NS Inj 1,000 ML @ Wide Open IV. 1000 / 1000 SIG BOLUS ONE Rx#:[id number] Oral 120 / 120 300 / 300 Other: # Voids 1 Date of Last Bowel Movement 12/31/17 12/31/17 Weight On Admission 81.647 kg Narrative: No tremors, no EPS, no stiffness, no psychomotor retardation or agitation at the moment, no withdrawal symptoms - Constitutional no acute distress - Routine HEENT Exam Head: Present: normocephalic Eye: Present: EOMI, PERRL ENT: Present: mucous membranes moist Mental Status Examination Appearance: Appropriate Consciousness: Alert Orientation: x4 Motor Activity: Normal gait Speech: Unremarkable Language: Adequate Fund of Knowledge: Adequate Attention and Concentration: Adequate Memory: Unremarkable Mood: Sad Affect: Sad Thought Process & Associations: Intact Thought Content: Appropriate Hallucination Type: None Delusion Type: None Suicidal Ideation: Yes Suicidal Plan: No Suicidal Intention: No Homicidal Ideation: No Homicidal Plan: No Homicidal Intention: No Insight: Poor Judgment: Poor Assessment and Plan - Plan Plan: Estimated LOS: [] days On psychiatric evaluation today the patient presents quite fragile, vulnerable, tearful, reporting symptoms of depression consistent on anhedonia, hopelessness , helplessness, poor sleep, poor level of energy, generally pessimism, lack of enjoyment, persistent suicidal thoughts to the point that the patient has being in both in 2 episodes of self cutting behavior lately in order "to release stress "order and has been having suicidal thoughts with a plan of cutting or overdosing. The patient reports that he has been depressed in the context of medical deterioration, lack of social and family support, economical problems, and also persistent alcohol use. The patient has an elevated risk of danger to self, he will be admitted in psychiatry for stabilization and safety. I will restart his Effexor 37.5 mg, Seroquel 200 mg, Depakote 500 mg twice daily, trazodone 100 mg. Patient also needs to be in a CIWA. 1:1 in medical floor. Will order Depakote levels. Patient can be admitted in the [facility] unit. Brief supportive psychotherapy provided. Patient will sing voluntary admission Dx: Major depressive disorder, recurrent, severe, without psychosis, chronic PTSD - Inpatient Certification I certify that the inpatient services were ordered in accordance with Medicare regulations governing the order. This includes certification that hospital inpatient services are reasonable and necessary and in the case of services not specified as inpatient-only under 42 CFR 419.22(n), that they are appropriately provided as inpatient services in accordance to with the 2-midnight benchmark under 43 CFR 412.3(e) I certify that inpatient psychiatric hospital services are medically necessary. Evaluation and treatment and/or diagnostic testing are expected to improve the patient's condition. The patient needs on a daily basis, active treatment furnished directly by or requiring the supervision of inpatient psychiatric facility personnel. Estimated Total Length of Stay (Days): 7 Plans for Post Hospital Care: Not yet determined [facility] - History History Provided By: Patient - Medical History Medical History: Medical History (Last Reviewed 01/03/18 @ 16:12 by Sharron Hanks RN) Alcohol abuse BPH (benign prostatic hyperplasia) CAD (coronary artery disease) CHF (congestive heart failure) COPD (chronic obstructive pulmonary disease) Depression Diabetes GERD (gastroesophageal reflux disease) HTN (hypertension) Hyperlipidemia IBS (irritable bowel syndrome) Osteoarthritis PTSD (post-traumatic stress disorder) - Surgical History Surgical History: Surgical History (Last Reviewed 01/03/18 @ 16:12 by Sharron Hanks RN) Hx of CABG - Family History Family History: Family History (Last Reviewed 01/03/18 @ 16:12 by Sharron Hanks RN) Other Family history of heart cancer Family history of heart disease - Tobacco History Second Hand Smoke Exposure: No Tobacco Use In Past 30 Days: No Smoking Status: Never smoker - Alcohol History How Often Do You Have a Drink Containing Alcohol: 4 or more times a week - Substance Use History Substance History: Past History - Travel History Recent Travel in the [place] Within the Last 8 Weeks: No Recent Travel Out of the Country Within the Last 8 Weeks: No Medications and Allergies Active Medications: Active Medications Al Hydrox/Mg Hydrox/Simethicone (Mag-Al Plus Susp Liq) 30 ml PO Q6H PRN PRN Reason: DYSPEPSIA Al Hydroxide/Mg Hydroxide (Milk Of Magnesia Liq) 30 ml PO Q12H PRN PRN Reason: Mild Constipation Atorvastatin Calcium (Lipitor) 80 mg PO DAILY [facility] Last Admin: 01/04/18 09:23 Dose: 80 mg Bisacodyl (Dulcolax Supp) 10 mg RECTAL DAILY PRN PRN Reason: SEVERE CONSITIPATION Carvedilol (Coreg) 25 mg PO BID [facility] Last Admin: 01/04/18 08:40 Dose: 25 mg Divalproex Sodium (Depakote Er) 500 mg PO DAILY [facility] Last Admin: 01/04/18 08:40 Dose: 500 mg Ethacrynic Acid (Edecrin) 25 mg PO DAILY [facility] Last Admin: 01/04/18 09:23 Dose: 25 mg Flumazenil (Romazecon Inj) 0.2 mg IV.PUSH Q1M PRN PRN Reason: OVERSEDATION Gabapentin (Neurontin) 300 mg PO BID [facility] Last Admin: 01/04/18 08:40 Dose: 300 mg Haloperidol Lactate (Haldol Inj) 1 mg IV.PUSH Q15M PRN PRN Reason: for severe agitation Lactulose (Lactulose Liq) 30 ml PO DAILY PRN PRN Reason: SEVERE CONSITIPATION Lorazepam (Ativan) 1 mg PO Q4H PRN PRN Reason: for CIWA 8-10 Last Admin: 01/04/18 00:06 Dose: 1 mg Lorazepam (Ativan) 2 mg PO Q2H PRN PRN Reason: for CIWA 11-14 Lorazepam (Ativan Inj) 2 mg IV.PUSH Q2H PRN PRN Reason: for CIWA 11-14 Lorazepam (Ativan Inj) 2 mg IV.PUSH Q1H PRN PRN Reason: for CIWA 15-20 Lorazepam (Ativan Inj) 2 mg IV.PUSH Q15M PRN PRN Reason: for CIWA > 20 Lorazepam (Ativan Inj) 1 mg IV.PUSH Q4H PRN PRN Reason: for CIWA 8-10 Senna/Docusate Sodium (Krupa-Colace) 1 tab PO BID [facility] Last Admin: 01/04/18 08:43 Dose: Not Given Sennosides (Senokot) 17.2 mg PO Q12H PRN PRN Reason: Moderate Constipation Allergies Allergy/AdvReac Type Severity Reaction Status Date / Time Sulfa (Sulfonamide Allergy Mild Rash Verified 01/02/18 13:27 Antibiotics) Home Medications Medication Instructions Recorded Confirmed Type atorvastatin 80 mg PO DAILY 01/02/18 01/02/18 History carvedilol 25 mg PO BID 01/02/18 01/02/18 History divalproex 500 mg PO DAILY 01/02/18 01/02/18 History ethacrynic acid 25 mg PO DAILY 01/02/18 01/02/18 History gabapentin 300 mg PO BID 01/02/18 01/02/18 History insulin aspart U-100 8 unit SUB-Q QPM 01/02/18 01/02/18 History insulin glargine 30 unit SUB-Q DAILY 01/02/18 01/02/18 History losartan 100 mg PO DAILY 01/02/18 01/02/18 History quetiapine 200 mg PO HS 01/02/18 01/02/18 History trazodone 100 mg PO DAILY 01/02/18 01/02/18 History Results - Labs Labs: Laboratory Results - last 24 hr 01/03/18 01/04/18 01/04/18 21:00 00:00 07:50 POC Glucose 328 H 297 H 266 H 01/04/18 11:42 POC Glucose 339 H Exam Vital signs: Vital Signs 01/03/18 16:53 01/04/18 06:00 Temperature 97.4 F L 97.7 F Pulse Rate 82 90 Respiratory Rate 18 15 Blood Pressure 87/55 L 101/64 Pulse Oximetry 96 97 Intake & Output 01/03/18 01/04/18 01/04/18 18:59 06:59 18:59 Intake Total 340 / 340 960 / 960 Balance 340 / 340 960 / 960 Weight 84.6 kg Intake: Oral 240 / 240 960 / 960 Oral Supplement 100 / 100 Other: # Voids 2 Weight On Admission 84.6 kg Assessment and Plan - Plan Plan: Estimated LOS: [] days Admission Justification for Continued Inpatient Stay: Admission
[2018-01-04] MEDS ORDERED: Dextrose 50% in Water 50 ML Vial IV.PUSH PRN (12:56)
--- NOTE | 2018-01-04 14:41 | P.CON ---
History of Present Illness Service: [facility] Consult date: 01/04/18 Requesting Physician: Elfego Harkins Reason for Consult: Assist with medical management, DM uncontrolled Primary Care Provider: UNKNOWN Family Provider: SANJUANA PCP Chief Complaint: Uncontrolled diabetes History of Present Illness: Patient is a 52-year-old male with past medical history of diabetes, neuropathy , hypertension, CHF, coronary artery disease who was [place] initially for evaluation of ongoing substernal type chest pain times several week in duration. He was worked up initial cardiac enzymes and EKG were unremarkable. Cardiology was consulted and recommend nuclear stress test. Myocardial perfusion scan showed EF of 70%, negative examination. Patient had suicidal ideation. He is now admitted to medical psych unit for further evaluation. Consulted for assistance with medical management. Uncontrolled diabetes. Patient seen and examined today. States that he has diabetes that has been uncontrolled ever since. States that his hemoglobin A1c was high but could not remember the number. States that he takes Novolin sliding scale with glucagon insulin at night. Patient also complains of neuropathy in his legs. Otherwise , denies pain and discomfort. Denies SOB/ dyspnea. Denies chest pain, palpitations, headaches, dizziness. Denies fevers, chills, n/v/d. Denies hematuria, dysuria. Review of Systems All other systems reviewed negative except as stated in HPI PMFSH - History History Provided By: Patient - Medical History Medical History: Medical History (Last Reviewed 01/03/18 @ 16:12 by Sharron Hanks RN) Alcohol abuse BPH (benign prostatic hyperplasia) CAD (coronary artery disease) CHF (congestive heart failure) COPD (chronic obstructive pulmonary disease) Depression Diabetes GERD (gastroesophageal reflux disease) HTN (hypertension) Hyperlipidemia IBS (irritable bowel syndrome) Osteoarthritis PTSD (post-traumatic stress disorder) - Surgical History Surgical History: Surgical History (Last Reviewed 01/03/18 @ 16:12 by Sharron Hanks RN) Hx of CABG - Family History Family History: Family History (Last Reviewed 01/03/18 @ 16:12 by Sharron Hanks RN) Other Family history of heart cancer Family history of heart disease - Tobacco History Second Hand Smoke Exposure: No Tobacco Use In Past 30 Days: No Smoking Status: Never smoker - Alcohol History How Often Do You Have a Drink Containing Alcohol: 4 or more times a week - Substance Use History Substance History: Past History - Substance Use Type Alcohol Status: Active Route Used: By Mouth Reason for Use: Calm Down Comment: Patient stated that he has heavily drank alcohol since age 13. Patient stated that he can consume anywhere from 5 to 18 bottles of beer per day, at least 5 days per week. Patient stated that he is seeking help for his substance misuse issues. - Travel History Recent Travel in the [place] Within the Last 8 Weeks: No Recent Travel Out of the Country Within the Last 8 Weeks: No Medications and Allergies Active Medications: Active Medications Al Hydrox/Mg Hydrox/Simethicone (Mag-Al Plus Susp Liq) 30 ml PO Q6H PRN PRN Reason: DYSPEPSIA Al Hydroxide/Mg Hydroxide (Milk Of Magnesia Liq) 30 ml PO Q12H PRN PRN Reason: Mild Constipation Atorvastatin Calcium (Lipitor) 80 mg PO DAILY [facility] Last Admin: 01/04/18 09:23 Dose: 80 mg Bisacodyl (Dulcolax Supp) 10 mg RECTAL DAILY PRN PRN Reason: SEVERE CONSITIPATION Carvedilol (Coreg) 25 mg PO BID [facility] Last Admin: 01/04/18 08:40 Dose: 25 mg Dextrose (D50w Vial) 50 ml IV.PUSH UNSCH PRN PRN Reason: PER HYPOGLYCEMIA PROTOCOL Divalproex Sodium (Depakote Dr) 500 mg PO BID [facility] Ethacrynic Acid (Edecrin) 25 mg PO DAILY [facility] Last Admin: 01/04/18 09:23 Dose: 25 mg Flumazenil (Romazecon Inj) 0.2 mg IV.PUSH Q1M PRN PRN Reason: OVERSEDATION Gabapentin (Neurontin) 300 mg PO BID [facility] Last Admin: 01/04/18 08:40 Dose: 300 mg Glucagon (Glucagon Inj) 1 mg OTHER UNSCH PRN PRN Reason: for Hypoglycemia Protocol Haloperidol Lactate (Haldol Inj) 1 mg IV.PUSH Q15M PRN PRN Reason: for severe agitation Insulin Aspart (Novolog Insulin Correctional Sugar Inj) 0 unit SQ ACHS [facility]; Protocol Insulin Detemir (Levemir Inj) 30 unit SQ HS [facility] Lactulose (Lactulose Liq) 30 ml PO DAILY PRN PRN Reason: SEVERE CONSITIPATION Lorazepam (Ativan) 1 mg PO Q4H PRN PRN Reason: for CIWA 8-10 Last Admin: 01/04/18 00:06 Dose: 1 mg Lorazepam (Ativan) 2 mg PO Q2H PRN PRN Reason: for CIWA 11-14 Lorazepam (Ativan Inj) 2 mg IV.PUSH Q2H PRN PRN Reason: for CIWA 11-14 Lorazepam (Ativan Inj) 2 mg IV.PUSH Q1H PRN PRN Reason: for CIWA 15-20 Lorazepam (Ativan Inj) 2 mg IV.PUSH Q15M PRN PRN Reason: for CIWA > 20 Lorazepam (Ativan Inj) 1 mg IV.PUSH Q4H PRN PRN Reason: for CIWA 8-10 Quetiapine Fumarate (Seroquel) 200 mg PO [facility] Senna/Docusate Sodium (Krupa-Colace) 1 tab PO BID [facility] Last Admin: 01/04/18 08:43 Dose: Not Given Sennosides (Senokot) 17.2 mg PO Q12H PRN PRN Reason: Moderate Constipation Trazodone HCl (Desyrel) 100 mg PO [facility] Venlafaxine HCl (Effexor Xr) 37.5 mg PO DAILY [facility] Allergies Allergy/AdvReac Type Severity Reaction Status Date / Time Sulfa (Sulfonamide Allergy Mild Rash Verified 01/02/18 13:27 Antibiotics) Home Medications Medication Instructions Recorded Confirmed Type atorvastatin 80 mg PO DAILY 01/02/18 01/02/18 History carvedilol 25 mg PO BID 01/02/18 01/02/18 History divalproex 500 mg PO DAILY 01/02/18 01/02/18 History ethacrynic acid 25 mg PO DAILY 01/02/18 01/02/18 History gabapentin 300 mg PO BID 01/02/18 01/02/18 History insulin aspart U-100 8 unit SUB-Q QPM 01/02/18 01/02/18 History insulin glargine 30 unit SUB-Q DAILY 01/02/18 01/02/18 History losartan 100 mg PO DAILY 01/02/18 01/02/18 History quetiapine 200 mg PO HS 01/02/18 01/02/18 History trazodone 100 mg PO DAILY 01/02/18 01/02/18 History Physical Exam Vital signs: Vital Signs 01/03/18 16:53 01/04/18 06:00 Temperature 97.4 F L 97.7 F Pulse Rate 82 90 Respiratory Rate 18 15 Blood Pressure 87/55 L 101/64 Pulse Oximetry 96 97 Intake & Output 01/03/18 01/04/18 01/04/18 18:59 06:59 18:59 Intake Total 340 / 340 960 / 960 Balance 340 / 340 960 / 960 Weight 84.6 kg Intake: Oral 240 / 240 960 / 960 Oral Supplement 100 / 100 Other: # Voids 2 Weight On Admission 84.6 kg Narrative: GENERAL: This is a well-nourished, well-developed patient, in no apparent distress. SKIN: Warm and dry HEENT: Normocephalic. Pupils equal round and reactive. Nose without bleeding. Airway patent. NECK: Trachea midline. No JVD. Supple. CARDIOVASCULAR: Regular rate and rhythm without murmurs, gallops, or rubs. RESPIRATORY: Clear to auscultation. Breath sounds equal bilaterally. No wheezes , rales, or rhonchi. GASTROINTESTINAL: Abdomen soft, non-tender, nondistended. Bowel Sounds normoactive x4. MUSCULOSKELETAL: Extremities without clubbing, cyanosis, or edema. Right foot all toes amputated. NEUROLOGICAL: Awake and alert. Oriented to time, place, person. No focal neuro deficit. Moves all extremities. Normal speech. Assessment and Plan - Plan Patient is a 52-year-old male with past medical history of diabetes, neuropathy , hypertension, CHF, atrial fibrillation, coronary artery disease who was sent from the [place] clinic initially for evaluation of ongoing substernal type chest pain times several week in duration. He was worked up initial cardiac enzymes and EKG were unremarkable. Cardiology was consulted and recommend nuclear stress test. Myocardial perfusion scan showed EF of 70%, negative examination. Patient had suicidal ideation. He is now admitted to medical psych unit for further evaluation. Consulted for assistance with medical management. Uncontrolled diabetes. Suicidal ideation -By psychiatry team DM 2, insulin-dependent, diabetic nephropathy -Switch Levemir 20 units twice daily, continue insulin sliding scale -Monitor Accu-Cheks -Diabetic diet HTN HLD Heart failure, not in exacerbation History of CAD -He was worked up for atypical chest pain on initial admission. EKG and cardiac enzymes have been negative. Cardiology followed patient during his hospitalization. Nuclear stress test was done showed EF of 70%, negative examination. -Continue Coreg 25 mg twice daily, atorvastatin -Monitor BP trend ETOH -Reports drinking 4-18 beers per day -Counseled -CIWA protocol DVT prop early ambulation Code Status: Full code Discussed Condition With: Patient, nursing Discharge Planning: DC disposition by primary team
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
[2018-01-04 15:48] LABS: Calcium 8.5 mg/dL (8.5-10.1); Carbon Dioxide 29.7 meq/L (21.0-32.0); Chol/HDL Ratio 8.86 Ratio; HDL Cholesterol 32.7 mg/dL (40.0-60.0); Potassium 4.1 meq/L (3.5-5.1)
[2018-01-04 15:52] LABS: Hemoglobin A1c 11.8 % (4.3-6.0)
[2018-01-04] MEDS: Venlafaxine XR 37.5 MG Capsule PO SCH (17:12)
[2018-01-04] MEDS: Insulin NovoLOG Aspart Correctional Sugar Inj SQ SCH ×2 (17:13→21:00)
[2018-01-04] MEDS ORDERED: traZODone 100 MG Tablet PO SCH (21:00)
[2018-01-04] MEDS ORDERED: Insulin Detemir Inj 1,000 UNIT/10 ML Vial SQ SCH (21:00)
[2018-01-04] MEDS: Divalproex 500 MG DR Tablet PO SCH (22:12)
[2018-01-04] MEDS: Insulin Detemir Inj 1,000 UNIT/10 ML Vial SQ SCH (22:14)
[2018-01-05 02:53] VITALS: RESP 16
[2018-01-05] MEDS: Insulin NovoLOG Aspart Correctional Sugar Inj SQ SCH ×4 (07:36→22:00)
[2018-01-05] MEDS: Carvedilol 12.5 MG Tablet PO SCH ×2 (08:39→22:02)
[2018-01-05] MEDS: Gabapentin 300 MG Capsule PO SCH ×2 (08:40→22:02)
[2018-01-05] MEDS: Venlafaxine XR 37.5 MG Capsule PO SCH (08:40)
[2018-01-05] MEDS: Senna/Docusate Sodium 8.6/50 MG Tablet PO SCH ×2 (08:40→22:02)
[2018-01-05] MEDS: Divalproex 500 MG DR Tablet PO SCH ×2 (08:40→22:02)
[2018-01-05] MEDS: Insulin Detemir Inj 1,000 UNIT/10 ML Vial SQ SCH (08:41)
[2018-01-05] MEDS ORDERED: traZODone 100 MG Tablet PO SCH (09:00)
--- NOTE | 2018-01-05 14:46 | P.PN ---
Subjective Interval history: Follow-up visit HLD, DM 2, HTN. Patient seen and examined today. Reports he is doing well. Denies pain and discomfort. Denies SOB/ dyspnea. Denies chest pain, palpitations, headaches, dizziness. Denies fevers, chills, n/v/d. Denies hematuria, dysuria. Physical Exam Vital signs: Vital Signs 01/04/18 18:06 01/04/18 20:00 01/05/18 05:12 Temperature 98.4 F 98.5 F Pulse Rate 90 80 87 Respiratory Rate 15 16 16 Blood Pressure 94/60 L 120/82 105/62 Pulse Oximetry 96 98 Intake & Output 01/04/18 01/05/18 01/05/18 18:59 06:59 18:59 Intake Total 2159 Balance 2159 Weight 82.7 kg Intake: Oral 2159 Narrative: GENERAL: This is a well-nourished, well-developed patient, in no apparent distress. SKIN: Warm and dry HEENT: Normocephalic. Pupils equal round and reactive. Nose without bleeding. Airway patent. NECK: Trachea midline. No JVD. Supple. CARDIOVASCULAR: Regular rate and rhythm without murmurs, gallops, or rubs. RESPIRATORY: Clear to auscultation. Breath sounds equal bilaterally. No wheezes , rales, or rhonchi. GASTROINTESTINAL: Abdomen soft, non-tender, nondistended. Bowel Sounds normoactive x4. MUSCULOSKELETAL: Extremities without clubbing, cyanosis, or edema. Right foot all toes amputated. NEUROLOGICAL: Awake and alert. Oriented to time, place, person. No focal neuro deficit. Moves all extremities. Normal speech. Results - Labs CBC & Chem 7: 01/04/18 14:08 Laboratory Results - last 24 hr 01/04/18 01/04/18 01/04/18 14:08 14:08 17:01 Sodium 136 Potassium 4.1 Chloride 99 Carbon Dioxide 29.7 Anion Gap 7 BUN 19 H Creatinine 1.18 Estimated GFR 65 L POC Glucose 326 H Random Glucose 251 H D Hemoglobin A1c 11.8 H Calcium 8.5 Triglycerides 723 H Cholesterol 290 H LDL Cholesterol, Calc HDL Cholesterol 32.7 L Cholesterol/HDL Ratio 8.86 Valproic Acid 33 L 01/04/18 01/05/18 01/05/18 21:27 06:23 11:30 Sodium Potassium Chloride Carbon Dioxide Anion Gap BUN Creatinine Estimated GFR POC Glucose 219 H 219 H 282 H Random Glucose Hemoglobin A1c Calcium Triglycerides Cholesterol LDL Cholesterol, Calc HDL Cholesterol Cholesterol/HDL Ratio Valproic Acid Assessment and Plan - Plan Patient is a 52-year-old male with past medical history of diabetes, neuropathy , hypertension, CHF, atrial fibrillation, coronary artery disease who was sent from the [place] [facility] initially for evaluation of ongoing substernal type chest pain times several week in duration. He was worked up initial cardiac enzymes and EKG were unremarkable. Cardiology was consulted and recommend nuclear stress test. Myocardial perfusion scan showed EF of 70%, negative examination. Patient had suicidal ideation. He is now admitted to medical psych unit for further evaluation. Consulted for assistance with medical management. Uncontrolled diabetes. Suicidal ideation -Managed by psychiatry team DM 2, insulin-dependent, diabetic nephropathy Hemoglobin A1c 11.8 -Increase Levemir 24 units twice daily, continue insulin sliding scale -Monitor Accu-Cheks -Diabetic diet -Continue to adjust. Discussed possible prandial insulin with patient. Verbalized understanding. Agrees with plan. HTN HLD Heart failure, not in exacerbation History of CAD -He was worked up for atypical chest pain on initial admission. EKG and cardiac enzymes have been negative. Cardiology followed patient during his hospitalization. Nuclear stress test was done showed EF of 70%, negative examination. -Continue Coreg 25 mg twice daily, atorvastatin 80mg -Lipid panel elevated. Triglyceride elevated possibly because patient has already eaten throughout the day before blood draw. Continue with current management. -Monitor BP trend ETOH -Reports drinking 4-18 beers per day -Counseled -[facility] protocol DVT prop early ambulation Code Status: Full code Discussed Condition With: Patient, nursing Discharge Planning: DC disposition by primary team
[2018-01-05 17:36] VITALS: O2SAT 99
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
[2018-01-05] MEDS ORDERED: traZODone 50 MG Tablet PO SCH (21:00)
[2018-01-06] MEDS: Insulin Detemir Inj 1,000 UNIT/10 ML Vial SQ SCH ×2 (00:16→11:41)
[2018-01-06 05:39] VITALS: BP 105/68; PULSE 82; TEMP 97.9
[2018-01-06] MEDS: Carvedilol 12.5 MG Tablet PO SCH (08:57)
[2018-01-06] MEDS: Divalproex 500 MG DR Tablet PO SCH (08:58)
[2018-01-06] MEDS: Gabapentin 300 MG Capsule PO SCH (08:58)
[2018-01-06] MEDS: Venlafaxine XR 37.5 MG Capsule PO SCH (08:58)
[2018-01-06] MEDS: Senna/Docusate Sodium 8.6/50 MG Tablet PO SCH (08:58)
[2018-01-06] MEDS: Insulin NovoLOG Aspart Correctional Sugar Inj SQ SCH ×2 (09:28→11:41)
--- NOTE | 2018-01-06 20:34 | P.DSPSY ---
Psychiatry Discharge Summary Inpatient Psychiatric care?: Yes Advance Directives: No Mental Health Advance Directive: No Health Care Proxy: No - Admission Admission Date: January 03, 2018 16:02 - Admission Diagnosis (1) Major depressive disorder Code(s): F32.9 - Major depressive disorder, single episode, unspecified Brief History: Ponder I.: Major depressive disorder, recurrent, severe, without psychosis, PTSD Ponder II.: Deferred Ponder III.: Diabetes, hypertension, CHF, COPD History of Present Illness Service: Medicine Primary Care Provider[facility] Family Provider: [facility] Chief Complaint: Atypical chest pain History of Present Illness: The patient is a 52-year-old man, domiciled alone in [facility], , unemployed, , 100% service-connected, with psychiatric history of PTSD , depressive disorder, alcohol use disorder, over 10 hospitalizations, last hospitalization was here in [place] in 2017 under the care of Dr. Harkins, documentation reviewed, outpatient care with the CT, he is on Depakote 500 mg twice daily, Effexor 37.5 mg, trazodone 100 mg, Seroquel 200 mg at bedtime, multiple suicidal attempts, para suicidal behavior, with medical history of diabetes mellitus, neuropathy, hypertension, CHF, atrial fibrillation, coronary artery disease, who was sent from the CT clinic for evaluation of an ongoing substernal type chest pain times several week duration described as stabbing in intensity over 8 and associated with bilateral numbness to the fingers, shortness of breath and fatigue without any diaphoresis. Patient states about 10 days ago he had a 2D echo with a known EF of 35%, and since then he has had worsening chest pain. States he is having difficulty ambulating. Patient is quite anxious, and states over the past weekend on Tuesday12/31/17 he was so frustrated with his life that he started cutting his left wrist. Initial cardiac enzyme and EKG were unremarkable. Patient was consulted to psychiatry to address suicidal behavior. Chart was reviewed. Case discussed with primary medical team. On my psychiatric evaluation I find a patient that is quite emotional, labile, stating that he has been under a lot of stress lately and he has been seriously thinking about committing suicide. The [facility] reports [facility] 100% connection service which means more than $ 1500 per month from his paysterling. 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 In the last weeks he has self-inflicted lacerations in multiple locations to relieve stress, "but I have really been thinking in get it further and over". During the evaluation the patient is tearful, he seems to be quite vulnerable and fragile, he has vague suicidal ideation, no plan at the moment, willing to accept help and be admitted. The patient does not present any loosening of associations, no paranoia, no ideas of reference, no delusions, no dl, the patient is fully oriented 3, with no filtration of consciousness, no attention deficit, no gross cognitive impairment present. PPHX: He si 100% service-connected, with psychiatric history of PTSD, depressive disorder, alcohol use disorder, over 10 hospitalizations, last hospitalization was here in [place] in 2017 under the care of Dr. Harkins, documentation reviewed, outpatient care with the CT, he is on Depakote 500 mg twice daily, Effexor 37.5 mg, trazodone 100 mg, Seroquel 200 mg at bedtime, multiple suicidal attempts, para suicidal behavior PMHx: medical history of diabetes mellitus, neuropathy, hypertension, CHF, atrial fibrillation, coronary artery disease, Family Hx: Mother and father were both alcoholic Substance Hx: Patient drinks alcohol every day, he drinks between 6-12 beers per day. He denies use of illegal drugs. Social Hx: The patient was born and raised in [place], domiciled alone in [facility], , unemployed, , 100% service-connected, he has 2 kids, a boy of 14 years old, care of 20 years old, but they are not connected. Review of Systems Constitutional: Denies anorexia, Denies body ache(s), Denies chills, Denies daytime sleepiness, Denies excessive sweating, Denies fever(s), Denies headache( s), Denies increased appetite, Denies lack of energy, Denies malaise, Denies night sweats, Denies weakness, Denies weight gain, Denies weight loss, Denies other Eyes: Denies blind spots, Denies blurry vision, Denies bulging eyes, Denies change in vision, Denies double vision, Denies discharge, Denies dry eyes, Denies floaters, Denies irritation, Denies itchy eyes, Denies loss of vision, Denies pain, Denies requires corrective lenses, Denies sensitivity to light, Denies other Ears, Nose, Mouth, and Throat: Denies abnormal hearing, Denies bleeding gums, Denies bad breath, Denies change in voice, Denies dental pain, Denies difficulty swallowing, Denies dizziness, Denies dry mouth, Denies ear discharge , Denies ear pain, Denies facial pain, Denies headache(s), Denies hearing loss, Denies hoarseness, Denies lip swelling, Denies nosebleed, Denies mouth lesions, Denies mouth pain, Denies nasal congestion, Denies nasal discharge, Denies nasal obstruction, Denies nasal trauma, Denies neck lump, Denies neck pain, Denies nose pain, Denies pain with swallowing, Denies poor balance, Denies post nasal drip, Denies ringing in the ears, Denies sinus pain, Denies sinus pressure , Denies sore throat, Denies throat swelling, Denies tongue swelling, Denies other Cardiovascular: Denies chest pain, Denies chest pain at rest, Denies chest pain with activity, Denies excessive sweating, Denies fainting, Denies fast heart rate, Denies foot swelling, Denies generalized swelling, Denies irregular heart rhythm, Denies leg pain with activity, Denies leg sores, Denies leg swelling, Denies lightheadedness, Denies radiating jaw, neck or arm pain, Denies rapid, pounding, or irregular heartbeat, Denies shortness of breath, Denies shortness of breath with activity, Denies shortness of breath when lying down, Denies shortness of breath causing sudden awakening, Denies slow heart rate, Denies other Respiratory: Denies change in phlegm color, Denies chest congestion, Denies cough, Denies coughing up blood, Denies excessive phlegm production, Denies pain on inspiration, Denies pain with cough, Denies shortness of breath, Denies shortness of breath with activity, Denies snoring, Denies stridor, Denies wheezing, Denies other Gastrointestinal: Denies abdominal pain, Denies belching, Denies black, tarry stools, Denies bloating, Denies bright, red blood in stools, Denies change in bowel habits, Denies constant urge to pass stool, Denies change in stools, Denies coffee ground vomit, Denies constipation, Denies cramping, Denies difficulty swallowing, Denies excessive passing of gas, Denies feeling full early, Denies heartburn, Denies incontinent of stools, Denies loose stools, Denies nausea, Denies pain with swallowing, Denies vomiting, Denies vomiting blood, Denies other Genitourinary: Denies blood in semen, Denies blood in urine, Denies decreased urination, Denies difficulty urinating, Denies difficulty with ejaculations, Denies erectile dysfunction, Denies genital lesions, Denies genital pain, Denies painful urination, Denies side pain, Denies frequent nighttime urination , Denies painful ejaculations, Denies penile discharge, Denies scrotal swelling , Denies testicle lump, Denies testicle pain, Denies urinary frequency, Denies urinary hesitancy, Denies urinary incontinence, Denies urinary urgency, Denies other Musculoskeletal: Denies abnormal walking, Denies back pain, Denies body aches, Denies decreased muscle mass, Denies deformity, Denies joint pain, Denies joint swelling, Denies limited joint movement, Denies loss of height, Denies muscle cramps, Denies muscle weakness, Denies neck pain, Denies numbness, Denies radiating pain into limb, Denies stiffness, Denies tingling, Denies other Neurologic: Denies abnormal hearing, Denies abnormal movements, Denies abnormal speech, Denies abnormal walking, Denies behavioral changes, Denies burning sensations, Denies confusion, Denies dizziness, Denies fainting, Denies frequent falls, Denies headache(s), Denies lack of coordination, Denies localized weakness, Denies loss of vision, Denies memory loss, Denies numbness, Denies other visual disturbances, Denies radiating pain, Denies restless legs, Denies convulsions, Denies seizure-like activity, Denies sensory deficit, Denies tingling, Denies tingling/numbness/burning sensations, Denies tremor(s), Denies unsteadiness, Denies weakness, Denies other Psychiatric: Reports depression, Reports irritability, Reports lack of enjoyment , Reports mood swings, Reports thoughts of hurting/killing yourself PMF - History History Provided By: Patient, Medical Record - Medical History Medical History: Medical History (Last Reviewed 01/02/18 @ 13:33 by ALEXIS Lazo) COPD (chronic obstructive pulmonary disease) Depression Diabetes HTN (hypertension) PTSD (post-traumatic stress disorder) Alcohol abuse BPH (benign prostatic hyperplasia) CAD (coronary artery disease) CHF (congestive heart failure) GERD (gastroesophageal reflux disease) Hyperlipidemia IBS (irritable bowel syndrome) Osteoarthritis - Surgical History Surgical History: Surgical History (Last Reviewed 01/02/18 @ 13:33 by ALEXIS Lazo) Hx of CABG - Family History Family History: Family History (Last Updated 01/02/18 @ 16:05 by Elfego Garcia MD) Other Family history of heart cancer Family history of heart disease - Tobacco History Second Hand Smoke Exposure: No Smoking Status: Former smoker - Alcohol History How Often Do You Have a Drink Containing Alcohol: 2 to 4 times a month - Substance Use History Substance History: No History of Abuse - Travel History Recent Travel in the [place] Within the Last 8 Weeks: No Recent Travel Out of the Country Within the Last 8 Weeks: No - Immunization History Tetanus Immunization: <5 Years Hx Influenza Vaccine This Season: Yes Medications and Allergies Active Medications: Active Medications Acetaminophen (Tylenol) 650 mg PO Q4H PRN PRN Reason: Temp > 100.4 Last Admin: 01/02/18 23:18 Dose: 650 mg Al Hydroxide/Mg Hydroxide (Milk Of Magnesia Liq) 30 ml PO Q12H PRN PRN Reason: Mild Constipation Atorvastatin Calcium (Lipitor) 80 mg PO DAILY [facility] Last Admin: 01/03/18 08:49 Dose: 80 mg Carvedilol (Coreg) 25 mg PO BID [facility] Last Admin: 01/03/18 08:49 Dose: 25 mg Dextrose (D50w Vial) 50 ml IV.PUSH UNSCH PRN PRN Reason: PER HYPOGLYCEMIA PROTOCOL Divalproex Sodium (Depakote Er) 500 mg PO DAILY [facility] Last Admin: 01/03/18 08:48 Dose: 500 mg Ethacrynic Acid (Edecrin) 25 mg PO DAILY [facility] Last Admin: 01/03/18 08:49 Dose: 25 mg Gabapentin (Neurontin) 300 mg PO BID [facility] Last Admin: 01/03/18 08:49 Dose: 300 mg Glucagon (Glucagon Inj) 1 mg OTHER PRN PRN PRN Reason: for Hypoglycemia Protocol Heparin Sodium (Porcine) (Heparin Inj) 5,000 units SQ Q12H [facility] Last Admin: 01/03/18 06:24 Dose: 5,000 units Hydralazine HCl (Apresoline) 25 mg PO TID PRN PRN Reason: SBP>160, DBP>90 Insulin Aspart (Novolog Insulin Correctional Sugar Inj) 0 unit SQ [facility]; Protocol Last Admin: 01/03/18 12:42 Dose: Not Given Insulin Detemir (Levemir Inj) 30 unit SQ [facility] Last Admin: 01/02/18 21:01 Dose: 30 unit Losartan Potassium (Cozaar) 100 mg PO DAILY [facility] Last Admin: 01/03/18 08:49 Dose: 100 mg Morphine Sulfate (Morphine Inj) 2 mg IV.PUSH Q3H PRN PRN Reason: CHEST PAIN Last Admin: 01/03/18 08:49 Dose: 2 mg Ondansetron HCl (Zofran Inj) 4 mg IV.PUSH Q6H PRN PRN Reason: NAUSEA OR VOMITING Quetiapine Fumarate (Seroquel) 200 mg PO HS [facility] Last Admin: 01/02/18 21:01 Dose: 200 mg Sodium Chloride (Ns Flush) 2 ml IV.FLUSH UNSCH PRN PRN Reason: FLUSH AFTER USING IV ACCESS Trazodone HCl (Desyrel) 100 mg PO DAILY [facility] Last Admin: 01/03/18 08:49 Dose: 100 mg Allergies Allergy/AdvReac Type Severity Reaction Status Date / Time Sulfa (Sulfonamide Allergy Mild Rash Verified 01/02/18 13:27 Antibiotics) Home Medications Medication Instructions Recorded Confirmed Type atorvastatin 80 mg PO DAILY 01/02/18 01/02/18 History carvedilol 25 mg PO BID 01/02/18 01/02/18 History divalproex 500 mg PO DAILY 01/02/18 01/02/18 History ethacrynic acid 25 mg PO DAILY 01/02/18 01/02/18 History gabapentin 300 mg PO BID 01/02/18 01/02/18 History insulin aspart U-100 8 unit SUB-Q QPM 01/02/18 01/02/18 History insulin glargine 30 unit SUB-Q DAILY 01/02/18 01/02/18 History losartan 100 mg PO DAILY 01/02/18 01/02/18 History metoprolol tartrate 100 mg PO HS 01/02/18 01/02/18 History quetiapine 200 mg PO HS 01/02/18 01/02/18 History trazodone 100 mg PO DAILY 01/02/18 01/02/18 History Exam Vital signs: Vital Signs 01/02/18 14:45 01/02/18 15:00 01/02/18 15:32 Temperature Pulse Rate 114 H 96 H 98 H Respiratory Rate Blood Pressure 143/87 H 150/97 H 144/96 H Pulse Oximetry 98 01/02/18 20:00 01/02/18 20:59 01/02/18 23:21 Temperature Pulse Rate 98 H 79 Respiratory Rate 15 22 Blood Pressure 137/80 60/42 L Pulse Oximetry 95 95 95 01/03/18 00:51 01/03/18 00:56 01/03/18 01:21 Temperature Pulse Rate 72 71 Respiratory Rate 16 16 Blood Pressure 86/57 L Pulse Oximetry 98 01/03/18 01:36 01/03/18 01:41 01/03/18 03:06 Temperature Pulse Rate 73 73 71 Respiratory Rate 22 Blood Pressure 67/52 L 92/64 L Pulse Oximetry 99 01/03/18 03:54 01/03/18 04:35 01/03/18 05:42 Temperature Pulse Rate 72 68 Respiratory Rate 22 16 22 Blood Pressure 98/65 L 95/66 L Pulse Oximetry 98 97 01/03/18 08:01 01/03/18 08:25 01/03/18 08:33 Temperature 97.5 F L Pulse Rate 82 83 Respiratory Rate Blood Pressure 155/104 H Pulse Oximetry 100 100 01/03/18 09:21 01/03/18 12:27 Temperature 97.6 F Pulse Rate 86 83 Respiratory Rate 16 Blood Pressure 111/78 Pulse Oximetry 100 Intake & Output 01/02/18 01/03/18 01/03/18 18:59 06:59 18:59 Intake Total 120 / 120 1300 / 1300 Balance 120 / 120 1300 / 1300 Weight 81.647 kg 81.647 kg Intake: IV 1000 / 1000 NS Inj 1,000 ML @ Wide Open IV. 1000 / 1000 SIG BOLUS ONE Rx#:[id number] Oral 120 / 120 300 / 300 Other: # Voids 1 Date of Last Bowel Movement 12/31/17 12/31/17 Weight On Admission 81.647 kg Narrative: No tremors, no EPS, no stiffness, no psychomotor retardation or agitation at the moment, no withdrawal symptoms - Constitutional no acute distress - Routine HEENT Exam Head: Present: normocephalic Eye: Present: EOMI, PERRL ENT: Present: mucous membranes moist Mental Status Examination Appearance: Appropriate Consciousness: Alert Orientation: x4 Motor Activity: Normal gait Speech: Unremarkable Language: Adequate Fund of Knowledge: Adequate Attention and Concentration: Adequate Memory: Unremarkable Mood: Sad Affect: Sad Thought Process & Associations: Intact Thought Content: Appropriate Hallucination Type: None Delusion Type: None Suicidal Ideation: Yes Suicidal Plan: No Suicidal Intention: No Homicidal Ideation: No Homicidal Plan: No Homicidal Intention: No Insight: Poor Judgment: Poor Assessment and Plan - Plan Plan: Estimated LOS: [] days On psychiatric evaluation today the patient presents quite fragile, vulnerable, tearful, reporting symptoms of depression consistent on anhedonia, hopelessness , helplessness, poor sleep, poor level of energy, generally pessimism, lack of enjoyment, persistent suicidal thoughts to the point that the patient has being in both in 2 episodes of self cutting behavior lately in order "to release stress "order and has been having suicidal thoughts with a plan of cutting or overdosing. The patient reports that he has been depressed in the context of medical deterioration, lack of social and family support, economical problems, and also persistent alcohol use. The patient has an elevated risk of danger to self, he will be admitted in psychiatry for stabilization and safety. I will restart his Effexor 37.5 mg, Seroquel 200 mg, Depakote 500 mg twice daily, trazodone 100 mg. Patient also needs to be in a CIWA. 1:1 in medical floor. Will order Depakote levels. Patient can be admitted in the [facility] unit. Brief supportive psychotherapy provided. Patient will sing voluntary admission Dx: Major depressive disorder, recurrent, severe, without psychosis, chronic PTSD Tobacco Use In Past 30 Days: No How Often Do You Have a Drink Containing Alcohol: 4 or more times a week Hospital Course: The patient is a 52-year-old man, domiciled alone in [facility], , unemployed, , 100% service-connected, with psychiatric history of PTSD , depressive disorder, alcohol use disorder, over 10 hospitalizations, last hospitalization was here in [place] in 2017 under the care of Dr. Harkins, documentation reviewed, outpatient care with the CT, he is on Depakote 500 mg twice daily, Effexor 37.5 mg, trazodone 100 mg, Seroquel 200 mg at bedtime, multiple suicidal attempts, para suicidal behavior, with medical history of diabetes mellitus, neuropathy, hypertension, CHF, atrial fibrillation, coronary artery disease, who was sent from the CT clinic for evaluation of an ongoing substernal type chest pain times which he had SI and was transferred to the inpatient psychiatry for further evaluation and management. Patient continued on quetiapine, venlafaxine, trazodone, and Depakote which he tolerated well with no notable adverse drug reactions. Patient was noted with improvement in mood, noted to have denied having any suicidal nor homicidal ideations since admission. He was observed by staff to not have had any behavioral disturbances , not having made any suicidal or homicidal statements and maintained stable mood through admission and was noted to participate with staff adequately. Patient was noted to participate in self care, engaging with staff and maintaining adequate hygiene. Patient reported feeling more hopeful, future oriented and motivated to continue to work with his providers at the [facility] clinic and continue with outpatient follow up. Treatment team was able to set up outpatient follow up appointments which the patient can continue current medication regimen. Upon discharge patient stated feeling good, reported feeling well with the treatment, as well as motivation to continue recommendations and denied any SI, HI, perceptual disturbances or delusions. Patient was counseled on abstinence from alcohol use and states wanting to participate in inpatient rehabilitation program for alcohol use which the CT is arranging. Weighing the acute, chronic, and protective factors and based on the available evidence, I computer graphics illustrator to a reasonable degree of medical certainty that the patient is at low imminent risk of harm to self or others from a mental illness as defined under the Bailey act and his level of function is adequate as observed on the unit for planned level of outpatient care. Patient was counseled regarding warning signs for need to return to the psychiatric emergency room as part of a general safety plan. Patient advised to call 911 or go nearest ED in case of emergency. Patient agreed with plan. - Discharge Discharge Date: 01/06/18 - Discharge Diagnosis (1) Major depressive disorder Code(s): F32.9 - Major depressive disorder, single episode, unspecified Status : Acute Discharge Disposition: Home - Discharge Instructions Discharge Diet: Heart Healthy Diet Activities You Can Perform: Weight Bearing As Tolerat - Discharge Time > 30 minutes Mental Status Examination Appearance: Appropriate Consciousness: Alert Orientation: Person, Place, Date/Time Motor Activity: Normal gait Speech: Unremarkable Language: Adequate Fund of Knowledge: Inadequate Attention and Concentration: Adequate Memory: Unremarkable Mood: Appropriate Affect: Appropriate Thought Process & Associations: Intact Thought Content: Appropriate Hallucination Type: None Delusion Type: None Suicidal Ideation: No Suicidal Plan: No Suicidal Intention: No Homicidal Ideation: No Homicidal Plan: No Homicidal Intention: No Insight: Fair Judgment: Impulsive Discharge/Advance Care Plan - Results Vital Signs: Last Vital Signs Temp 97.9 F 01/06/18 05:30 Pulse 82 01/06/18 05:30 Resp 16 01/06/18 05:30 BP 105/68 01/06/18 05:30 Pulse Ox 99 01/05/18 17:35 Lab Results: Abnormal Lab Results 01/06/18 01/06/18 06:30 11:13 POC Glucose 150 H 268 H Laboratory Results Hemoglobin A1c 11.8 % (4.3-6.0) H 01/04/18 14:08 Triglycerides 723 mg/dL (42-150) H 01/04/18 14:08 Cholesterol 290 mg/dL (120-200) H 01/04/18 14:08 LDL Cholesterol, Calc mg/dL (0-99) 01/04/18 14:08 HDL Cholesterol 32.7 mg/dL (40.0-60.0) L 01/04/18 14:08 Valproic Acid 33 mcg/mL (50-100) L 01/04/18 14:08 Summary of Procedures: none Pending Results: None - Medications Number of antipsychotic medications at discharge: 1 - Discharge Care Plan Goals to Promote Your Health: * To prevent worsening of your condition and complications * To maintain your health at the optimal level Directions to Meet Your Goals: Take your medications as prescribed Follow your dietary instruction Follow activity as directed Keep your appointments as scheduled Take your immunizations and boosters as scheduled If your symptoms worsen call your PCP, if no PCP go to Urgent Care Center or Emergency Room For 06/12 questions related to your inpatient stay or results of tests pending at discharge, please contact Dr. Elfego Harkins MD at Smoking is Dangerous to Your Health. Avoid second hand smoking (1) Major depressive disorder Qualifiers: Major depression recurrence: recurrent Active/Remission status: currently active Major depression episode severity: severe Psychotic features: without psychotic features Qualified Code(s): F33.2 - Major depressive disorder, recurrent severe without psychotic features (1) Major depressive disorder Qualifiers: Major depression recurrence: recurrent Active/Remission status: currently active Major depression episode severity: severe Psychotic features: without psychotic features Qualified Code(s): F33.2 - Major depressive disorder, recurrent severe without psychotic features
== END 2018-01-06 14:36 | disposition home or self-care (01) ==
LOC: H4EA 16:02 → H260 01-04 19:58
PROVIDERS: ADMIT Student in an Organized Health Care Education/Training Program; ATTEND Student in an Organized Health Care Education/Training Program
CPT/HCPCS: 80048; 80061; 80164; 82948; 82962; 83036; J1815

== ENCOUNTER 2018-02-07 18:01 | Observation (INO) ==
--- NOTE | 2018-02-07 18:18 | ED ---
HPI General Chief Complaint: Overdose Stated Complaint: Overdose Time Seen by Provider: 02/07/18 18:11 Source: patient Mode of arrival: EMS Limitations: no limitations History of Present Illness HPI Narrative: [facility]. He comes in [place] police due to intentional overdose with 5 metoprolol 100 mg tablets in an attempt to end his life... Pills were taken approximately around 1500 (however if this is not clear because patient kept mentioning 11 AM as well so truly is not were not sure when this patient took these pills.). Per patient he gives is a the following medical history.... Patient has past medical history of PTSD stent x2 cholecystectomy appendectomy hypertension hypercholesterolemia diabetes depression. Patient currently states that he is suicidal MD complaint: intentional overdose Onset (ago): hour(s) (3) Intent: suicide attempt How Overdose Was Discovered: called 911 Context: Intentional Overdose: other (Patient states that the reason why he is suicidal is because [facility]. ) Associated symptoms: depression Treatments Prior to Arrival: IV fluids Related Data Home Medications Medication Instructions Recorded Confirmed insulin aspart U-100 8 unit SUB-Q QPM 01/02/18 02/07/18 insulin glargine 30 unit SUB-Q DAILY 01/02/18 02/07/18 losartan 100 mg PO DAILY 01/02/18 02/07/18 trazodone 100 mg PO DAILY 01/02/18 02/07/18 aspirin 81 mg PO DAILY 02/07/18 02/07/18 Previous Rx's Medication Instructions Recorded carvedilol [Coreg] 3.125 mg PO BID #60 tab 02/09/18 divalproex 500 mg PO BID #60 tab 02/09/18 venlafaxine [Effexor XR] 150 mg PO DAILY #30 cap 02/09/18 Allergies Allergy/AdvReac Type Severity Reaction Status Date / Time Sulfa (Sulfonamide Allergy Mild Rash Verified 01/02/18 13:27 Antibiotics) Review of Systems ROS: all other systems reviewed are negative PMFSH History History Provided By: Patient Medical History Medical History Toe amputation status (Acute) Alcohol abuse (Chronic) BPH (benign prostatic hyperplasia) (Chronic) CAD (coronary artery disease) (Chronic) CHF (congestive heart failure) (Chronic) COPD (chronic obstructive pulmonary disease) (Chronic) Depression (Chronic) Diabetes (Chronic) GERD (gastroesophageal reflux disease) (Chronic) HTN (hypertension) (Chronic) Hyperlipidemia (Chronic) IBS (irritable bowel syndrome) (Chronic) Osteoarthritis (Chronic) PTSD (post-traumatic stress disorder) (Chronic) Surgical History Surgical History History of back surgery (Acute) S/P cholecystectomy (Acute) Hx of CABG (Chronic) Family History Family History Other Family history of heart cancer Family history of heart disease Social History Social History Substance History: No History of Abuse Second Hand Smoke Exposure: No Smoking Status: Never smoker How Often Do You Have a Drink Containing Alcohol: 4 or more times a week Recent Travel in [facility] within the Last 8 Weeks: No Recent Out of Country Travel within the Last 8 Weeks: No Exam Narrative Exam Narrative: GENERAL: Middle-aged white male SKIN: Warm and dry. Left wrist abrasion has approximately 4-5 superficial hesitation foster, not deep enough to require suturing HEAD: Atraumatic. Normocephalic. EYES: Pupils equal and round. No scleral icterus. No injection or drainage. ENT: No nasal bleeding or discharge. Mucous membranes pink and moist. NECK: Trachea midline. No JVD. CARDIOVASCULAR: Regular rate and rhythm. no rubs or gallops RESPIRATORY: No accessory muscle use. Clear to auscultation. Breath sounds equal bilaterally. GASTROINTESTINAL: Abdomen soft, non-tender, nondistended. No rebound or guarding MUSCULOSKELETAL: Extremities without clubbing, cyanosis, or edema. No obvious deformities. NEUROLOGICAL: Awake and alert. No obvious cranial nerve deficits. Motor grossly within normal limits. Five out of 5 muscle strength in the arms and legs. Normal speech. PSYCHIATRIC: depressed mood and sad affect; insight and judgment normal. Course Consultations Consultation #1: The patient's case including history, pertinent physical examination findings, and laboratory studies were discussed with Dr. Gupta. It was agreed that the patient would be admitted to the hospitalist service. Initial Documented Vital Signs Pulse Rate 83 02/07/18 18:03 Respiratory Rate 16 02/07/18 18:03 Blood Pressure 119/71 02/07/18 18:03 Pulse Oximetry 99 02/07/18 18:03 Last Documented Vital Signs Temperature 97.8 F 02/09/18 07:36 Pulse Rate 73 02/09/18 08:00 Respiratory Rate 16 02/09/18 07:36 Blood Pressure 148/94 H 02/09/18 07:36 Pulse Oximetry 96 02/09/18 07:36 Critical Care Time Critical Care Time: Yes Total Critical Care Time: 30 Attestation: Aggregate critical care time was 30 minutes. Time to perform other separately billable procedures was not included in the critical care time. My time did not include minutes spent treating any other patients simultaneously or on activities that did not directly contribute to the patient's treatment. The services I provided to this patient were to treat and/or prevent clinically significant deterioration that could result in: [If patient is truthfully ingested that much metoprolol the patient may become hypotensive bradycardic and require pressors as well as other interventions to avoid -] I provided critical care services requiring my management, as noted below: Chart data review, documentation time, medication orders and management, vital sign assessments/reviewing monitor data, ordering and reviewing lab tests, ordering and interpreting/reviewing x-rays and diagnostic studies, care of the patient and discussion of the patient with the admitting physicians. Sign Out Sign Out Data: Patient Sign Out occurred on 02/07/18 at 19:49. Patient's care was discussed, and care was transferred from Topher Trejo to Reva Arenas MD. Sign Out Comment: Patient intentionally overdosed on metoprolol 100 mg, upon arrival the patient was not bradycardic was not hypotensive and was stable medically. Patient is signed out to oncoming physician pending labs result and medical admission as well as psychiatric screen Last updated by Topher Trejo at 02/07/18 18:20 Post-Handoff Eval: The patient's case was checked out to me by Dr. Trejo at the conclusion of his shift. Please see his initial history and physical. The patient reportedly intentionally overdosed on metoprolol sometime earlier today for details of the exact timing are vague as the patient has changed the timing on multiple conversations with them. The patient arrives with no bradycardia or hypotension. The plan is to admit the patient for observation with a psychiatric consultation in the hospital. During the course of the patient's emergency department visit, the patient's history, examination, and differential diagnosis were reviewed with the patient. The patient was placed on a online retailer with oximetry and frequent blood pressure monitoring. The patient had IV access obtained and blood work sent for analysis. The patient was initially provided glucagon 1 mg IV, normal saline 1 L IV fluid bolus. The patients laboratory studies remarkable for a white count of 5.6, hemoglobin 12.1, platelets 168 with lymphocytes of 44.8. chem remarkable for a Na of 133, Co2 20.8, CR. 1.38, blood sugar 208, coags unremarkable. Radiology studies were remarkable for a cxr that showed no acute abnormality. The patient was admitted to the [facility] service after discussion further with Dr. Gupta who was agreeable with this plan. Medical Decision Making MDM Narrative Medical Screen Exam Complete: Yes Emergency Medical Condition: Yes Medical Records Medical records reviewed: Yes I reviewed the patient's medical records. Lab Data Result diagrams: 02/08/18 04:10 02/08/18 04:10 Lab Results 02/07/18 02/07/18 02/07/18 Range/Units 18:25 18:25 18:25 WBC 5.6 (4.0-11.0) th/mm3 RBC 3.80 L (4.50-5.90) mil/mm3 Hgb 12.1 L (13.0-17.0) gm/dL Hct 35.7 L (39.0-51.0) % MCV 94.0 (80.0-100.0) fL MCH 31.9 (27.0-34.0) pg MCHC 33.9 (32.0-36.0) % RDW 13.6 (11.6-17.2) % Plt Count 168 (150-450) th/mm3 MPV 8.3 (7.0-11.0) fL Neut % (Auto) 46.6 (16.0-70.0) % Lymph % (Auto) 44.8 H (9.0-44.0) % Holmes % (Auto) 6.7 (0.0-8.0) % Eos % (Auto) 1.2 (0.0-4.0) % Baso % (Auto) 0.7 (0.0-2.0) % Neut # (Auto) 2.6 (1.8-7.7) th/mm3 Lymph # (Auto) 2.5 (1.0-4.8) th/mm3 Holmes # (Auto) 0.4 (0.0-0.9) th/mm3 Eos # (Auto) 0.1 (0.0-0.4) th/mm3 Baso # (Auto) 0.0 (0.0-0.2) th/mm3 WBC Differential . Differential Comment Auto diff final PT (9.8-11.6) sec INR Ratio APTT (24.3-30.1) sec Sodium 133 L (136-145) meq/L Potassium 3.7 (3.5-5.1) meq/L Chloride 98 (98-107) meq/L Carbon Dioxide 20.8 L (21.0-32.0) meq/L Anion Gap 14 (5-15) meq/L BUN 14 (7-18) mg/dL Creatinine 1.38 H (0.60-1.30) mg/dL Estimated GFR 54 L (>89) mL/min POC Glucose (68-110) mg/dl Random Glucose 207 H (74-106) mg/dL Calcium 7.8 L (8.5-10.1) mg/dL Phosphorus (2.5-4.9) mg/dL Magnesium (1.5-2.5) mg/dL Total Bilirubin 0.3 (0.2-1.0) mg/dL AST 23 (15-37) U/L ALT 27 (12-78) U/L Alkaline Phosphatase 76 (45-117) U/L Total Protein 6.7 (6.4-8.2) g/dL Albumin 3.3 L (3.4-5.0) g/dL TSH 2.300 (0.358-3.740) uIU/mL Salicylates Less than 1.7 L (2.8-20.0) mg/dL Urine Opiates Screen (Neg) Acetaminophen Less than 3.0 L (10.0-30.0) mcg/mL Ur Barbiturates Screen (Neg) Valproic Acid (50-100) mcg/mL Ur Amphetamines Screen (Neg) U Benzodiazepines Scrn (Neg) Urine Cocaine Screen (Neg) U Cannabinoids Screen (Neg) Serum Alcohol 68 H (0-5) mg/dL 02/07/18 02/07/18 02/07/18 Range/Units 18:25 19:35 20:26 WBC (4.0-11.0) th/mm3 RBC (4.50-5.90) mil/mm3 Hgb (13.0-17.0) gm/dL Hct (39.0-51.0) % MCV (80.0-100.0) fL MCH (27.0-34.0) pg MCHC (32.0-36.0) % RDW (11.6-17.2) % Plt Count (150-450) th/mm3 MPV (7.0-11.0) fL Neut % (Auto) (16.0-70.0) % Lymph % (Auto) (9.0-44.0) % Holmes % (Auto) (0.0-8.0) % Eos % (Auto) (0.0-4.0) % Baso % (Auto) (0.0-2.0) % Neut # (Auto) (1.8-7.7) th/mm3 Lymph # (Auto) (1.0-4.8) th/mm3 Holmes # (Auto) (0.0-0.9) th/mm3 Eos # (Auto) (0.0-0.4) th/mm3 Baso # (Auto) (0.0-0.2) th/mm3 WBC Differential Differential Comment PT 10.7 (9.8-11.6) sec INR 1.1 Ratio APTT 20.5 L (24.3-30.1) sec Sodium (136-145) meq/L Potassium (3.5-5.1) meq/L Chloride (98-107) meq/L Carbon Dioxide (21.0-32.0) meq/L Anion Gap (5-15) meq/L BUN (7-18) mg/dL Creatinine (0.60-1.30) mg/dL Estimated GFR (>89) mL/min POC Glucose (68-110) mg/dl Random Glucose (74-106) mg/dL Calcium (8.5-10.1) mg/dL Phosphorus (2.5-4.9) mg/dL Magnesium (1.5-2.5) mg/dL Total Bilirubin (0.2-1.0) mg/dL AST (15-37) U/L ALT (12-78) U/L Alkaline Phosphatase (45-117) U/L Total Protein (6.4-8.2) g/dL Albumin (3.4-5.0) g/dL TSH (0.358-3.740) uIU/mL Salicylates (2.8-20.0) mg/dL Urine Opiates Screen Neg (Neg) Acetaminophen (10.0-30.0) mcg/mL Ur Barbiturates Screen Neg (Neg) Valproic Acid 14 L (50-100) mcg/mL Ur Amphetamines Screen Neg (Neg) U Benzodiazepines Scrn Neg (Neg) Urine Cocaine Screen Neg (Neg) U Cannabinoids Screen Neg (Neg) Serum Alcohol (0-5) mg/dL 02/08/18 02/08/18 02/08/18 Range/Units 00:21 04:10 04:10 WBC 5.0 (4.0-11.0) th/mm3 RBC 4.07 L (4.50-5.90) mil/mm3 Hgb 13.0 (13.0-17.0) gm/dL Hct 38.0 L (39.0-51.0) % MCV 93.4 (80.0-100.0) fL MCH 32.0 (27.0-34.0) pg MCHC 34.3 (32.0-36.0) % RDW 14.1 (11.6-17.2) % Plt Count 145 L (150-450) th/mm3 MPV 8.4 (7.0-11.0) fL Neut % (Auto) 41.7 (16.0-70.0) % Lymph % (Auto) 46.9 H (9.0-44.0) % Holmes % (Auto) 8.6 H (0.0-8.0) % Eos % (Auto) 2.0 (0.0-4.0) % Baso % (Auto) 0.8 (0.0-2.0) % Neut # (Auto) 2.1 (1.8-7.7) th/mm3 Lymph # (Auto) 2.3 (1.0-4.8) th/mm3 Holmes # (Auto) 0.4 (0.0-0.9) th/mm3 Eos # (Auto) 0.1 (0.0-0.4) th/mm3 Baso # (Auto) 0.0 (0.0-0.2) th/mm3 WBC Differential . Differential Comment Auto diff final PT (9.8-11.6) sec INR Ratio APTT (24.3-30.1) sec Sodium 138 (136-145) meq/L Potassium 4.1 (3.5-5.1) meq/L Chloride 104 (98-107) meq/L Carbon Dioxide 24.8 (21.0-32.0) meq/L Anion Gap 9 (5-15) meq/L BUN 12 (7-18) mg/dL Creatinine 1.04 (0.60-1.30) mg/dL Estimated GFR 75 L (>89) mL/min POC Glucose 150 H (68-110) mg/dl Random Glucose 164 H (74-106) mg/dL Calcium 7.9 L (8.5-10.1) mg/dL Phosphorus 3.4 (2.5-4.9) mg/dL Magnesium 1.8 (1.5-2.5) mg/dL Total Bilirubin (0.2-1.0) mg/dL AST (15-37) U/L ALT (12-78) U/L Alkaline Phosphatase (45-117) U/L Total Protein (6.4-8.2) g/dL Albumin 3.0 L (3.4-5.0) g/dL TSH (0.358-3.740) uIU/mL Salicylates (2.8-20.0) mg/dL Urine Opiates Screen (Neg) Acetaminophen (10.0-30.0) mcg/mL Ur Barbiturates Screen (Neg) Valproic Acid (50-100) mcg/mL Ur Amphetamines Screen (Neg) U Benzodiazepines Scrn (Neg) Urine Cocaine Screen (Neg) U Cannabinoids Screen (Neg) Serum Alcohol (0-5) mg/dL 02/08/18 02/08/18 02/08/18 Range/Units 08:03 13:02 18:01 WBC (4.0-11.0) th/mm3 RBC (4.50-5.90) mil/mm3 Hgb (13.0-17.0) gm/dL Hct (39.0-51.0) % MCV (80.0-100.0) fL MCH (27.0-34.0) pg MCHC (32.0-36.0) % RDW (11.6-17.2) % Plt Count (150-450) th/mm3 MPV (7.0-11.0) fL Neut % (Auto) (16.0-70.0) % Lymph % (Auto) (9.0-44.0) % Holmes % (Auto) (0.0-8.0) % Eos % (Auto) (0.0-4.0) % Baso % (Auto) (0.0-2.0) % Neut # (Auto) (1.8-7.7) th/mm3 Lymph # (Auto) (1.0-4.8) th/mm3 Holmes # (Auto) (0.0-0.9) th/mm3 Eos # (Auto) (0.0-0.4) th/mm3 Baso # (Auto) (0.0-0.2) th/mm3 WBC Differential Differential Comment PT (9.8-11.6) sec INR Ratio APTT (24.3-30.1) sec Sodium (136-145) meq/L Potassium (3.5-5.1) meq/L Chloride (98-107) meq/L Carbon Dioxide (21.0-32.0) meq/L Anion Gap (5-15) meq/L BUN (7-18) mg/dL Creatinine (0.60-1.30) mg/dL Estimated GFR (>89) mL/min POC Glucose 217 H 261 H 216 H (68-110) mg/dl Random Glucose (74-106) mg/dL Calcium (8.5-10.1) mg/dL Phosphorus (2.5-4.9) mg/dL Magnesium (1.5-2.5) mg/dL Total Bilirubin (0.2-1.0) mg/dL AST (15-37) U/L ALT (12-78) U/L Alkaline Phosphatase (45-117) U/L Total Protein (6.4-8.2) g/dL Albumin (3.4-5.0) g/dL TSH (0.358-3.740) uIU/mL Salicylates (2.8-20.0) mg/dL Urine Opiates Screen (Neg) Acetaminophen (10.0-30.0) mcg/mL Ur Barbiturates Screen (Neg) Valproic Acid (50-100) mcg/mL Ur Amphetamines Screen (Neg) U Benzodiazepines Scrn (Neg) Urine Cocaine Screen (Neg) U Cannabinoids Screen (Neg) Serum Alcohol (0-5) mg/dL 02/08/18 02/09/18 Range/Units 21:56 07:30 WBC (4.0-11.0) th/mm3 RBC (4.50-5.90) mil/mm3 Hgb (13.0-17.0) gm/dL Hct (39.0-51.0) % MCV (80.0-100.0) fL MCH (27.0-34.0) pg MCHC (32.0-36.0) % RDW (11.6-17.2) % Plt Count (150-450) th/mm3 MPV (7.0-11.0) fL Neut % (Auto) (16.0-70.0) % Lymph % (Auto) (9.0-44.0) % Holmes % (Auto) (0.0-8.0) % Eos % (Auto) (0.0-4.0) % Baso % (Auto) (0.0-2.0) % Neut # (Auto) (1.8-7.7) th/mm3 Lymph # (Auto) (1.0-4.8) th/mm3 Holmes # (Auto) (0.0-0.9) th/mm3 Eos # (Auto) (0.0-0.4) th/mm3 Baso # (Auto) (0.0-0.2) th/mm3 WBC Differential Differential Comment PT (9.8-11.6) sec INR Ratio APTT (24.3-30.1) sec Sodium (136-145) meq/L Potassium (3.5-5.1) meq/L Chloride (98-107) meq/L Carbon Dioxide (21.0-32.0) meq/L Anion Gap (5-15) meq/L BUN (7-18) mg/dL Creatinine (0.60-1.30) mg/dL Estimated GFR (>89) mL/min POC Glucose 270 H 171 H (68-110) mg/dl Random Glucose (74-106) mg/dL Calcium (8.5-10.1) mg/dL Phosphorus (2.5-4.9) mg/dL Magnesium (1.5-2.5) mg/dL Total Bilirubin (0.2-1.0) mg/dL AST (15-37) U/L ALT (12-78) U/L Alkaline Phosphatase (45-117) U/L Total Protein (6.4-8.2) g/dL Albumin (3.4-5.0) g/dL TSH (0.358-3.740) uIU/mL Salicylates (2.8-20.0) mg/dL Urine Opiates Screen (Neg) Acetaminophen (10.0-30.0) mcg/mL Ur Barbiturates Screen (Neg) Valproic Acid (50-100) mcg/mL Ur Amphetamines Screen (Neg) U Benzodiazepines Scrn (Neg) Urine Cocaine Screen (Neg) U Cannabinoids Screen (Neg) Serum Alcohol (0-5) mg/dL Imaging Data Radiologist's impression: Abdomen X-Ray 02/07/18 18:18 CONCLUSION: Questionable faint calcification measuring 12 mm projecting over the upper pole the right kidney. Chest X-Ray 02/07/18 18:18 CONCLUSION: The lungs are clear. ECG Data EKG Prior to Arrival: No Attestation: I personally reviewed and interpreted this ECG as follows: Prior ECG tracings: not available for review Interpretation: EKG shows normal sinus rhythm, 83 bpm, left atrial enlargement, nonspecific ST-T wave changes, no evidence of any ST elevation PR pattern. However the patient does show evidence of inferior lateral T wave inversions present on 1 aVL V3 through V6 consistent with ischemia Discharge Plan Discharge Disposition Patient Disposition: 30 Still Patient Discharge Condition Condition: Stable Discharge Order Discharge Orders: Discharge Order (Routine); Ordered 02/09/18 Ordered By: Nicky Waldron Discharge Details Anticipated Discharge Date: 02/08/18 Diagnosis: Drug overdose, Suicidal ideations Physicians Team ED Provider: Reva Arenas Primary Care Provider: [facility]Physician 's Attending Provider: Lakia Brown Other Providers: Leonel Saunders Status ED Status: Left Department Discharge Information Discharge Date/Time: 02/07/18 23:23
[2018-02-07] MEDS ORDERED: Sod Chloride 0.9% Inj 1,000 ML IV.SIG ONE (18:19)
[2018-02-07 19:01] LABS: Baso % (Auto) 0.7 % (0.0-2.0); Eos # (Auto) 0.1 th/mm3 (0.0-0.4); Eos % (Auto) 1.2 % (0.0-4.0); Hematocrit 35.7 % (39.0-51.0); Hemoglobin 12.1 gm/dL (13.0-17.0); Lymph # (Auto) 2.5 th/mm3 (1.0-4.8); Lymph % (Auto) 44.8 % (9.0-44.0); Mean Corpuscular HGB Conc 33.9 % (32.0-36.0); Mean Corpuscular Hemoglobin 31.9 pg (27.0-34.0); Mean Platelet Volume 8.3 fL (7.0-11.0); Mono # (Auto) 0.4 th/mm3 (0.0-0.9); Mono % (Auto) 6.7 % (0.0-8.0); Neut # (Auto) 2.6 th/mm3 (1.8-7.7); Neut % (Auto) 46.6 % (16.0-70.0); Platelet Count 168 th/mm3 (150-450); Red Cell Distribution Width 13.6 % (11.6-17.2); White Blood Count 5.6 th/mm3 (4.0-11.0)
[2018-02-07 19:28] LABS: Anion Gap 14 meq/L (5-15)
[2018-02-07 19:39] LABS: Alanine Aminotransferase 27 U/L (12-78); Albumin 3.3 g/dL (3.4-5.0); Alcohol 68 mg/dL (0-5); Alkaline Phosphatase 76 U/L (45-117); Aspartate Aminotransferase 23 U/L (15-37); Blood Urea Nitrogen 14 mg/dL (7-18); Calcium 7.8 mg/dL (8.5-10.1); Carbon Dioxide 20.8 meq/L (21.0-32.0); Chloride 98 meq/L (98-107); Glomerular Filtration Rate 54 mL/min (>89); Glucose,Random 207 mg/dL (74-106); Potassium 3.7 meq/L (3.5-5.1); Sodium 133 meq/L (136-145); Total Protein 6.7 g/dL (6.4-8.2)
--- NOTE | 2018-02-07 19:58 | XR ---
EXAM DATE: 02/07/2018 6:18 PM EDT AGE/SEX: 52 years / Male INDICATIONS: Short of breath. CLINICAL DATA: This is the patient's initial encounter. Patient reports that signs and symptoms have been present for 1 day and indicates a pain score of 0/10. MEDICAL/SURGICAL HISTORY: None. None. [place] [facility] [place]. . FINDINGS: A single AP view of the chest demonstrates the lungs to be symmetrically aerated without evidence of mass, infiltrate or effusion. The cardiomediastinal contours are unremarkable. Stable resorption of the distal right clavicle. Evidence of prior median sternotomy.. CONCLUSION: The lungs are clear. Electronically signed by: Roland Hood MD 02/07/2018 7:56 PM EDT
[2018-02-07 20:01] LABS: Amphetamine Screen,Urine Neg (Neg); Barbiturate Screen,Urine Neg (Neg); Cannabinoid Screen,Urine Neg (Neg); Cocaine Screen,Urine Neg (Neg)
[2018-02-07 20:02] LABS: Opiate Screen,Urine Neg (Neg)
[2018-02-07 21:16] LABS: Activated Partial Thrombo Time 20.5 sec (24.3-30.1); INR 1.1 Ratio; Prothrombin Time 10.7 sec (9.8-11.6)
--- NOTE | 2018-02-07 21:39 | XR ---
EXAM DATE: 02/07/2018 6:18 PM EDT AGE/SEX: 52 years / Male INDICATIONS: Abdominal pain. CLINICAL DATA: This is the patient's initial encounter. Patient reports that signs and symptoms have been present for 1 day and indicates a pain score of 5/10. MEDICAL/SURGICAL HISTORY: None. None. COMPARISON: No prior exams available for comparison. FINDINGS: No dilated loops of small bowel. Gas is seen in the transverse and right colon. Moderate degenerativ e changes in the lower lumbar spine. Mild right upper lumbar scoliosis. Questionable faint 12 mm calc ification projects over the upper pole right kidney. CONCLUSION: Questionable faint calcification measuring 12 mm projecting over the upper pole the right kidney. Electronically signed by: Roland Hood MD 02/07/2018 9:37 PM EDT
[2018-02-07] MEDS ORDERED: Bisacodyl 10 MG Supp RECTAL PRN (22:06)
[2018-02-07] MEDS ORDERED: Dextrose 50% in Water 50 ML Vial IV.PUSH PRN (22:09)
[2018-02-07] MEDS: Sod Chloride 0.9% Inj 1,000 ML IV.CONT SCH (22:13)
--- NOTE | 2018-02-07 22:27 | ECG ---
Date Performed: 02/07/2018 Time Performed: 18:07:00 PTAGE: 52 years EKG: Sinus rhythm POSSIBLE LEFT ATRIAL ENLARGEMENT NONSPECIFIC ST & T-WAVE ABNORMALITY ABNORMAL ECG PREVIOUS TRACING : 01/23/2018 17.02 Since the previous tracing, no significant change noted DOCTOR: Robe Liz Interpretating Date/Time 02/07/2018 22:27:39
[2018-02-07] MEDS ORDERED: Sodium Chloride 0.9% 2 ML Flush PRN IV.FLUSH (23:38)
[2018-02-08 05:22] LABS: Baso % (Auto) 0.8 % (0.0-2.0); Eos # (Auto) 0.1 th/mm3 (0.0-0.4); Lymph # (Auto) 2.3 th/mm3 (1.0-4.8); Lymph % (Auto) 46.9 % (9.0-44.0); Mean Corpuscular HGB Conc 34.3 % (32.0-36.0); Mean Corpuscular Volume 93.4 fL (80.0-100.0); Mean Platelet Volume 8.4 fL (7.0-11.0); Mono # (Auto) 0.4 th/mm3 (0.0-0.9); Mono % (Auto) 8.6 % (0.0-8.0); Neut # (Auto) 2.1 th/mm3 (1.8-7.7); Neut % (Auto) 41.7 % (16.0-70.0); Platelet Count 145 th/mm3 (150-450); Red Blood Count 4.07 mil/mm3 (4.50-5.90); Red Cell Distribution Width 14.1 % (11.6-17.2)
[2018-02-08 05:53] LABS: Calcium 7.9 mg/dL (8.5-10.1); Carbon Dioxide 24.8 meq/L (21.0-32.0); Magnesium 1.8 mg/dL (1.5-2.5); Phosphorus 3.4 mg/dL (2.5-4.9); Potassium 4.1 meq/L (3.5-5.1)
--- NOTE | 2018-02-08 06:50 | P.HPIM ---
History of Present Illness Primary Care Physician: [facility] History of Present Illness: 52-year-old male with a history of coronary artery disease, diabetes, depression , PTSD who presents secondary to intentional overdose, reportedly with 5 tablets of metoprolol. He says he was trying to end his life. He says he took the pills the afternoon of 02/07. Patient said he had a couple episodes of palpitations since the overdose, however says he feels all right. Denies any chest pain, shortness of breath, nausea, vomiting, lightheadedness, dizziness. Review of Systems All other systems reviewed negative except as stated in HPI [facility] - History History Provided By: Patient - Medical History Medical History: Medical History (Last Reviewed 02/07/18 @ 18:15 by Topher Trejo) Toe amputation status Alcohol abuse BPH (benign prostatic hyperplasia) CAD (coronary artery disease) CHF (congestive heart failure) COPD (chronic obstructive pulmonary disease) Depression Diabetes GERD (gastroesophageal reflux disease) HTN (hypertension) Hyperlipidemia IBS (irritable bowel syndrome) Osteoarthritis PTSD (post-traumatic stress disorder) - Surgical History Surgical History: Surgical History (Last Reviewed 02/07/18 @ 18:15 by Topher Trejo) History of back surgery S/P cholecystectomy Hx of CABG - Family History Family History: Family History (Last Reviewed 02/07/18 @ 18:15 by Topher Trejo) Other Family history of heart cancer Family history of heart disease - Tobacco History Second Hand Smoke Exposure: No Tobacco Use In Past 30 Days: No Smoking Status: Never smoker - Alcohol History How Often Do You Have a Drink Containing Alcohol: 4 or more times a week - Substance Use History Substance History: No History of Abuse - Substance Use Type Marijuana Status: Early Remission Crack/Cocaine Status: Early Remission - Travel History Recent Travel in the [place] Within the Last 8 Weeks: No Recent Travel Out of the Country Within the Last 8 Weeks: No - Immunization History Tetanus Immunization: <5 Years Tetanus Immunization Year if Known: 2014 Hx Influenza Vaccine This Season: No Medications and Allergies Active Medications: Active Medications Al Hydroxide/Mg Hydroxide (Milk Of Magntai Liq) 30 ml PO Q12H PRN PRN Reason: Mild Constipation Aspirin (Aspirin Chew) 81 mg PO DAILY SEB Bisacodyl (Dulcolax Supp) 10 mg RECTAL DAILY PRN PRN Reason: SEVERE CONSITIPATION Dextrose (D50w Vial) 50 ml IV.PUSH UNSCH PRN PRN Reason: PER HYPOGLYCEMIA PROTOCOL Glucagon (Glucagon Inj) 1 mg OTHER PRN PRN PRN Reason: for Hypoglycemia Protocol Sodium Chloride (Ns Inj) 1,000 mls @ 100 mls/hr IV.CONT .Q10H SEB Last Admin: 02/07/18 22:13 Dose: 100 mls/hr Insulin Aspart (Novolog Insulin Correctional Sugar Inj) 0 unit SQ ACHS SEB; Protocol Lactulose (Lactulose Liq) 30 ml PO DAILY PRN PRN Reason: SEVERE CONSITIPATION Sennosides (Senokot) 17.2 mg PO Q12H PRN PRN Reason: Moderate Constipation Sodium Chloride (Ns Flush) 2 ml IV.FLUSH BID SEB Sodium Chloride (Ns Flush) 2 ml IV.FLUSH PRN PRN PRN Reason: FLUSH AFTER USING IV ACCESS Allergies Allergy/AdvReac Type Severity Reaction Status Date / Time Sulfa (Sulfonamide Allergy Mild Rash Verified 01/02/18 13:27 Antibiotics) Home Medications Medication Instructions Recorded Confirmed Type divalproex 500 mg PO DAILY 01/02/18 02/07/18 History insulin aspart U-100 8 unit SUB-Q QPM 01/02/18 02/07/18 History insulin glargine 30 unit SUB-Q DAILY 01/02/18 02/07/18 History losartan 100 mg PO DAILY 01/02/18 02/07/18 History trazodone 100 mg PO DAILY 01/02/18 02/07/18 History aspirin 81 mg PO DAILY 02/07/18 02/07/18 History Exam Vital signs: Vital Signs 02/07/18 18:03 02/07/18 18:10 02/07/18 19:09 Temperature Pulse Rate 83 83 81 Respiratory Rate 16 12 13 Blood Pressure 119/71 119/71 119/84 Pulse Oximetry 99 96 97 02/07/18 22:31 02/08/18 00:00 02/08/18 04:00 Temperature 97.9 F Pulse Rate 75 75 70 Respiratory Rate 15 15 16 Blood Pressure 126/74 126/74 145/86 H Pulse Oximetry 99 99 95 Intake & Output 02/07/18 02/07/18 02/08/18 06:59 18:59 06:59 Intake Total 1000 / 1000 Balance 1000 / 1000 Weight 85.729 kg 85.729 kg Intake: IV 1000 / 1000 NS Inj 1,000 ML @ Wide Open IV. 1000 / 1000 SIG BOLUS ONE Rx#:[id number] Other: Weight On Admission 85.729 kg Narrative: GENERAL: Patient sitting up in bed. Appears comfortable. Alert and oriented x3. SKIN: Warm and dry. HEAD: Atraumatic. Normocephalic. EYES: Pupils equal and round. No scleral icterus. No injection or drainage. ENT: No nasal bleeding or discharge. Mucous membranes pink and moist. NECK: Trachea midline. No JVD. CARDIOVASCULAR: Regular rate and rhythm. RESPIRATORY: No accessory muscle use. Clear to auscultation. Breath sounds equal bilaterally. GASTROINTESTINAL: Abdomen soft, non-tender, nondistended. Hepatic and splenic margins not palpable. MUSCULOSKELETAL: Extremities without clubbing, cyanosis, or edema. No obvious deformities. NEUROLOGICAL: Awake and alert. No obvious cranial nerve deficits. Motor grossly within normal limits. Five out of 5 muscle strength in the arms and legs. Normal speech. PSYCHIATRIC: Appropriate mood and affect; insight and judgment normal. Results - Labs CBC & Chem 7: 02/08/18 04:10 02/08/18 04:10 Labs: Short CBC 02/07/18 02/08/18 Range/Units 18:25 04:10 WBC 5.6 5.0 (4.0-11.0) th/mm3 Hgb 12.1 L 13.0 (13.0-17.0) gm/dL Hct 35.7 L 38.0 L (39.0-51.0) % Plt Count 168 145 L (150-450) th/mm3 [facility] 02/07/18 02/08/18 18:25 04:10 Sodium 133 L 138 Potassium 3.7 4.1 Chloride 98 104 Carbon Dioxide 20.8 L 24.8 BUN 14 12 Creatinine 1.38 H 1.04 Calcium 7.8 L 7.9 L Liver Function 02/07/18 02/08/18 Range/Units 18:25 04:10 Total Bilirubin 0.3 (0.2-1.0) mg/dL AST 23 (15-37) U/L ALT 27 (12-78) U/L Alkaline Phosphatase 76 (45-117) U/L Albumin 3.3 L 3.0 L (3.4-5.0) g/dL - Imaging Impressions Abdomen X-Ray 02/07/18 18:18 CONCLUSION: Questionable faint calcification measuring 12 mm projecting over the upper pole the right kidney. Chest X-Ray 02/07/18 18:18 CONCLUSION: The lungs are clear. Caprini VTE Risk Assessment Caprini VTE Risk Assessment: No/Low Risk (score <= 1) Caprini Risk Assessment Model: Point Value = 1 Point Value = 2 Point Value = 3 Point Value = 5 Age 41-60 Minor surgery BMI > 25 kg/m2 Swollen legs Varicose veins or History of unexplained or recurrent spontaneous Oral contraceptives or hormone replacement Sepsis (< 1 month) Serious lung disease, including pneumonia (< 1 month) Abnormal pulmonary function Acute myocardial infarction Congestive heart failure (< 1 month) History of inflammatory bowel disease Medical patient at bed rest Age 61-74 Arthroscopic surgery Major open surgery (> 45 min) Laparoscopic surgery (> 45 min) Malignancy Confined to bed (> 72 hours) Immobilizing plaster cast Central venous access Age >= 75 History of VTE Family history of VTE Factor V Leiden Prothrombin [id number] Lupus anticoagulant Anticardiolipin antibodies Elevated serum homocysteine Heparin-induced thrombocytopenia Other congenital or acquired thrombophilia Stroke (< 1 month) Elective arthroplasty Hip, pelvis, or leg fracture Acute spinal cord injury (< 1 month) Prophylaxis Regimen: Total Risk Factor Score Risk Level Prophylaxis Regimen 0-1 Low Early ambulation 2 Moderate Order ONE of the following: *Sequential Compression Device (SCD) *Heparin 5000 units SQ BID 3-4 Higher Order ONE of the following medications: *Heparin 5000 units SQ TID *Enoxaparin/Lovenox 40 mg SQ daily (WT < 150 kg, CrCl > 30 mL/min) *Enoxaparin/Lovenox 30 mg SQ daily (WT < 150 kg, CrCl > 10-29 mL/min) *Enoxaparin/Lovenox 30 mg SQ BID (WT < 150 kg, CrCl > 30 mL/min) AND/OR *Sequential Compression Device (SCD) 5 or more Highest Order ONE of the following medications: *Heparin 5000 units SQ TID (Preferred with Epidurals) *Enoxaparin/Lovenox 40 mg SQ daily (WT < 150 kg, CrCl > 30 mL/min) *Enoxaparin/Lovenox 30 mg SQ daily (WT < 150 kg, CrCl > 10-29 mL/min) *Enoxaparin/Lovenox 30 mg SQ BID (WT < 150 kg, CrCl > 30 mL/min) AND *Sequential Compression Device (SCD) Assessment and Plan - Plan //Intentional overdose. = Reportedly overdosed on metoprolol. Received glucagon in the ER. Will place on telemetry. Consider. Suicide precautions. Consult psychiatry. //Coronary artery disease status post CABG //Hyperlipidemia = Continue home medications including aspirin, losartan. Patient was most recently on Coreg 1 month ago. Will have nursing verify home medications. //Diabetes mellitus. Glucose acceptable on admission = Is on Lantus 30 units daily at home Diabetic diet, insulin sliding scale. Will place on 8 units of Levemir twice daily here. Monitor sugars. //Alcohol abuse. Canales elevated at 68 on admission. Patient counseled against use. Patient denies any history of alcohol withdrawal. Will monitor for possible withdrawal. Discussed Condition With: Patient, nurse, ED physician. H&P: Quality - VTE Deep Vein Thrombosis/Pulmonary Embolism Present on Admission: No
[2018-02-08] MEDS ORDERED: LORazepam 1 MG Tablet PO PRN (07:44)
[2018-02-08] MEDS ORDERED: Haloperidol Inj 5 MG/ML Ampul IV.PUSH PRN (07:44)
[2018-02-08] MEDS: Sod Chloride 0.9% Inj 1,000 ML IV.CONT SCH ×2 (08:05→18:04)
[2018-02-08] MEDS ORDERED: Insulin Detemir Inj 1,000 UNIT/10 ML Vial SQ SCH ×3 (09:00→21:00)
[2018-02-08] MEDS: Insulin NovoLOG Aspart Correctional Sugar Inj SQ SCH ×4 (10:07→22:14)
[2018-02-08] MEDS: Divalproex 500 MG ER Tablet PO SCH (10:08)
[2018-02-08] MEDS: Sodium Chloride 0.9% 2 ML Flush BID IV.FLUSH SCH ×2 (10:09→22:15)
--- NOTE | 2018-02-08 10:25 | P.PN ---
Subjective Interval history: Follow-up on patient with intentional overdose with metoprolol. Patient seen and examined. Patient states he does well. Denies any fever or chills. He denies any palpitations, dizziness, chest pain, nausea, vomiting, shortness of breath or abdominal pain. Sitter is at the bedside. Physical Exam Vital signs: Vital Signs 02/07/18 18:03 02/07/18 18:10 02/07/18 19:09 Temperature Pulse Rate 83 83 81 Respiratory Rate 16 12 13 Blood Pressure 119/71 119/71 119/84 Pulse Oximetry 99 96 97 02/07/18 22:31 02/08/18 00:00 02/08/18 04:00 Temperature 97.9 F Pulse Rate 75 75 70 Respiratory Rate 15 15 16 Blood Pressure 126/74 126/74 145/86 H Pulse Oximetry 99 99 95 02/08/18 07:35 Temperature 98.6 F Pulse Rate 63 Respiratory Rate 20 Blood Pressure 130/84 Pulse Oximetry 96 Intake & Output 02/07/18 02/08/18 02/08/18 18:59 06:59 18:59 Intake Total 1000 / 1000 899 / 899 Output Total 1100 / 1100 Balance -100 / -100 899 / 899 Weight 85.729 kg 85.729 kg Intake: IV 1000 / 1000 899 / 899 NS Inj 1,000 ML @ 100 mls/hr IV 899 / 899 .CONT .Q10H SEB Rx#:[id number] NS Inj 1,000 ML @ Wide Open IV. 1000 / 1000 SIG BOLUS ONE Rx#:[id number] Oral 0 / 0 Output: Urine 1100 / 1100 Other: Weight On Admission 85.729 kg Narrative: GENERAL: WDWN male patient, INAD. Awake and alert. Pleasant and cooperative. Sitter is at the bedside. SKIN: Warm and dry. HEENT: Atraumatic. Normocephalic. Pupils equal and round. No scleral icterus. No injection or drainage. No nasal bleeding or discharge. Mucous membranes pink and moist. NECK: Trachea midline. CARDIOVASCULAR: Regular rate and rhythm. RESPIRATORY: No accessory muscle use. Clear to auscultation. Breath sounds equal bilaterally. GASTROINTESTINAL: Abdomen soft, non-tender, nondistended. +BS. MUSCULOSKELETAL: Extremities without clubbing, cyanosis, or edema. No obvious deformities. NEUROLOGICAL: Awake and alert. No obvious cranial nerve deficits. Motor grossly within normal limits. Able to move all extremities spontaneously. Normal speech. PSYCHIATRIC: Calm and cooperative. Results - Labs CBC & Chem 7: 02/08/18 04:10 02/08/18 04:10 Laboratory Results - last 24 hr 02/07/18 02/07/18 02/07/18 18:25 18:25 18:25 WBC 5.6 RBC 3.80 L Hgb 12.1 L Hct 35.7 L MCV 94.0 MCH 31.9 MCHC 33.9 RDW 13.6 Plt Count 168 MPV 8.3 Neut % (Auto) 46.6 Lymph % (Auto) 44.8 H [place] % (Auto) 6.7 Eos % (Auto) 1.2 Baso % (Auto) 0.7 Neut # (Auto) 2.6 Lymph # (Auto) 2.5 [place] # (Auto) 0.4 Eos # (Auto) 0.1 Baso # (Auto) 0.0 WBC Differential . Differential Comment Auto diff final PT INR APTT Sodium 133 L Potassium 3.7 Chloride 98 Carbon Dioxide 20.8 L Anion Gap 14 BUN 14 Creatinine 1.38 H Estimated GFR 54 L POC Glucose Random Glucose 207 H Calcium 7.8 L Phosphorus Magnesium Total Bilirubin 0.3 AST 23 ALT 27 Alkaline Phosphatase 76 Total Protein 6.7 Albumin 3.3 L TSH 2.300 Salicylates Less than 1.7 L Urine Opiates Screen Acetaminophen Less than 3.0 L Ur Barbiturates Screen Valproic Acid Ur Amphetamines Screen U Benzodiazepines Scrn Urine Cocaine Screen U Cannabinoids Screen Serum Alcohol 68 H 02/07/18 02/07/18 02/07/18 18:25 19:35 20:26 WBC RBC Hgb Hct MCV MCH MCHC RDW Plt Count MPV Neut % (Auto) Lymph % (Auto) [place] % (Auto) Eos % (Auto) Baso % (Auto) Neut # (Auto) Lymph # (Auto) [place] # (Auto) Eos # (Auto) Baso # (Auto) WBC Differential Differential Comment PT 10.7 INR 1.1 APTT 20.5 L Sodium Potassium Chloride Carbon Dioxide Anion Gap BUN Creatinine Estimated GFR POC Glucose Random Glucose Calcium Phosphorus Magnesium Total Bilirubin AST ALT Alkaline Phosphatase Total Protein Albumin TSH Salicylates Urine Opiates Screen Neg Acetaminophen Ur Barbiturates Screen Neg Valproic Acid 14 L Ur Amphetamines Screen Neg U Benzodiazepines Scrn Neg Urine Cocaine Screen Neg U Cannabinoids Screen Neg Serum Alcohol 02/08/18 02/08/18 02/08/18 00:21 04:10 04:10 WBC 5.0 RBC 4.07 L Hgb 13.0 Hct 38.0 L MCV 93.4 MCH 32.0 MCHC 34.3 RDW 14.1 Plt Count 145 L MPV 8.4 Neut % (Auto) 41.7 Lymph % (Auto) 46.9 H [place] % (Auto) 8.6 H Eos % (Auto) 2.0 Baso % (Auto) 0.8 Neut # (Auto) 2.1 Lymph # (Auto) 2.3 [place] # (Auto) 0.4 Eos # (Auto) 0.1 Baso # (Auto) 0.0 WBC Differential . Differential Comment Auto diff final PT INR APTT Sodium 138 Potassium 4.1 Chloride 104 Carbon Dioxide 24.8 Anion Gap 9 BUN 12 Creatinine 1.04 Estimated GFR 75 L POC Glucose 150 H Random Glucose 164 H Calcium 7.9 L Phosphorus 3.4 Magnesium 1.8 Total Bilirubin AST ALT Alkaline Phosphatase Total Protein Albumin 3.0 L TSH Salicylates Urine Opiates Screen Acetaminophen Ur Barbiturates Screen Valproic Acid Ur Amphetamines Screen U Benzodiazepines Scrn Urine Cocaine Screen U Cannabinoids Screen Serum Alcohol 02/08/18 08:03 WBC RBC Hgb Hct MCV MCH MCHC RDW Plt Count MPV Neut % (Auto) Lymph % (Auto) [place] % (Auto) Eos % (Auto) Baso % (Auto) Neut # (Auto) Lymph # (Auto) [place] # (Auto) Eos # (Auto) Baso # (Auto) WBC Differential Differential Comment PT INR APTT Sodium Potassium Chloride Carbon Dioxide Anion Gap BUN Creatinine Estimated GFR POC Glucose 217 H Random Glucose Calcium Phosphorus Magnesium Total Bilirubin AST ALT Alkaline Phosphatase Total Protein Albumin TSH Salicylates Urine Opiates Screen Acetaminophen Ur Barbiturates Screen Valproic Acid Ur Amphetamines Screen U Benzodiazepines Scrn Urine Cocaine Screen U Cannabinoids Screen Serum Alcohol - Imaging Impressions Abdomen X-Ray 02/07/18 18:18 CONCLUSION: Questionable faint calcification measuring 12 mm projecting over the upper pole the right kidney. Chest X-Ray 02/07/18 18:18 CONCLUSION: The lungs are clear. Assessment and Plan - Plan 52-year-old male with a history of coronary artery disease, diabetes, depression , PTSD who presents secondary to intentional overdose, reportedly with 5 tablets of metoprolol. Intentional overdose Depression Cluster B personality traits Reportedly overdosed on metoprolol. Received glucagon in the ER. UDS neg Valproic acid level low at 14 -Patient evaluated by psychiatry, feels most recent suicidal gesture was more related to attention seeking with manipulation than real suicidal intention. Identifiable cluster B traits. To be started on Depakote, trazodone and Effexor. Bailey act lifted. Does not meet criteria for admission. -Continuous cardiac monitoring Coronary artery disease status post CABG Cardiomyopathy CXR neg Echo 2016 EF 40-45%, diffuse hypokinesis appears euvolemic -Continue home medications including aspirin, losartan. -Begin Coreg 3.125mg BID -ASA daily -Monitor for evidence of fluid overload Diabetes mellitus. Glucose acceptable on admission Is on Lantus 30 units daily at home -Blood sugars running mid 200s. Increase Levemir to 10 units twice daily -Continue Accu-Cheks and insulin sliding scale Alcohol abuse. Alcohol elevated at 68 on admission. Patient counseled against use. Patient denies any history of alcohol withdrawal. -[facility] protocol -MVI/thiamine daily -Monitor for signs of withdrawal DVT prophylaxis -bilateral SCDs Code Status: FULL Discussed Condition With: patient, nursing staff, Dr. Brown
--- NOTE | 2018-02-08 13:48 | P.CONPSY ---
Provisional Diagnosis Admission Date: February 07, 2018 22:06 [place] I.: Adjustment disorder with depressed mood, PTSD, major depressive disorder [place] II.: Cluster B personality traits, rule out borderline personality [place] III.: Diabetes, hypertension History of Present Illness Service: ER Primary Care Provider: [facility] Family Provider: [facility] History of Present Illness: The patient is a 52-year-old man, domiciled alone in [facility], , unemployed, , 100% service-connected, with psychiatric history of PTSD , depressive disorder, alcohol use disorder, over 10 psychiatric hospitalizations, last hospitalization was here in [place] in December 2017 under the care of Dr. Harkins, documentation reviewed, outpatient care with the SD, he is on Depakote 500 mg twice daily, Effexor 150 mg, trazodone 100 mg, Seroquel 200 mg at bedtime, multiple suicidal attempts, para suicidal behavior, self cutting, poor impulse control, with medical history of diabetes mellitus, neuropathy, hypertension, CHF, atrial fibrillation, coronary artery disease, [facility] ongoing substernal type chest pain times several week duration described as stabbing in intensity over 8 and associated with bilateral numbness to the fingers, shortness of breath and fatigue without any diaphoresis. Patient states about 10 days ago he had a 2D echo with a known EF of 35%, and since then he has had worsening chest pain. States he is having difficulty ambulating. Patient is quite anxious, and states over the past weekend on Tuesday12/31/17 he was so frustrated with his life that he started cutting his left wrist. Initial cardiac enzyme and EKG were unremarkable. Patient was consulted to psychiatry to address suicidal behavior, who presents secondary to intentional overdose, reportedly with 5 tablets of metoprolol. Documentation was reviewed, patient was seen for psychiatric evaluation. He is calm, cooperative, pleasant. The patient reports that yesterday he was very upset because he feels that the [facility] is not [facility], he has been trying to engage in an inpatient alcohol detox, they have been trying to admit him, but apparently they had not done it for lack of beds. he also has been upset with the [facility] because they had removed 30 % of his service connection. He says he is much better now, his movement is improved, clinically sober. He also clarifies that he took about 3-5 metoprolol "I was drinking alcohol and disinhibited, but I did not wanted to , I wanted to impress the [facility]". At this moment the patient denies suicidal and homicidal ideation, he denies visual and auditory hallucinations. The patient is future oriented, stating that he needs help for his alcoholism, he needs help for his social problems. He is oriented x3, no attention deficit, no further twitching of consciousness. PPHX:100% service-connected, with psychiatric history of PTSD, depressive disorder, alcohol use disorder, over 10 psychiatric hospitalizations, last hospitalization was here in [place] in December 2017 under the care of Dr. Harkins , documentation reviewed, outpatient care with the SD, he is on Depakote 500 mg twice daily, Effexor 150 mg, trazodone 100 mg, Seroquel 200 mg at bedtime, multiple suicidal attempts, para suicidal behavior, self cutting, poor impulse control PMHx: medical history of diabetes mellitus, neuropathy, hypertension, CHF, atrial fibrillation, coronary artery disease, Family Hx: Mother and father were both alcoholic Substance Hx: Patient drinks alcohol every day, he drinks between 6-12 beers per day. He denies use of illegal drugs. Social Hx: The patient was born and raised in [place], domiciled alone in [facility], , unemployed, , 100% service-connected, he has 2 kids, a boy of 14 years old, care of 20 years old, but they are not connected. Review of Systems All other systems reviewed negative except as stated in HPI Constitutional: Denies anorexia, Denies body ache(s), Denies chills, Denies daytime sleepiness, Denies excessive sweating, Denies fatigue, Denies fever(s), Denies headache(s), Denies increased appetite, Denies lack of energy, Denies malaise, Denies night sweats, Denies weakness, Denies weight gain, Denies weight loss, Denies other Eyes: Denies blind spots, Denies blurry vision, Denies bulging eyes, Denies change in vision, Denies double vision, Denies discharge, Denies dry eyes, Denies floaters, Denies irritation, Denies itchy eyes, Denies loss of vision, Denies pain, Denies requires corrective lenses, Denies sensitivity to light, Denies other Ears, Nose, Mouth, and Throat: Denies abnormal hearing, Denies bleeding gums, Denies bad breath, Denies change in voice, Denies dental pain, Denies difficulty swallowing, Denies dizziness, Denies dry mouth, Denies ear discharge , Denies ear pain, Denies facial pain, Denies headache(s), Denies hearing loss, Denies hoarseness, Denies lip swelling, Denies nosebleed, Denies mouth lesions, Denies mouth pain, Denies nasal congestion, Denies nasal discharge, Denies nasal obstruction, Denies nasal trauma, Denies neck lump, Denies neck pain, Denies nose pain, Denies pain with swallowing, Denies poor balance, Denies post nasal drip, Denies ringing in the ears, Denies sinus pain, Denies sinus pressure , Denies sore throat, Denies throat swelling, Denies tongue swelling, Denies other Cardiovascular: Denies chest pain, Denies chest pain at rest, Denies chest pain with activity, Denies excessive sweating, Denies fainting, Denies fast heart rate, Denies foot swelling, Denies generalized swelling, Denies irregular heart rhythm, Denies leg pain with activity, Denies leg sores, Denies leg swelling, Denies lightheadedness, Denies radiating jaw, neck or arm pain, Denies rapid, pounding, or irregular heartbeat, Denies shortness of breath, Denies shortness of breath with activity, Denies shortness of breath when lying down, Denies shortness of breath causing sudden awakening, Denies slow heart rate, Denies other Respiratory: Denies change in phlegm color, Denies chest congestion, Denies cough, Denies coughing up blood, Denies excessive phlegm production, Denies pain on inspiration, Denies pain with cough, Denies shortness of breath, Denies shortness of breath with activity, Denies snoring, Denies stridor, Denies wheezing, Denies other Gastrointestinal: Denies abdominal pain, Denies belching, Denies black, tarry stools, Denies bloating, Denies bright, red blood in stools, Denies change in bowel habits, Denies constant urge to pass stool, Denies change in stools, Denies coffee ground vomit, Denies constipation, Denies cramping, Denies difficulty swallowing, Denies excessive passing of gas, Denies feeling full early, Denies heartburn, Denies incontinent of stools, Denies loose stools, Denies nausea, Denies pain with swallowing, Denies vomiting, Denies vomiting blood, Denies other Genitourinary: Denies blood in semen, Denies blood in urine, Denies decreased urination, Denies difficulty urinating, Denies difficulty with ejaculations, Denies erectile dysfunction, Denies genital lesions, Denies genital pain, Denies painful urination, Denies side pain, Denies frequent nighttime urination , Denies painful ejaculations, Denies penile discharge, Denies scrotal swelling , Denies testicle lump, Denies testicle pain, Denies urinary frequency, Denies urinary hesitancy, Denies urinary incontinence, Denies urinary urgency, Denies other Musculoskeletal: Denies abnormal walking, Denies back pain, Denies body aches, Denies decreased muscle mass, Denies deformity, Denies joint pain, Denies joint swelling, Denies limited joint movement, Denies loss of height, Denies muscle cramps, Denies muscle weakness, Denies neck pain, Denies numbness, Denies radiating pain into limb, Denies stiffness, Denies tingling, Denies other Neurologic: Denies abnormal hearing, Denies abnormal movements, Denies abnormal speech, Denies abnormal walking, Denies behavioral changes, Denies burning sensations, Denies confusion, Denies dizziness, Denies fainting, Denies frequent falls, Denies headache(s), Denies lack of coordination, Denies localized weakness, Denies loss of vision, Denies memory loss, Denies numbness, Denies other visual disturbances, Denies radiating pain, Denies restless legs, Denies convulsions, Denies seizure-like activity, Denies sensory deficit, Denies tingling, Denies tingling/numbness/burning sensations, Denies tremor(s), Denies unsteadiness, Denies weakness, Denies other Psychiatric: Denies abnormal sleep pattern, Denies anxiety, Denies behavioral changes, Denies change in appetite, Denies change in sex drive, Denies confusion , Denies depression, Denies difficulty concentrating, Denies hearing things others do not hear, Denies hopelessness, Denies irritability, Denies lack of enjoyment, Denies memory loss, Denies mood swings, Denies panic attacks, Denies paranoia, Denies seeing things others do not see, Denies sensing things others do not sense, Denies tactile hallucinations, Denies thoughts of hurting/killing others, Denies thoughts of hurting/killing yourself, Denies other Endocrine: Denies cold intolerance, Denies excessive sweating, Denies flushing, Denies heat intolerance, Denies increased hunger, Denies increased thirst, Denies increased urination, Denies rapid, pounding, or irregular heartbeat, Denies other Hematologic/Lymphatic: Denies easy bleeding, Denies easy bruising, Denies enlarged lymph nodes, Denies other PMFSH - History History Provided By: Patient - Medical History Medical History: Medical History (Last Reviewed 02/08/18 @ 09:14 by Bharat Garcia) Toe amputation status Alcohol abuse BPH (benign prostatic hyperplasia) CAD (coronary artery disease) CHF (congestive heart failure) COPD (chronic obstructive pulmonary disease) Depression Diabetes GERD (gastroesophageal reflux disease) HTN (hypertension) Hyperlipidemia IBS (irritable bowel syndrome) Osteoarthritis PTSD (post-traumatic stress disorder) - Surgical History Surgical History: Surgical History (Last Reviewed 02/08/18 @ 09:14 by Bharat Garcia) History of back surgery S/P cholecystectomy Hx of CABG - Family History Family History: Family History (Last Reviewed 02/07/18 @ 18:15 by Topher Trejo) Other Family history of heart cancer Family history of heart disease - Tobacco History Second Hand Smoke Exposure: No Tobacco Use In Past 30 Days: No Smoking Status: Never smoker - Alcohol History How Often Do You Have a Drink Containing Alcohol: 4 or more times a week - Substance Use History Substance History: No History of Abuse - Substance Use Type Marijuana Status: Early Remission Crack/Cocaine Status: Early Remission - Travel History Recent Travel in the [place] Within the Last 8 Weeks: No Recent Travel Out of the Country Within the Last 8 Weeks: No - Immunization History Tetanus Immunization: <5 Years Tetanus Immunization Year if Known: 2014 Hx Influenza Vaccine This Season: No Medications and Allergies Active Medications: Active Medications Al Hydroxide/Mg Hydroxide (Milk Of Magnesia Liq) 30 ml PO Q12H PRN PRN Reason: Mild Constipation Aspirin (Aspirin Chew) 81 mg PO DAILY [facility] Last Admin: 02/08/18 10:08 Dose: 81 mg Bisacodyl (Dulcolax Supp) 10 mg RECTAL DAILY PRN PRN Reason: SEVERE CONSITIPATION Dextrose (D50w Vial) 50 ml IV.PUSH UNSCH PRN PRN Reason: PER HYPOGLYCEMIA PROTOCOL Divalproex Sodium (Depakote Er) 500 mg PO DAILY [facility] Last Admin: 02/08/18 10:08 Dose: 500 mg Flumazenil (Romazecon Inj) 0.2 mg IV.PUSH Q1M PRN PRN Reason: OVERSEDATION Glucagon (Glucagon Inj) 1 mg OTHER PRN PRN PRN Reason: for Hypoglycemia Protocol Haloperidol Lactate (Haldol Inj) 1 mg IV.PUSH Q15M PRN PRN Reason: for severe agitation Sodium Chloride (Ns Inj) 1,000 mls @ 100 mls/hr IV.CONT .Q10H [facility] Last Admin: 02/08/18 08:05 Dose: 100 mls/hr Insulin Aspart (Novolog Insulin Correctional Sugar Inj) 0 unit SQ ACHS [facility]; Protocol Last Admin: 02/08/18 13:16 Dose: 7 unit Insulin Detemir (Levemir Inj) 8 unit SQ BID [facility] Last Admin: 02/08/18 10:07 Dose: 8 unit Lactulose (Lactulose Liq) 30 ml PO DAILY PRN PRN Reason: SEVERE CONSITIPATION Lorazepam (Ativan) 1 mg PO Q4H PRN PRN Reason: for CIWA 8-10 Lorazepam (Ativan Inj) 2 mg IV.PUSH Q2H PRN PRN Reason: for CIWA 11-14 Lorazepam (Ativan Inj) 2 mg IV.PUSH Q1H PRN PRN Reason: for CIWA 15-20 Lorazepam (Ativan Inj) 2 mg IV.PUSH Q15M PRN PRN Reason: for CIWA > 20 Lorazepam (Ativan Inj) 1 mg IV.PUSH Q4H PRN PRN Reason: for CIWA 8-10 Lorazepam (Ativan) 2 mg PO Q2H PRN PRN Reason: for CIWA 11-14 Losartan Potassium (Cozaar) 100 mg PO DAILY [facility] Last Admin: 02/08/18 10:08 Dose: 100 mg Sennosides (Senokot) 17.2 mg PO Q12H PRN PRN Reason: Moderate Constipation Sodium Chloride (Ns Flush) 2 ml IV.FLUSH BID [facility] Last Admin: 02/08/18 10:09 Dose: Not Given Sodium Chloride (Ns Flush) 2 ml IV.FLUSH PRN PRN PRN Reason: FLUSH AFTER USING IV ACCESS Allergies Allergy/AdvReac Type Severity Reaction Status Date / Time Sulfa (Sulfonamide Allergy Mild Rash Verified 01/02/18 13:27 Antibiotics) Home Medications Medication Instructions Recorded Confirmed Type divalproex 500 mg PO DAILY 01/02/18 02/07/18 History insulin aspart U-100 8 unit SUB-Q QPM 01/02/18 02/07/18 History insulin glargine 30 unit SUB-Q DAILY 01/02/18 02/07/18 History losartan 100 mg PO DAILY 01/02/18 02/07/18 History trazodone 100 mg PO DAILY 01/02/18 02/07/18 History aspirin 81 mg PO DAILY 02/07/18 02/07/18 History Exam Vital signs: Vital Signs 02/07/18 18:03 02/07/18 18:10 02/07/18 19:09 Temperature Pulse Rate 83 83 81 Respiratory Rate 16 12 13 Blood Pressure 119/71 119/71 119/84 Pulse Oximetry 99 96 97 02/07/18 22:31 02/08/18 00:00 02/08/18 04:00 Temperature 97.9 F Pulse Rate 75 75 70 Respiratory Rate 15 15 16 Blood Pressure 126/74 126/74 145/86 H Pulse Oximetry 99 99 95 02/08/18 07:35 02/08/18 07:50 02/08/18 11:10 Temperature 98.6 F Pulse Rate 63 69 77 Respiratory Rate 20 Blood Pressure 130/84 Pulse Oximetry 96 02/08/18 11:46 Temperature 98.4 F Pulse Rate 63 Respiratory Rate 18 Blood Pressure 133/85 Pulse Oximetry 98 Intake & Output 02/07/18 02/08/18 02/08/18 18:59 06:59 18:59 Intake Total 1000 / 1000 899 / 899 Output Total 1100 / 1100 Balance -100 / -100 899 / 899 Weight 85.729 kg 85.729 kg Intake: IV 1000 / 1000 899 / 899 NS Inj 1,000 ML @ 100 mls/hr IV 899 / 899 .CONT .Q10H [facility] Rx#:[id number] NS Inj 1,000 ML @ Wide Open IV. 1000 / 1000 SIG BOLUS ONE Rx#:[id number] Oral 0 / 0 Output: Urine 1100 / 1100 Other: Weight On Admission 85.729 kg Mental Status Examination Appearance: Appropriate Consciousness: Alert Orientation: x4 Motor Activity: Normal gait Speech: Unremarkable Language: Adequate Fund of Knowledge: Adequate Attention and Concentration: Adequate Memory: Unremarkable Mood: Appropriate Affect: Appropriate Thought Process & Associations: Intact Thought Content: Appropriate Hallucination Type: None Delusion Type: None Suicidal Ideation: No Suicidal Plan: No Suicidal Intention: No Homicidal Ideation: No Homicidal Plan: No Homicidal Intention: No Insight: Adequate Judgment: Adequate Assessment and Plan - Plan Plan: Estimated LOS: [] days On my psychiatric evaluation today the patient does not present any concerning, significant or acute objective or subjective evidence of depressive symptoms, anxiety, dl and psychosis. The patient denies suicidal and homicidal ideation, visual and auditory hallucinations. The patient is future oriented, compromise and committed for treatment of alcoholism, hopeful that he can get back his 100% service connection. He has an excellent outpatient psychiatric care. This patient does not meet criteria for involuntary psychiatric admission at this moment. It seems to me that recent suicidal gesture was more related with attention seeking and with manipulation that was a real suicidal intention. Patient has identifiable cluster B traits. Extensive support, motivational psych education provided. I will restart Depakote 500 mg twice daily, trazodone 100 mg Effexor 150 Berny. DAVIDWA protocol. Patient is psychiatrically cleared to continue medical treatment. Bailey act will be lifted Justification for Continued Inpatient Stay: Please, lift the Bailey act
[2018-02-08] MEDS ORDERED: traZODone 100 MG Tablet PO SCH (23:30)
[2018-02-09] MEDS: Sod Chloride 0.9% Inj 1,000 ML IV.CONT SCH (03:34)
[2018-02-09 07:37] VITALS: BP 148/94; RESP 16; TEMP 97.8; O2SAT 96
[2018-02-09 08:01] VITALS: PULSE 73
--- NOTE | 2018-02-09 08:17 | P.PN ---
Subjective Interval history: Follow-up on patient with intentional overdose with metoprolol. Patient seen and examined. Patient states he feels good today. He denies any suicidal ideation. He states he has close psychiatric follow-up as an outpatient. He denies any dizziness, headache, lightheadedness, vision changes, numbness/ tingling, weakness, nausea, vomiting, chest pain or abdominal pain. He is hoping he can be discharged today. Physical Exam Vital signs: Vital Signs 02/08/18 11:10 02/08/18 11:46 02/08/18 16:00 Temperature 98.4 F 98.6 F Pulse Rate 77 63 72 Respiratory Rate 18 20 Blood Pressure 133/85 147/94 H Pulse Oximetry 98 98 02/08/18 18:49 02/08/18 20:00 02/09/18 00:00 Temperature 98.3 F 98.0 F Pulse Rate 79 72 63 Respiratory Rate 16 20 Blood Pressure 132/86 145/83 H Pulse Oximetry 96 97 02/09/18 04:00 02/09/18 07:36 02/09/18 08:00 Temperature 98.4 F 97.8 F Pulse Rate 77 76 73 Respiratory Rate 21 16 Blood Pressure 125/76 148/94 H Pulse Oximetry 98 96 Intake & Output 02/08/18 02/09/18 02/09/18 18:59 06:59 18:59 Intake Total 1898 / 189 1000 / 1000 Output Total 800 / 800 Balance 1898 / 1898 200 / 200 Weight 86.2 kg Intake: IV 189 / 1899 1000 / 1000 NS Inj 1,000 ML @ 100 mls/hr IV 1898 / 1898 1000 / 1000 .CONT .Q10H [facility] Rx#:[id number] Output: Urine 800 / 800 Other: # Voids 2 # Bowel Movements 1 Narrative: GENERAL: WDWN male patient, INAD. Awake and alert. Appears comfortable. SKIN: Warm and dry. HEENT: Atraumatic. Normocephalic. Pupils equal and round. No scleral icterus. No injection or drainage. No nasal bleeding or discharge. Mucous membranes pink and moist. NECK: Trachea midline. CARDIOVASCULAR: Regular rate and rhythm. RESPIRATORY: No accessory muscle use. Clear to auscultation. Breath sounds equal bilaterally. GASTROINTESTINAL: Abdomen soft, non-tender, nondistended. +BS. MUSCULOSKELETAL: Extremities without clubbing, cyanosis, or edema. No obvious deformities. NEUROLOGICAL: Awake and alert. No obvious cranial nerve deficits. Motor grossly within normal limits. Able to move all extremities spontaneously. Normal speech. PSYCHIATRIC: Calm and cooperative. Results - Labs CBC & Chem 7: 02/08/18 04:10 02/08/18 04:10 Laboratory Results - last 24 hr 02/08/18 02/08/18 02/08/18 13:02 18:01 21:56 POC Glucose 261 H 216 H 270 H 02/09/18 07:30 POC Glucose 171 H Assessment and Plan - Plan 52-year-old male with a history of coronary artery disease, diabetes, depression , PTSD who presents secondary to intentional overdose, reportedly with 5 tablets of metoprolol. Intentional overdose Depression Cluster B personality traits Reportedly overdosed on metoprolol. Received glucagon in the ER. UDS neg Valproic acid level low at 14 -Patient evaluated by psychiatry, feels most recent suicidal gesture was more related to attention seeking with manipulation than real suicidal intention. Identifiable cluster B traits. To be started on Depakote, trazodone and Effexor. Bailey act lifted. Does not meet criteria for admission. -Continuous cardiac monitoring -02/09 patient denies any suicidal ideation Coronary artery disease status post CABG Cardiomyopathy CXR neg Echo 2016 EF 40-45%, diffuse hypokinesis appears euvolemic -Continue home medications including aspirin, losartan. -continue Coreg 3.125mg BID -ASA daily -Monitor for evidence of fluid overload Diabetes mellitus. Glucose acceptable on admission Is on Lantus 30 units daily at home -Blood sugars running mid 200s. Increase Levemir to 12 units twice daily. -Continue Accu-Cheks and insulin sliding scale Alcohol abuse. Alcohol elevated at 68 on admission. Patient counseled against use. Patient denies any history of alcohol withdrawal. -[facility] protocol -MVI/thiamine daily -Monitor for signs of withdrawal - no evidence of withdrawal DVT prophylaxis -bilateral SCDs Discharge patient to home Condition on discharge: Stable Heart healthy diabetic diet as tolerated Ad Dee activity Rx written: Coreg, Depakote and Effexor Follow-up with primary care physician, visual basic developer and psychiatrist Code Status: FULL Discussed Condition With: patient, nursing staff, Dr. Brown, Dr. Saunders
[2018-02-09] MEDS ORDERED: Multivitamin/Minerals Therapeutic Tablet PO SCH (09:00)
[2018-02-09] MEDS ORDERED: traZODone 100 MG Tablet PO SCH (09:00)
[2018-02-09] MEDS ORDERED: Insulin Detemir Inj 1,000 UNIT/10 ML Vial SQ SCH (09:00)
[2018-02-09] MEDS: Insulin NovoLOG Aspart Correctional Sugar Inj SQ SCH (09:38)
[2018-02-09] MEDS: Sodium Chloride 0.9% 2 ML Flush BID IV.FLUSH SCH (09:39)
[2018-02-09] MEDS: Divalproex 500 MG ER Tablet PO SCH (09:40)
== END 2018-02-09 12:13 | disposition home or self-care (01) ==
LOC: NEDA 18:01 → NEPE 18:01 → NEPHCDU 23:02
PROVIDERS: ADMIT Family Medicine; ATTEND Family Medicine
DX: E78.5 Hyperlipidemia, unspecified; Z88.2 Allergy status to sulfonamides; S60.812A Abrasion of left wrist, initial encounter; I42.9 Cardiomyopathy, unspecified; R00.2 Palpitations; I50.9 Heart failure, unspecified; K21.9 Gastro-esophageal reflux disease without esophagitis; I11.0 Hypertensive heart disease with heart failure; Z90.49 Acquired absence of other specified parts of digestive tract; F43.12 Post-traumatic stress disorder, chronic; I25.10 Atherosclerotic heart disease of native coronary artery without angina pectoris; J44.9 Chronic obstructive pulmonary disease, unspecified; Z79.82 Long term (current) use of aspirin; F32.9 Major depressive disorder, single episode, unspecified; E78.00 Pure hypercholesterolemia, unspecified; Z95.1 Presence of aortocoronary bypass graft; Z79.4 Long term (current) use of insulin; K58.9 Irritable bowel syndrome, unspecified; Z82.49 Family history of ischemic heart disease and other diseases of the circulatory system; E11.40 Type 2 diabetes mellitus with diabetic neuropathy, unspecified; I48.91 Unspecified atrial fibrillation; F10.20 Alcohol dependence, uncomplicated; N40.0 Benign prostatic hyperplasia without lower urinary tract symptoms; T44.7X1A Poisoning by beta-adrenoreceptor antagonists, accidental (unintentional), initial encounter; M19.90 Unspecified osteoarthritis, unspecified site